=== PATIENT | female | born 1985 | race Caucasian/White ===

== ENCOUNTER 2019-12-15 16:06 | Emergency (ER) | payer BC ==
--- OUTSIDE RECORDS SUMMARY | 2019-12-15 16:40 | XMS REPORT | Continuity of Care Document ---
:1985 Author Organization [facility] t Address [address] [place] [address] Care Team Providers Name Role Phone Dinora HELLEN Attending Clinician Problems Condition Condition Condition Status Onset Resolution Last Treating Co mments Source Name Details Category Date Date Treatment Clinician Date Polycystic Polycystic Problem Active [facility] ovarian ovarian [facility] syndrome syndrome [facility] Allergic Allergic Problem [facility]initis [facility] Iron Iron Problem Active [facility] deficiency deficiency Flavia kes - anemia, anemia, Memoria unspecifie unspecifie l d iron d iron Outpati deficiency deficiency en t anemia anemia Clinics type type Controlled Controlled Problem Active [facility] type 2 type 2 [facility] - diabetes diabetes Memori a mellitus mellitus l without without Outpati complicati complicati en t on, on, Clinics without without long-term long-term current current use of use of insulin insulin HTN HTN Problem Active [facility] (hypertens (hypertens Flavia kes - ion), ion), Memoria benign benign l Outpati ent Clinics Microalbum Microalbum Problem Active [facility] inuria inuria [facility] Dysmenorrh Dysmenorrh Problem Active [facility] ea ea [facility] Other Other Problem Active [facility] specified specified Luke s - bacterial bacterial Placido armand agents as agents as l the cause the cause Outp ati of of ent diseases diseases Clinic s classified classified elsewhere elsewhere Pelvic Pelvic Problem Active [facility] pain pain [facility] Acute Acute Problem Active [facility] vaginitis vaginitis Luke [facility] - Memoria l [facility] Venous Venous Problem Active [facility] insufficie insufficie Flavia kes - ncy of ncy of Memoria both lower both lower l extremitie extremitie Ou tpati s s ent Clinics Dry eyes, Dry eyes, Problem Active [facility] bilateral bilateral [facility] s - Memoria l [facility] Subclinica Subclinica Problem Active [facility] l l [facility] - hypothyroi hypothyroi Me moria dism dism l [facility]ics Mixed Mixed Problem Active [facility] hyperlipid hyperlipid Flavia kes - emia emia Memoria l [facility] Depression Depression Problem Active [facility] with with [facility] - anxiety anxiety Memoria l [facility] Daytime Daytime Problem Active [facility] somnolence somnolence Flavia kes - Memoria l [facility] Leukocytos Leukocytos Diagnosis Active [facility] is, is, [facility] - unspecifie unspecifie Me moria d type d type l [facility] ent Clinics Obstructiv Obstructiv Problem Active [facility] e sleep e sleep [facility] - apnea apnea Memoria (adult) (adult) l (pediatric (pediatric Ou tpati ) ) ent Clinics Well adult Well adult Diagnosis Active [facility] on routine on routine [facility] check check l [facility] Morbid Morbid Diagnosis Active [facility] (severe) (severe) [facility] - obesity obesity Memoria due to due to l excess excess [facility] calories calories ent Clinics Body mass Body mass Diagnosis Active [facility] index index [facility] - (BMI) (BMI) Memoria 40.0-44.9, 40.0-44.9, l adult adult [facility] Dependence Dependence Diagnosis Active [facility] on other on other [facility] - enabling enabling Memori a machines machines l and and [facility] devices devices ent Clinics CRP CRP Diagnosis Active [facility] elevated elevated [facility] ent Clinics Fatigue, Fatigue, Diagnosis Active [facility] unspecifie unspecifie Flavia kes - d type d type Memoria l [facility] ent Clinics Multiple Multiple Diagnosis Active [facility] joint pain joint pain Flavia kes - Memoria l [facility] ent Clinics Allergies, Adverse Reactions, Alerts Allergy Allergy Status Severity Reaction(s) Onset Inactive Treating Comm ents Source Name Type Date Date Clinician Keflex Adverse Active Info Not [facility] Reaction [facility] Azithrom Adverse Active Info Not [facility] ycin Reaction Available [facility] Amoxicil Adverse Active Info Not [facility] jamison Reaction Available [facility] Bactrim Adverse Active Info Not [facility] Reaction Available [facility] Medications Ordered Filled Start Stop Current Ordering Indication Dosage Frequency Signature Comments Components Source Medication Medication Date Date Medication? Clinician (SIG) Name Name Losartan Losartan Yes Michael [address] Potassium Potassium [place] [facility] - Memoria l [facility] ent Clinics Hydrochloro Hydrochloro Yes Michael [address] [facility] thiazide thiazide [place] in the Luke s - morning [facility] ent Clinics Losartan Losartan Yes Michael TAKE ONE [facility] Potassium-H Potassium-H [place] TABLET BY [facility]ukes - CTZ CTZ MOUTH Memoria DAILY l [facility] ent Clinics Seasonique Seasonique Yes Michael not [facility] [place] defined [facility] - [facility] l [facility] ent Clinics Singulair Singulair Yes Michael [address] [facility] [place] [facility] - [facility] l [facility] ent Clinics Restasis Restasis Yes Michael [address] [facility] [place] into [facility]ukes - affected Memoria eye l [facility] ent Clinics Azelastine Azelastine Yes Michael 1-[address] HCl HCl [place] in each [facility]ukes - nostril Memoria l [facility] ent [facility] Zoloft Zoloft Yes Michael TAKE ONE [facility] [place] TABLET BY [facility]ukes - MOUTH Memoria DAILY l [facility] ent Clinics Zoloft Zoloft Yes Michael 1 tablet [facility] [place] [facility] l [facility] ent Clinics Janumejunume Yes Michael [address] [facility] [place] with meals [facility] - Mem[facility] l [facility] ent Clinics Apri Apri Yes Michael [address] [facility] [place] [facility] ent Clinics Xyzal Xyzal Yes Michael [address] [facility] [place] in the Lukes - evening Memoria l [facility] ent Clinics Procedures This patient has no known procedures. Encounters Start End Encounter Admission Attending Care Care Encounter Source Date/Time Date/Time Type Type Clinicians Facility Department ID 2019-10-24 2019-10-24 [facility] [id number] [facility] 09:30:00 09:30:00 t [place] [employer] s - Drive [facility] Medicine Medicine Outpati ent Clinics 2019-10-14 2019-10-14 [facility] [id number] [facility] 08:00:00 08:00:00 t [place] [employer] - Firm58 [facility] Medicine Outpati ent Clinics 2019-08-03 2019-08-04 [facility] [id number] 19:40:04 21:50:00 [facility] [id number] Surgical [id number] Specialti [id number] es [address] [place] 2019-07-21 2019-07-21 [facility] [id number] [facility] 08:21:00 08:21:00 t [employer] - Firm58 [facility] Medicine Outpati ent Clinics 2019-07-18 2019-07-18 [facility] [id number] [address] 15:29:00 15:29:00 t [place] [employer] [facility] Medicine Outpati ent Clinics 2019-07-18 2019-07-18 [facility] [id number] [address] 10:15:00 10:15:00 t [place] [employer] - Firm58 [facility] l Medicine Outpati ent Clinics 2019-07-14 2019-07-14 [facility] [id number] [address] 08:43:00 08:43:00 t [place] [employer] - Firm58 [facility] Medicine Medicine Outpati ent Clinics 2019-06-13 2019-06-13 [facility] [id number] [address] 11:05:00 11:05:00 t [place] [employer] - Firm58 [facility] Medicine Outpati ent Clinics 2019-06-10 2019-06-10 [facility] [id number] 14:15:00 14:15:00 t [place] [employer] s - Drive [facility] l Medicine Outpati ent Clinics 2019-05-29 2019-05-29 [facility] [id number] 15:08:00 15:08:[address] Luke s - Drive [facility] Medicine Medicine Outpati ent Clinics 2019-05-16 2019-05-16 [facility] [id number] 09:45:00 09:45:[address] Luke s - Drive [facility] l Medicine Outpati ent Clinics 2019-04-25 2019-04-25 [facility] [id number] [facility] 11:51:00 11:51:[address] Luke s - Drive [facility] Medicine Medicine Outpati ent Clinics 2019-04-18 2019-04-18 [facility] [id number] 09:15:00 09:15:[address] Luke s - Drive [facility] Medicine Outpati ent Clinics 2019-01-29 2019-01-29 [facility] [id number] 12:53:00 12:53:00 t [employer] Luke s - Drive [facility] Medicine Outpati ent Clinics 2019-01-13 2019-01-13 [facility] [id number] 10[facility]33:00 10:33:00 t [employer]58 Luke s - Drive [facility] Medicine Outpati ent Clinics 2019-01-10 2019-01-10 [facility] [id number] 08[facility]45:00 08:45:00 t [employer] Luke s - Drive [facility] Medicine Outpati ent Clinics 2018-10-21 2018-10-21 [facility] [id number] 15:00:00 15:00:[address] Luke s - Drive [facility] Medicine Outpati ent Clinics 2018-10-10 2018-10-10 [facility] [id number] 16:34:00 16:34:[address] Luke s - Drive [facility] l Medicine Outpati ent Clinics 2018-10-02 2018-10-02 [facility] [id number] 14:15:00 14:15:[address] Luke s - Drive [facility] Medicine Outpati ent Clinics 2018-08-30 2018-08-30 [facility] [id number] 09:45:00 09:45:00 t [facility] l Outpati ent Clinics 2018-07-05 2018-07-05 [facility] [id number] [address] 11:00:00 11:00:00 t [place] Lincoln [employer] s - Drive [facility] Medicine l Medicine Outpati ent Clinics 2018-04-11 2018-04-11 [facility] [id number] 11:18:00 11:18:00 t [place] [employer] s - Drive [facility] Medicine l Medicine Outpati ent Clinics 2018-04-05 2018-04-05 [facility] [id number] 08:00:00 08:00:00 t [place] [employer] s - Drive [facility] l Medicine Outpati ent Clinics 2018-04-03 2018-04-03 [facility] [id number] 10:40:00 10:40:00 t [place] [employer] s - Drive [facility] Medicine Outpati ent Clinics 2018-03-08 2018-03-08 [facility] [id number] 10:00:00 10:00:00 t [place] [employer] s - Drive [facility] Medicine Outpati ent Clinics 2018-02-07 2018-02-07 [facility] [id number] 13:59:00 13:59:00 t [facility] l Outpati ent Clinics 2018-01-25 2018-01-25 [facility] [id number] [address] 11:00:00 11:00:00 t [place] [employer] s - Drive [facility] l Medicine Outpati ent Clinics 2018-01-14 2018-01-14 [facility] [id number] 15:55:00 15:55:00 t [place] [employer] s - Drive [facility] l Medicine Outpati ent Clinics 2018-01-11 2018-01-11 [facility] [id number] 11:00:00 11:00:00 t [facility] [place] [facility] l Outpati ent Clinics 2018-01-07 2018-01-07 [facility] [id number] 15:33:00 15:33:00 [facility] 2018-01-04 2018-01-04 [facility] [id number] 16:08:00 16:08:[address] Luke s - Drive [facility] Medicine Outpati ent Clinics 2018-01-03 2018-01-03 [facility] [id number] 08:15:00 08:15:[address] Luke s - Drive [facility] Medicine Outpati ent Clinics 2017-09-19 2017-09-19 [facility] [id number] 08:30:00 08:30:00 t [place] [employer] s - Drive [facility] Medicine Outpati ent Clinics 2017-09-14 2017-09-14 [facility] [id number] 11:44:00 11:44:00 t [place] [employer] Luke s - Drive [facility] Medicine Outpati ent Clinics 2017-09-11 2017-09-11 [facility] [id number] 14:15:00 14:15:00 t [place] [employer] s - Drive [facility] Medicine Outpati ent Clinics Results This patient has no known results.
--- OUTSIDE RECORDS SUMMARY | 2019-12-15 16:40 | XMS REPORT ---
:1985 Author Organization [employer] Care Team Providers Name Role Phone Michael Huston Provider Role Unavailable Allergies No Known Allergies Problems Problem Type Condition Code Onset Dates Condition Statu s Problem Acute vaginitis N76.0 Active Problem Dysmenorrhea N94.6 Active Problem Other specified bacterial agents as B96.89 Active the cause of diseases classified elsewhere Problem Leukocytosis, unspecified type D72.829 Active Problem Depression with anxiety F41.8 Acti ve Problem Daytime somnolence R40.0 Active Problem Dry eyes, bilateral H04.123 Active Problem Venous insufficiency of both lower I87.2 Active extremities Problem Mixed hyperlipidemia E78.2 Active Problem Subclinical hypothyroidism E03.9 A ctive Problem HTN (hypertension), benign I10 A ctive Problem Polycystic ovarian syndrome E28.2 Active Problem Allergic rhinitis J30.9 Active Problem Controlled type 2 diabetes mellitus E11.9 Active without complication, without long-term current use of insulin Problem Microalbuminuria R80.9 Active Problem Iron deficiency anemia, unspecified D50.9 Active iron deficiency anemia type Problem Pelvic pain R10.2 Active Medications No Known Medications Results No Known Results Summary Purpose [employer] Submission
--- OUTSIDE RECORDS SUMMARY | 2019-12-15 16:41 | XMS REPORT ---
:1985 Author Organization [employer] Care Team Providers Name Role Phone Ethan Hustonh Provider Role Unavailable Allergies, Adverse Reactions, Alerts Substance Reaction Event Type Keflex Info Not Available Drug Allergy Bactrim Info Not Available Drug Allergy Azithromycin Info Not Available Drug Allergy Amoxicillin Info Not Available Drug Allergy Problems Problem Type Condition Code Onset Dates Condition Statu s Assessment Allergic rhinitis J30.9 Active Assessment Dry eyes, bilateral H04.123 Active Assessment Microalbuminuria R80.9 Active Assessment Iron deficiency anemia, unspecified D50.9 Active iron deficiency anemia type Assessment Obstructive sleep apnea (adult) G47.33 Active (pediatric) Assessment Mixed hyperlipidemia E78.2 Active Assessment Subclinical hypothyroidism E03.9 A ctive Assessment Controlled type 2 diabetes mellitus E11.9 Active without complication, without long-term current use of insulin Assessment HTN (hypertension), benign I10 A ctive Problem Venous insufficiency of both lower I87.2 Active extremities Assessment Depression with anxiety F41.8 Acti ve Problem Dry eyes, bilateral H04.123 Active Assessment Well adult on routine health check Z00.00 Active Problem Subclinical hypothyroidism E03.9 A ctive Problem Depression with anxiety F41.8 Acti ve Problem Mixed hyperlipidemia E78.2 Active Problem Morbid (severe) obesity due to E66.01 Active excess calories Problem Body mass index (BMI) 40.0-44.9, Z68.41 Active adult Problem HTN (hypertension), benign I10 A ctive Problem Controlled type 2 diabetes mellitus E11.9 Active without complication, without long-term current use of insulin Assessment Body mass index (BMI) 40.0-44.9, Z68.41 Active adult Problem Obstructive sleep apnea (adult) G47.33 Active (pediatric) Problem Leukocytosis, unspecified type D72.829 Active Problem Daytime somnolence R40.0 Active Problem Dependence on other enabling Z99.89 Active machines and devices Problem CRP elevated R79.82 Active Assessment Fatigue, unspecified type R53.83 Ac tive Problem Allergic rhinitis J30.9 Active Assessment Leukocytosis, unspecified type D72.829 Active Problem Microalbuminuria R80.9 Active Assessment CRP elevated R79.82 Active Problem Iron deficiency anemia, unspecified D50.9 Active iron deficiency anemia type Assessment Dependence on other enabling Z99.89 Active machines and devices Problem Polycystic ovarian syndrome E28.2 Active Assessment Morbid (severe) obesity due to E66.01 Active excess calories Problem Pelvic pain R10.2 Active Assessment Multiple joint pain M25.50 Active Problem Other specified bacterial agents as B96.89 Active the cause of diseases classified elsewhere Problem Dysmenorrhea N94.6 Active Problem Acute vaginitis N76.0 Active Medications Medication Code Code Instructions Start End Status Dosage System Date Date Losartan Potassium [facility] 92667721429 50 MG Orally Acti ve 1 tablet Once a day Hydrochlorothiazide [facility] 22527043889 12.5 MG Orally A ctive 1 tablet Once a day in the morning Losartan [facility] 04272119987 50-12.5 MG Active TAKE ONE Potassium-HCTZ TABLET BY MOUTH DAILY Seasonique [facility] [address]-70 Active not defined Singulair [facility] 29559343262 10 MG Orally Active 1 tab let once a day Restasis [facility] 43002270366 0.05 % Active 1 drop Ophthalmic into Twice a day affected eye Azelastine HCl [facility] 67081282789 137 MCG/SPRAY Active 1-2 puff Nasally Twice in each a day nostril Zoloft [facility] 71832076224 100 MG Active TAKE ONE TABLET BY MOUTH DAILY Zoloft [facility] 41767526452 50 MG Orally Active 1 table t Once a day Janumet [facility] 32693997610 50-500 MG Active TAKE ONE TABLET BY MOUTH TWICE A DAY WITH MEALS Janumet [facility] 37762406305 50-500 MG Active 1 tablet Orally Twice a with day meals Apri [facility] 46792312445 0.15-30 MG-MCG Active 1 tab let Orally Once a day Xyzal [facility] 72043738663 5 MG Orally Active 1 tablet Once a day in the evening Results No Known Results Summary Purpose [employer]Works Submission
[2019-12-15 18:20] LABS: Absolute Lymphocytes (CBC) 2.4 K/uL (0.7-4.9); Basophils % 0.3 % (0-1.3); Lymphocytes % 13.8 % (15.3-44.8); MPV 7.7 fL (7.6-11.3); RBC Red Blood Cell Count 5.02 M/uL (3.86-4.86)
[2019-12-15] MEDS ORDERED: NA CHLORIDE 0.9% 1,000 ML ONE (18:41)
[2019-12-15 18:44] LABS: Urine Bacteria 20-50 /HPF (<20); Urine Culture Reflex Order REFLEXED; Urine Mucus 1+ /HPF (NONE SEEN)
[2019-12-15 18:45] LABS: Urine Blood TRACE (NEG); Urine Glucose 2+ (NEG); Urine Protein TRACE (NEG); Urine Specific Gravity >1.030 (1.005-1.030); Urine pH 6.5 (5.0-7.0)
[2019-12-15 18:52] LABS: Barbiturates NEGATIVE (NEGATIVE); Benzodiazepines NEGATIVE (NEGATIVE); Cocaine NEGATIVE (NEGATIVE); METHAMPHETAM NEGATIVE (NEGATIVE); Methadone NEGATIVE (NEGATIVE); Opiates NEGATIVE (NEGATIVE); Phencyclidine NEGATIVE (NEGATIVE); THC Cannibis NEGATIVE (NEGATIVE)
--- NOTE | 2019-12-15 18:57 | RAD REPORT ---
EXAM DESCRIPTION: RAD - Chest Pa And Lat (2 Views) - 12/15/2019 6:52 pm CLINICAL HISTORY: night sweats Chest pain. COMPARISON: CHEST PA AND LAT 2 VIEW dated 11/08/2010 FINDINGS: The lungs are clear. The heart is normal in size. No displaced fractures. IMPRESSION: No acute or concerning finding suspected.
[2019-12-15] MEDS ORDERED: NITROFURAN MACRO 100 MG CAP PO ONE (19:05)
[2019-12-15 19:43] LABS: ALT/SGPT 30 U/L (12-78); AST/SGOT 15 U/L (15-37); Albumin 3.7 g/dL (3.4-5.0); Alkaline Phosphatase 79 U/L (45-117); BUN Blood Urea Nitrogen 13 mg/dL (7-18); Bicarbonate 27 mmol/L (21-32); Bilirubin Direct < 0.1 mg/dL (0-0.2); Bilirubin Total 0.4 mg/dL (0.2-1.0); Glucose Level 124 mg/dL (74-106); Potassium 4.1 mmol/L (3.5-5.1); Protein, Total 7.6 g/dL (6.4-8.2); Sodium Level 137 mmol/L (136-145)
--- NOTE | 2019-12-15 21:44 | ER ---
Nurse's Notes [facility] Name: Nguyen Heath Age: 34 yrs Sex: Female : 1985 Arrival Date: 12/15/2019 Time: 16:07 Bed 18 Private MD: Michael Huston Diagnosis: Urinary tract infection, site not specified;Emotional lability;Depression;Leukocytosis Presentation: 12/14 16:37 Chief complaint: Patient states: "I was having suicidal thoughts since 1529 today.. I ca1 just thought I would just drive my car off the bridge". Denies previous attempts of suicide. "I have thoughts of suicide when I was younger but they put me on meds, right now am still on meds. The thoughts just scared me that I called my friend who is nurse". Coronavirus screen: Proceed with normal triage. Patient denies a cough. Patient denies shortness of breath or difficulty breathing. Patient denies measured and/or subjective temperature greater than 100.4F prior to today's visit. Patient denies travel on a cruise ship or to a country the [facility] currently lists as an affected area. Patient denies contact with known and/or suspected case of COVID-19. Ebola Screen: Patient negative for fever greater than or equal to 101.5 degrees Fahrenheit, and additional compatible Ebola Virus Disease symptoms Patient denies exposure to infectious person. Patient denies travel to an Ebola-affected area in the 21 days before illness onset. No symptoms or risks identified at this time. Initial Sepsis Screen: Does the patient meet any 2 criteria? No. Patient's initial sepsis screen is negative. Does the patient have a suspected source of infection? No. Patient's initial sepsis screen is negative. Risk Assessment: Do you want to hurt yourself or someone else? Patient reports desire/thoughts of hurting themselves or someone else. Provider notified. Onset of symptoms was December 15, 2019 at 15:30. 16:37 Method Of Arrival: Ambulatory ca1 16:37 Acuity: TITO 2 ca1 SOLE LAYER HAND: 16:45 LMP N/A - control method ca1 Historical: - Allergies: 16:45 Bactrim; ca1 16:45 Azithromycin; ca1 16:45 Keflex; ca1 16:45 Amoxicillin; ca1 - Home Meds: 16:45 sertraline 100 mg oral tab 1 tab once daily [Active]; primidone Oral [Active]; ca1 losartan-hydrochlorothiazide 50-12.5 mg oral tab [Active]; Janumet 50-500 mg oral tab [Active]; montelukast oral oral [Active]; - PMHx: 16:45 Anxiety; Depression; Hypertension; ca1 - PSHx: 16:45 None; ca1 - Immunization history:: Adult Immunizations up to date. - Social history:: Smoking status: Patient denies any tobacco usage or history of. Screenin:21 Nutritional screening: No deficits noted. Tuberculosis screening: No symptoms or risk ea factors identified. Fall Risk None identified. 19:30 Abuse screen: Denies threats or abuse. ea Assessment: 19:22 General: Appears in no apparent distress. Behavior is appropriate for age. Pain: Denies ea pain. Neuro: Level of Consciousness is awake, alert, obeys commands, Oriented to person, place, time, situation. Respiratory: Airway is patent Respiratory effort is even, unlabored, Respiratory pattern is regular, symmetrical. Derm: Skin is pink, warm \\T\\ dry. 20:30 Reassessment: Patient and/or family updated on plan of care and expected duration. Pain ea level reassessed. Patient is alert, oriented x 3, equal unlabored respirations, skin warm/dry/pink. 22:09 Reassessment: Patient and/or family updated on plan of care and expected duration. Pain ea level reassessed. Patient is alert, oriented x 3, equal unlabored respirations, skin warm/dry/pink. Discharge instruction given to patient, verbalized the understanding of instruction. Pt left ED ambulatory accompanied by family. Psych: 19:00 Subjective: Patient's mood is sad. Objective: Patient is cooperative, Speech is normal. ea Interventions: Removed personal items and placed in bag. Patient placed in hospital gown. Searched person for dangerous items. Suicide Risk Assessment: Sad Person Scale: Sex of patient: Female: Score 0 points. Age of patient: Score 1 point if patient 15-34. Depression: Score 1 point if signs of depression are present. Rational Thinking: Score 0 point if patient has rational thinking. Social Support: Score 0 if social support is present/available. Safety Checks: Personal items have been removed. Door is open. Visitors are present. Vital Signs: 16:37 BP 138 / 90; Pulse 93; Resp 15 S; Temp 97.6(TE); Pulse Ox 99% on R/A; Weight 106.14 kg ca1 (R); Height 5 ft. 2 in. (157.48 cm) (R); 21:55 BP 128 / 82; Pulse 88; Resp 16; Temp 97.8; Pulse Ox 99% ; ea 16:37 Body Mass Index 42.80 (106.14 kg, 157.48 cm) ca1 ED Course: 16:07 Patient arrived in ED. ag5 16:08 Michael Huston DO is Private Physician. ag5 16:41 Triage completed. ca1 16:45 Sang[facility] Montanez [facility]-C [facility]. snw 16:45 Pat Martin MD is Attending Physician. snw 16:45 Arm band placed on right wrist. ca1 16:53 Martínez Kelsey RN is Primary Nurse. jl7 18:52 Chest Pa And Lat (2 Views) XRAY In Process Unspecified. EDMS 19:21 Patient has correct armband on for positive identification. Placed in gown. Bed in low ea position. Call light in reach. Adult w/ patient. 19:47 called [facility] spoke with Kylie to have a screener evaluate patient. mw2 21:42 Michael Huston DO is Referral Physician. snw 21:49 No provider procedures requiring assistance completed. ea 22:00 IV discontinued, intact, bleeding controlled, No redness/swelling at site. Pressure ea dressing applied. Administered Medications: 18:30 Drug: NS 0.9% 1000 ml Route: IV; Rate: 1 bolus; Site: right antecubital; jl7 20:00 Follow up: Response: No adverse reaction; IV Status: Completed infusion; IV Intake: ea 1000ml 18:59 Drug: Macrobid 100 mg Route: PO; jl7 19:30 Follow up: Response: No adverse reaction ea Intake: 20:00 IV: 1000ml; Total: 1000ml. ea Outcome: 21:43 Discharge ordered by . snw 22:10 Discharged to home ambulatory, with family. ea 22:10 Condition: stable 22:10 Discharge instructions given to patient, Instructed on discharge instructions, follow up and referral plans. medication usage, Demonstrated understanding of instructions, follow-up care, medications, Prescriptions given X 1. 22:10 Patient left the ED. ea Signatures: Dispatcher [employer] EDMS Sangita Montanez, LOCK MAINTENANCE SUPERVISOR-C LOCK MAINTENANCE SUPERVISOR-Csnw Martínez Kelsey RN RN jl7 Kierra England RN RN Ania Blandon mw2 Jessie Granado RN RN ca1 Jada, Geoff ag5
--- NOTE | 2019-12-15 21:44 | EDPHYS ---
Physician Documentation [facility] Name: Nguyen Heath Age: 34 yrs Sex: Female : 1985 Arrival Date: 12/15/2019 Time: 16:07 Bed 18 Private MD: Robel [facility] ED Physician Pat Martin HPI: 12/14 18:50 This 34 yrs old Female presents to ER via Ambulatory with complaints of snw Suicidal Ideation. 18:50 The patient presents to the emergency department with suicide ideation, and the patient snw has a plan, to crash a car. Onset: The symptoms/episode began/occurred suddenly, at 15:30, and became persistent. Past psychiatric history: Prior diagnosis: depression, Psychiatric medications include: Zoloft, Primary psychiatric physician: Dr. Huston is PCP and prescribing MD, no psychiatrist, the patient has not had a prior suicide gesture, the patient does not have a previous inpatient psychiatric history. Associated signs and symptoms: Pertinent positives; depression, suicide ideation. Severity of symptoms: At their worst the symptoms were moderate today. The patient has not experienced similar symptoms in the past. The patient has been recently seen by a physician: the patient's primary care provider, Dr. Mendosa. [facility] DIRECTOR: 16:45 LMP N/A - control method ca1 Historical: - Allergies: 16:45 Bactrim; ca1 16:45 Azithromycin; ca1 16:45 Keflex; ca1 16:45 Amoxicillin; ca1 - Home Meds: 16:45 sertraline 100 mg oral tab 1 tab once daily [Active]; primidone Oral [Active]; ca1 losartan-hydrochlorothiazide 50-12.5 mg oral tab [Active]; Janumet 50-500 mg oral tab [Active]; montelukast oral oral [Active]; - PMHx: 16:45 Anxiety; Depression; Hypertension; ca1 - PSHx: 16:45 None; ca1 - Immunization history:: Adult Immunizations up to date. - Social history:: Smoking status: Patient denies any tobacco usage or history of. ROS: 18:59 Constitutional: Negative for fever, chills, and weight loss, Eyes: Negative for injury, snw pain, redness, and discharge, ENT: Negative for injury, pain, and discharge, Neck: Negative for injury, pain, and swelling, Cardiovascular: Negative for chest pain, palpitations, and edema, Respiratory: Negative for shortness of breath, cough, wheezing, and pleuritic chest pain, Abdomen/GI: Negative for abdominal pain, nausea, vomiting, diarrhea, and constipation, Back: Negative for injury and pain, : Negative for injury, bleeding, discharge, and swelling, MS/Extremity: Negative for injury and deformity, Skin: Negative for injury, rash, and discoloration, Neuro: Negative for headache, weakness, numbness, tingling, and seizure. 18:59 Psych: Positive for depression, suicidal ideation. Exam: 18:29 Constitutional: This is a well developed, well nourished patient who is awake, alert, snw and in no acute distress. Head/Face: Normocephalic, atraumatic. Eyes: Pupils equal round and reactive to light, extra-ocular motions intact. Lids and lashes normal. Conjunctiva and sclera are non-icteric and not injected. Cornea within normal limits. Periorbital areas with no swelling, redness, or edema. ENT: Nares patent. No nasal discharge, no septal abnormalities noted. Tympanic membranes are normal and external auditory canals are clear. Oropharynx with no redness, swelling, or masses, exudates, or evidence of obstruction, uvula midline. Mucous membranes moist. Neck: Trachea midline, no thyromegaly or masses palpated, and no cervical lymphadenopathy. Supple, full range of motion without nuchal rigidity, or vertebral point tenderness. No Meningismus. Chest/axilla: Normal chest wall appearance and motion. Nontender with no deformity. No lesions are appreciated. Cardiovascular: Regular rate and rhythm with a normal S1 and S2. No gallops, murmurs, or rubs. Normal PMI, no JVD. No pulse deficits. Respiratory: Lungs have equal breath sounds bilaterally, clear to auscultation and percussion. No rales, rhonchi or wheezes noted. No increased work of breathing, no retractions or nasal flaring. Abdomen/GI: Soft, non-tender, with normal bowel sounds. No distension or tympany. No guarding or rebound. No evidence of tenderness throughout. Back: No spinal tenderness. No costovertebral tenderness. Full range of motion. Skin: Warm, dry with normal turgor. Normal color with no rashes, no lesions, and no evidence of cellulitis. MS/ Extremity: Pulses equal, no cyanosis. Neurovascular intact. Full, normal range of motion. Neuro: Awake and alert, GCS 15, oriented to person, place, time, and situation. Cranial nerves II-XII grossly intact. Motor strength 5/5 in all extremities. Sensory grossly intact. Cerebellar exam normal. Normal gait. 18:29 Psych: Behavior/mood is pleasant, cooperative, Patient having thoughts of suicide. Plan for suicide is not currently but pt states she has not had SI and it scared her and she phoned a friend and was encouraged to come in for help Judgement / Insight is normal. Vital Signs: 16:37 BP 138 / 90; Pulse 93; Resp 15 S; Temp 97.6(TE); Pulse Ox 99% on R/A; Weight 106.14 kg ca1 (R); Height 5 ft. 2 in. (157.48 cm) (R); 21:55 BP 128 / 82; Pulse 88; Resp 16; Temp 97.8; Pulse Ox 99% ; ea 16:37 Body Mass Index 42.80 (106.14 kg, 157.48 cm) ca1 MDM: 16:54 Patient medically screened. snw 21:46 Data reviewed: vital signs, nurses notes. Data interpreted: Pulse oximetry: on room air snw is 99 %. Interpretation: normal. Counseling: I had a detailed discussion with the patient and/or guardian regarding: the historical points, exam findings, and any diagnostic results supporting the discharge/admit diagnosis, the presence of at least one elevated blood pressure reading (>120/80) during this emergency department visit, lab results, radiology results, the need for outpatient follow up, to return to the emergency department if symptoms worsen or persist or if there are any questions or concerns that arise at home. Response to treatment: the patient's symptoms have markedly improved after treatment, the patient's condition has returned to base line. Other consultation: fitness worker was called and will evaluate the patient's circumstances, [facility] personnel to get appt for pt, recommends outpatient therapy. Pt has strong family support system.. Special discussion: I have referred the patient to see his PCP for further evaluation of high blood pressure. Based on the history and exam findings, there is no indication for further emergent testing or inpatient evaluation. I discussed with the patient/guardian the need to see the program control analyst/oncologist for further evaluation of the symptoms. I discussed with the patient/guardian the need to see the primary care provider for further evaluation of the symptoms. I discussed with the patient/guardian the need to see the psychiatrist for further evaluation of the symptoms. 12/14 17:17 Order name: Acetaminophen; Complete Time: 20:25 [facility] 12/14 17:17 Order name: Basic Metabolic Panel; Complete Time: 20:25 [facility] 12/14 17:17 Order name: CBC with Diff; Complete Time: 18:25 [facility] 12/14 17:17 Order name: ETOH Level; Complete Time: 19:00 [facility] 12/14 17:17 Order name: Hepatic Function; Complete Time: 20:25 [facility] 12/14 17:17 Order name: PT-INR; Complete Time: 18:43 [facility] 12/14 17:17 Order name: Ptt, Activated; Complete Time: 18:43 [facility] 12/14 17:17 Order name: Salicylate; Complete Time: 19:00 [facility] 12/14 17:17 Order name: Urine Drug Screen; Complete Time: 19:00 [facility] 12/14 18:13 Order name: Urine Dipstick--Ancillary (enter results); Complete Time: 18:49 [facility] 12/14 18:13 Order name: Urine --Ancillary (enter results); Complete Time: 18:49 [facility] 12/14 18:26 Order name: Add On-Lab [facility] 12/14 18:28 Order name: Urine Microscopic Only; Complete Time: 18:49 [facility] 12/14 18:34 Order name: Thyroid Stimulating Hormone; Complete Time: 20:25 EDMS 12/14 17:17 Order name: EKG; Complete Time: 17:19 [facility] 12/14 17:17 Order name: EKG - Nurse/Tech; Complete Time: 17:57 [facility] 12/14 17:17 Order name: IV Saline Lock; Complete Time: 17:57 [facility] 12/14 17:17 Order name: Labs collected and sent; Complete Time: 17:57 [facility] 12/14 17:17 Order name: Urine Dipstick-Ancillary (obtain specimen); Complete Time: 17:57 [facility] 12/14 18:28 Order name: Chest Pa And Lat (2 Views) XRAY; Complete Time: 19:03 snw 12/14 18:46 Order name: Urine Culture EDMS Administered Medications: 18:30 Drug: NS 0.9% 1000 ml Route: IV; Rate: 1 bolus; Site: right antecubital; jl7 20:00 Follow up: Response: No adverse reaction; IV Status: Completed infusion; IV Intake: ea 1000ml 18:59 Drug: Macrobid 100 mg Route: PO; jl7 19:30 Follow up: Response: No adverse reaction ea Disposition: 12/15/19 21:43 Discharged to Home. Impression: Urinary tract infection, site not specified, Emotional lability, Depression, Leukocytosis. - Condition is Stable. - Discharge Instructions: Urinary Tract Infection, Adult, Suicidal Feelings: How to Help Yourself, Leukocytosis, Rehydration, Adult, Major Depressive Disorder. - Prescriptions for Macrobid 100 mg Oral Capsule - take 1 capsule by ORAL route every 12 hours for 10 days; 20 capsule. - Medication Reconciliation Form, Thank You Letter, Antibiotic Education, Prescription Opioid Use, Work release form form. - Follow up: Michael Huston DO; When: 1 - 2 days; Reason: Recheck today's complaints, Continuance of care, Re-evaluation by your physician. Follow up: Emergency Department; When: As needed; Reason: Worsening of condition. - Notes: Please see Dr. Huston and [facility] as directed. Please return to ER immediately for worsening symptoms. Addendum: 12/21/2019 02:26 Co-signature as Attending Physician, Pat Martin MD. m a2 Signatures: Dispatcher [employer] EDMI Sangita Montanez, INTEGRATED CIRCUITS INSPECTOR-C INTEGRATED CIRCUITS INSPECTOR-Csnw Martínez Kelsey RN RN jl7 Kierra England RN RN ea Alzahri, Mohammad, MD MD ma2 Jessie Granado RN RN ca1 Corrections: (The following items were deleted from the chart) 12/14 21:44 21:43 12/15/2019 21:43 Discharged to Home. Impression: Urinary tract infection, site snw not specified; Emotional lability; Depression. Condition is Stable. Forms are Medication Reconciliation Form, Thank You Letter, Antibiotic Education, Prescription Opioid Use. Follow up: Michael Huston; When: 1 - 2 days; Reason: Recheck today's complaints, Continuance of care, Re-evaluation by your physician. Follow up: Emergency Department; When: As needed; Reason: Worsening of condition. francine 22:10 21:44 12/15/2019 21:43 Discharged to Home. Impression: Urinary tract infection, site ea not specified; Emotional lability; Depression; Leukocytosis. Condition is Stable. Forms are Medication Reconciliation Form, Thank You Letter, Antibiotic Education, Prescription Opioid Use. Follow up: [facility]; When: 1 - 2 days; Reason: Recheck today's complaints, Continuance of care, Re-evaluation by your physician. Follow up: Emergency Department; When: As needed; Reason: Worsening of condition. w
[2019-12-15 22:30] VITALS: O2SAT 99
[2019-12-15 22:35] VITALS: BP 128/82; TEMP 97.8
--- NOTE | 2019-12-16 10:00 | EKG ---
Test Date: 2019-12-15 Test Time: 17:20:11 Floor [place]: [place] MEASUREMENT RESULTS: Intervals: Rate: 87 CO: 154 QRSD: 86 QT: 360 QTc: 433 [place]: P: 45 CO: 154 QRS: 67 T: 12 INTERPRETIVE STATEMENTS: Normal sinus rhythm Normal ECG No previous ECG available for comparison Electronically Signed On 12-16-19 09:59:02 CDT by Luis Ceballos
== END 2019-12-15 22:10 | disposition home or self-care (01) ==
LOC: ER 16:06
DX: F32.9 Major depressive disorder, single episode, unspecified (principal); R45.86 Emotional lability; I10 Essential (primary) hypertension; Z88.1 Allergy status to other antibiotic agents
CPT/HCPCS: 93005; 87088; 85025; 87086; 80048; 36415; 80320; 80329 ×2; 81025; 85610; 80076; 80307 ×8; 85730; 84443; 71046; 96360; 99284; J7030; 81003; 81015

== ENCOUNTER 2020-07-21 17:20 | Inpatient (IN) | payer BC ==
--- OUTSIDE RECORDS SUMMARY | 2020-07-21 17:22 | XMS REPORT | Continuity of Care Document ---
:1985 Author Organization [facility] t Address [address] [place] [address] Care Team Providers Name Role Phone Lab, Fam Pob I Attending Clinician Unavailable Nurse, Urgent Attending Clinician Unavailable Anastacia BURNS, L Attending Clinician Problems This patient has no known problems. Allergies, Adverse Reactions, Alerts Allergy Allergy Status Severity Reaction(s) Onset Inactive Treating Comm ents Source Name Type Date Date Clinician Keflex Adverse Active Info Not [facility] Reaction Available [facility] Azithrom Adverse Active Info [facility] Reaction Available [facility] Amoxicil Adverse Active Info [facility] Reaction Available [facility] Bactrim Adverse Active Info Not [facility] Reaction Available [facility] Medications Ordered Filled Start Stop Current Ordering Indication Dosage Frequency Signature Comments Components Source Medication Medication Date Date Medication? Clinician (SIG) Name Name Pen Selmer Pen Selmer 2020-0 Yes Michael [address] [facility] 8-07 [place] per Flavi[place] - 00:00: injection Memoria 00 [facility] ent Clinics Procedures This patient has no known procedures. Encounters Start End Encounter Admission Attending Care Care Encounter Source Date/Time Date/Time Type Type Clinicians Facility Department ID 2020-07-20 2020-07-20 Outpatient [facility] [id number] [facility] 2020-07-19 2020-07-19 Laboratory Lab, Deepali [facility] [id number] 10:04:52 10:24:52 Only Fam [facility] [id number] [place] [id number] Professio [id number] nal [address] One 2020-07-19 2020-07-19 Outpatient [facility] [id number] [facility] 2020-07-15 2020-07-15 Outpatient [facility] [id number] [facility] 2020-07-15 2020-07-15 Out[facility] [id number] [facility] 2020-07-10 2020-07-10 Laboratory Nurse, Indu Donnelly [id number] 14:15:51 14:30:44 Only Urgent Pediatric [id number] s and [id number] Adult [id number] Primary [facility] 2020-07-02 2020-07-02 [facility] [id number] 10:06:21 10:21:21 Visit [facility] [id number] Surgical [id number] Specialti [id number] 198 [place] 2020-06-14 2020-06-14 Outpatient [facility] [id number] [facility] 2020-06-03 2020-06-03 Outpatient [facility] [id number] [facility] 2020-05-12 2020-05-12 Outpatient [facility] [id number] [facility] 2020-05-12 2020-05-12 [facility] [id number] [facility] 2020-05-05 2020-05-05 [facility] [id number] [facility] 2020-04-30 2020-04-30 [facility] [id number] [facility] 2020-01-30 2020-01-30 [facility] [id number] [facility] 13[facility]04:00 13:04:00 t [facility] Medicine Outpat[facility] ent Clinics 2020-01-30 2020-01-30 [facility] [id number] 08:30:00 08:30:00 [employer] [facility] Medicine Outpati ent Clinics 2020-01-02 2020-01-02 [facility] [id number] [facility] 08:00:00 08:00:00 t [employer] [facility] Clinics 2019-12-30 2019-12-30 [facility] [id number] [facility] 17:15:00 17:15:00 t [employer] [facility] Medicine l Medicine Outpati ent Clinics 2019-12-15 2019-12-15 [facility] [id number] [facility] 15:44:00 15:44:00 t [facility] l Medicine Outpati ent Clinics 2019-10-24 2019-10-24 [facility] [id number] [facility] 09:30:00 09:30:00 t [employer] [facility] Out[facility] Clinics 2019-10-14 2019-10-14 [facility] [id number] [facility] 08[facility]00:00 08:00:00 t [employer] [facility] Medicine Out[facility] Clinics 2019-07-21 2019-07-21 [facility] [id number] [facility] 08:21:00 08:21:[address] [facility] - [facility] l Medicine Outpati ent Clinics 2019-07-18 2019-07-18 [facility] [id number] 15:29:00 15:29:[address] [facility] - Drive [facility] Medicine l Medicine Outpati ent Clinics 2019-07-18 2019-07-18 [facility] [id number] [facility] 10:15:00 10:15:00 [place] [employer] [facility] - Drive [facility] l Medicine Outpati ent Clinics 2019-07-14 2019-07-14 [facility] [id number] 08:43:00 08:43:00 [place] [employer] - Drive [facility] Medicine l Medicine Outpati ent Clinics 2019-06-13 2019-06-13 [facility] [id number] 11:05:00 11:05:00 [place] [employer] - Drive [facility] Medicine l Medicine Outpati ent Clinics 2019-06-10 2019-06-10 [facility] [id number] 14:15:00 14:15:00 [place] [employer] - Drive [facility] Medicine l Medicine Outpati ent Clinics 2019-05-29 2019-05-29 [facility] [id number] [facility] 15:08:00 15:08:00 [place] [employer] [place] - Drive [facility] Medicine l Medicine Outpati ent Clinics 2019-05-16 2019-05-16 [facility] [id number] 09:45:00 09:45:00 [place] [employer] [facility] - Drive [facility] Medicine l Medicine Outpati ent Clinics 2019-04-25 2019-04-25 [facility] [id number] [facility] 11:51:00 11:51:00 [place] [employer] - Drive [facility] Medicine l Medicine Outpati ent Clinics 2019-04-18 2019-04-18 [facility] [id number] 09:15:00 09:15:00 [place] [employer] [place] - Drive [facility] Medicine l Medicine Outpati ent Clinics 2019-01-29 2019-01-29 [facility] [id number] 12:53:00 12:53:[address] [place] [facility] - Drive [facility] Medicine l Medicine Outpati ent Clinics 2019-01-13 2019-01-13 [facility] [id number] 10:33:00 10:33:[address] [place] - Drive [facility] Medicine Outpat[facility] ent Clinics 2019-01-10 2019-01-10 [facility] [id number] 08:45:00 08:45:00 [place] [employer] [facility] - Drive [facility] Medicine l Medicine Outpati ent Clinics 2018-10-21 2018-10-21 [facility] [id number] [facility] 15:00:00 15:00:00 [place] [employer] - Drive [facility] Medicine Outpati ent Clinics 2018-10-10 2018-10-10 [facility] [id number] 16:34:00 16:34:00 [place] [employer] [facility] - Drive [facility] Medicine l Medicine Outpati ent Clinics 2018-10-02 2018-10-02 [facility] [id number] 14:15:00 14:15:00 [place] [employer] - [place] [facility] Medicine Outpati ent Clinics 2018-08-30 2018-08-30 [facility] [id number] [facility] 09:45:00 09:45:00 [facility]omens [facility] l Outpati ent Clinics 2018-07-05 2018-07-05 [facility] [id number] [facility] 11:00:00 11:00:00 [place] [employer] [facility] - Drive [facility] Medicine Medicine Outpati ent Clinics 2018-04-11 2018-04-11 [facility] [id number] [facility] 11:18:00 11:18:00 [place] [employer] - Drive [facility] Medicine Outpat[facility] ent Clinics 2018-04-05 2018-04-05 [facility] [id number] [facility] 08:00:00 08:00:[address] [place] - Drive [facility] Medicine Medicine Outpati ent Clinics 2018-04-03 2018-04-03 [facility] [id number] 10:40:00 10:40:00 [place] [employer] [facility] - Drive [facility] Medicine Outpati ent Clinics 2018-03-08 2018-03-08 [facility] [id number] 10:00:00 10:00:00 [place] [employer] [facility] - Drive [facility] Medicine Outpati ent Clinics 2018-02-07 2018-02-07 [facility] [id number] [facility] 13:59:00 13:59:00 t [facility] 2018-01-25 2018-01-25 [facility] [id number] [facility] 11:00:00 11:00:00 [place] [employer] [facility] - Drive [facility] Medicine Outpati ent Clinics 2018-01-14 2018-01-14 [facility] [id number] [facility] 15:55:00 15:55:00 [place] [employer] [facility] - Drive [facility] Medicine Outpati ent Clinics 2018-01-11 2018-01-11 [facility] [id number] [facility] 11:00:00 11:00:00 [facility] 2018-01-07 2018-01-07 [facility] [id number] 15:33:00 15:33:00 [facility] 2018-01-04 2018-01-04 [facility] [id number] 16:08:00 16:08:[address] [facility] - [facility] Medicine Outpati ent Clinics 2018-01-03 2018-01-03 [facility] [id number] 08:15:00 08:15:00 [place] [employer] [facility] - Drive [facility] Medicine Outpati ent Clinics 2017-09-19 2017-09-19 [facility] [id number] 08:30:00 08:30:00 [employer] [facility] 2017-09-14 2017-09-14 Outpatient Rudy Grantt [id number] [facility] 11:44:00 11:44:00 [employer] [facility] 2017-09-11 2017-09-11 Outpatient Rudy Monroy [id number] 14:15:00 14:15:00 [employer] [facility] Results This patient has no known results.
--- OUTSIDE RECORDS SUMMARY | 2020-07-21 17:24 | XMS REPORT ---
:1985 Author Organization [facility] Address [address] [place], [place] [place] [address] Care Team Providers Name Role Phone Robel Unavailable [phone] PROBLEMS Type Condition ICD9-CM [id number] Onset Condition SNOMED Code Notes Code Code Dates Status Problem Dysmenorrhea N94.6 Active 608385990 Problem Microalbuminuria R80.9 Active 743157668 Problem Pelvic pain R10.2 Active 09160128 Problem Acute vaginitis N76.0 Active 408168867 Problem Venous I87.2 Active 296471181 insufficiency of both lower extremities Problem Other specified B96.89 Active 80025510 bacterial agents as the cause of diseases classified elsewhere Problem Subclinical E03.9 Active 08835589 hypothyroidism Problem HTN I10 Active 90201829 (hypertension), benign Problem Dry eyes, H04.123 Active 272745554 bilateral Problem Controlled type 2 E11.9 Active 016138882 diabetes mellitus without complication, without long-term current use of insulin Problem Leukocytosis, D72.829 Active 679173072 unspecified type Problem Daytime somnolence R40.0 Active 167305385105 Problem Dependence on Z99.89 Active 429342634 other enabling machines and devices Problem Bilateral carpal G56.03 Active 81683350 tunnel syndrome Problem Depression with F41.8 Active 984311661 anxiety Problem Polycystic ovarian E28.2 Active 22811664 syndrome Problem Non-seasonal J30.89 Active 28186115 allergic rhinitis, unspecified trigger Problem Mixed E78.2 Active 245230735 hyperlipidemia Problem Iron deficiency D50.9 Active 20733284 anemia, unspecified iron deficiency anemia type Problem Allergic rhinitis J30.9 Active 00600986 Problem Body mass index Z68.41 Active 209346888 (BMI) 40.0-44.9, adult Problem Morbid (severe) E66.01 Active 846467463 obesity due to excess calories Problem Obstructive sleep G47.33 Active 09994385 apnea (adult) (pediatric) Problem CRP elevated R79.82 Active 561981909456702 ALLERGIES Allergen (clinical drug Drug/Non Drug Reaction Allergy Type Onset D ate Status ingredient) Allergy documented on EMR cephalexin Keflex([facility] Unknown Drug Allergy Active Code:[address]-43) azithromycin Azithromycin([facility] Unknown Drug Allergy Acti ve Code:[address]-93) amoxicillin Amoxicillin([facility] Unknown Drug Allergy Active Code:[address]-42) sulfamethoxazole / Bactrim([facility] Unknown Drug Allergy Act ember trimethoprim Code:[address]-12) ENCOUNTERS from 1985 to 2020-07-20 Encounter Location Date Provider Diagnosis [facility] [address] [facility] [address] [place], [facility] [place] [address] J01.00 ; Upper respiratory tra ct infection, unspecified typ e J06.9 ; Non-sea earl allergic rhinit is, unspecified tri gger J30.89 ; COVID- 19 U07.1 and Cough R05 IMMUNIZATIONS Vaccine Route Administration Date Status Kenalog (Triamcinolone) IM Intramuscular Jun 10, 2019 Adminis tered Kenalog (Triamcinolone) IM Intramuscular Mar 08, 2018 Adminis tered Kenalog (Triamcinolone) IM Intramuscular September 11, 2017 Adminis tered SOCIAL HISTORY Tobacco Use: Social History Observation Description Date Details (start date - stop date) Never Smoker Sex Assigned At : Social History Observation Description Sex Assigned At Unknown PHQ9 Question Answer Notes Little interest or pleasure in doing things Several days Feeling down, depressed, or hopeless Several days Trouble falling or staying asleep or sleeping too much Sever al days Feeling tired or having little energy Several days Poor appetite or overeating Several days Feeling bad about yourself, or that you are a failure, or lopez ve Several days let yourself or your family down Trouble concentrating on things, such as reading the newspap er Several days or watching television Moving or speaking so slowly that other people could have No t at all noticed; or the opposite, being so fidgety or restless that you have been moving around a lot more than usual Total Score 7 Interpretation Mild Depression Thoughts that you would be better off or of hurting Not at all yourself in some way Depression Screening Question Answer Notes Over the past two weeks, has the PT felt down, depressed, or hopeless? No Over the past two weeks, has the PT felt little interest or pleasure in No doing things? Alcohol Screen Question Answer Notes Did you have a drink containing alcohol in the past year? No Points 0 Interpretation Negative Tobacco Use/Smoking Question Answer Notes Are you a never smoker Sexual History Question Answer Notes Had sex in the past 12 months (vaginal, oral, or anal)? No Have you ever had a Sexually transmitted disease? No REASON FOR REFERRAL No Information VITAL SIGNS Height 62 in Jun, Weight 235 lbs Jun, Temperature 98.7 degrees Fahrenheit Jun, BMI 42.98 kg/m2 Jun, Blood pressure systolic 132 mm Hg Jun, Blood pressure diastolic 70 mm Hg Jun, MEDICATIONS Medication SIG (Take, Route, Notes Start Date End Date Status Frequency, Duration) Seasonique Active Zoloft 100 MG 1.5 tablet Orally Acti ve Once a day for 30 day(s) Restasis 0.05 % 1 drop into affected Active eye Ophthalmic Twice a day for 30 Trazodone HCl 50 MG 1/2 tablet at A ctive bedtime as needed Orally Once a day Doxycycline Hyclate 1 capsule Orally Jun, 5 Jul, 2 Active 100 MG Twice a day for 7 days Abilify 2 MG 1 tablet Orally Once Ac tive a day Primidone 50 MG 1/2 tablet Orally A ctive Twice daiily Xyzal 5 MG 1 tablet in the Active evening Orally Once a day for 30 HydrOXYzine HCl 25 MG 1/2 tablet as needed Active Orally every 8 hrs Janumet 50-500 MG 1 tablet with meals Active Orally Twice a day for 30 Azelastine HCl 137 1-2 puff in each Active MCG/SPRAY nostril Nasally Twice a day for 30 day(s) Singulair 10 MG TAKE ONE TABLET BY A ctive MOUTH DAILY Alpha Lipoic Active Acid-Biotin Losartan 1 tablet Orally Once Acti ve Potassium-HCTZ a day for 30 50-12.5 MG Pen [place] 31G X 6 1 needle per Act ember MM injection subcutaneous once a day for 34 Integra Active Victoza 18 MG/3ML Inject 0.6 mg/day x 1 Active week then 1.2 mg/day. Max 1.8 mg/day Subcutaneous Once a day for 30 Xdiznbnn-Rlyovvrfs-JY 4 drops into affected Dec, Not-Taking 3.5-11015-4 ear Otic Three times a day for 7 days Medrol 4 MG as directed Orally Jun, Jun, A ctive use as directed for 6 days Restasis 0.05 % 1 drop into affected Active eye Ophthalmic Twice a day for 30 days Liletta (52 MG) Active Cinnamon Active Apri 0.15-30 MG-MCG 1 tablet Orally Once Active a day PROCEDURES No Information RESULTS No Results REASON FOR VISIT f/u +Covid, sx MEDICAL (GENERAL) HISTORY Type Description Date Medical History Diabetes Medical History Hypertension Medical History Anemia Medical History Iron deficiency anemia, unspecified iron deficiency anemia type Medical History Controlled type 2 diabetes mellitus with out complication, without long-term current use of insulin Medical History HTN (hypertension), benign Surgical History No Surgical history information Goals Section No Information Health Concerns No Information MEDICAL EQUIPMENT No Information MENTAL STATUS No Information FUNCTIONAL STATUS No Information ASSESSMENTS Encounter Date Diagnosis Assessment Notes Treatment Notes Treatm ent Clinical Notes Jun, Acute With the duration and non-recurrent severity of maxillary symptoms/PE, will sinusitis (ICD-10 treat with - J01.00) doxycycline for 7 days. Side effect discussed with patient. In addition, discussed supportive measures and home remedies for symptomatic relief. Increase hydration. Advised on signs/symptoms to monitor. If able to take, OK to use OTC Tylenol and/or NSAIDs for pain and fever, temporarily. It is important to rest and take your medication as recommended by the doctor. You should clean your hands frequently. You should remain indoors and cover your mouth when coughing. If necessary you may have to wear a mask to keep from infecting others. You should also change your toothbrush within 24-48 hours of starting any antibiotics. Salt water gargles three times a day is recommended for pharyngeal irritation and congestion. Nasal saline sprays three times a day to the nostrils may help with the nasal congestion. You may also take Mucinex OTC for chest congestion. If the symptoms persists or worsen after 24-48 hours especially if taking medication, then you are to call back for reevaluation or go to the ER. Jun, Upper respiratory tract infection, unspecified type (ICD-10 - J06.9) Jun, Non-seasonal allergic rhinitis, unspecified trigger (ICD-10 - J30.89) Jun, COVID-19 (ICD-10 - Instructed patient on U07.1) vitamin supplementation including but not limited to vitamin B, vitamin C, vitamin D along with zinc, Pepcid and Zyrtec. Okay to use otjy-qmv-iunsayz analgesic as needed and use as directed. Encourage to monitor pulse and oxygen, obtained from store. Monitor vitals closely. Advised on signs and symptoms to monitor when to contact clinic and/or visit the nearest ED. Patient vocalized understanding. Jun, Cough (ICD-10 - R05) Jun, Other -- Medication reviewed and updated. -- Dietary and Lifestyle modifications addressed regarding diet, exercise and weight managemen t. -- Treatment options, risks and benefits, side effects reviewed in detail. -- Advised on signs/symptoms to monitor and when to call clinic and/or visit the nearest ER. Patient verbalized understanding and agreeable with plan. PLAN OF TREATMENT Medication Medication Name Sig Start Date Stop Date Doxycycline Hyclate 100 MG 1 capsule Orally Twice a day for 2020 5 Jul, 2020 7 days Treatment Notes Assessment Notes Clinical Notes Acute non-recurrent maxillary With the duration and severity of sinusitis symptoms/PE, will treat with doxycycline for 7 days. Side effect discussed with patient. In addition, discussed supportive measures and home remedies for symptomatic relief. Increase hydration. Advised on signs/symptoms to monitor. If able to take, OK to use OTC Tylenol and/or NSAIDs for pain and fever, temporarily. It is important to rest and take your medication as recommended by the doctor. You should clean your hands frequently. You should remain indoors and cover your mouth when coughing. If necessary you may have to wear a mask to keep from infecting others. You should also change your toothbrush within 24-48 hours of starting any antibiotics. Salt water gargles three times a day is recommended for pharyngeal irritation and congestion. Nasal saline sprays three times a day to the nostrils may help with the nasal congestion. You may also take Mucinex OTC for chest congestion. If the symptoms persists or worsen after 24-48 hours especially if taking medication, then you are to call back for reevaluation or go to the ER. COVID-19 Instructed patient on vitamin supplementation including but not limited to vitamin B, vitamin C, vitamin D along with zinc, Pepcid and Zyrtec. Okay to use yxtk-bvp-seeenpf analgesic as needed and use as directed. Encourage to monitor pulse and oxygen, obtained from store. Monitor vitals closely. Advised on signs and symptoms to monitor when to contact clinic and/or visit the nearest ED. Patient vocalized understanding. Treatment Notes Test Name Order Date Chest Pa And Lat (2 Views) 2020-07-20 Next Appt Details prn Reason: Provider Name:Michael Huston, 2020-07-30 08:00:00 AM, [address], [address], [place], [address], Provider Name:Michael Huston, 2020-08-06 08:00:00 AM, [address], [place], [address], Insurance Providers Payer Name Payer Address Payer Insured Patient Coverage Cover age End Phone Name Relationship to Start Date Mason e Insured Daniel Maloney [address] [phone] Issac Heath [facility] [address] [id number]
--- OUTSIDE RECORDS SUMMARY | 2020-07-21 17:24 | XMS REPORT ---
:1985 Author Organization [facility] Address [address] Rao, [address] [place] [address] Care Team Providers Name Role Phone Robel Unavailable [phone] PROBLEMS Type Condition ICD9-CM HJW04-SI Onset Condition SNOMED Code Notes Code Code Dates Status Problem Dysmenorrhea N94.6 Active 639919809 Problem Microalbuminuria R80.9 Active 823528034 Problem Pelvic pain R10.2 Active 95370380 Problem Acute vaginitis N76.0 Active 249585683 Problem Venous I87.2 Active 519577712 insufficiency of both lower extremities Problem Other specified B96.89 Active 98510283 bacterial agents as the cause of diseases classified elsewhere Problem Subclinical E03.9 Active 66443955 hypothyroidism Problem HTN I10 Active 01912839 (hypertension), benign Problem Dry eyes, H04.123 Active 155234001 bilateral Problem Controlled type 2 E11.9 Active 047127710 diabetes mellitus without complication, without long-term current use of insulin Problem Leukocytosis, D72.829 Active 106284277 unspecified type Problem Daytime somnolence R40.0 Active 226270182198 Problem Dependence on Z99.89 Active 202708354 other enabling machines and devices Problem Bilateral carpal G56.03 Active 80959413 tunnel syndrome Problem Depression with F41.8 Active 107065786 anxiety Problem Polycystic ovarian E28.2 Active 47765460 syndrome Problem Non-seasonal J30.89 Active 31865280 allergic rhinitis, unspecified trigger Problem Mixed E78.2 Active 815662189 hyperlipidemia Problem Iron deficiency D50.9 Active 55553861 anemia, unspecified iron deficiency anemia type Problem Allergic rhinitis J30.9 Active 71977648 Problem Body mass index Z68.41 Active 713170886 (BMI) 40.0-44.9, adult Problem Morbid (severe) E66.01 Active 412981792 obesity due to excess calories Problem Obstructive sleep G47.33 Active 07528099 apnea (adult) (pediatric) Problem CRP elevated R79.82 Active 486875802619625 ALLERGIES Allergen (clinical drug Drug/Non Drug Reaction Allergy Type Onset D ate Status ingredient) Allergy documented on EMR cephalexin Keflex([facility] Unknown Drug Allergy Active Code:[address]-26) azithromycin Azithromycin([facility] Unknown Drug Allergy Acti ve Code:[address]-07) amoxicillin Amoxicillin([facility] Unknown Drug Allergy Active Code:[address]-60) sulfamethoxazole / Bactrim([facility] Unknown Drug Allergy Act ember trimethoprim Code:[address]-95) ENCOUNTERS from 1985 to 2020-07-20 Encounter Location Date Provider Diagnosis [address], [place] [address] IMMUNIZATIONS Vaccine Route Administration Date Status Kenalog [...] REASON FOR REFERRAL No Information VITAL SIGNS No information MEDICATIONS Medication SIG (Take, Route, Notes Start [...] Hyclate 1 capsule Orally Jun, 5 Jul, Active 100 MG Twice a day for 7 days Abilify 2 MG 1 tablet Orally Once Ac tive a day Primidone 50 MG 1/2 tablet Orally A ctive Twice daiily Xyzal 5 MG 1 tablet in the Active evening Orally Once a day for 30 HydrOXYzine HCl 25 MG 1/2 tablet as needed Active Orally every 8 hrs Junumet 50-500 MG 1 tablet with meals Active Orally Twice a day for 30 Azelastine HCl 137 1-2 puff in each Active MCG/SPRAY nostril Nasally Twice a day for 30 day(s) Singulair 10 MG TAKE ONE TABLET BY A ctive MOUTH DAILY Alpha Lipoic Active Acid-Biotin Losartan 1 tablet Orally Once Acti ve Potassium-HCTZ a day for 30 50-12.5 MG Pen [place] 31G X 6 1 needle per Act ember MM injection subcutaneous once a day for 34 Integra Active Victoza 18 MG/3ML Inject 0.6 mg/day x 1 Active week then 1.2 mg/day. Max 1.8 mg/day Subcutaneous Once a day for 30 Mnfhudgv-Lqqyyoikz-QS 4 drops into affected Dec, Not-Taking 3.5-02548-4 ear Otic Three times a day for [...] Information RESULTS No Results REASON FOR VISIT SIck MEDICAL (GENERAL) HISTORY Type Description Date Medical [...] No Information FUNCTIONAL STATUS No Information ASSESSMENTS No Information PLAN OF TREATMENT Medication Medication Name Sig Start Date Stop Date Doxycycline Hyclate 100 MG 1 capsule Orally Twice a day for 2020Jul, 7 days Next Appt Details Provider Name:Michael Huston, 2020-07-30 08:00:00 AM, [address], [place], [address], Provider Name:Michael Huston, 2020-08-06 08:00:00 AM, [address], [place], [address], Insurance Providers Payer Name Payer Address Payer Insured Patient Coverage Cover age End Phone Name Relationship to Start Date Mason e Insured Daniel Maloney [address] [phone] Issac Heath [facility] [address] P [id number]
[2020-07-21] MEDS ORDERED: ACETAMINOPHEN 500 MG TAB ONE (18:02)
[2020-07-21] MEDS ORDERED: METHYLPREDNISOLONE 40 MG INJ ONE (20:00)
[2020-07-21 20:17] LABS: Absolute Lymphocytes (CBC) 1.3 K/uL (0.7-4.9); Basophils % 0.4 % (0-1.3); Hematocrit 47.4 % (36.0-45.0); Lymphocytes % 12.5 % (15.3-44.8); RBC Red Blood Cell Count 5.99 M/uL (3.86-4.86)
[2020-07-21 20:41] LABS: ALT/SGPT 43 U/L (12-78); AST/SGOT 29 U/L (15-37); Albumin 3.2 g/dL (3.4-5.0); Alkaline Phosphatase 93 U/L (45-117); BUN Blood Urea Nitrogen 18 mg/dL (7-18); Bicarbonate 31 mmol/L (21-32); Bilirubin Direct 0.1 mg/dL (0-0.2); Bilirubin Total 0.5 mg/dL (0.2-1.0); Ferritin 254.3 ng/mL (8-388); Glucose Level 149 mg/dL (74-106); Magnesium 2.2 mg/dL (1.8-2.4); NT PRO-BNP 19 pg/mL (<125); Potassium 3.7 mmol/L (3.5-5.1); Protein, Total 7.8 g/dL (6.4-8.2); Sodium Level 137 mmol/L (136-145); Troponin (Emerg Dept Use Only) < 0.02 ng/mL (0.0-0.045)
[2020-07-21 20:43] LABS: Protime INR 1.1
--- NOTE | 2020-07-21 21:03 | RAD REPORT ---
EXAM DESCRIPTION: [facility] Single View07/21/2020 7:35 pm CLINICAL HISTORY: Cough COMPARISON: July 20 FINDINGS: No change in the bilateral pulmonary opacities The heart is normal size IMPRESSION: No change in the bilateral pulmonary opacities probably pneumonia
[2020-07-21 21:04] LABS: Urine Blood 3+ (NEG); Urine Glucose NEGATIVE (NEG); Urine Protein 3+ (NEG); Urine Specific Gravity 1.025 (1.005-1.030)
--- NOTE | 2020-07-21 21:14 | ER ---
Nurse's Notes [facility] Name: Nguyen Heath Age: 35 yrs Sex: Female : 1985 Arrival Date: 07/21/2020 Time: 17:22 Bed 30 Private MD: Michael Huston Diagnosis: Coronavirus infection, unspecified;Pneumonia due to other specified infectious organisms;Hypoxemia Presentation: 07/21 17:42 Chief complaint: Patient states: SOB, cough, fatigue, COVID-19 positive. Coronavirus aa5 screen: Client reports previous positive COVID test result. Ebola Screen: Patient negative for fever greater than or equal to 101.5 degrees Fahrenheit, and additional compatible Ebola Virus Disease symptoms. Initial Sepsis Screen: Does the patient meet any 2 criteria? Temp <36.0*C (96.8*F)) or > 38.3*C (100.9*F). HR > 90 bpm. Yes Does the patient have a suspected source of infection? Yes:. Risk Assessment: Do you want to hurt yourself or someone else? Patient reports no desire to harm self or others. Onset of symptoms was June 2020. 17:42 Acuity: TITO 2 aa5 17:42 Method Of Arrival: Ambulatory aa5 20:19 Coronavirus screen: Client denies travel out of the [place] in the last 14 days. Client sg presents with at least one sign or symptom that may indicate coronavirus-19. Standard/surgical mask placed on the client. Provider contacted for isolation considerations. Client reports previous positive COVID test result. Date of collection: July 19, 2020. 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 - Social history:: Smoking status: Patient denies any tobacco usage or history of. Assessment: 19:20 General: Appears in no apparent distress. well groomed, well developed, well nourished, sg Behavior is calm, cooperative, appropriate for age. Pain: Complains of pain in body aches Quality of pain is described as aching. Neuro: Level of Consciousness is awake, alert, obeys commands, Oriented to person, place, time, situation, Moves all extremities. Facial symmetry appears normal. Cardiovascular: Capillary refill is brisk in bilateral fingers Patient's skin is warm and dry. Rhythm is sinus tachycardia Chest pain is denied. Respiratory: Reports shortness of breath on exertion Airway is patent Respiratory effort is even, unlabored, Respiratory pattern is regular, symmetrical, Breath sounds are clear. GI: Abdomen is round non-distended, Reports normal bowel habits, tolerance of fluids, tolerance of food. : No signs and/or symptoms were reported regarding the genitourinary system. EENT: No signs and/or symptoms were reported regarding the EENT system. Derm: Skin is pink, warm \T\ dry. Musculoskeletal: Circulation, motion, and sensation intact. Range of motion: intact in all extremities. 22:00 Reassessment: Patient appears in no apparent distress at this time. Patient and/or sg family updated on plan of care and expected duration. Pain level reassessed. Patient is alert, oriented x 3, equal unlabored respirations, skin warm/dry/pink. Patient denies pain at this time. Patient states feeling better. Vital Signs: 17:42 BP 126 / 86; Pulse 122; Resp 20 S; Temp 101.0(O); Pulse Ox 90% on R/A; Weight 107.05 kg aa5 (R); Height 5 ft. 2 in. (157.48 cm) (R); 20:18 BP 122 / 80; Pulse 98; Resp 20; Temp 99.9; Pulse Ox 98% on 3 lpm NC; sg 20:40 Pulse 104; Resp 22; Pulse Ox 86% on R/A; sg 17:42 Body Mass Index 43.16 (107.05 kg, 157.48 cm) aa5 20:40 pt ambulatory to ER restroom, reports SOB, o2 saturation 82% room AIR sg ED Course: 17:22 Patient arrived in ED. ag5 17:22 Michael Huston DO is Private Physician. ag5 17:40 Arm band placed on. aa5 17:43 Triage completed. aa5 19:00 Ike Albarado PA is PHCP. cp 19:00 Pat Martin MD is Attending Physician. cp 19:07 Attending Physician role handed off by Pat Martin MD cp 19:07 Shaq Sauceda MD is Attending Physician. cp 19:15 Michael Patel, RN is Primary Nurse. sg 19:20 Patient has correct armband on for positive identification. Bed in low position. Call sg light in reach. Side rails up X2. environmental monitoring specialist on. Pulse ox on. NIBP on. Verbal reassurance given. Head of bed elevated. 20:00 Initial lab(s) drawn, by me, sent to lab. Inserted saline lock: 20 gauge in right sg antecubital area, using aseptic technique. Blood collected. 20:10 XRAY Chest (1 view) In Process Unspecified. EDMS 21:13 Lenin Wilkerson is Hospitalizing Provider. cp 23:26 No provider procedures requiring assistance completed. Patient admitted, IV remains in sg place. intact, No redness/swelling at site. Administered Medications: 17:45 Drug: Tylenol 1000 mg Route: PO; aa5 20:20 Follow up: Response: No adverse reaction; Temperature is decreased sg 20:00 Drug: SOLU-Medrol 80 mg Route: IVP; Site: right antecubital; sg 21:00 Follow up: Response: No adverse reaction sg Outcome: 21:14 Decision to Hospitalize by Provider. cp 23:26 Admitted to Med/surg accompanied by tech, via wheelchair, room 412, with oxygen, with sg chart, Report called to DEE Tierney 23:26 Condition: stable 23:26 Instructed on the need for admit, safety practices, Demonstrated understanding of instructions, follow-up care. 23:28 Patient left the ED. sg Signatures: Dispatcher [employer] EDMS Michael Patel RN RN sg Chelle Santo RN RN aa5 Ike Albarado PA PA cp Gaskin, Ajare ag5
--- NOTE | 2020-07-21 21:14 | EDPHYS ---
Physician Documentation [facility] Name: Nguyen Heath Age: 35 yrs Sex: Female : 1985 Arrival Date: 07/21/2020 Time: 17:22 Bed 30 Private MD: Michael Huston ED Physician Shaq Sauceda HPI: 07/21 19:25 This 35 yrs old Female presents to ER via Ambulatory with complaints of cp Shortness Of Breath, COVID+. 19:25 The patient has shortness of breath with light activity. cp 19:25 Onset: The symptoms/episode began/occurred gradually, and became worse today. Duration: cp The symptoms are continuous, and are steadily getting worse. 19:25 The patient's shortness of breath is aggravated by light activity. Associated signs and cp symptoms: Pertinent positives: fever, Pertinent negatives: chest pain, productive cough. 19:25 Patient reports testing positive for COVID-19 2 days ago with symptoms starting last cp week. 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 - Social history:: Smoking status: Patient denies any tobacco usage or history of. ROS: 19:30 Constitutional: Positive for fever, Negative for poor PO intake. cp 19:30 Eyes: Negative for injury, pain, redness, and discharge. cp 19:30 ENT: Positive for ear pain, Negative for sore throat, difficulty swallowing, difficulty cp handling secretions. 19:30 Cardiovascular: Negative for chest pain, edema, palpitations. 19:30 Respiratory: Positive for cough, "sounds productive", shortness of breath, at rest. 19:30 Abdomen/GI: Negative for abdominal pain, nausea, vomiting, and diarrhea. 19:30 Back: Negative for radiated pain. cp 19:30 Neuro: Negative for altered mental status, dizziness, headache, weakness. cp 19:30 All other systems are negative. Exam: 19:35 Constitutional: The patient appears in no acute distress, alert, awake, cp non-diaphoretic, non-toxic, well developed, well nourished, obese. 19:35 Head/Face: Normocephalic, atraumatic. cp 19:35 Eyes: Periorbital structures: appear normal, Conjunctiva: normal, no exudate, no injection, Sclera: no appreciated abnormality, Lids and lashes: appear normal, bilaterally. 19:35 ENT: External ear(s): are unremarkable, Nose: is normal, Posterior pharynx: Airway: no evidence of obstruction, patent. 19:35 Neck: ROM/movement: is normal, is supple, without pain, no range of motions limitations, no meningismus. 19:35 Chest/axilla: Inspection: normal, Palpation: is normal, no crepitus, no tenderness. 19:35 Cardiovascular: Rate: tachycardic, Rhythm: regular, Edema: is not appreciated. 19:35 Respiratory: the patient does not display signs of respiratory distress, Respirations: normal, no use of accessory muscles, no retractions, labored breathing, is not present, Breath sounds: bronchial sounds, that are mild, are heard diffusely, stridor, is not appreciated, wheezing: is not appreciated. 19:35 Abdomen/GI: Inspection: abdomen appears normal, Palpation: abdomen is soft and non-tender, in all quadrants. 19:35 Back: pain, is absent, ROM is normal. 19:35 Skin: no rash present. 19:35 Neuro: Orientation: to person, place \\T\\ time. Mentation: is normal, Motor: moves all fours, strength is normal. 20:00 ECG was reviewed by the Attending Physician. cp Vital Signs: 17:42 BP 126 / 86; Pulse 122; Resp 20 S; Temp 101.0(O); Pulse Ox 90% on R/A; Weight 107.05 kg aa5 (R); Height 5 ft. 2 in. (157.48 cm) (R); 20:18 BP 122 / 80; Pulse 98; Resp 20; Temp 99.9; Pulse Ox 98% on 3 lpm NC; sg 20:40 Pulse 104; Resp 22; Pulse Ox 86% on R/A; sg 17:42 Body Mass Index 43.16 (107.05 kg, 157.48 cm) aa5 20:40 pt ambulatory to ER restroom, reports SOB, o2 saturation 82% room AIR sg MDM: 19:18 Patient medically screened. cp 21:00 Data reviewed: vital signs, nurses notes, lab test result(s), EKG, radiologic studies, cp plain films, and as a result, I will admit patient. 21:00 Test interpretation: by ED physician or midlevel provider: ECG, plain radiologic cp studies. Physician consultation: David ALEMAN was contacted at 21:00, regarding admission, to the medical/surgical unit. patient's condition, and will see patient in ED, shortly. ED course: VS noted. Patient continues to have SOB with exertion with observed oxygen sats at 86% on RA after ambulating in ED. 07/21 19:22 Order name: Basic Metabolic Panel; Complete Time: 20:43 cp 07/21 19:22 Order name: CBC with Diff; Complete Time: 20:43 cp 07/21 20:44 Interpretation: Normal except: RBC 5.99; HGB 15.7; HCT 47.4; MCV 79.3; MCH 26.2; RDW cp 16.6; MAE% 81.4; LYM% 12.5; NEUT A 8.5. 07/21 19:22 Order name: LFT's; Complete Time: 20:43 cp 07/21 19:22 Order name: Magnesium; Complete Time: 20:43 cp 07/21 19:22 Order name: NT PRO-BNP; Complete Time: 20:43 cp 07/21 19:22 Order name: PT-INR; Complete Time: 20:50 cp 07/21 19:22 Order name: Troponin (emerg Dept Use Only); Complete Time: 20:43 cp 07/21 19:22 Order name: Influenza Screen (a \\T\\ B) cp 07/21 19:22 Order name: CRP cp 07/21 19:22 Order name: Ferritin; Complete Time: 20:43 cp 07/21 19:22 Order name: D-Dimer; Complete Time: 20:50 cp 07/21 20:10 Order name: C-Reactive Protein; Complete Time: 20:43 EDMS 07/21 20:47 Order name: Urine --Ancillary (enter results) tt3 07/21 19:22 Order name: XRAY Chest (1 view); Complete Time: 21:18 cp 07/21 19:22 Order name: EKG; Complete Time: 19:24 cp 07/21 19:22 Order name: Cardiac monitoring; Complete Time: 19:24 cp 07/21 19:22 Order name: EKG - Nurse/Tech; Complete Time: 20:18 cp 07/21 19:22 Order name: IV Saline Lock; Complete Time: 19:24 cp 07/21 19:22 Order name: Labs collected and sent; Complete Time: 19:24 cp 07/21 19:22 Order name: O2 Per Protocol; Complete Time: 19:24 cp 07/21 19:22 Order name: O2 Sat Monitoring; Complete Time: 19:24 cp 07/21 20:47 Order name: Urine Dipstick--Ancillary (enter results) tt3 07/21 20:50 Order name: CT Chest For PE Angio cp 07/21 21:04 Order name: Urine --Ancillary; Complete Time: 21:18 EDMS 07/21 21:04 Order name: Urine Dipstick-Ancillary; Complete Time: 21:18 EDMS 07/21 21:24 Order name: CT EDMS 07/21 19:22 Order name: Urine Dipstick-Ancillary (obtain specimen); Complete Time: 21:46 cp 07/21 19:22 Order name: Urine Test (obtain specimen); Complete Time: 21:46 cp EC:00 Rate is 100 beats/min. Rhythm is regular. [place] interval is normal. QRS interval is cp normal. QT interval is normal. T waves are Inverted in leads III, aVR. Interpreted by me. Reviewed by me. Administered Medications: 17:45 Drug: Tylenol 1000 mg Route: PO; aa5 20:20 Follow up: Response: No adverse reaction; Temperature is decreased sg 20:00 Drug: SOLU-Medrol 80 mg Route: IVP; Site: right antecubital; sg 21:00 Follow up: Response: No adverse reaction sg Disposition: 07/22 01:44 Co-signature as Attending Physician, Shaq Sauceda MD. rn Disposition: 07/21/20 21:14 Hospitalization ordered by Lenin Wilkerson for Inpatient Admission. Preliminary diagnosis are Coronavirus infection, unspecified, Pneumonia due to other specified infectious organisms, Hypoxemia. - Bed requested for Telemetry/MedSurg (Inpatient). - Status is Inpatient Admission. sg - Condition is Fair. - Problem is new. - Symptoms have improved. Signatures: Dispatcher [employer] EDNH Michael Patel RN RN sg Shaq Sauceda MD MD rn Calderon, Audri, RN RN aa5 David Caal PA PA jr8 Raquel Valencia RN RN tl1 Ike Albardao PA PA cp Corrections: (The following items were deleted from the chart) 07/21 17:53 17:41 Chest Single View+RAD.RAD.BRZ ordered. [facility] 20:26 20:25 ECG was reviewed by the Attending Physician. [facility] 20:26 20:25 Rate is 99 beats/min. Rhythm is regular. QRS interval is normal. QT interval is cp normal. Interpreted by me. Reviewed by me. 22:12 21:14 Hospitalization Ordered by Lenin Wilkerson for Inpatient Admission. Preliminary sg diagnosis is Coronavirus infection, unspecified; Pneumonia due to other specified infectious organisms; Hypoxemia. Bed requested for Telemetry/MedSurg (Inpatient). Status is Inpatient Admission. Condition is Fair. Problem is new. Symptoms have improved. 22:25 22:12 07/21/2020 21:14 Hospitalization Ordered by Lenin Wilkerson for Inpatient sg Admission. Preliminary diagnosis is Coronavirus infection, unspecified; Pneumonia due to other specified infectious organisms; Hypoxemia. Bed requested for [facility] ER HOLD. Status is Inpatient Admission. Condition is Fair. Problem is new. Symptoms have improved. 22:59 22:25 07/21/2020 21:14 Hospitalization Ordered by Lenin Wilkerson for Inpatient tl1 Admission. Preliminary diagnosis is Coronavirus infection, unspecified; Pneumonia due to other specified infectious organisms; Hypoxemia. Bed requested for [facility] ER HOLD. Status is Inpatient Admission. Condition is Fair. Problem is new. Symptoms have improved. 23:28 22:59 07/21/2020 21:14 Hospitalization Ordered by Lenin Wilkerson for Inpatient sg Admission. Preliminary diagnosis is Coronavirus infection, unspecified; Pneumonia due to other specified infectious organisms; Hypoxemia. Bed requested for Telemetry/MedSurg (Inpatient). Status is Inpatient Admission. Condition is Fair. Problem is new. Symptoms have improved. tl1
--- NOTE | 2020-07-21 21:23 | RAD REPORT ---
EXAM DESCRIPTION: CT - Chest For Pe Angio - 07/21/2020 9:05 pm CLINICAL HISTORY: sob COMPARISON: None. TECHNIQUE: Dynamically enhanced axial 3 mm thick images of the chest were obtained during administra tion of <100> mL Isovue 370 IV contrast. Coronal and oblique reconstruction images were generated and reviewed. Exam utilizes a protocol for optimal evaluation of pulmonary arterial tree. Maximum intensity projections 3D imaging was utilized All CT scans are performed using dose optimization technique as appropriate and may include automated exposure control or mA/KV adjustment according to patient size. FINDINGS: A pulmonary embolus is not seen. A thoracic aortic aneurysm is not noted. A pleural effusion is not seen. Small pericardial effusion Moderate bilateral ground-glass opacities within the lungs Fatty liver IMPRESSION: Negative for a pulmonary embolism. Moderate bilateral ground-glass opacities within the lungs likely Covid pneumonia
[2020-07-21] MEDS ORDERED: IVERMECTIN 3 MG TABLET PO ONE (22:34)
[2020-07-21] MEDS ORDERED: ACETAMINOPHEN 325 MG TABLET PO PRN (22:34)
[2020-07-21] MEDS ORDERED: GLUCAGON 1 MG/VIAL IM PRN (22:34)
[2020-07-21] MEDS ORDERED: D50W 25 GM/50 ML SYRINGE IV PRN (22:34)
[2020-07-21 22:40] VITALS: BMI 43.1
--- NOTE | 2020-07-22 01:23 | P.HP ---
Certification for Inpatient Patient admitted to: Inpatient With expected LOS: >2 Midnights Patient will require the following post-hospital care: None Practitioner: I am a practitioner with admitting privileges, knowledge of patient current condition, hospital course, and medical plan of care. Services: Services provided to patient in accordance with Admission requirements found in Title 42 Section 412.3 of the Code of Federal Regulations <Jostin Caal - Last Filed: 07/22/20 01:14> Patient History Date of Service: 07/22/20 Primary Care Provider: Dr. Huston Reason for admission: COVID pneumonia History of Present Illness: Ms. Heath is a 35 yo female with a history of HTN, T2DM, depression and an xiety, and essential tremor here today for +COVID test and increasing SOB. She initially tested negative for COVID, and completed a Medrol Dosepack for suspected sinus infection. She then tested positive for COVID on 07/19/20 and was started on doxycycline on 07/20/20 by an outside provider. She reports worsening dyspnea with exertion and pleuritic pain over her lower lung muñiz. She endorses fatigue, subjective fevers, night sweats, chills, decreased appetite, nausea, and diarrhea. In ED, she was saturating 86% on room air, now saturating 100% on 3L of O2. CXR showed COVID pneumonia. Na 137, K 3.7, Cl 101, HCO3 31, BUN 18, Cr 0.75, Glu 149. WBC 10.5, Plt 201, Hgb/Hct 15.7/47.4. CRP 75, DD 792. Home medications list reviewed: Yes - Past Medical/Surgical History Has patient received pneumonia vaccine in the past: No Diabetic: Yes -: hypertension -: type 2 diabetes mellitus -: depression -: anxiety -: essential tremors Past Surgical History: Reviewed- Non-Contributory - Family History father -: Lung disease (lung cancer and cystic fibrosis) Mother -: GI disease (IBS), Diabetes Sister -: Cancer ("cancer in the lymph nodes") - Social History Smoking Status: Never smoker Counseled patient to stop smoking for: less than 10 minutes Smoking therapy provided: No Alcohol use: No CD- Drugs: No Caffeine use: No Place of Residence: Home <Jostin Caal - Last Filed: 07/22/20 01:14> Date of Service: 07/23/20 <adina chacko - Last Filed: 07/23/20 19:03> Allergies amoxicillin Allergy (Verified 07/21/20 22:34) Itching/Hives/Rash azithromycin Allergy (Verified 07/21/20 22:34) Itching/Hives/Rash cephalexin [From Keflex] Allergy (Verified 07/21/20 22:34) Itching/Hives/Rash ciprofloxacin [From Cipro] Allergy (Verified 07/21/20 22:34) Itching/Hives/Rash sulfamethoxazole [From Bactrim] Allergy (Verified 07/21/20 22:34) Itching/Hives/Rash trimethoprim [From Bactrim] Allergy (Verified 07/21/20 22:34) Itching/Hives/Rash Review of Systems General: Fever, Chills, Sweats, As per HPI Eyes: Unremarkable ENT: Unremarkable Respiratory: Cough, Shortness of Breath, SOB with Excertion, As per HPI Cardiovascular: Unremarkable Gastrointestinal: Nausea, Diarrhea, As per HPI Genitourinary: Unremarkable Musculoskeletal: Unremarkable Integumentary: Unremarkable Neurological: Unremarkable Lymphatics: Unremarkable <Sada Caalshua - Last Filed: 07/22/20 01:14> Physical Examination - Vital Signs Temperature: 97.7 F Blood Pressure: 126/74 Pulse: 101 Respirations: 18 Pulse Ox (%): 97 (100% on 3L O2) - Physical Exam General: Alert, Oriented x3, Mild distress HEENT: Atraumatic, Normocephalic, PERRLA, EOMI Neck: Supple, JVD not distended, No Thyromegaly Respiratory: Normal air movement Cardiovascular: No edema, Normal pulses, Regular rate/rhythm, Normal S1 S2, No gallops, No rubs, No murmurs Capillary refill: <2 Seconds Gastrointestinal: Normal bowel sounds, Soft and benign, Non-distended, No ascit es, No tenderness, No masses, No rebound, No guarding Musculoskeletal: No clubbing, No swelling, No erythema, No tenderness, No warmth Integumentary: No rashes, No breakdown, No significant lesion Neurological: Normal speech, Normal strength at 5/5 x4 extr, Normal tone, Sensation intact, Cranial nerves 3-12 intact, Normal affect Lymphatics: No axilla or inguinal lymphadenopathy - Studies Laboratory Data (last 24 hrs) 07/21/20 20:00: PT 13.0 H, INR 1.10 07/21/20 20:00: WBC 10.50, Hgb 15.7 H, Hct 47.4 H, Plt Count 201 07/21/20 20:00: Sodium 137, Potassium 3.7, BUN 18, Creatinine 0.75, Glucose 149 H, Magnesium 2.2, Total Bilirubin 0.5, AST 29, ALT 43, Alkaline Phosphatase 93 <Jostin Caal - Last Filed: 07/22/20 01:14> Assessment and Plan - Problems (Diagnosis) (1) Pneumonia due to COVID-19 virus Onset Date: ~07/22/20 Current Visit: Yes Status: Acute Plan: -Vitamin D, thiamine, zinc, vitamin C - Solu-Medrol - DVT prophylaxis - Ivermectin 18 mg - pepcid - melatonin - pulmonology and respiratory therapy consulted for daily saturations, saturations for home O2, and O2 titration as needed (2) COVID-19 Onset Date: ~07/19/20 Current Visit: Yes Status: Acute Plan: see above covid pneumonia (3) Hypertension Current Visit: Yes Status: Chronic Plan: well controlled at 126/86 at presentation. will continue to monitor. Qualifiers: Hypertension type: essential hypertension Qualified Code(s): I10 - Essential (primary) hypertension (4) Type 2 diabetes mellitus Current Visit: Yes Status: Chronic Plan: - glucose of 149 on presentation. will start SSI due to SoluMedrol use for covid pneumonia. 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 insulin use: without halfway use Diabetes mellitus complication status: without complication Qualified Code(s): E11.9 - Type 2 diabetes mellitus without complications (5) Depression Current Visit: Yes Status: Chronic Plan: will continue home doses of sertraline 150 mg PO and aripripazole 2 mg PO Qualifiers: Depression Type: major depressive disorder Major depression recurrence: unspecified whether recurrent Active/Remission status: currently active Major depression episode severity: unspecified Qualified Code(s): F32.9 - Major depressive disorder, single episode, unspecified (6) Anxiety Current Visit: Yes Status: Chronic Plan: see above for plan to continue home medications Discharge Plan: Home Plan to discharge in: Greater than 2 days - Advance Directives Does patient have a Living Will: No Does patient have a Durable POA for Healthcare: No - Code Status/Comfort Care Code Status Assessed: Yes Code Status: Full Code Critical Care: No Time Spent Managing Pts Care (In Minutes): 70 <Jostin Caal - Last Filed: 07/22/20 01:14> - Problems (Diagnosis) (1) Acute respiratory failure with hypoxia Current Visit: Yes Status: Acute (2) COVID-19 Onset Date: ~07/19/20 Current Visit: Yes Status: Acute (3) Pneumonia due to COVID-19 virus Onset Date: ~07/22/20 Current Visit: Yes Status: Acute (4) Type 2 diabetes mellitus Current Visit: Yes Status: Chronic 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 insulin use: without marine oil terminal superintendent use Diabetes mellitus complication status: without complication Qualified Code(s): E11.9 - Type 2 diabetes mellitus without complications Physician Review: Patient Assessed, Agree with Above Assessment and Plan Physician Review Additional Text: COVID pneumonia. Acute respiratory failure with hypoxia. DM type 2 Plan IV steroid Titrate oxygen. Vitamin-D, vitamin-C and zinc supplementation. Patient given a dose of Ivermectin. <adina chacko - Last Filed: 07/23/20 19:03>
[2020-07-22] MEDS ORDERED: ARIPiprazole 5 MG TAB PO ONE (02:00)
[2020-07-22 04:07] LABS: Basophils % 0.2 % (0-1.3); Hematocrit 44.9 % (36.0-45.0); Lymphocytes % 17.5 % (15.3-44.8); MPV 8.5 fL (7.6-11.3); RBC Red Blood Cell Count 5.66 M/uL (3.86-4.86)
[2020-07-22 04:32] LABS: BUN Blood Urea Nitrogen 18 mg/dL (7-18); Bicarbonate 26 mmol/L (21-32); Glucose Level 332 mg/dL (74-106); HDL Cholesterol 45 mg/dL (40-60); LDL Cholesterol, Calculated 86 (<130); Sodium Level 137 mmol/L (136-145)
[2020-07-22 04:34] LABS: Potassium 3.7 mmol/L (3.5-5.1)
[2020-07-22] MEDS: BENZONATATE 100 MG CAP PO PRN ×2 (08:12→16:41)
[2020-07-22] MEDS: INSULIN -REGULAR HUMAN 50 UNIT/0.5 ML ML SQ SCH ×4 (08:12→21:07)
[2020-07-22] MEDS: METHYLPREDNISOLONE 40 MG INJ IV SCH ×2 (08:13→21:06)
[2020-07-22] MEDS: ASCORBIC ACID 500 MG TABLET PO SCH ×4 (08:14→21:07)
[2020-07-22] MEDS: FAMOTIDINE 20 MG/2 ML VIAL IV SCH ×2 (08:14→21:08)
[2020-07-22] MEDS: VITAMIN D 5,000 UNIT CAP PO SCH (08:14)
[2020-07-22] MEDS: ZINC SULFATE 220 MG CAP PO SCH (08:14)
[2020-07-22] MEDS ORDERED: ENOXAPARIN 100 MG/ML SYR SQ SCH (09:00)
--- NOTE | 2020-07-22 12:56 | P.CNS ---
Date of Consult: 07/22/20 Primary Care Provider: Dr. Huston Chief Complaint: COVID pneumonia History of Present Illness: Patient is 35 years of age has been sick for about a week history of diabetes hypertension multiple other medical problems she tested positive to chavez virus admitted with worsening dyspnea and cough is currently doing better so oxygen saturation is satisfactory Allergies amoxicillin Allergy (Verified 07/21/20 22:34) Itching/Hives/Rash azithromycin Allergy (Verified 07/21/20 22:34) Itching/Hives/Rash cephalexin [From Keflex] Allergy (Verified 07/21/20 22:34) Itching/Hives/Rash ciprofloxacin [From Cipro] Allergy (Verified 07/21/20 22:34) Itching/Hives/Rash sulfamethoxazole [From Bactrim] Allergy (Verified 07/21/20 22:34) Itching/Hives/Rash trimethoprim [From Bactrim] Allergy (Verified 07/21/20 22:34) Itching/Hives/Rash Home Medications: ARIPiprazole [Abilify] 2 mg PO BEDTIME 07/22/20 Doxycycline Hyclate [Vibramycin] 100 mg PO BID 07/22/20 Levocetirizine Dihydrochloride [Xyzal] 5 mg PO BEDTIME 07/22/20 Liraglutide [Victoza 2-Manuel] 1.8 mg SQ BEDTIME 07/22/20 Losartan/Hydrochlorothiazide [Losartan-Hctz 50-12.5 mg Tab] 1 tab PO DAILY 07/22/20 Montelukast [Singulair] 10 mg PO BEDTIME 07/22/20 Primidone [Mysoline] 250 mg PO BEDTIME 07/22/20 Sertraline [Zoloft] 150 mg PO BEDTIME 07/22/20 Sitagliptin Phos/Metformin HCl [Janumet 50-500 mg Tablet] 1 tab PO BID 07/22/20 - Past Medical/Surgical History Diabetic: Yes -: hypertension -: type 2 diabetes mellitus -: depression -: anxiety -: essential tremors - Family History Mother History Unknown: Yes Medical History: GI disease (IBS), Diabetes Sister History Unknown: Yes Medical History: Cancer ("cancer in the lymph nodes") Notes: Pt. has a self monitoring divice to her upper right arm for suger lervels check ([employer]?). father Medical History: Lung disease (lung cancer and cystic fibrosis) - Social History Alcohol use: No CD- Drugs: No Caffeine use: No Place of Residence: Home Review of Systems General: Weakness Respiratory: Cough, Shortness of Breath Physical Examination Temp Pulse Resp BP Pulse Ox 96.9 F 83 24 H 123/81 97 07/22/20 12:00 07/22/20 12:00 07/22/20 12:00 07/22/20 12:00 07/22/20 12:00 Laboratory Data (last 24 hrs) 07/21/20 20:00: PT 13.0 H, INR 1.10 07/21/20 20:00: WBC 10.50, Hgb 15.7 H, Hct 47.4 H, Plt Count 201 07/21/20 20:00: Sodium 137, Potassium 3.7, BUN 18, Creatinine 0.75, Glucose 149 H, Magnesium 2.2, Total Bilirubin 0.5, AST 29, ALT 43, Alkaline Phosphatase 93 - Problems (1) Pneumonia due to COVID-19 virus Onset Date: ~07/22/20 Current Visit: Yes Status: Acute Plan: Patient is 35 years of age admitted with pneumonia due to chavez virus oxygenation is satisfactory chest CT scan consistent with chavez virus pneumonia there is no evidence of pulmonary embolism plan to discharge home on low-dose steroids anticoagulation ivermectin follow-up with me in 1 week
--- NOTE | 2020-07-22 17:59 | P.PN ---
Subjective Date of Service: 07/22/20 Primary Care Provider: Dr. Huston Chief Complaint: COVID pneumonia Patient stable on 3 L of oxygen by nasal cannula. She is complaining of shortness of breath and coughing. Physical Examination - Vital Signs Temperature: 97.5 F Blood Pressure: 108/55 Pulse: 84 Respirations: 24 Pulse Ox (%): 93 - Physical Exam General: Alert, In no apparent distress, Obese HEENT: Mucous membr. moist/pink Neck: JVD not distended Respiratory: Diminished Cardiovascular: No edema, Regular rate/rhythm Gastrointestinal: Soft and benign, Non-distended Musculoskeletal: No swelling Integumentary: No rashes Neurological: Other (No focal motor deficit) - Studies Laboratory Data (last 24 hrs) 07/21/20 20:00: PT 13.0 H, INR 1.10 07/21/20 20:00: WBC 10.50, Hgb 15.7 H, Hct 47.4 H, Plt Count 201 07/21/20 20:00: Sodium 137, Potassium 3.7, BUN 18, Creatinine 0.75, Glucose 149 H, Magnesium 2.2, Total Bilirubin 0.5, AST 29, ALT 43, Alkaline Phosphatase 93 Assessment And Plan - Current Problems (Diagnosis) (1) Acute respiratory failure with hypoxia Current Visit: Yes Status: Acute (2) COVID-19 Onset Date: ~07/19/20 Current Visit: Yes Status: Acute (3) Pneumonia due to COVID-19 virus Onset Date: ~07/22/20 Current Visit: Yes Status: Acute (4) Type 2 diabetes mellitus Current Visit: Yes Status: Chronic Qualifiers: Diabetes mellitus 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 Wean oxygen as tolerated. Vitamin-C, D and zinc supplementation. Supportive measures. Arranged for home oxygen. Possible discharge in a.m..
[2020-07-22] MEDS ORDERED: ARIPiprazole 5 MG TAB PO SCH (21:00)
[2020-07-22] MEDS ORDERED: SERTRALINE HCL 100 MG TAB PO SCH (21:00)
[2020-07-22] MEDS ORDERED: APIXABAN 5 MG TABLET PO SCH (21:00)
[2020-07-22] MEDS: ARIPIPRAZOLE 2 MG PO SCH (21:00)
[2020-07-22] MEDS: HOME MED 1 EA UNK (Levocetirizine Dihydrochloride [Xyzal] 5 MG Tablet) PO SCH (21:00)
[2020-07-22] MEDS: ARIPiprazole 5 MG TAB PO SCH ×2 (21:00→21:05)
[2020-07-22] MEDS: MELATONIN 5 MG TABLET PO SCH (21:05)
[2020-07-22] MEDS: PRIMIDONE 250 MG TAB PO SCH (21:07)
[2020-07-22] MEDS: MONTELUKAST 10 MG TAB PO SCH (21:07)
[2020-07-22] MEDS: SERTRALINE HCL 100 MG TAB PO SCH (21:08)
[2020-07-23 06:59] LABS: BUN Blood Urea Nitrogen 18 mg/dL (7-18); Bicarbonate 28 mmol/L (21-32); Glucose Level 278 mg/dL (74-106); Sodium Level 138 mmol/L (136-145)
--- NOTE | 2020-07-23 07:51 | EKG ---
Test Date: 2020-07-21 Test Time: 19:54:24 Electronic Health Records Specialist: SWG MEASUREMENT RESULTS: Intervals: Rate: 100 UT: 144 QRSD: 80 QT: 356 QTc: 459 Evans: P: 24 UT: 144 QRS: 122 T: 6 INTERPRETIVE STATEMENTS: Normal sinus rhythm Possible Left atrial enlargement Left posterior fascicular block Abnormal ECG Compared to ECG 12/15/2019 17:20:11 Left posterior fascicular block now present Electronically Signed On 07-23-20 07:49:26 DOCUMENTATION SPECIALIST by Luis Ceballos
[2020-07-23] MEDS: VITAMIN D 5,000 UNIT CAP PO SCH (08:18)
[2020-07-23] MEDS: INSULIN -REGULAR HUMAN 50 UNIT/0.5 ML ML SQ SCH ×4 (08:18→22:28)
[2020-07-23] MEDS: ASCORBIC ACID 500 MG TABLET PO SCH ×4 (08:19→20:58)
[2020-07-23] MEDS: FAMOTIDINE 20 MG/2 ML VIAL IV SCH (08:19)
[2020-07-23] MEDS: LOSARTAN/HCTZ 50-12.5 PO SCH (08:19)
[2020-07-23] MEDS: ZINC SULFATE 220 MG CAP PO SCH (08:19)
[2020-07-23] MEDS: METHYLPREDNISOLONE 40 MG INJ IV SCH ×2 (08:19→20:58)
[2020-07-23] MEDS: BENZONATATE 100 MG CAP PO PRN (08:26)
[2020-07-23] MEDS ORDERED: IVERMECTIN 3 MG TABLET PO ONE (11:00)
--- NOTE | 2020-07-23 16:14 | P.DS ---
Admission Date: 07/21/20 Discharge Date: 07/24/20 Primary Care Provider: Dr. Huston Disposition: ROUTINE DISCHARGE Discharge Condition: FAIR Reason for Admission: COVID pneumonia - Problems (1) Acute respiratory failure with hypoxia Current Visit: Yes Status: Acute (2) COVID-19 Onset Date: ~07/19/20 Current Visit: Yes Status: Acute (3) Pneumonia due to COVID-19 virus Onset Date: ~07/22/20 Current Visit: Yes Status: Acute (4) Type 2 diabetes mellitus Current Visit: Yes Status: Chronic Qualifiers: Diabetes mellitus jail insulin use: without superintendent marine oil terminal use Diabetes mellitus complication status: without complication Qualified Code(s): E11.9 - Type 2 diabetes mellitus without complications Brief History of Present Illness: 35-year-old lady with a history of diabetes mellitus, hypertension presents to the emergency department with a complaint of progressive shortness of breath, cough and pleurisy. She tested positive for COVID 19 on July 19, 2020 and was prescribed oral doxycycline. Patient was hypoxic in the ED and required oxygen to maintain saturation above 90%. Chest x-ray demonstrated bilateral infiltrates consistent with COVID pneumonia. Patient was hospitalized for further management. Hospital Course: Patient admitted to the medical floor and started on IV Solu-Medrol, vitamin-C, vitamin-D and zinc supplementation. Patient has been stable on 2-3 L of oxygen to maintain saturation above 90%. Her respiratory condition was stable during this hospital stay. She was seen and evaluated by pulmonary-Dr. Beckwith. She is deemed clinically stable for discharge. Patient discharged with oral prednisone. Home oxygen has also been arranged for her. Vital Signs/Physical Exam: Temp Pulse Resp BP Pulse Ox 97 F 75 18 135/68 94 07/23/20 12:00 07/23/20 12:00 07/23/20 12:00 07/23/20 12:00 07/23/20 12:00 General: Alert, In no apparent distress, Obese HEENT: Mucous membr. moist/pink Neck: JVD not distended Cardiovascular: No edema, Regular rate/rhythm, Normal S1 S2 Gastrointestinal: Soft and benign, Non-distended Musculoskeletal: No swelling Integumentary: No rashes Neurological: Normal strength at 5/5 x4 extr Laboratory Data at Discharge: WBC 5.70 K/uL (4.3-10.9) D 07/22/20 03:18 Hgb 14.6 g/dL (12.0-15.0) 07/22/20 03:18 Hct 44.9 % (36.0-45.0) 07/22/20 03:18 Plt Count 185 K/uL (152-406) 07/22/20 03:18 PT 13.0 SECONDS (9.5-12.5) H 07/21/20 20:00 INR 1.10 07/21/20 20:00 Sodium 138 mmol/L (136-145) 07/23/20 05:55 Potassium 4.0 mmol/L (3.5-5.1) 07/23/20 05:55 BUN 18 mg/dL (7-18) 07/23/20 05:55 Creatinine 0.60 mg/dL (0.55-1.3) 07/23/20 05:55 Glucose 278 mg/dL (74-106) H 07/23/20 05:55 Magnesium 2.2 mg/dL (1.8-2.4) 07/21/20 20:00 Total Bilirubin 0.5 mg/dL (0.2-1.0) 07/21/20 20:00 AST 29 U/L (15-37) 07/21/20 20:00 ALT 43 U/L (12-78) 07/21/20 20:00 Alkaline Phosphatase 93 U/L (45-117) 07/21/20 20:00 Triglycerides 183 mg/dL (<150) H 07/22/20 03:18 Cholesterol 168 mg/dL (<200) 07/22/20 03:18 HDL Cholesterol 45 mg/dL (40-60) 07/22/20 03:18 Cholesterol/HDL Ratio 3.73 07/22/20 03:18 Home Medications: ARIPiprazole [Abilify*] 2 mg PO BEDTIME 07/22/20 Levocetirizine Dihydrochloride [Xyzal] 5 mg PO BEDTIME 07/22/20 Liraglutide [Victoza 2-Manuel] 1.8 mg SQ BEDTIME 07/22/20 Losartan/Hydrochlorothiazide [Losartan-Hctz 50-12.5 mg Tab] 1 tab PO DAILY 07/22/20 Montelukast [Singulair*] 10 mg PO BEDTIME 07/22/20 Primidone [Mysoline *] 250 mg PO BEDTIME 07/22/20 Sertraline [Zoloft*] 150 mg PO BEDTIME 07/22/20 Sitagliptin Phos/Metformin HCl [Janumet 50-500 mg Tablet] 1 tab PO BID 07/22/20 Ascorbic Acid [Vitamin C*] 2,000 mg PO BID #240 tablet 07/23/20 Benzonatate [Tessalon Perle*] 100 mg PO TID PRN #30 cap 07/23/20 Cholecalciferol (Vitamin D3) [Vitamin D3] 4,000 unit PO DAILY #60 capsule 07/23/20 Famotidine [Pepcid*] 20 mg PO BID #60 tab 07/23/20 Melatonin 10 mg PO BEDTIME #60 tablet 07/23/20 Zinc Sulfate [Zinc Sulfate*] 220 mg PO DAILY #30 cap 07/23/20 predniSONE [Deltasone] 20 mg PO BID #21 tab 07/23/20 New Medications: Melatonin 10 mg PO BEDTIME #60 tablet Famotidine [Pepcid*] 20 mg PO BID #60 tab predniSONE [Deltasone] 20 mg PO BID #21 tab Benzonatate [Tessalon Perle*] 100 mg PO TID PRN #30 cap PRN Reason: Cough Ascorbic Acid [Vitamin C*] 2,000 mg PO BID #240 tablet Cholecalciferol (Vitamin D3) [Vitamin D3] 4,000 unit PO DAILY #60 capsule Zinc Sulfate [Zinc Sulfate*] 220 mg PO DAILY #30 cap Diet: ADA Activity: Ad olivier Followup: Rafael Beckwith MD [ACTIVE - CAN ADMIT] - 1 Week (call for appointment) Michael Huston DO [Primary Care Provider] - 1-2 Weeks ( Call for appointment) Time spent managing pt's care (in minutes): 36
[2020-07-23] MEDS: ARIPiprazole 5 MG TAB PO SCH ×2 (20:56→21:00)
[2020-07-23] MEDS: FAMOTIDINE 20 MG TAB PO SCH (20:56)
[2020-07-23] MEDS: MELATONIN 5 MG TABLET PO SCH (20:56)
[2020-07-23] MEDS: HOME MED 1 EA UNK (Levocetirizine Dihydrochloride [Xyzal] 5 MG Tablet) PO SCH (20:57)
[2020-07-23] MEDS: MONTELUKAST 10 MG TAB PO SCH (20:57)
[2020-07-23] MEDS: SERTRALINE HCL 100 MG TAB PO SCH (20:57)
[2020-07-23] MEDS: PRIMIDONE 250 MG TAB PO SCH (20:57)
[2020-07-23] MEDS: ARIPIPRAZOLE 2 MG PO SCH (21:00)
[2020-07-24] MEDS: BENZONATATE 100 MG CAP PO PRN ×2 (02:13→15:17)
[2020-07-24 04:21] LABS: BUN Blood Urea Nitrogen 16 mg/dL (7-18); Bicarbonate 29 mmol/L (21-32); Glucose Level 286 mg/dL (74-106); Potassium 3.9 mmol/L (3.5-5.1); Sodium Level 137 mmol/L (136-145)
[2020-07-24] MEDS: INSULIN -REGULAR HUMAN 50 UNIT/0.5 ML ML SQ SCH ×3 (08:22→17:00)
[2020-07-24] MEDS: ZINC SULFATE 220 MG CAP PO SCH (08:22)
[2020-07-24] MEDS: LOSARTAN/HCTZ 50-12.5 PO SCH (08:23)
[2020-07-24] MEDS: METHYLPREDNISOLONE 40 MG INJ IV SCH (08:23)
[2020-07-24] MEDS: VITAMIN D 5,000 UNIT CAP PO SCH (08:23)
[2020-07-24] MEDS: ASCORBIC ACID 500 MG TABLET PO SCH ×3 (08:23→17:00)
[2020-07-24] MEDS ORDERED: IBUPROFEN 400 MG TAB PO PRN (09:27)
[2020-07-24] MEDS: FAMOTIDINE 20 MG TAB PO SCH (09:39)
--- NOTE | 2020-07-24 12:54 | P.PN ---
Subjective Date of Service: 07/23/20 Primary Care Provider: Dr. Huston Chief Complaint: COVID pneumonia Patient stable on 3 L of oxygen by nasal cannula. She is complaining of pain in both ears. Physical Examination - Vital Signs Temperature: 96.9 F Blood Pressure: 116/68 Pulse: 65 Respirations: 20 Pulse Ox (%): 94 - Physical Exam General: Alert, In no apparent distress, Obese HEENT: Other (Ear examination: Normal tympanic membrane.) Respiratory: Crackles/rales (Mild bibasilar crackles) Cardiovascular: Regular rate/rhythm, Normal S1 S2 Gastrointestinal: Soft and benign, Non-distended Musculoskeletal: No swelling Integumentary: No rashes Neurological: Other (Nonfocal.) Assessment And Plan - Current Problems (Diagnosis) (1) Acute respiratory failure with hypoxia Current Visit: Yes Status: Acute (2) COVID-19 Onset Date: ~07/19/20 Current Visit: Yes Status: Acute (3) Pneumonia due to COVID-19 virus Onset Date: ~07/22/20 Current Visit: Yes Status: Acute (4) Type 2 diabetes mellitus Current Visit: Yes Status: Chronic Qualifiers: Diabetes mellitus lead accountant insulin use: without nursing home use Diabetes mellitus complication status: without complication Qualified Code(s): E11.9 - Type 2 diabetes mellitus without complications (5) Carpal tunnel syndrome Current Visit: Yes Status: Acute - Plan Continue IV steroid Titrate oxygen. Vitamin-D, vitamin-C and zinc supplementation. Status post Ivermectin. Supportive measures. Pain management as needed. Physician Review: Patient Assessed, Agree with Above Assessment and Plan
--- NOTE | 2020-07-24 13:03 | P.PN ---
Subjective Date of Service: 07/24/20 Primary Care Provider: Dr. Huston Chief Complaint: COVID pneumonia No changes from yesterday. Awaiting home oxygen to be available for discharge. Patient stable on 3 L of oxygen by nasal cannula. She is complaining of pain in both hands from carpal tunnel syndrome. Physical Examination - Vital Signs Temperature: 96.9 F Blood Pressure: 116/68 Pulse: 65 Respirations: 20 Pulse Ox (%): 94 - Physical Exam General: Alert, In no apparent distress, Oriented x3 Respiratory: Diminished Cardiovascular: Regular rate/rhythm, Normal S1 S2 Gastrointestinal: Soft and benign, Non-distended Musculoskeletal: No swelling Neurological: Normal strength at 5/5 x4 extr Assessment And Plan - Current Problems (Diagnosis) (1) Acute respiratory failure with hypoxia Current Visit: Yes Status: Acute (2) COVID-19 Onset Date: ~07/19/20 Current Visit: Yes Status: Acute (3) Pneumonia due to COVID-19 virus Onset Date: ~07/22/20 Current Visit: Yes Status: Acute (4) Type 2 diabetes mellitus Current Visit: Yes Status: Chronic Qualifiers: Diabetes mellitus chcf insulin use: without remote computer terminal operator use Diabetes mellitus complication status: without complication Qualified Code(s): E11.9 - Type 2 diabetes mellitus without complications (5) Carpal tunnel syndrome Current Visit: Yes Status: Acute - Plan Continue IV steroid Titrate oxygen. Vitamin-D, vitamin-C and zinc supplementation. Status post Ivermectin. Supportive measures. Pain management as needed. Patient reports pain from her carpal tunnel syndrome. She stated she usually takes ibuprofen. Ibuprofen ordered for pain control. Awaiting home oxygen to be available for discharge. Physician Review: Patient Assessed, Agree with Above Assessment and Plan Physician Review Additional Text: COVID pneumonia. Acute respiratory failure with hypoxia. DM type 2 Plan IV steroid Titrate oxygen. Vitamin-D, vitamin-C and zinc supplementation. Patient given a dose of Ivermectin.
[2020-07-24 13:17] VITALS: O2SAT 94
[2020-07-24 18:50] VITALS: BP 123/75; TEMP 97.3
== END 2020-07-24 19:20 | disposition home or self-care (01) | DRG 177 ==
LOC: ER 17:20 → ERHOLD 21:54 → 4TH 23:26
PROVIDERS: ADMIT Internal Medicine; ATTEND Internal Medicine
DX: U07.1 COVID-19 (principal); J12.82 Pneumonia due to coronavirus disease 2019; J96.01 Acute respiratory failure with hypoxia; Z68.41 Body mass index [BMI] 40.0-44.9, adult; E66.9 Obesity, unspecified; I10 Essential (primary) hypertension; E11.9 Type 2 diabetes mellitus without complications; G56.00 Carpal tunnel syndrome, unspecified upper limb; F32.9 Major depressive disorder, single episode, unspecified; F41.9 Anxiety disorder, unspecified; Z88.1 Allergy status to other antibiotic agents; Z79.899 Other long term (current) drug therapy
CPT/HCPCS: 36415; 71045; 71275; 80048; 80061; 80076; 81003; 81025; 82728; 82947; 83036; 83735; 83880; 84484; 85025; 85379; 85610; 86140; 93005; 94760; 96374; 99285; J1650; J2920; Q9967

== ENCOUNTER 2021-01-20 14:54 | Emergency (ER) | payer BC ==
--- OUTSIDE RECORDS SUMMARY | 2021-01-20 14:57 | XMS REPORT | Continuity of Care Document ---
:1985 Author Organization [facility] t Address [address] [place] [address] Care Team Providers Name Role Phone Shaheen Jerome DO Attending Clinician Lab, Fam Pob I Attending Clinician Unavailable Nurse, Urgent Attending Clinician Unavailable Anastacia BURNS, L Attending Clinician Kevyn Baez Attending Clinician Problems Condition Condition Condition Status Onset Resolution Last Treating Co mments Source Name Details Category Date Date Treatment Clinician Date Carpal Problem Active 2020-06-14 [facility] tunnel 01:15:47 l syndrome Carpal Nick n (disorder) tunnel syndrome (disorder) Active Problem 06/14/2020 [facility] Meralgia Problem Active 2020-06-14 Mem oria parestheti 01:15:47 l ca Meralgia Nick n (disorder) parestheti ca (disorder) Active Problem 06/14/2020 [facility] Allergies, Adverse Reactions, Alerts Allergy Allergy Status Severity Reaction(s) Onset Inactive Treating Comm ents Source Name Type Date Date Clinician Keflex Adverse Active Info Not [facility] Azithrom Adverse Active [facility] Amoxicil Adverse [facility] Bactrim Adverse Active Info Not [facility] Reaction Available [facility] Social History Social Habit Start Date Stop Date Quantity Comments Source Social History 2020-06-12 2020-06-12 Soraida ayala 05:59:59 05:59:59 Medications Ordered Filled Start Stop Current Ordering Indication Dosage Frequency Signature Comments Components Source Medication Medication Date Date Medication? Clinician (SIG) Name Name Pen [place] Pen [place] Yes Michael [address] [facility] [place] [facility] Procedures This patient has no known procedures. Encounters Start End Encounter Admission Attending Care Care Encounter Source Date/Time Date/Time Type Type Clinicians Facility Department ID 2021-01-14 2021-01-14 Outpatient [facility] [id number] 2021-01-13 2021-01-13 Out[facility] [id number] [facility] 2021-01-13 2021-01-13 Out[facility] [id number] [facility] 2020-12-30 2020-12-30 Out[facility] [id number] [facility] 2020-12-23 2020-12-23 Out[facility] [id number] [facility] 2020-12-16 2020-12-16 [facility] [id number] [facility] 2020-12-13 2020-12-13 Out[facility] [id number] [facility] 2020-12-09 2020-12-09 Out[facility] [id number] [facility] 2020-12-02 2020-12-02 Out[facility] [id number] [facility] 2020-11-26 2020-11-26 Out[facility] [id number] [facility] 2020-11-26 2020-11-26 Out[facility] [id number] [facility] 2020-11-18 2020-11-18 Outpatient [facility] [id number] [facility] 2020-11-02 2020-11-02 Outpatient [facility] [id number] [facility] 2020-10-27 2020-10-27 Out[facility] [id number] [facility] 2020-10-18 2020-10-18 Out[facility] [id number] [facility] 2020-10-07 2020-10-07 Out[facility] [id number] [facility] 2020-09-14 2020-09-[address] [facility] [id number] 00:00:00 00:00:00 Outreach [facility] [id number] [facility] [id number] RADHA [id number] 2020-09-09 2020-09-09 Outpatient [facility] [id number] [facility] 2020-08-24 2020-08-24 Outpatient [facility] [id number] [facility] 2020-08-24 2020-08-24 Outpatient [facility] [id number] [facility] 2020-08-24 2020-08-24 [facility] [id number] [facility] 2020-08-17 2020-08-17 [facility] [id number] [facility] 2020-08-06 2020-08-06 [facility] [id number] [facility] 2020-08-03 2020-08-03 [facility] [id number] [facility] 2020-08-02 2020[facility]08-02 [facility] [id number] [facility] 2020-07-21 2020-07-21 Out[facility] [id number] [facility] 2020-07-20 2020-07-20 Out[facility] [id number] [facility] 2020-07-20 2020-07-20 Out[facility] [id number] [facility] 2020-07-19 2020-07-19 Laboratory Lab, Adc [facility] [id number] 10:04:52 10:24:52 Only Fam [facility] [id number] [place] [id number] Professio [id number] nal 044 Office [address] One 2020-07-19 2020-07-19 Outpatient [facility] [id number] [facility] 2020-07-15 2020-07-15 Out[facility] [id number] [facility] 2020-07-15 2020-07-15 [facility] [id number] [facility] 2020-07-10 2020-07-10 Laboratory Nurse, Indu Donnelly [id number] 14:15:51 14:30:44 Only Urgent Pediatric [id number] s and [id number] Adult [id number] Primary [facility] 2020-07-02 2020-07-02 Office DODIE Galaviz [id number] 10:06:21 10:21:21 Visit [facility] [id number] Surgical [id number] Specialti [id number] es [address] [place] 2020-06-29 2020-06-29 Outpatient [facility] [id number] [facility] 2020-06-17 2020-06-17 Out[facility] [id number] [facility] 2020-06-14 2020-06-14 Out[facility] [id number] [facility] 2020-06-11 2020-06-11 [id number] 08:15:00 23:59:59 Austin Bagley 2020-06-03 2020-06-03 Outpatient [facility] [id number] [facility] 2020-05-12 2020-05-12 Outpatient [facility] [id number] [facility] 2020-05-12 2020-05-12 Out[facility] [id number] [facility] 2020-05-05 2020-05-05 Out[facility] [id number] [facility] 2020-04-30 2020-04-30 Out[facility] [id number] [facility] 2020-01-30 2020-01-30 [facility] [id number] [facility] 13:04:00 13:04:00 t [facility] [employer] [facility] Medicine l Medicine Outpati ent Clinics 2020-01-30 2020-01-30 [facility] [id number] [facility] 08:30:00 08:30:00 t [employer] Richard Pauer - [employer] [facility] Medicine l Medicine Outpati ent Clinics 2020-01-02 2020-01-02 [facility] [id number] 08[facility]00:00 08:00:00 [employer] [facility] Medicine l Medicine Outpati ent Clinics 2019-12-30 2019-12-30 [facility] [id number] [facility] 17:15:00 17:15:00 [employer] [facility] Medicine l Medicine Outpati ent Clinics 2019-12-15 2019-12-15 [facility] [id number] [facility] 15:44:00 15:44:00 t [facility] [employer] [facility] l Medicine Outpati ent Clinics 2019-10-24 2019-10-24 [facility] [id number] [facility] 09:30:00 09:30:00 [employer] [facility] Medicine l Medicine Outpati ent Clinics 2019-10-14 2019-10-14 [facility] [id number] [facility] 08:00:00 08:00:00 t [place] [employer] [facility] Medicine l Medicine Outpati ent Clinics 2019-07-21 2019-07-21 [facility] [id number] [facility] 08:21:00 08:21:[address] [place] s - Drive [facility] Medicine l Medicine Outpati ent Clinics 2019-07-18 2019-07-18 [facility] [id number] [facility] 15:29:00 15:29:[address] [facility] s - Drive [facility] Medicine l Medicine Outpati ent Clinics 2019-07-18 2019-07-18 [facility] [id number] [facility] 10:15:00 10:15:00 t Mclain Mclain [employer] Luke s - Drive [facility] Medicine l Medicine Outpati ent Clinics 2019-07-14 2019-07-14 [facility] [id number] [facility] 08:43:00 08:43:00 t Mclain Mclain [employer] s - Drive [facility] Medicine l Medicine Outpati ent Clinics 2019-06-13 2019-06-13 [facility] [id number] [facility] 11:05:00 11:05:00 t Mclain Mclain [employer] [place] s - Drive [facility] Medicine l Medicine Outpati ent Clinics 2019-06-10 2019-06-10 [facility] [id number] [facility] 14:15:00 14:15:00 t Mclain Mclain [employer] s - Drive [facility] Medicine l Medicine Outpati ent Clinics 2019-05-29 2019-05-29 [facility] [id number] [facility] 15:08:00 15:08:00 t Mclain Mclain [employer] [place] s - Drive [facility] Medicine l Medicine Outpati ent Clinics 2019-05-16 2019-05-16 [facility] [id number] 09:45:00 09:45:00 t Mclain Mclain [employer] [place] s - Drive [facility] Medicine l Medicine Outpati ent Clinics 2019-04-25 2019-04-25 [facility] [id number] [facility] 11:51:00 11:51:00 t Mclain Mclain [employer] [place] s - Drive [facility] Medicine l Medicine Outpati ent Clinics 2019-04-18 2019-04-18 [facility] [id number] 09:15:00 09:15:00 t Mclain Mclain [employer] [place] s - Drive [facility] Medicine Outpati ent Clinics 2019-01-29 2019-01-29 [facility] [id number] [facility] 12:53:00 12:53:00 t Mclain Mclain [employer] s - Drive [facility] Medicine Outpati ent Clinics 2019-01-13 2019-01-13 [facility] [id number] [facility] 10:33:00 10:33:00 t Mclain Mclain [employer] s - Drive [facility] Medicine Outpati ent Clinics 2019-01-10 2019-01-10 [facility] [id number] [facility] 08:45:00 08:45:00 t Mclain Mclain [employer] s - Drive [facility] Medicine Outpati ent Clinics 2018-10-21 2018-10-21 [facility] [id number] [facility] 15:00:00 15:00:00 t Mclain Mclain [employer] s - Drive [facility] Medicine Outpati ent Clinics 2018-10-10 2018-10-10 [facility] [id number] [facility] 16:34:00 16:34:00 t Mclain [employer] s - Drive [facility] Medicine Outpati ent Clinics 2018-10-02 2018-10-02 [facility] [id number] [facility] 14:15:00 14:15:00 t M[employer] s - Drive [facility] Medicine Outpati ent Clinics 2018-08-30 2018-08-30 [facility] [id number] [facility] 09:45:00 09:45:00 [facility] Clinic l Outpati ent Clinics 2018-07-05 2018-07-05 [facility] [id number] [facility] 11:00:00 11:00:00 t Mclain Mclain [employer] s - Drive [facility] Medicine Outpati ent Clinics 2018-04-11 2018-04-11 [facility] [id number] [facility] 11:18:00 11:18:00 t Mclain Mclain [employer] s - Drive [facility] Medicine Outpati ent Clinics 2018-04-05 2018-04-05 [facility] [id number] [facility] 08:00:00 08:00:[address] [facility] s - Drive [facility] Medicine Medicine Outpati ent Clinics 2018-04-03 2018-04-03 [facility] [id number] [address] 10:40:00 10:40:[address] [place] s - Drive [facility] Medicine Outpati ent Clinics 2018-03-08 2018-03-08 [facility] [id number] [facility] 10:00:00 10:00:[address] [facility] - Drive [facility] Medicine Medicine Outpati ent Clinics 2018-02-07 2018-02-07 [facility] [id number] [facility] 13:59:00 13:59:00 t [facility] 2018-01-25 2018-01-25 [facility] [id number] [facility] 11:00:00 11:00:[address] [facility] s - Drive [facility] Medicine Outpati ent Clinics 2018-01-14 2018-01-14 [facility] [id number] [facility] 15:55:00 15:55:[address] [place] s - Drive [facility] Medicine Outpati ent Clinics 2018-01-11 2018-01-11 [facility] [id number] [facility] 11:00:00 11:00:00 [facility] 2018-01-07 2018-01-07 [facility] [id number] [facility] 15:33:00 15:33:00 [facility] Clin[facility] 2018-01-04 2018-01-04 [facility] [id number] 16:08:00 16:08:[address] [facility] s - Drive [facility] Medicine Outpati ent Clinics 2018-01-03 2018-01-03 [facility] [id number] [facility] 08:15:00 08:15:[address] [facility] s - Drive [facility] Medicine Outpati ent Clinics 2017-09-19 2017-09-19 [facility] [id number] 08:30:00 08:30:00 [employer] [facility] Outpati ent Clinics 2017-09-14 2017-09-14 [facility] [id number] 11:44:00 11:44:00 [employer] [facility] 2017-09-11 2017-09-11 [facility] [id number] [facility] 14:15:00 14:15:00 [employer] [facility] Results This patient has no known results.
--- NOTE | 2021-01-20 20:10 | RAD REPORT ---
EXAM DESCRIPTION: RAD - Chest Single View - 01/20/2021 7:53 pm CLINICAL HISTORY: CHEST PAIN COMPARISON: Chest Pa And Lat (2 Views) dated 09/10/2020; Chest Single View dated 07/21/2020; Chest Pa And Lat (2 Views) dated 07/20/2020; Chest Pa And Lat (2 Views) dated 12/15/2019 FINDINGS: No evidence of edema or pneumonia. Cardiomegaly.No acute osseous abnormality. No significa nt pleural effusions or pneumothorax. IMPRESSION: No acute cardiopulmonary disease.
[2021-01-20 20:20] LABS: Absolute Lymphocytes (CBC) 1.9 K/uL (0.7-4.9); Basophils % 0.7 % (0-1.3); Hematocrit 41.5 % (36.0-45.0); Lymphocytes % 17.8 % (15.3-44.8); MPV 6.6 fL (7.6-11.3); RBC Red Blood Cell Count 5.16 M/uL (3.86-4.86)
[2021-01-20 20:42] LABS: BUN Blood Urea Nitrogen 11 mg/dL (7-18); Bicarbonate 29 mmol/L (21-32); Glucose Level 128 mg/dL (74-106); Potassium 3.3 mmol/L (3.5-5.1); Sodium Level 139 mmol/L (136-145); Troponin (Emerg Dept Use Only) < 0.02 ng/mL (0.0-0.045)
--- NOTE | 2021-01-20 20:47 | ER ---
Nurse's Notes [facility] Name: Nguyen Heath Age: 35 yrs Sex: Female : 1985 Arrival Date: 01/20/2021 Time: 14:55 Bed 12 Private MD: Diagnosis: Hypokalemia;Chest pain, unspecified Presentation: 01/20 15:14 Chief complaint: Patient states: "I got an allergy shot at Dr. Huston's office around aa5 11am and around 2pm I started with chest pain". Pt denies any other symptoms. Coronavirus screen: At this time, the client does not indicate any symptoms associated with coronavirus-19. Ebola Screen: Patient negative for fever greater than or equal to 101.5 degrees Fahrenheit, and additional compatible Ebola Virus Disease symptoms. Initial Sepsis Screen: Does the patient meet any 2 criteria? No. Patient's initial sepsis screen is negative. Does the patient have a suspected source of infection? No. Patient's initial sepsis screen is negative. Risk Assessment: Do you want to hurt yourself or someone else? Patient reports no desire to harm self or others. Onset of symptoms was December 2020. 15:14 Method Of Arrival: Ambulatory aa5 15:14 Acuity: TITO 3 aa5 DRY TALC RACKER: 21:24 LMP N/A - bb Historical: - Allergies: 15:15 Amoxicillin; aa5 15:15 Azithromycin; aa5 15:15 Bactrim; aa5 15:15 Keflex; aa5 - PMHx: 15:15 Anxiety; Depression; Hypertension; aa5 - Immunization history:: Adult Immunizations unknown. - Social history:: Smoking status: Patient denies any tobacco usage or history of. Screenin:40 Abuse screen: Denies threats or abuse. Nutritional screening: No deficits noted. bb Tuberculosis screening: No symptoms or risk factors identified. Fall Risk None identified. Assessment: 19:40 General: Appears in no apparent distress. Behavior is calm, cooperative. Pain: bb Complains of pain in chest Pain does not radiate. Pain began suddenly. Neuro: Level of Consciousness is awake, alert, obeys commands, Oriented to person, place, time, situation. Cardiovascular: Capillary refill < 3 seconds Patient's skin is warm and dry. Rhythm is sinus rhythm. Respiratory: Respiratory effort is even, unlabored, Respiratory pattern is regular. GI: No signs and/or symptoms were reported involving the gastrointestinal system. Derm: Skin is pink, warm \\T\\ dry. 21:22 Reassessment: Patient is alert, oriented x 3, equal unlabored respirations, skin bb warm/dry/pink. pt verbalized understanding of and agrees to plan of care discharge instructions given pt ambulated with steady gait to exit. Vital Signs: 15:14 BP 101 / 43; Pulse 92; Resp 18 S; Temp 97.0(TE); Pulse Ox 100% on R/A; Weight 104.33 kg aa5 (R); Height 5 ft. 2 in. (157.48 cm) (R); 21:13 BP 127 / 76; Pulse 96; Resp 18; Temp 97.6(TE); Pulse Ox 100% on R/A; mh5 15:14 Body Mass Index 42.07 (104.33 kg, 157.48 cm) aa5 ED Course: 14:55 Patient arrived in ED. as 15:14 Arm band placed on. aa5 15:15 Triage completed. aa5 15:21 EKG completed in triage. Results shown to MD. aa5 15:21 Patient placed in waiting room, Patient notified of wait time. aa5 19:37 Antionette Ferreira FNP-C is PHCP. kb 19:37 Pat Martin MD is Attending Physician. kb 19:40 Patient has correct armband on for positive identification. Pulse ox on. NIBP on. bb 19:40 Patient maintains SpO2 saturation greater than 95% on room air. bb 19:51 Lety Andrade, RN is Primary Nurse. bb 19:51 Lety Andrade, RN is Primary Nurse. bb 19:53 Chest Single View XRAY In Process Unspecified. EDMS 20:10 Initial lab(s) drawn, by me, sent to lab. Inserted saline lock: 20 gauge in right bb antecubital area, using aseptic technique. Blood collected. 21:20 IV discontinued, Pressure dressing applied. 5 21:23 No provider procedures requiring assistance completed. bb 21:24 IV discontinued, see above. bb Administered Medications: 21:02 Drug: Potassium Chloride 20 mEq Route: PO; bb 21:22 Follow up: Response: No adverse reaction bb Outcome: 20:46 Discharge ordered by . kb 21:23 Discharged to home ambulatory. bb 21:23 Condition: stable 21:23 Discharge instructions given to patient, Instructed on discharge instructions, follow up and referral plans. Demonstrated understanding of instructions, follow-up care. 21:24 Patient left the ED. bb Signatures: Dispatcher [employer] EDMS Antionette Ferreira, Ev Alegre Brenda RN RN Chelle Serrano RN RN aa5 Qi Ham [facility] Corrections: (The following items were deleted from the chart) 15:16 15:15 Allergies: Ciprofloxacin; aa5 aa5
--- NOTE | 2021-01-20 20:47 | EDPHYS ---
Physician Documentation [facility] Name: Nguyen Heath Age: 35 yrs Sex: Female : 1985 Arrival Date: 01/20/2021 Time: 14:55 Bed 12 Private MD: ED Physician Pat Martin HPI: 01/20 22:14 This 35 yrs old Female presents to ER via Ambulatory with complaints of Chest kb Pain. 22:14 The patient or guardian reports chest pain that is located primarily in the chest kb diffusely. The pain does not radiate. Associated signs and symptoms: The patient has no apparent associated signs or symptoms. The chest pain is described as tightness. Duration: The patient or guardian reports a single episode, that is now resolved. Modifying factors: The symptoms are alleviated by nothing. the symptoms are aggravated by nothing. Severity of pain: At its worst the pain was mild in the emergency department the pain has resolved. The patient has not experienced similar symptoms in the past. The patient has been recently seen by a physician:. Patient reports she had an allergy shot around 11:00 this morning. Started having chest tightness at 1400 today. Called physician back and was told to come to the ER for evaluation. Reports symptoms have resolved. [employer]: 21:24 LMP N/A - bb Historical: - Allergies: 15:15 Amoxicillin; aa5 15:15 Azithromycin; aa5 15:15 Bactrim; aa5 15:15 Keflex; aa5 - PMHx: 15:15 Anxiety; Depression; Hypertension; aa5 - Immunization history:: Adult Immunizations unknown. - Social history:: Smoking status: Patient denies any tobacco usage or history of. ROS: 22:14 Constitutional: Negative for fever, chills, and weight loss. kb 22:14 Cardiovascular: Positive for chest pain, Negative for edema, orthopnea, palpitations, paroxysmal nocturnal dyspnea. 22:14 All other systems are negative. Exam: 22:14 Constitutional: This is a well developed, well nourished patient who is awake, alert, kb and in no acute distress. Head/Face: Normocephalic, atraumatic. ENT: Moist Mucous membranes Cardiovascular: Regular rate and rhythm with a normal S1 and S2. No gallops, murmurs, or rubs. No pulse deficits. Respiratory: Respirations even and unlabored. No increased work of breathing, no retractions or nasal flaring. Abdomen/GI: Soft, non-tender. No distention Skin: Warm, dry with normal turgor. Normal color. MS/ Extremity: Pulses equal, no cyanosis. Neurovascular intact. Full, normal range of motion. Neuro: Awake and alert, GCS 15, oriented to person, place, time, and situation. Moves all extremities. Normal gait. Psych: Awake, alert, with orientation to person, place and time. Behavior, mood, and affect are within normal limits. Vital Signs: 15:14 BP 101 / 43; Pulse 92; Resp 18 S; Temp 97.0(TE); Pulse Ox 100% on R/A; Weight 104.33 kg aa5 (R); Height 5 ft. 2 in. (157.48 cm) (R); 21:13 BP 127 / 76; Pulse 96; Resp 18; Temp 97.6(TE); Pulse Ox 100% on R/A; mh5 15:14 Body Mass Index 42.07 (104.33 kg, 157.48 cm) aa5 MDM: 19:38 Patient medically screened. kb 22:14 Data reviewed: vital signs, nurses notes. Data interpreted: Pulse oximetry: on room air kb is 100 %. Interpretation: normal. Counseling: I had a detailed discussion with the patient and/or guardian regarding: the historical points, exam findings, and any diagnostic results supporting the discharge/admit diagnosis, lab results, radiology results, the need for outpatient follow up, a family practitioner, to return to the emergency department if symptoms worsen or persist or if there are any questions or concerns that arise at home. 01/20 19:41 Order name: CBC with Diff; Complete Time: 20:29 kb 01/20 19:41 Order name: Basic Metabolic Panel; Complete Time: 20:45 kb 01/20 19:41 Order name: Troponin (emerg Dept Use Only); Complete Time: 20:45 kb 01/20 19:41 Order name: EKG; Complete Time: 19:42 kb 01/20 19:41 Order name: Chest Single View XRAY; Complete Time: 20:17 kb 01/20 19:41 Order name: EKG - Nurse/Tech; Complete Time: 20:14 kb Administered Medications: 21:02 Drug: Potassium Chloride 20 mEq Route: PO; bb 21:22 Follow up: Response: No adverse reaction bb Disposition Summary: 01/20/21 20:46 Discharge Ordered Location: Home kb Condition: Stable kb Diagnosis - Hypokalemia kb - Chest pain, unspecified kb Followup: kb - With: Emergency Department - When: As needed - Reason: Worsening of condition Followup: kb - With: Private Physician - When: 2 - 3 days - Reason: Recheck today's complaints, Continuance of care, Re-evaluation by your physician Discharge Instructions: - Discharge Summary Sheet kb - Nonspecific Chest Pain, Adult, [id number] kb - Hypokalemia kb Forms: - Medication Reconciliation Form kb - Thank You Letter kb - Antibiotic Education kb - Prescription Opioid Use kb Signatures: Dispatcher [employer] EDMS Antionette Ferreira FNP-C FNP-Lety Westbrook, RN RN bb Chelle Santo, RN RN aa5 Corrections: (The following items were deleted from the chart) 15:16 15:15 Allergies: Ciprofloxacin; aa5 aa5
[2021-01-20] MEDS ORDERED: POTASSIUM CL SA 10 MEQ TAB PO ONE (21:23)
[2021-01-21 02:10] VITALS: BP 127/76; TEMP 97.6; O2SAT 100
== END 2021-01-20 21:24 | disposition home or self-care (01) ==
LOC: ER 14:54
DX: E87.6 Hypokalemia (principal); I10 Essential (primary) hypertension; Z88.1 Allergy status to other antibiotic agents
CPT/HCPCS: 36415; 71045; 80048; 84484; 85025; 93005; 99285

== ENCOUNTER 2022-05-01 14:10 | Emergency (ER) | payer BC ==
--- OUTSIDE RECORDS SUMMARY | 2022-05-01 14:26 | XMS REPORT | Continuity of Care Document ---
:1985 Author Organization [facility] t Address [address] [place] [address] Care Team Providers Name Role Phone Michael Huston DO Primary Care Physician [phone] Michael Huston Attending Clinician Unavailable Don Borjas MD Attending Clinician Shiva Jerome DO Attending Clinician Lab, [facility] Pob I Attending Clinician Unavailable Tania Bourne Attending Clinician TANIA ROSADO Attending Clinician Unavailable Nurse, Indu Urgent Attending Clinician Unavailable Unknown, Attending Attending Clinician Unavailable Qi Davila Attending Clinician UNKNOWN, ATTENDING Attending Clinician Unavailable Dana Kumar MD Attending Clinician DANA KUMAR Attending Clinician Unavailable Austin Baez Attending Clinician Doctor Unassigned, [place] Attending Clinician Unavailable Karli Salas Attending Clinician Payers Payer Name Policy Type Policy Number Effective Date Expiration Date S luanne [employer] 6 [id number] Common Spiri t [facility] Problems Condition Condition Condition Status Onset Resolution Last Treating Co mments Source Name Details Category Date Date Treatment Clinician Date Seasonal Other Problem Active Common allergic seasonal Spirit rhinitis allergic - CHI rhinitis [facility] Obesity Other Problem Active Common obesity Spirit - [facility] [id number] Essential Problem Active Com mon tremor Spirit - [facility] [id number] Controlled Problem Active Co mmon type 2 Spirit diabetes - CHI mellitus [facility] complicati Medica l on, Center without long-term current use of insulin [id number] Iron Problem Active Common deficiency Spirit anemia, - CHI unspecifie [facility] iron [facility] deficiency Medica l anemia Center type [id number] HTN Problem Active Common (hypertens Spirit ion), - [facility] benign [facility] [id number] Leukocytos Problem Active Co mmon is, Spirit unspecifie - CHI d type [facility] [id number] Depression Problem Active Co mmon with Spirit anxiety - [facility] [id number] Acute Problem Active Common vaginitis [facility] [id number] Dysmenorrh Problem Active Co mmon ea Spirit - CHI [facility] [id number] Other Problem Active Common specified Spirit bacterial - CHI agents as [facility] Medical diseases Center classified elsewhere [id number] Pelvic Problem Active Common pain [facility] - [facility] [id number] Dry eyes, Problem Active Com mon bilateral Spirit - CHI [facility] [id number] Venous Problem Active Common insufficie Spirit ncy of - [facility] both lower [facility] [id number] Mixed Problem Active Common hyperlipid Spirit emia - CHI [facility] [id number] Subclinica Problem Active Com mon l Spirit hypothyroi - CHI dism [facility] [id number] Daytime Problem Active Comm on 00 somnolence [facility] - [facility] [id number] Dependence 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 [id number] Requires Problem Active Com mon 07 supplement Spirit al oxygen - CHI [facility] [id number] Polycystic Problem Active Com mon ovarian Spirit syndrome - CHI [facility] [id number] Microalbum Problem Active Co mmon inuria Spirit - CHI [facility] [id number] Morbid Problem Active Common (severe) Spirit obesity - CHI due to [facility] [id number] Obstructiv Problem Active Com mon e sleep Spirit apnea - CHI (adult) ([facility] [id number] CRP Problem [place] [id number] elevated Spirit - CHI [facility] [id number] Bilateral Problem Active Comm on carpal Spirit tunnel - CHI syndrome [facility] Allergic Allergic Problem Active Commo n rhinitis rhinitis Spirit due to due to - CHI pollen pollen [facility] No known No known Disease Unive rs active active ity of problems problems [facility] Meralgia Meralgia Problem Active 2020-06-14 Memoria parestheti parestheti 01:15:47 l ca ca Casey (disorder) (disorder) Active Problem 06/14/2020 [facility] Allergies, Adverse Reactions, Alerts Allergy Allergy Status Severity Reaction(s) Onset Inactive Treating Comm ents Source Name Type Date Date Clinician Amoxicil Propensi Active Nausea Univer s jamison-Pot ty to and/or 17 ity of Clavulan adverse Vomiting 00:00: [place] ate reaction 00 Medical Branch AMOXICIL DRUG Active N/V Univers JAMISNO-POT 4-17 ity of CLAVULAN 00:00: [place] ATE 00 Medical Branch CEPHALEX DRUG Active Rash Univers IN INGREDI 4-17 ity of 00:00: [place] 00 Medical Branch SULFAMET DRUG Active Hives Univers HOXAZOLE INGREDI 417 ity of 00:00: [place] 00 Medical Branch AZITHROM DRUG Active Other-Cmnt Univ ers YCIN INGREDI 4-17 ity of 00:00: [place] 00 Medical Branch Cephalex Propensi Active Rash Univer s in ty to 4-17 ity of adverse 00:00: [place] reaction 00 Medical s Branch Sulfamet Propensi Active Rash Univer s hoxazole ty to 4-17 ity of adverse 00:00: [place] reaction 00 Medical s Branch Azithrom Propensi Active Other - See Leg U nivers ycin ty to comments 4-17 Numbness ity of adverse 00:00: [place] reaction [address] [place] [address] Branch 8091 Drug Active Unknown Common allergy [facility] azithrom azithrom Active Unknown Commo n ycin ycin [facility] amoxicil amoxicil Active Unknown Commo n jamison jamison [facility] sulfamet sulfamet Active Unknown Commo n hoxazole hoxazole Spirit / / - CHI trimetho trimetho [facility] Social History Social Habit Start Date Stop Date Quantity Comments Source Exposure to Not sure [facility] SARS-CoV-2 (event) History of Common Spirit - Tobacco Use [facility] Tobacco use and 2020-07-02 2020-07-02 Never used Universit y of exposure 00:00:00 00:00:00 [facility] Alcohol intake 2020-07-02 2020-07-02 Current University of 00:00:00 00:00:00 non-drinker of [facility] alcohol [place] (finding) Sex Assigned At [birth year] [place] [facility] 00:00:00 00:00:00 Smoking Status Start Date Stop Date Source Tobacco smoking consumption [facility] unknown Never Smoker Common [facility] Medications Ordered Filled Start Stop Current Ordering Indication Dosage Frequency Signature Comments Components Source Medication Medication Date Date Medication? Clinician (SIG) Name Name Losartan Losartan No 1{table QD Losartan Potassium Potassium 8-19 t} Potassium 25 MG 25 MG 00:00: 25 MG Kenalog Kenalog No 40mg Common (Triamcinol (Triamcinol 4-29 S pirit one) one) 00:00: - CHI [facility] Kenalog Kenalog No 40mg Common (Triamcinol (Triamcinol 4-29 S pirit one) one) 00:00: - CHI [facility] Kenalog Kenalog No 40mg Common (Triamcinol (Triamcinol 4-29 S pirit one) one) 00:00: - CHI [facility] Kenalog Kenalog No 40mg Common (Triamcinol (Triamcinol 4-29 S pirit one) one) 00:00: - CHI 00 [facility] Kenalog Kenalog 2021-0 No 40mg Common (Triamcinol (Triamcinol 4-29 S pirit one) one) 00:00: - CHI 00 [facility] Kenalog Kenalog 2021-0 No 40mg Common (Triamcinol (Triamcinol 4-29 S pirit one) one) 00:00: - CHI 00 [facility] Kenalog Kenalog 2021-0 No 40mg Common (Triamcinol (Triamcinol 4-29 S pirit one) one) 00:00: - CHI 00 [facility] methylPREDN methylPREDN 2021-2021- No QD methylPRED ISolone 4 ISolone 4 10-07 NISolone 4 MG MG 00:00: 00:00 MG 00 :00 methylPREDN methylPREDN 2021-0 2021- No QD methylPRED ISolone 4 ISolone 4 10-07 NISolone 4 MG MG 00:00: 00:00 MG 00 :00 methylPREDN methylPREDN 2021-0 2021- No QD methylPRED ISolone 4 ISolone 4 10-07 NISolone 4 MG MG 00:00: 00:00 MG 00 :00 Benzonatate Benzonatate 2021-0 2021- No Benzonatat 100 MG 100 MG 07-27 e 100 MG 00:00: 00:00 00 :00 Benzonatate Benzonatate 2021-0 2021- No Benzonatat 100 MG 100 MG 07-27 e 100 MG 00:00: 00:00 00 :00 Benzonatate Benzonatate 2021-0 2021- No Benzonatat 100 MG 100 MG 07-27 e 100 MG 00:00: 00:00 00 :00 predniSONE predniSONE 2021-2021- No QD predniSONE 20 MG 20 MG 07-27 20 MG 00:00: 00:00 00 :00 predniSONE predniSONE 2021-0 2021- No QD predniSONE 20 MG 20 MG 07-27 20 MG 00:00: 00:00 00 :00 Ozempic (1 Ozempic (2020-06- No Ozempic (1 MG/DOSE) 2 MG/DOSE) 2 07-05-11 MG/DOSE) 2 MG/1.5ML MG/1.5ML 00:00: 00:00 MG/1.5ML 00 :00 Ozempic (1 Ozempic (2020-2021- No Ozempic (1 MG/DOSE) 2 MG/DOSE) 2 07-05-11 MG/DOSE) 2 MG/1.5ML MG/1.5ML 00:00: 00:00 MG/1.5ML 00 :00 Ozempic (1 Ozempic (2020-2021- No Ozempic (1 MG/DOSE) 2 MG/DOSE) 2 07-05-11 MG/DOSE) 2 MG/1.5ML MG/1.5ML 00:00: 00:00 MG/1.5ML 00 :00 Ozempic (1 Ozempic (2020-2021- No Ozempic (1 MG/DOSE) 2 MG/DOSE) 2 07-05-11 MG/DOSE) 2 MG/1.5ML MG/1.5ML 00:00: 00:00 MG/1.5ML 00 :00 Ozempic (1 Ozempic (2020-2021- No Ozempic (1 MG/DOSE) 2 MG/DOSE) 2 07-05-11 MG/DOSE) 2 MG/1.5ML MG/1.5ML 00:00: 00:00 MG/1.5ML 00 :00 Ozempic (1 Ozempic (2020-2021- No Ozempic (1 MG/DOSE) 2 MG/DOSE) 2 07-05-11 MG/DOSE) 2 MG/1.5ML MG/1.5ML 00:00: 00:00 MG/1.5ML 00 :00 Pen Francitas Pen Francitas 2020-0 Yes Michael 1 needle Common 8-07 [place] per Spirit 00:00: injection - CHI 00 [facility] Neomycin-Po Neomycin-Po 2020-0 No 4{drops TID Neomycin-P lymyxin-HC lymyxin-HC 7-10 _into_a olymyxin-H 3.5-22651-8 3.5-72568-0 00:00: ffected C 00 _ear} 3.5-51909- 1 Neomycin-Po Neomycin-Po 2020-0 No 4{drops TID Neomycin-P lymyxin-HC lymyxin-HC 7-10 _into_a olymyxin-H 3.5-17295-8 3.5-75750-6 00:00: ffected C 00 _ear} 3.5-96022- 1 Neomycin-Po Neomycin-Po 2020-0 No 4{drops TID Neomycin-P lymyxin-HC lymyxin-HC 7-10 _into_a olymyxin-H 3.5-18732-4 3.5-06294-2 00:00: ffected C 00 _ear} 3.5-39576- 1 Neomycin-Po Neomycin-Po 2020-0 No 4{drops TID Neomycin-P lymyxin-HC lymyxin-HC 7-10 _into_a olymyxin-H 3.5-38518-0 3.5-82715-7 00:00: ffected C 00 _ear} 3.5-09784- 1 Neomycin-Po Neomycin-Po 2020-0 No 4{drops TID Neomycin-P lymyxin-HC lymyxin-HC 7-10 _into_a olymyxin-H 3.5-39788-0 3.5-44610-1 00:00: ffected C 00 _ear} 3.5-66857- 1 Neomycin-Po Neomycin-Po 2020-0 No 4{drops TID Neomycin-P lymyxin-HC lymyxin-HC 7-10 _into_a olymyxin-H 3.5-26876-7 3.5-85234-6 00:00: ffected C 00 _ear} 3.5-24985- 1 Neomycin-Po Neomycin-Po 2020-0 No 4{drops TID Neomycin-P lymyxin-HC lymyxin-HC 7-10 _into_a olymyxin-H 3.5-33492-9 3.5-67892-1 00:00: ffected C 00 _ear} 3.5-24736- 1 Neomycin-Po Neomycin-Po 2020-0 No 4{drops TID Neomycin-P lymyxin-HC lymyxin-HC 7-10 _into_a olymyxin-H 3.5-73628-9 3.5-54359-5 00:00: ffected C 00 _ear} 3.5-25411- 1 Neomycin-Po Neomycin-Po 2020-0 No 4{drops TID Neomycin-P lymyxin-HC lymyxin-HC 7-10 _into_a olymyxin-H 3.5-81847-7 3.5-92341-8 00:00: ffected C 00 _ear} 3.5-09513- 1 Neomycin-Po Neomycin-Po 2020-0 No 4{drops TID Neomycin-P lymyxin-HC lymyxin-HC 7-10 _into_a olymyxin-H 3.5-12337-6 3.5-68890-9 00:00: ffected C 00 _ear} 3.5-36994- 1 Neomycin-Po Neomycin-Po 2020-0 No 4{drops TID Neomycin-P lymyxin-HC lymyxin-HC 7-10 _into_a olymyxin-H 3.5-94540-1 3.5-83818-5 00:00: ffected C 00 _ear} 3.5-44006- 1 Neomycin-Po Neomycin-Po 2020-0 No 4{drops TID Neomycin-P lymyxin-HC lymyxin-HC 7-10 _into_a olymyxin-H 3.5-84614-9 3.5-68991-0 00:00: ffected C 00 _ear} 3.5-38646- 1 Neomycin-Po Neomycin-Po 2020-0 No 4{drops TID Neomycin-P lymyxin-HC lymyxin-HC 7-10 _into_a olymyxin-H 3.5-04253-9 3.5-61119-2 00:00: ffected C 00 _ear} 3.5-88139- 1 Neomycin-Po Neomycin-Po 2020-0 No 4{drops TID Neomycin-P lymyxin-HC lymyxin-HC 7-10 _into_a olymyxin-H 3.5-80402-3 3.5-80143-5 00:00: ffected C 00 _ear} 3.5-16466- 1 Neomycin-Po Neomycin-Po 2020-0 No 4{drops TID Neomycin-P lymyxin-HC lymyxin-HC 7-10 _into_a olymyxin-H 3.5-01445-4 3.5-20215-8 00:00: ffected C 00 _ear} 3.5-09851- 1 Neomycin-Po Neomycin-Po 2020-0 No 4{drops TID Neomycin-P lymyxin-HC lymyxin-HC 7-10 _into_a olymyxin-H 3.5-05811-4 3.5-34063-9 00:00: ffected C 00 _ear} 3.5-21504- 1 Neomycin-Po Neomycin-Po 2020-0 No 4{drops TID Neomycin-P lymyxin-HC lymyxin-HC 7-10 _into_a olymyxin-H 3.5-37964-0 3.5-53750-9 00:00: ffected C 00 _ear} 3.5-66243- 1 Neomycin-Po Neomycin-Po 2020-0 No 4{drops TID Neomycin-P lymyxin-HC lymyxin-HC 7-10 _into_a olymyxin-H 3.5-40844-7 3.5-36098-6 00:00: ffected C 00 _ear} 3.5-09224- 1 Neomycin-Po Neomycin-Po 2020-0 No 4{drops TID Neomycin-P lymyxin-HC lymyxin-HC 7-10 _into_a olymyxin-H 3.5-54549-6 3.5-85756-3 00:00: ffected C 00 _ear} 3.5-01147- 1 Neomycin-Po Neomycin-Po 2020-0 No 4{drops TID Neomycin-P lymyxin-HC lymyxin-HC 7-10 _into_a olymyxin-H 3.5-06919-7 3.5-44180-4 00:00: ffected C 00 _ear} 3.5-45000- 1 Neomycin-Po Neomycin-Po 2020-0 No 4{drops TID Neomycin-P lymyxin-HC lymyxin-HC 7-10 _into_a olymyxin-H 3.5-25205-8 3.5-78321-1 00:00: ffected C 00 _ear} 3.5-56409- 1 Neomycin-Po Neomycin-Po 2020-0 No 4{drops TID Neomycin-P lymyxin-HC lymyxin-HC 7-10 _into_a olymyxin-H 3.5-18152-3 3.5-24153-6 00:00: ffected C 00 _ear} 3.5-15126- 1 Neomycin-Po Neomycin-Po 2020-0 No 4{drops TID Neomycin-P lymyxin-HC lymyxin-HC 7-10 _into_a olymyxin-H 3.5-17551-2 3.5-70702-7 00:00: ffected C 00 _ear} 3.5-76809- 1 Taurine 2020-0 Yes 2{each} Take 2 Unive rs 1,000 mg 2-10 Each by ity of Cap 01:54: mouth 2 (two) Medical times Branch daily. vitamin 2020-0 Yes 1000ug Take 1,000 Un kellen B-12 2-10 mcg by ity of (VITAMIN 01:54: mouth [place] B-12) 1,000 06 daily. Medica l mcg tablet Branch turmeric 2020-0 Yes Take by Univer s root 2-10 mouth ity of extract 500 01:54: [place]. [place] mg Cap 06 [place] [facility] vitamin C 2020-0 Yes 1000mg Take 1,000 Univers with alexis 2-10 mg by ity of hips 01:54: mouth [place] (VITAMIN C) 06 daily. Medica l 1,000 mg Branch tablet VITAMIN B 2020-0 Yes Take by Unive rs COMPLEX 2-10 mouth 2 ity of ORAL 01:54: (two) [place] 06 times Medical daily. Branch magnesium 2020-0 Yes Take by Unive rs oxide 400 2-10 mouth ity of mg capsule 01:54: daily. [place] [address] Medical Branch TRIAMCINOLO 2020-0 Yes Use in Univ ers NE 2-10 each ity of ACETONIDE 01:54: nostril 2 Kamari as (NASACORT 06 (two) Medical NASAL) times Branch daily. metFORMIN 2020-0 Yes 500mg Take 500 Uni vers 500 mg 2-10 mg by ity of tablet 01:54: mouth 2 (two) Medical times Branch daily with meals. montelukast 2020-0 Yes 10mg Take 10 mg Univers 10 mg 2-10 by mouth ity of tablet 01:54: daily. [place] [address] Medical Branch naproxen 2020-0 Yes 220mg Take 220 Univ ers sodium 2-10 mg by ity of (ALEVE) 220 01:54: mouth [place] mg tablet 06 daily. Medical Branch Taurine 2020-0 Yes 2{each} Take 2 Unive rs 1,000 mg 2-10 Each by ity of Cap 01:54: mouth 2 (two) Medical times Branch daily. vitamin 2020-0 Yes 1000ug Take 1,000 Un kellen B-12 2-10 mcg by ity of (VITAMIN 01:54: mouth [place] B-12) 1,000 06 daily. Medica l mcg tablet Branch turmeric 2020-0 Yes Take by Univer s root 2-10 mouth ity of extract 500 01:54: daily. [place] mg Cap 06 [facility] Branch vitamin C 2020-0 Yes 1000mg Take 1,000 Univers with alexis 2-10 mg by ity of hips 01:54: mouth [place] (VITAMIN C) 06 daily. Medica l 1,000 mg Branch tablet VITAMIN B 2020-0 Yes Take by Unive rs COMPLEX 2-10 mouth 2 ity of ORAL 01:54: (two) [place] 06 times Medical daily. Branch magnesium 2020-0 Yes Take by Unive rs oxide 400 2-10 mouth ity of mg capsule 01:54: daily. [place] Medical Branch TRIAMCINOLO 2020-0 Yes Use in Univ ers NE 2-10 each ity of ACETONIDE 01:54: nostril 2 Kamari as (NASACORT 06 (two) Medical NASAL) times Branch daily. metFORMIN 2020-0 Yes 500mg Take 500 Uni vers 500 mg 2-10 mg by ity of tablet 01:54: mouth 2 [place] 06 (two) Medical times Branch daily with meals. montelukast 2020-0 Yes 10mg Take 10 mg Univers 10 mg 2-10 by mouth ity of tablet 01:54: daily. [place] Medical [facility] naproxen 2020-0 Yes 220mg Take 220 Univ ers sodium 2-10 mg by ity of (ALEVE) 220 01:54: mouth [place] mg tablet 06 daily. Medical Branch Taurine 2020-0 Yes 2{each} Take 2 Unive rs 1,000 mg 2-10 Each by ity of Cap 01:54: mouth 2 [place] 06 (two) Medical times Branch daily. vitamin 2020-0 Yes 1000ug Take 1,000 Un kellen B-12 2-10 mcg by ity of (VITAMIN 01:54: mouth [place] B-12) 1,000 06 daily. Medica l mcg tablet Branch turmeric 2020-0 Yes Take by Univer s root 2-10 mouth ity of extract 500 01:54: daily. [place] mg Cap 06 [facility] Branch vitamin C 2020-0 Yes 1000mg Take 1,000 Univers with alexis 2-10 mg by ity of hips 01:54: mouth [place] (VITAMIN C) 06 daily. Medica l 1,000 mg Branch tablet VITAMIN B 2020-0 Yes Take by Unive rs COMPLEX 2-10 mouth 2 ity of ORAL 01:54: (two) [place] 06 times Medical daily. Branch magnesium 2020-0 Yes Take by Unive rs oxide 400 2-10 mouth ity of mg capsule 01:54: daily. Medical Branch TRIAMCINOLO 2020-0 Yes Use in Univ ers NE 2-10 each ity of ACETONIDE 01:54: nostril 2 Kamari as (NASACORT 06 (two) Medical NASAL) times Branch daily. metFORMIN 2020-0 Yes 500mg Take 500 Uni vers 500 mg 2-10 mg by ity of tablet 01:54: mouth 2 [place] 06 (two) Medical times Branch daily with meals. montelukast 2020-0 Yes 10mg Take 10 mg Univers 10 mg 2-10 by mouth ity of tablet 01:54: daily. Medical Branch naproxen 2020-0 Yes 220mg Take 220 Univ ers sodium 2-10 mg by ity of (ALEVE) 220 01:54: mouth [place] mg tablet 06 daily. Medical Branch Taurine 2020-0 Yes 2{each} Take 2 Unive rs 1,000 mg 2-10 Each by ity of Cap 01:54: mouth 2 [place] 06 (two) Medical times Branch daily. vitamin 2020-0 Yes 1000ug Take 1,000 Un kellen B-12 2-10 mcg by ity of (VITAMIN 01:54: mouth [place] B-12) 1,000 06 daily. Medica l mcg tablet Branch turmeric 2020-0 Yes Take by Univer s root 2-10 mouth ity of extract 500 01:54: daily. [place] mg Cap 06 [facility] Branch vitamin C 2020-0 Yes 1000mg Take 1,000 Univers with alexis 2-10 mg by ity of hips 01:54: mouth [place] (VITAMIN C) 06 daily. Medica l 1,000 mg Branch tablet VITAMIN B 2020-0 Yes Take by Unive rs COMPLEX 2-10 mouth 2 ity of ORAL 01:54: (two) [place] 06 times Medical daily. Branch magnesium 2020-0 Yes Take by Unive rs oxide 400 2-10 mouth ity of mg capsule 01:54: daily. Medical Branch TRIAMCINOLO 2020-0 Yes Use in Univ ers NE 2-10 each ity of ACETONIDE 01:54: nostril 2 Kamari as (NASACORT 06 (two) Medical NASAL) times Branch daily. metFORMIN 2020-0 Yes 500mg Take 500 Uni vers 500 mg 2-10 mg by ity of tablet 01:54: mouth 2 [place] 06 (two) Medical times Branch daily with meals. montelukast 2020-0 Yes 10mg Take 10 mg Univers 10 mg 2-10 by mouth ity of tablet 01:54: daily. [address] Branch naproxen 2020-0 Yes 220mg Take 220 Univ ers sodium 2-10 mg by ity of (ALEVE) 220 01:54: mouth [place] mg tablet 06 daily. Medical Branch Taurine 2020-0 Yes 2{each} Take 2 Unive rs 1,000 mg 2-10 Each by ity of Cap 01:54: mouth 2 [place] 06 (two) Medical times Branch daily. vitamin 2020-0 Yes 1000ug Take 1,000 Un kellen B-12 2-10 mcg by ity of (VITAMIN 01:54: mouth [place] B-12) 1,000 06 daily. Medica l mcg tablet Branch turmeric 2020-0 Yes Take by Univer s root 2-10 mouth ity of extract 500 01:54: daily. [place] mg [facility] 06 Medical Branch vitamin C 2020-0 Yes 1000mg Take 1,000 Univers with alexis 2-10 mg by ity of hips 01:54: mouth [place] (VITAMIN C) 06 daily. Medica l 1,000 mg Branch tablet VITAMIN B 2020-0 Yes Take by Unive rs COMPLEX 2-10 mouth 2 ity of ORAL 01:54: (two) [place] 06 times Medical daily. Branch magnesium 2020-0 Yes Take by Unive rs oxide 400 2-10 mouth ity of mg capsule 01:54: daily. [place] [address] Medical Branch TRIAMCINOLO 2020-0 Yes Use in [facility] ers NE 2-10 each ity of ACETONIDE 01:54: nostril 2 Kam[place] as (NASACORT 06 (two) Medical NASAL) times Branch daily. metFORMIN 2020-0 Yes 500mg Take 500 Uni vers 500 mg 2-10 mg by ity of tablet 01:54: mouth 2 [place] 06 (two) Medical times Branch daily with meals. montelukast 2020-0 Yes 10mg Take 10 mg Univers 10 mg 2-10 by mouth ity of tablet 01:54: daily. Medical Branch naproxen 2020-0 Yes 220mg Take 220 Univ ers sodium 2-10 mg by ity of (ALEVE) 220 01:54: mouth [place] mg tablet 06 daily. Medical Branch Taurine 2020-0 Yes 2{each} Take 2 Unive rs 1,000 mg 2-10 Each by ity of Cap 01:54: mouth 2 [place] 06 (two) Medical times Branch daily. vitamin 2020-0 Yes 1000ug Take 1,000 Un kellen B-12 2-10 mcg by ity of (VITAMIN 01:54: mouth [place] B-12) 1,000 06 daily. Medica l mcg tablet Branch turmeric 2020-0 Yes Take by Univer s root 2-10 mouth ity of extract 500 01:54: daily. [place] mg Cap [place] Branch vitamin C 2020-0 Yes 1000mg Take 1,000 Univers with alexis 2-10 mg by ity of hips 01:54: mouth [place] (VITAMIN C) 06 daily. Medica l 1,000 mg Branch tablet VITAMIN B 2020-0 Yes Take by Unive rs COMPLEX 2-10 mouth 2 ity of ORAL 01:54: (two) [place] 06 times Medical daily. Branch magnesium 2020-0 Yes Take by Unive rs oxide 400 2-10 mouth ity of mg capsule 01:54: daily. Medical Branch TRIAMCINOLO 2020-0 Yes Use in Univ ers NE 2-10 each ity of ACETONIDE 01:54: nostril 2 [place] as (NASACORT 06 (two) Medical NASAL) times Branch daily. metFORMIN 2020-0 Yes 500mg Take 500 Uni vers 500 mg 2-10 mg by ity of tablet 01:54: mouth 2 [place] 06 (two) Medical times Branch daily with meals. montelukast 2020-0 Yes 10mg Take 10 mg Univers 10 mg 2-10 by mouth ity of tablet 01:54: daily. Medical Branch naproxen 2020-0 Yes 220mg Take 220 Univ ers sodium 2-10 mg by ity of (ALEVE) 220 01:54: mouth [place] mg tablet 06 daily. Medical Branch Taurine 2020-0 Yes 2{each} Take 2 Unive rs 1,000 mg 2-10 Each by ity of Cap 01:54: mouth 2 [place] 06 (two) Medical times Branch daily. vitamin 2020-0 Yes 1000ug Take 1,000 Un kellen B-12 2-10 mcg by ity of (VITAMIN 01:54: mouth [place] B-12) 1,000 06 daily. Medica l mcg tablet Branch turmeric 2020-0 Yes Take by Univer s root 2-10 mouth ity of extract 500 01:54: daily. [place] mg Cap 06 Medical Branch vitamin C 2020-0 Yes 1000mg Take 1,000 Univers with alexis 2-10 mg by ity of hips 01:54: mouth [place] (VITAMIN C) 06 daily. Medica l 1,000 mg Branch tablet VITAMIN B 2020-0 Yes Take by Unive rs COMPLEX 2-10 mouth 2 ity of ORAL 01:54: (two) [place] 06 times Medical daily. Branch magnesium 2020-0 Yes Take by Unive rs oxide 400 2-10 mouth ity of mg capsule 01:54: daily. Medical Branch TRIAMCINOLO 2020-0 Yes Use in Univ ers NE 2-10 each ity of ACETONIDE 01:54: nostril 2 [place] as (NASACORT 06 (two) Medical NASAL) times Branch daily. metFORMIN 2020-0 Yes 500mg Take 500 Uni vers 500 mg 2-10 mg by ity of tablet 01:54: mouth 2 [place] 06 (two) Medical times Branch daily with meals. montelukast 2020-0 Yes 10mg Take 10 mg Univers 10 mg 2-10 by mouth ity of tablet 01:54: daily. [place] Medical Branch naproxen 2020-0 Yes 220mg Take 220 Univ ers sodium 2-10 mg by ity of (ALEVE) 220 01:54: mouth [place] mg tablet 06 daily. Medical Branch Taurine 2020-0 Yes 2{each} Take 2 Unive rs 1,000 mg 2-10 Each by ity of Cap 01:54: mouth 2 [place] 06 (two) Medical times Branch daily. vitamin 2020-0 Yes 1000ug Take 1,000 Un kellen B-12 2-10 mcg by ity of (VITAMIN 01:54: mouth [place] B-12) 1,000 06 daily. Medica l mcg tablet Branch turmeric 2020-0 Yes Take by Univer s root 2-10 mouth ity of extract 500 01:54: daily. [place] mg Cap 06 Medical Branch vitamin C 2020-0 Yes 1000mg Take 1,000 Univers with alexis 2-10 mg by ity of hips 01:54: mouth [place] (VITAMIN C) 06 daily. Medica l 1,000 mg Branch tablet VITAMIN B 2020-0 Yes Take by Unive rs COMPLEX 2-10 mouth 2 ity of ORAL 01:54: (two) [place] 06 times Medical daily. Branch magnesium 2020-0 Yes Take by Unive rs oxide 400 2-10 mouth ity of mg capsule 01:54: daily. 06 Medical Branch TRIAMCINOLO 2020-0 Yes Use in Univ ers NE 2-10 each ity of ACETONIDE 01:54: nostril 2 [place] as (NASACORT 06 (two) Medical NASAL) times Branch daily. metFORMIN 2020-0 Yes 500mg Take 500 Uni vers 500 mg 2-10 mg by ity of tablet 01:54: mouth 2 [place] 06 (two) Medical times Branch daily with meals. montelukast 2020-0 Yes 10mg Take 10 mg [facility] 10 mg 2-10 by mouth ity of tablet 01:54: daily. [place] [facility] naproxen 2020-0 Yes 220mg Take 220 Univ ers sodium 2-10 mg by ity of (ALEVE) 220 01:54: mouth [place] mg tablet 06 daily. Medical Branch Taurine 2020-0 Yes 2{each} Take 2 Unive rs 1,000 mg 2-10 Each by ity of Cap 01:54: mouth 2 [place] 06 (two) Medical times Branch daily. vitamin 2020-0 Yes 1000ug Take 1,000 Un kellen B-12 2-10 mcg by ity of (VITAMIN 01:54: mouth [place] B-12) 1,000 06 daily. Medica l mcg tablet Branch turmeric 2020-0 Yes Take by Univer s root 2-10 mouth ity of extract 500 01:54: [place]. [place] mg [place] 06 [facility] vitamin C 2020-0 Yes 1000mg Take 1,000 Univers with alexis 2-10 mg by ity of hips 01:54: mouth [place] (VITAMIN C) 06 daily. Medica l 1,000 mg Branch tablet VITAMIN B 2020-0 Yes Take by Unive rs COMPLEX 2-10 mouth 2 ity of ORAL 01:54: (two) [place] 06 times Medical daily. Branch magnesium 2020-0 Yes Take by Unive rs oxide 400 2-10 mouth ity of mg capsule 01:54: daily. [place] [facility] TRIAMCINOLO 2020-0 Yes Use in Univ ers NE 2-10 each ity of ACETONIDE 01:54: nostril 2 [place] as (NASACORT 06 (two) Medical NASAL) times Branch daily. metFORMIN 2020-0 Yes 500mg Take 500 Uni vers 500 mg 2-10 mg by ity of tablet 01:54: mouth 2 [place] 06 (two) Medical times Branch daily with meals. montelukast 2020-0 Yes 10mg Take 10 mg [facility] 10 mg 2-10 by mouth ity of tablet 01:54: daily. [place] [facility] naproxen 2020-0 Yes 220mg Take 220 Univ ers sodium 2-10 mg by ity of (ALEVE) 220 01:54: mouth [place] mg tablet 06 daily. Medical Branch Taurine 2020-0 Yes 2{each} Take 2 Unive rs 1,000 mg 2-10 Each by ity of Cap 01:54: mouth 2 [place] 06 (two) Medical times Branch daily. vitamin 2020-0 Yes 1000ug Take 1,000 Un kellen B-12 2-10 mcg by ity of (VITAMIN 01:54: mouth [place] B-12) 1,000 06 daily. Medica l mcg tablet Branch turmeric 2020-0 Yes Take by Univer s root 2-10 mouth ity of extract 500 01:54: [place]. [place] mg [place] 06 [facility] vitamin C 2020-0 Yes 1000mg Take 1,000 [facility] with alexis 2-10 mg by ity of hips 01:54: mouth [place] (VITAMIN C) 06 daily. Medica l 1,000 mg Branch tablet VITAMIN B 2020-0 Yes Take by Unive rs COMPLEX 2-10 mouth 2 ity of ORAL 01:54: (two) [place] 06 times Medical daily. Branch magnesium 2020-0 Yes Take by Unive rs oxide 400 2-10 mouth ity of mg capsule 01:54: daily. Medical Branch TRIAMCINOLO 2020-0 Yes Use in Univ ers NE 2-10 each ity of ACETONIDE 01:54: nostril 2 [place] as (NASACORT 06 (two) Medical NASAL) times Branch daily. metFORMIN 2020-0 Yes 500mg Take 500 Uni vers 500 mg 2-10 mg by ity of tablet 01:54: mouth 2 [place] 06 (two) Medical times Branch daily with meals. montelukast 2020-0 Yes 10mg Take 10 mg [facility] 10 mg 2-10 by mouth ity of tablet 01:54: daily. [place] 06 Medical Branch naproxen 2020-0 Yes 220mg Take 220 Univ ers sodium 2-10 mg by ity of (ALEVE) 220 01:54: mouth [place] mg tablet 06 daily. Medical Branch cetirizine 2019-0 2020- No 10mg Take 10 mg [facility] 10 mg 2-03 26- by mouth ity of tablet 01:52: 00:00 daily. [place] 58 :00 Medical Branch losartan 25 2020-0 2020- No 25mg Take 25 mg [facility] mg tablet 08-04- by mouth ity o f 01:52: 00:00 daily. [place] 58 :00 Medical Branch cetirizine 2020-0 2020- No 10mg Take 10 mg [facility] 10 mg 08-04- by mouth ity of tablet 01:52: 00:00 daily. [place] 58 :00 Medical Branch losartan 25 2020-0 2020- No 25mg Take 25 mg Univers mg tablet 08-04 by mouth ity o f 01:52: 00:00 daily. [place] 58 :00 Medical Branch cetirizine 2019-0 2020- No 10mg Take 10 mg [facility] 10 mg 08-04- by mouth ity of tablet 01:52: 00:00 daily. [place] 58 :00 Medical Branch losartan 25 2020-0 2020- No 25mg Take 25 mg Univers mg tablet 08-04 by mouth ity o f 01:52: 00:00 daily. [place] 58 :00 Medical Branch ferrous 2020-0 Yes 325mg Take 325 Unive rs sulfate 325 2-10 mg by ity of mg (65 mg 01:49: mouth 2 [place] iron) EC 38 (two) Medical tablet times Branch daily. cyclobenzap 2020-0 Yes 5mg Take 5 mg U nivers rine 5 mg 2-10 by mouth ity of tablet 01:49: daily. [place] [address] Medical Branch Activated 2020-0 Yes Take by Unive rs Charcoal 2-10 mouth 2 ity of 200 mg Cap 01:49: (two) [place] 38 times Medical daily. Branch DESOGESTREL 2019-0 Yes Take by Uni vers -ETHINYL 2-10 mouth ity of ESTRADIOL 01:49: daily. [place] (APRI ORAL) Medical Branch ferrous 2020-0 Yes 325mg Take 325 Unive rs sulfate 325 2-10 mg by ity of mg (65 mg 01:49: mouth 2 [place] iron) EC 38 (two) Medical tablet times Branch daily. cyclobenzap 2020-0 Yes 5mg Take 5 mg U nivers rine 5 mg 2-10 by mouth ity of tablet 01:49: daily. [address] Branch Activated 2020-0 Yes Take by Unive rs Charcoal 2-10 mouth 2 ity of 200 mg Cap 01:49: (two) [place] [address] times Medical daily. Branch DESOGESTREL 2020-0 Yes Take by Uni vers -ETHINYL 2-10 mouth ity of ESTRADIOL 01:49: daily. [place] (APRI ORAL) [address] [place] [address] Branch ferrous 2020-0 Yes 325mg Take 325 Unive rs sulfate 325 2-10 mg by ity of mg (65 mg 01:49: mouth 2 [place] iron) 38 (two) Medical tablet times Branch daily. cyclobenzap 2020-0 Yes 5mg Take 5 mg U nivers rine 5 mg 2-10 by mouth ity of tablet 01:49: daily. [address] Branch Activated 2020-0 Yes Take by Unive rs Charcoal 2-10 mouth 2 ity of 200 mg Cap 01:49: (two) [place] [address] times Medical daily. Branch DESOGESTREL 2020-0 Yes Take by Uni vers -ETHINYL 2-10 mouth ity of ESTRADIOL 01:49: daily. [place] (APRI ORAL) Medical Branch ferrous 2020-0 Yes 325mg Take 325 Unive rs sulfate 325 2-10 mg by ity of mg (65 mg 01:49: mouth 2 [place] iron) 38 (two) Medical tablet times Branch daily. cyclobenzap 2020-0 Yes 5mg Take 5 mg U nivers rine 5 mg 2-10 by mouth ity of tablet 01:49: daily. [address] Branch Activated 2020-0 Yes Take by Unive rs Charcoal 2-10 mouth 2 ity of 200 mg Cap 01:49: (two) [place] [address] times Medical daily. Branch DESOGESTREL 2020-0 Yes Take by Uni vers -ETHINYL 2-10 mouth ity of ESTRADIOL 01:49: daily. [place] (APRI ORAL) Medical Branch ferrous 2020-0 Yes 325mg Take 325 Unive rs sulfate 325 2-10 mg by ity of mg (65 mg 01:49: mouth 2 [place] iron) EC 38 (two) Medical tablet times Branch daily. cyclobenzap 2020-0 Yes 5mg Take 5 mg U nivers rine 5 mg 2-10 by mouth ity of tablet 01:49: daily. [place] [address] Medical Branch Activated 2020-0 Yes Take by Unive rs Charcoal 2-10 mouth 2 ity of 200 mg Cap 01:49: (two) [place] [address] times Medical daily. Branch DESOGESTREL 2020-0 Yes Take by Uni vers -ETHINYL 2-10 mouth ity of ESTRADIOL 01:49: daily. [place] (APRI ORAL) Medical Branch ferrous 2020-0 Yes 325mg Take 325 Unive rs sulfate 325 2-10 mg by ity of mg (65 mg 01:49: mouth 2 [place] iron) EC 38 (two) Medical tablet times Branch daily. cyclobenzap 2020-0 Yes 5mg Take 5 mg U nivers rine 5 mg 2-10 by mouth ity of tablet 01:49: daily. [address] Branch Activated 2020-0 Yes Take by Unive rs Charcoal 2-10 mouth 2 ity of 200 mg Cap 01:49: (two) [place] [address] times Medical daily. Branch DESOGESTREL 2020-0 Yes Take by Uni vers -ETHINYL 2-10 mouth ity of ESTRADIOL 01:49: daily. [place] (APRI ORAL) Medical Branch ferrous 2020-0 Yes 325mg Take 325 Unive rs sulfate 325 2-10 mg by ity of mg (65 mg 01:49: mouth 2 [place] iron) EC 38 (two) Medical tablet times Branch daily. cyclobenzap 2020-0 Yes 5mg Take 5 mg U nivers rine 5 mg 2-10 by mouth ity of tablet 01:49: daily. [place] [address] Medical Branch Activated 2020-0 Yes Take by Unive rs Charcoal 2-10 mouth 2 ity of 200 mg Cap 01:49: (two) [place] [address] times Medical daily. Branch DESOGESTREL 2020-0 Yes Take by Uni vers -ETHINYL 2-10 mouth ity of ESTRADIOL 01:49: daily. [place] (APRI ORAL) Medical Branch ferrous 2020-0 Yes 325mg Take 325 Unive rs sulfate 325 2-10 mg by ity of mg (65 mg 01:49: mouth 2 [place] iron) EC 38 (two) Medical tablet times Branch daily. cyclobenzap 2020-0 Yes 5mg Take 5 mg U nivers rine 5 mg 2-10 by mouth ity of tablet 01:49: daily. [address] Branch Activated 2020-0 Yes Take by Unive rs Charcoal 2-10 mouth 2 ity of 200 mg Cap 01:49: (two) [place] [address] times Medical daily. Branch DESOGESTREL 2020-0 Yes Take by Uni vers -ETHINYL 2-10 mouth ity of ESTRADIOL 01:49: daily. [place] (APRI ORAL) Medical Branch ferrous 2020-0 Yes 325mg Take 325 Unive rs sulfate 325 2-10 mg by ity of mg (65 mg 01:49: mouth 2 [place] iron) EC 38 (two) Medical tablet times Branch daily. cyclobenzap 2020-0 Yes 5mg Take 5 mg U nivers rine 5 mg 2-10 by mouth ity of tablet 01:49: daily. [address] Branch Activated 2020-0 Yes Take by Unive rs Charcoal 2-10 mouth 2 ity of 200 mg Cap 01:49: (two) [place] [address] times Medical daily. Branch DESOGESTREL 2020-0 Yes Take by Uni vers -ETHINYL 2-10 mouth ity of ESTRADIOL 01:49: daily. [place] (APRI ORAL) Medical Branch ferrous 2020-0 Yes 325mg Take 325 Unive rs sulfate 325 2-10 mg by ity of mg (65 mg 01:49: mouth 2 [place] iron) 38 (two) Medical tablet times Branch daily. cyclobenzap 2020-0 Yes 5mg Take 5 mg U nivers rine 5 mg 2-10 by mouth ity of tablet 01:49: daily. [address] Branch Activated 2020-0 Yes Take by Unive rs Charcoal 2-10 mouth 2 ity of 200 mg Cap 01:49: (two) [place] [address] times Medical daily. Branch DESOGESTREL 2020-0 Yes Take by Uni vers -ETHINYL 2-10 mouth ity of ESTRADIOL 01:49: daily. [place] (APRI ORAL) Medical Branch neomycin-po 2020-0 2020- No [id number] 3[drp] Place 3 Univers lymyxin-hyd 2-10 02-18 Drops in ity of rocortisone 00:00: 05:59 right ear [place] 3.5-10,000- 00 :00 4 (four) Medi fabian 1 times Branch mg/mL-unit/ daily for mL-% otic 7 days. susp ciprofloxac 2019-0 2020- No [id number] 3[drp] Place 3 Univers in-hydrocor 08-03 [id number] Drops in it y of tisone otic 00:00: 05:59 right ear [place] suspension 00 :00 2 (two) Medica l times Branch daily for 7 days. ciprofloxac 2019-0 2020- No [id number] 3[drp] Place 3 Univers in-hydrocor 08-03 [id number] Drops in it y of tisone otic 00:00: 05:59 right ear [place] suspension 00 :00 2 (two) Medica l times Branch daily for 7 days. ciprofloxac 2019-0 2020- No [id number] 3[drp] Place 3 Univers in-hydrocor 08-03 [id number] Drops in it y of tisone otic 00:00: 05:59 right ear [place] suspension 00 :00 2 (two) Medica l times Branch daily for 7 days. ciprofloxac 2019-0 2020- No [id number] 3[drp] Place 3 Univers in-hydrocor 08-03 [id number] Drops in it y of tisone otic 00:00: 05:59 right ear [place] suspension 00 :00 2 (two) Medica l times Branch daily for 7 days. RESTASIS 2020-0 Yes Univers MULTIDOSE 2-04 ity of 0.05 % Drop 00:00: 00 Medical Branch RESTASIS 2020-0 Yes Univers MULTIDOSE 2-04 ity of 0.05 % Drop 00:00: 00 Medical Branch RESTASIS 2020-0 Yes Univers MULTIDOSE 2-04 ity of 0.05 % Drop 00:00: [place] 00 Medical Branch RESTASIS 2020-0 Yes Univers MULTIDOSE 2-04 ity of 0.05 % Drop 00:00: 00 Medical Branch RESTASIS 2020-0 Yes Univers MULTIDOSE 2-04 ity of 0.05 % Drop 00:00: 00 Medical Branch RESTASIS 2020-0 Yes Univers MULTIDOSE 2-04 ity of 0.05 % Drop 00:00: 00 Medical Branch RESTASIS 2020-0 Yes Univers MULTIDOSE 2-04 ity of 0.05 % Drop 00:00: [place] 00 Medical Branch RESTASIS 2020-0 Yes Univers MULTIDOSE 2-04 ity of 0.05 % Drop 00:00: [place] 00 Medical Branch RESTASIS 2020-0 Yes Univers MULTIDOSE 2-04 ity of 0.05 % Drop 00:00: [place] 00 Medical Branch RESTASIS 2020-0 Yes Univers MULTIDOSE 2-04 ity of 0.05 % Drop 00:00: [place] 00 Medical Branch losartan-hy 2020-0 Yes Univer s drochloroth 1-29 ity of iazide 00:00: [place] 50-12.5 mg 00 Medical per tablet Branch levocetiriz 2020-0 Yes Univer s ine 5 mg 1-29 ity of tablet 00:00: [place] 00 Medical Branch losartan-hy 2020-0 Yes Univer s drochloroth 1-29 ity of iazide 00:00: [place] 50-12.5 mg 00 Medical per tablet Branch levocetiriz 2020-0 Yes Univer s ine 5 mg 1-29 ity of tablet 00:00: [place] 00 Medical Branch losartan-hy 2020-0 Yes Univer s drochloroth 1-29 ity of iazide 00:00: [place] 50-12.5 mg 00 Medical per tablet Branch levocetiriz 2020-0 Yes Univer s ine 5 mg 1-29 ity of tablet 00:00: [place] 00 Medical Branch losartan-hy 2020-0 Yes Univer s drochloroth 1-29 ity of iazide 00:00: [place] 50-12.5 mg 00 Medical per tablet Branch levocetiriz 2020-0 Yes Univer s ine 5 mg 1-29 ity of tablet 00:00: [place] 00 Medical Branch losartan-hy 2020-0 Yes Univer s drochloroth 1-29 ity of iazide 00:00: [place] 50-12.5 mg 00 Medical per tablet Branch levocetiriz 2020-0 Yes Univer s ine 5 mg 1-29 ity of tablet 00:00: [place] 00 Medical Branch losartan-hy 2020-0 Yes Univer s drochloroth 1-29 ity of iazide 00:00: [place] 50-12.5 mg 00 Medical per tablet Branch levocetiriz 2020-0 Yes Univer s ine 5 mg 1-29 ity of tablet 00:00: [place] 00 Medical Branch losartan-hy 2020-0 Yes Univer s drochloroth 1-29 ity of iazide 00:00: [place] 50-12.5 mg 00 Medical per tablet Branch levocetiriz 2020-0 Yes Univer s ine 5 mg 1-29 ity of tablet 00:00: [place] 00 Medical Branch losartan-hy 2020-0 Yes Univer s drochloroth 1-29 ity of iazide 00:00: [place] 50-12.5 mg 00 Medical per tablet Branch levocetiriz 2020-0 Yes Univer s ine 5 mg 1-29 ity of tablet 00:00: [place] [address] Medical Branch losartan-hy 2020-0 Yes Univer s drochloroth 1-29 ity of iazide 00:00: [place] 50-12.5 mg 00 Medical per tablet Branch levocetiriz 2020-0 Yes Univer s ine 5 mg 1-29 ity of tablet 00:00: [place] [address] Medical Branch losartan-hy 2020-0 Yes Univer s drochloroth 1-29 ity of iazide 00:00: [place] 50-12.5 mg 00 Medical per tablet Branch levocetiriz 2020-0 Yes Univer s ine 5 mg 1-29 ity of tablet 00:00: [address] Branch SERTraline 2020-0 Yes Univers 100 mg 1-27 ity of tablet 00:00: [address] Branch SERTraline 2020-0 Yes Univers 100 mg 1-27 ity of tablet 00:00: [place] [address] Medical Branch SERTraline 2020-0 Yes Univers 100 mg 1-27 ity of tablet 00:00: [address] Branch SERTraline 2020-0 Yes Univers 100 mg 1-27 ity of tablet 00:00: [address] Branch SERTraline 2020-0 Yes Univers 100 mg 1-27 ity of tablet 00:00: [address] Branch SERTraline 2020-0 Yes Univers 100 mg 1-27 ity of tablet 00:00: [address] Branch SERTraline 2020-0 Yes Univers 100 mg 1-27 ity of tablet 00:00: [address] Branch SERTraline 2020-0 Yes Univers 100 mg 1-27 ity of tablet 00:00: [address] Branch SERTraline 2020-0 Yes Univers 100 mg 1-27 ity of tablet 00:00: [address] Branch SERTraline 2020-0 Yes Univers 100 mg 1-27 ity of tablet 00:00: [address] Ken[place] Kenalog 2019- No 40mg Common (Triamcinol (Triamcinol 2-17 S pirit one) one) 00:00: - [facility] 00 [facility] [place] Kenalog 2019- No 40mg Common (Triamcinol (Triamcinol 2-17 S pirit one) one) 00:00: - [facility] 00 [facility] [place] Kenalog 2019- No 40mg Common (Triamcinol (Triamcinol 2-17 S pirit one) one) 00:00: - [facility] 00 [facility] [place] Kenalog 2019- No 40mg Common (Triamcinol (Triamcinol 2-17 S pirit one) one) 00:00: - [facility] 00 [facility] [place]ell 2019- No 40mg Common (Triamcinol (Triamcinol 2-17 S pirit one) one) 00:00: - [facility] 00 [facility] [place] 2019- No 40mg Common (Triamcinol (Triamcinol 2-17 S pirit one) one) 00:00: - [facility] 00 [facility] [place] Kenalog 2019- No 40mg Common (Triamcinol (Triamcinol 2-17 S pirit one) one) 00:00: - [facility] 00 [facility] [place] Kenalog 2019- No 40mg Common (Triamcinol (Triamcinol 2-17 S pirit one) one) 00:00: - [facility] 00 [facility] [place] Kenalog 2019- No 40mg Common (Triamcinol (Triamcinol 2-17 S pirit one) one) 00:00: - [facility] 00 [facility] [place] Kenalog 2019- No 40mg Common (Triamcinol (Triamcinol 2-17 S pirit one) one) 00:00: - [facility] 00 [facility] [place] Kenalog 2019- No 40mg Common (Triamcinol (Triamcinol 2-17 S pirit one) one) 00:00: - [facility] 00 [facility] [place] Kenalog 2019- No 40mg Common (Triamcinol (Triamcinol 2-17 S pirit one) one) 00:00: - [facility] 00 [facility] [place] Kenalog 2019-1 No 40mg Common (Triamcinol (Triamcinol 2-17 S pirit one) one) 00:00: - [facility] 00 [facility] [place] Kenalog 2019-1 No 40mg Common (Triamcinol (Triamcinol 2-17 S pirit one) one) 00:00: - [facility] 00 [facility] [place] Kenalog 2019-1 No 40mg Common (Triamcinol (Triamcinol 2-17 S pirit one) one) 00:00: - [facility] 00 [facility] [place] 2019-1 No 40mg Common (Triamcinol (Triamcinol 2-17 S pirit one) one) 00:00: - [facility] 00 [facility] [place] 2019-1 No 40mg Common (Triamcinol (Triamcinol 2-17 S pirit one) one) 00:00: - [facility] 00 [facility] [place] Kenalog 2019-1 No 40mg Common (Triamcinol (Triamcinol 2-17 S pirit one) one) 00:00: - [facility] 00 [facility] [place] 2019-1 No 40mg Common (Triamcinol (Triamcinol 2-17 S pirit one) one) 00:00: - [facility] 00 [facility] [place] 2019-1 No 40mg Common (Triamcinol (Triamcinol 2-17 S pirit one) one) 00:00: - [facility] 00 [facility] [place] Kenalog 2018-0 No 40mg Common (Triamcinol (Triamcinol 9-14 S pirit one) one) 00:00: - [facility] 00 [facility] [place] 2018-0 No 40mg Common (Triamcinol (Triamcinol 9-14 S pirit one) one) 00:00: - [facility] 00 [facility] Kenalog 2018-0 No 40mg Common (Triamcinol (Triamcinol 9-14 S pirit one) one) 00:00: - [facility] 00 [facility] [place] Kenalog 2018-0 No 40mg Common (Triamcinol (Triamcinol 9-14 S pirit one) one) 00:00: - [facility] 00 [facility] [place] Kenalog 2018-0 No 40mg Common (Triamcinol (Triamcinol 9-14 S pirit one) one) 00:00: - [facility] 00 [facility] [place] Kenalog 2018-0 No 40mg Common (Triamcinol (Triamcinol 9-14 S pirit one) one) 00:00: - [facility] 00 [facility] [place] Kenalog 2018-0 No 40mg Common (Triamcinol (Triamcinol 9-14 S pirit one) one) 00:00: - [facility] 00 [facility] [place] Kenalog 2018-0 No 40mg Common (Triamcinol (Triamcinol 9-14 S pirit one) one) 00:00: - [facility] 00 [facility] [place] Kenalog 2018-0 No 40mg Common (Triamcinol (Triamcinol 9-14 S pirit one) one) 00:00: - [facility] 00 [facility] [place] Kenalog 2018-0 No 40mg Common (Triamcinol (Triamcinol 9-14 S pirit one) one) 00:00: - [facility] 00 [facility] [place] Kenalog 2018-0 No 40mg Common (Triamcinol (Triamcinol 9-14 S pirit one) one) 00:00: - [facility] 00 [facility] [place] Kenalog 2018-0 No 40mg Common (Triamcinol (Triamcinol 9-14 S pirit one) one) 00:00: - [facility] 00 [facility] [place] Kenalog 2018-0 No 40mg Common (Triamcinol (Triamcinol 9-14 S pirit one) one) 00:00: - [facility] 00 [facility] [place] Kenalog 2018-0 No 40mg Common (Triamcinol (Triamcinol 9-14 S pirit one) one) 00:00: - [facility] 00 [facility] [place] Kenalog 2018-0 No 40mg Common (Triamcinol (Triamcinol 9-14 S pirit one) one) 00:00: - [facility] 00 [facility] [place] Kenalog 2017-0 No 40mg Common (Triamcinol (Triamcinol 9-14 S pirit one) one) 00:00: - [facility] 00 [facility] [place] Balderramaalog 2017-0 No 40mg Common (Triamcinol (Triamcinol 9-14 S pirit one) one) 00:00: - [facility] 00 [facility] [place] Andres 0 No 40mg Common (Triamcinol (Triamcinol 9-14 S pirit one) one) 00:00: - [facility] 00 [facility] [place] Kenalog 0 No 40mg Common (Triamcinol (Triamcinol 9-14 S pirit one) one) 00:00: - [facility] 00 [facility] [place] Andres No 40mg Common (Triamcinol (Triamcinol 9-14 S pirit one) one) 00:00: - [facility] 00 [facility] vitamin Yes 1000ug Take 1,000 Un kellen B-12 4-17 mcg by ity of (VITAMIN 19:21: mouth [place] B-12) 1,000 18 daily. Medica l mcg tablet Branch turmeric Yes Take by [facility] s root 4-17 mouth ity of extract 500 19:21: [place]. [place] mg [place] 18 [facility] Branch vitamin C Yes 1000mg Take 1,000 Univers with alexis 4-17 mg by ity of hips 19:21: mouth [place] (VITAMIN C) 18 daily. Medica l 1,000 mg Branch tablet VITAMIN B Yes Take by [facility] rs COMPLEX 4-17 mouth 2 ity of ORAL 19:21: (two) [place] 18 times Medical daily. Branch magnesium Yes Take by [facility] rs oxide 400 -17 mouth ity of mg capsule 19:21: daily. [address] cetirizine Yes 10mg Take 10 mg U nivers 10 mg 4-17 by mouth ity of tablet 19:21: daily. [address] Branch TRIAMCINOLO Yes Use in Univ ers NE 4-17 each ity of ACETONIDE 19:21: nostril 2 [place] as (NASACORT 18 (two) Medical NASAL) times Branch daily. losartan 25 2017- Yes 25mg Take 25 mg Univers mg tablet 4-17 by mouth ity of 19:21: daily. [address] Branch metFORMIN 0 Yes 500mg Take 500 Uni vers 500 mg 4-17 mg by ity of tablet 19:21: mouth 2 [place] 18 (two) Medical times Branch daily with meals. DESOGESTREL Yes Take by Uni vers -ETHINYL 4-17 mouth ity of ESTRADIOL 19:21: daily. [place] (APRI ORAL) Medical Branch ferrous 2017-0 Yes 325mg Take 325 Unive rs sulfate 325 4-17 mg by ity of mg (65 mg 19:21: mouth 2 [place] iron) EC 18 (two) Medical tablet times Branch daily. montelukast Yes 10mg Take 10 mg Univers 10 mg 4-17 by mouth ity of tablet 19:21: daily. [address] Branch cyclobenzap Yes 5mg Take 5 mg U nivers rine 5 mg 4-17 by mouth ity of tablet 19:21: daily. [address] Branch naproxen Yes 220mg Take 220 Univ ers sodium 4-17 mg by ity of (ALEVE) 220 19:21: mouth [place] mg tablet 18 daily. Medical Branch Activated 0 Yes Take by Unive rs Charcoal 4-17 mouth 2 ity of 200 mg Cap 19:21: (two) [place] 17 times Medical daily. Branch Taurine Yes 2{each} Take 2 Unive rs 1,000 mg 4-17 Each by ity of Cap 19:21: mouth 2 [place] 17 (two) Medical times Branch daily. Kenalog Kenalog No 40mg Common (Triamcinol (Triamcinol 3-20 S pirit one) one) 00:00: - [facility] 00 [facility] Ken[place] Kenalog No 40mg Common (Triamcinol (Triamcinol 3-20 S pirit one) one) 00:00: - [facility] 00 [facility] Ken[place] Kenalog No 40mg Common (Triamcinol (Triamcinol 3-20 S pirit one) one) 00:00: - [facility] 00 [facility] [place] Kenalog No 40mg Common (Triamcinol (Triamcinol 3-20 S pirit one) one) 00:00: - [facility] 00 [facility] [place] Kenalog 2018-0 No 40mg Common (Triamcinol (Triamcinol 3-20 S pirit one) one) 00:00: - [facility] 00 [facility] [place] Kenalog 2018-0 No 40mg Common (Triamcinol (Triamcinol 3-20 S pirit one) one) 00:00: - [facility] 00 [facility] [place] Kenalog 2018-0 No 40mg Common (Triamcinol (Triamcinol 3-20 S pirit one) one) 00:00: - [facility] 00 [facility] [place] Kenalog 2018-0 No 40mg Common (Triamcinol (Triamcinol 3-20 S pirit one) one) 00:00: - [facility] 00 [facility] [place] Kenalog 2018-0 No 40mg Common (Triamcinol (Triamcinol 3-20 S pirit one) one) 00:00: - [facility] 00 [facility] [place] Kenalog 2018-0 No 40mg Common (Triamcinol (Triamcinol 3-20 S pirit one) one) 00:00: - [facility] 00 [facility] Ken[place] Kenalog 2018-0 No 40mg Common (Triamcinol (Triamcinol 3-20 S pirit one) one) 00:00: - [facility] 00 [facility] [place] Kenalog 2018-0 No 40mg Common (Triamcinol (Triamcinol 3-20 S pirit one) one) 00:00: - [facility] 00 [facility] Ken[place] Kenalog 2018-0 No 40mg Common (Triamcinol (Triamcinol 3-20 S pirit one) one) 00:00: - [facility] 00 [facility] Ken[place] Kenalog 2018-0 No 40mg Common (Triamcinol (Triamcinol 3-20 S pirit one) one) 00:00: - [facility] 00 [facility] Ken[place] Kenalog 2018-0 No 40mg Common (Triamcinol (Triamcinol 3-20 S pirit one) one) 00:00: - [facility] 00 [facility] [place] Balderramaalog 2018-0 No 40mg Common (Triamcinol (Triamcinol 3-20 S pirit one) one) 00:00: - [facility] 00 [facility] [place] Kenalog 2018-0 No 40mg Common (Triamcinol (Triamcinol 3-20 S pirit one) one) 00:00: - [facility] 00 [facility] [place] Kenalog 2018-0 No 40mg Common (Triamcinol (Triamcinol 3-20 S pirit one) one) 00:00: - [facility] 00 [facility] [place] Kenalog 2018-0 No 40mg Common (Triamcinol (Triamcinol 3-20 S pirit one) one) 00:00: - [facility] 00 [facility] [place] Andres 2018-0 No 40mg Common (Triamcinol (Triamcinol 3-20 S pirit one) one) 00:00: - [facility] 00 [facility] Singulair Singulair No Singulair 10 MG 10 MG 10 MG Losartan Losartan No 1{table QD Losartan Potassium-H Potassium-H t} Potassium- [facility] 50-12.5 [facility] 50-12.5 HCTZ MG MG 50-12.5 MG Pen Francitas Pen Francitas No QD Pen 31G X 6 MM 31G X 6 MM Francitas 31G X 6 MM Losartan Losartan No 1{table QD Losartan Potassium-H Potassium-H t} Potassium- CTZ 50-12.5 CTZ 50-12.5 HCTZ MG MG 50-12.5 MG Losartan Losartan No 1{table QD Losartan Potassium-H Potassium-H t} Potassium- CTZ 50-12.5 CTZ 50-12.5 HCTZ MG MG 50-12.5 MG Potassimin Potassimin No Potassimin FreeStyle FreeStyle No FreeStyle Amaya 2 Amaya 2 Amaya 2 Sensor - Sensor - Sensor - hydrOXYzine hydrOXYzine No TID hydrOXYzin HCl 25 MG HCl 25 MG e HCl 25 MG Azelastine Azelastine No BID Azelastine HCl 137 HCl 137 HCl 137 MCG/SPRAY MCG/SPRAY MCG/SPRAY traZODone traZODone No QD traZODone HCl 50 MG HCl 50 MG HCl 50 MG Xyzal 5 MG Xyzal 5 MG No 1{table QD Xyzal 5 MG t_in_th e_eveni ng} Alpha Alpha No Alpha Lipoic Lipoic Lipoic Acid-Biotin Acid-Biotin Acid-Bioti n Integra Integra No Integra glipiZIDE glipiZIDE No 1{table QD glipiZIDE ER 2.5 MG ER 2.5 MG t_with_ ER 2.5 MG food} Ozempic (1 Ozempic (1 No Ozempic (1 MG/DOSE) 2 MG/DOSE) 2 MG/DOSE) 2 MG/1.5ML MG/1.5ML MG/1.5ML Cinnamon Cinnamon No Cinnamon Zoloft 100 Zoloft 100 No 1.5{tab QD Zoloft 100 MG MG let} MG Seasonique Seasonique No Seasonique Primidone Primidone No BID Primidone 250 MG 250 MG 250 MG Xyzal Xyzal No Xyzal Allergy Allergy Allergy 24HR 5 MG 24HR 5 MG 24HR 5 MG Wellbutrin Wellbutrin No 1{table QD Wellbutrin XL 300 MG XL 300 MG t_in_th XL 300 MG e_morni ng} Singulair Singulair No Singulair 10 MG 10 MG 10 MG Restasis Restasis No 1{drop_ BID Restasis 0.05 % 0.05 % into_af 0.05 % fected_ eye} Singulair Singulair No 1{table QD Singulair 10 MG 10 MG t} 10 MG Azelastine Azelastine No BID Azelastine HCl 137 HCl 137 HCl 137 MCG/SPRAY MCG/SPRAY MCG/SPRAY FreeStyle FreeStyle No FreeStyle Amaya 2 Amaya 2 Amaya 2 Sensor - Sensor - Sensor - Azelastine Azelastine No BID Azelastine HCl 137 HCl 137 HCl 137 MCG/SPRAY MCG/SPRAY MCG/SPRAY Alpha Alpha No Alpha Lipoic Lipoic Lipoic Acid-Biotin Acid-Biotin Acid-Bioti n Primidone Primidone No BID Primidone 250 MG 250 MG 250 MG Singulair Singulair No Singulair 10 MG 10 MG 10 MG Singulair Singulair No 1{table QD Singulair 10 MG 10 MG t} 10 MG Seasonique Seasonique No Seasonique hydrOXYzine hydrOXYzine No TID hydrOXYzin HCl 25 MG HCl 25 MG e HCl 25 MG Restasis Restasis No 1{drop_ BID Restasis 0.05 % 0.05 % into_af 0.05 % fected_ eye} traZODone traZODone No QD traZODone HCl 50 MG HCl 50 MG HCl 50 MG Losartan Losartan No 1{table QD Losartan Potassium-H Potassium-H t} Potassium- CTZ 50-12.5 CTZ 50-12.5 HCTZ MG MG 50-12.5 MG Xyzal Xyzal No Xyzal Allergy Allergy Allergy 24HR 5 MG 24HR 5 MG 24HR 5 MG Losartan Losartan No 1{table QD Losartan Potassium-H Potassium-H t} Potassium- CTZ 50-12.5 CTZ 50-12.5 HCTZ MG MG 50-12.5 MG Ozempic (1 Ozempic (1 No Ozempic (1 MG/DOSE) 2 MG/DOSE) 2 MG/DOSE) 2 MG/1.5ML MG/1.5ML MG/1.5ML Xyzal 5 MG Xyzal 5 MG No 1{table QD Xyzal 5 MG t_in_th e_eveni ng} Pen Francitas Pen Francitas No QD Pen 31G X 6 MM 31G X 6 MM Francitas 31G X 6 MM Wellbutrin Wellbutrin No 1{table QD Wellbutrin XL 300 MG XL 300 MG t_in_th XL 300 MG e_morni ng} Potassimin Potassimin No Potassimin Azelastine Azelastine No BID Azelastine HCl 137 HCl 137 HCl 137 MCG/SPRAY MCG/SPRAY MCG/SPRAY Integra Integra No Integra Zoloft 100 Zoloft 100 No 1.5{tab QD Zoloft 100 MG MG let} MG glipiZIDE glipiZIDE No 1{table QD glipiZIDE ER 2.5 MG ER 2.5 MG t_with_ ER 2.5 MG food} Cinnamon Cinnamon No Cinnamon Potassimin Potassimin No Potassimin Losartan Losartan No 1{table QD Losartan Potassium-H Potassium-H t} Potassium- CTZ 50-12.5 CTZ 50-12.5 HCTZ MG MG 50-12.5 MG Singulair Singulair No Singulair 10 MG 10 MG 10 MG Wellbutrin Wellbutrin No 1{table QD Wellbutrin XL 300 MG XL 300 MG t_in_th XL 300 MG e_morni ng} Xyzal Xyzal No Xyzal Allergy Allergy Allergy 24HR 5 MG 24HR 5 MG 24HR 5 MG Zoloft 100 Zoloft 100 No 1.5{tab QD Zoloft 100 MG MG let} MG glipiZIDE glipiZIDE No 1{table QD glipiZIDE ER 2.5 MG ER 2.5 MG t_with_ ER 2.5 MG food} Ozempic (1 Ozempic (1 No Ozempic (1 MG/DOSE) 2 MG/DOSE) 2 MG/DOSE) 2 MG/1.5ML MG/1.5ML MG/1.5ML Pen Francitas Pen Francitas No QD Pen 31G X 6 MM 31G X 6 MM Francitas 31G X 6 MM Singulair Singulair No 1{table QD Singulair 10 MG 10 MG t} 10 MG Restasis Restasis No 1{drop_ BID Restasis 0.05 % 0.05 % into_af 0.05 % fected_ eye} Alpha Alpha No Alpha Lipoic Lipoic Lipoic Acid-Biotin Acid-Biotin Acid-Bioti n Azelastine Azelastine No BID Azelastine HCl 137 HCl 137 HCl 137 MCG/SPRAY MCG/SPRAY MCG/SPRAY Losartan Losartan No 1{table QD Losartan Potassium-H Potassium-H t} Potassium- CTZ 50-12.5 CTZ 50-12.5 HCTZ MG MG 50-12.5 MG Xyzal 5 MG Xyzal 5 MG No 1{table QD Xyzal 5 MG t_in_th e_eveni ng} Integra Integra No Integra FreeStyle FreeStyle No FreeStyle Amaya 2 Amaya 2 Amaya 2 Sensor - Sensor - Sensor - Seasonique Seasonique No Seasonique Azelastine Azelastine No BID Azelastine HCl 137 HCl 137 HCl 137 MCG/SPRAY MCG/SPRAY MCG/SPRAY hydrOXYzine hydrOXYzine No TID hydrOXYzin HCl 25 MG HCl 25 MG e HCl 25 MG traZODone traZODone No QD traZODone HCl 50 MG HCl 50 MG HCl 50 MG Primidone Primidone No BID Primidone 250 MG 250 MG 250 MG Cinnamon Cinnamon No Cinnamon Potassimin Potassimin No Potassimin Losartan Losartan No 1{table QD Losartan Potassium-H Potassium-H t} Potassium- CTZ 50-12.5 CTZ 50-12.5 HCTZ MG MG 50-12.5 MG Singulair Singulair No Singulair 10 MG 10 MG 10 MG Wellbutrin Wellbutrin No 1{table QD Wellbutrin XL 300 MG XL 300 MG t_in_th XL 300 MG e_morni ng} Xyzal Xyzal No Xyzal Allergy Allergy Allergy 24HR 5 MG 24HR 5 MG 24HR 5 MG Zoloft 100 Zoloft 100 No 1.5{tab QD Zoloft 100 MG MG let} MG glipiZIDE glipiZIDE No 1{table QD glipiZIDE ER 2.5 MG ER 2.5 MG t_with_ ER 2.5 MG food} Ozempic (1 Ozempic (1 No Ozempic (1 MG/DOSE) 2 MG/DOSE) 2 MG/DOSE) 2 MG/1.5ML MG/1.5ML MG/1.5ML Pen Francitas Pen Francitas No QD Pen 31G X 6 MM 31G X 6 MM Francitas 31G X 6 MM Singulair Singulair No 1{table QD Singulair 10 MG 10 MG t} 10 MG Restasis Restasis No 1{drop_ BID Restasis 0.05 % 0.05 % into_af 0.05 % fected_ eye} Alpha Alpha No Alpha Lipoic Lipoic Lipoic Acid-Biotin Acid-Biotin Acid-Bioti n Azelastine Azelastine No BID Azelastine HCl 137 HCl 137 HCl 137 MCG/SPRAY MCG/SPRAY MCG/SPRAY Losartan Losartan No 1{table QD Losartan Potassium-H Potassium-H t} Potassium- CTZ 50-12.5 CTZ 50-12.5 HCTZ MG MG 50-12.5 MG Xyzal 5 MG Xyzal 5 MG No 1{table QD Xyzal 5 MG t_in_th e_eveni ng} Integra Integra No Integra FreeStyle FreeStyle No FreeStyle Amaya 2 Amaya 2 Amaya 2 Sensor - Sensor - Sensor - Seasonique Seasonique No Seasonique Azelastine Azelastine No BID Azelastine HCl 137 HCl 137 HCl 137 MCG/SPRAY MCG/SPRAY MCG/SPRAY hydrOXYzine hydrOXYzine No TID hydrOXYzin HCl 25 MG HCl 25 MG e HCl 25 MG traZODone traZODone No QD traZODone HCl 50 MG HCl 50 MG HCl 50 MG Primidone Primidone No BID Primidone 250 MG 250 MG 250 MG Cinnamon Cinnamon No Cinnamon Wellbutrin Wellbutrin No 1{table QD Wellbutrin XL 300 MG XL 300 MG t_in_th XL 300 MG e_morni ng} Seasonique Seasonique No Seasonique Cinnamon Cinnamon No Cinnamon Potassimin Potassimin No Potassimin Azelastine Azelastine No BID Azelastine HCl 137 HCl 137 HCl 137 MCG/SPRAY MCG/SPRAY MCG/SPRAY traZODone traZODone No QD traZODone HCl 50 MG HCl 50 MG HCl 50 MG Losartan Losartan No 1{table QD Losartan Potassium-H Potassium-H t} Potassium- CTZ 50-12.5 CTZ 50-12.5 HCTZ MG MG 50-12.5 MG Zoloft 100 Zoloft 100 No 1.5{tab QD Zoloft 100 MG MG let} MG Ozempic (1 Ozempic (1 No Ozempic (1 MG/DOSE) 2 MG/DOSE) 2 MG/DOSE) 2 MG/1.5ML MG/1.5ML MG/1.5ML Losartan Losartan No 1{table QD Losartan Potassium-H Potassium-H t} Potassium- CTZ 50-12.5 CTZ 50-12.5 HCTZ MG MG 50-12.5 MG Azelastine Azelastine No BID Azelastine HCl 137 HCl 137 HCl 137 MCG/SPRAY MCG/SPRAY MCG/SPRAY Xyzal 5 MG Xyzal 5 MG No 1{table QD Xyzal 5 MG t_in_th e_eveni ng} Singulair Singulair No 1{table QD Singulair 10 MG 10 MG t} 10 MG Integra Integra No Integra hydrOXYzine hydrOXYzine No TID hydrOXYzin HCl 25 MG HCl 25 MG e HCl 25 MG Primidone Primidone No BID Primidone 250 MG 250 MG 250 MG Xyzal Xyzal No Xyzal Allergy Allergy Allergy 24HR 5 MG 24HR 5 MG 24HR 5 MG Singulair Singulair No Singulair 10 MG 10 MG 10 MG FreeStyle FreeStyle No FreeStyle Amaya 2 Amaya 2 Amaya 2 Sensor - Sensor - Sensor - Restasis Restasis No 1{drop_ BID Restasis 0.05 % 0.05 % into_af 0.05 % fected_ eye} Alpha Alpha No Alpha Lipoic Lipoic Lipoic Acid-Biotin Acid-Biotin Acid-Bioti n Pen Francitas Pen Francitas No QD Pen 31G X 6 MM 31G X 6 MM Francitas 31G X 6 MM Wellbutrin Wellbutrin No 1{table QD Wellbutrin XL 300 MG XL 300 MG t_in_ XL 300 MG e_morni ng} Seasonique Seasonique No Seasonique Singulair Singulair No Singulair 10 MG 10 MG 10 MG Restasis Restasis No 1{drop_ BID Restasis 0.05 % 0.05 % into_af 0.05 % fected_ eye} Ozempic (1 Ozempic (1 No Ozempic (1 MG/DOSE) 2 MG/DOSE) 2 MG/DOSE) 2 MG/1.5ML MG/1.5ML MG/1.5ML hydrOXYzine hydrOXYzine No TID hydrOXYzin HCl 25 MG HCl 25 MG e HCl 25 MG Zoloft 100 Zoloft 100 No 1.5{tab QD Zoloft 100 MG MG let} MG Cinnamon Cinnamon No Cinnamon Primidone Primidone No BID Primidone 250 MG 250 MG 250 MG Alpha Alpha No Alpha Lipoic Lipoic Lipoic Acid-Biotin Acid-Biotin Acid-Bioti n Pen Francitas Pen Francitas No QD Pen 31G X 6 MM 31G X 6 MM Francitas 31G X 6 MM Xyzal 5 MG Xyzal 5 MG No 1{table QD Xyzal 5 MG t_in e_eveni ng} FreeStyle FreeStyle No FreeStyle Amaya 2 Amaya 2 Amaya 2 Sensor - Sensor - Sensor - Integra Integra No Integra Losartan Losartan No 1{table QD Losartan Potassium-H Potassium-H t} Potassium- CTZ 50-12.5 CTZ 50-12.5 HCTZ MG MG 50-12.5 MG Potassimin Potassimin No Potassimin Azelastine Azelastine No BID Azelastine HCl 137 HCl 137 HCl 137 MCG/SPRAY MCG/SPRAY MCG/SPRAY Losartan Losartan No 1{table QD Losartan Potassium-H Potassium-H t} Potassium- CTZ 50-12.5 CTZ 50-12.5 HCTZ MG MG 50-12.5 MG Xyzal Xyzal No Xyzal Allergy Allergy Allergy 24HR 5 MG 24HR 5 MG 24HR 5 MG Singulair Singulair No 1{table QD Singulair 10 MG 10 MG t} 10 MG traZODone traZODone No QD traZODone HCl 50 MG HCl 50 MG HCl 50 MG Azelastine Azelastine No BID Azelastine HCl 137 HCl 137 HCl 137 MCG/SPRAY MCG/SPRAY MCG/SPRAY Seasonique Seasonique No Seasonique Integra Integra No Integra Singulair Singulair No Singulair 10 MG 10 MG 10 MG Alpha Alpha No Alpha Lipoic Lipoic Lipoic Acid-Biotin Acid-Biotin Acid-Bioti n Wellbutrin Wellbutrin No 1{table QD Wellbutrin XL 300 MG XL 300 MG t_in_ XL 300 MG e_morni ng} Ozempic (1 Ozempic (1 No Ozempic (1 MG/DOSE) 2 MG/DOSE) 2 MG/DOSE) 2 MG/1.5ML MG/1.5ML MG/1.5ML hydrOXYzine hydrOXYzine No TID hydrOXYzin HCl 25 MG HCl 25 MG e HCl 25 MG Restasis Restasis No 1{drop_ BID Restasis 0.05 % 0.05 % into_af 0.05 % fected_ eye} Azelastine Azelastine No BID Azelastine HCl 137 HCl 137 HCl 137 MCG/SPRAY MCG/SPRAY MCG/SPRAY Xyzal Xyzal No Xyzal Allergy Allergy Allergy 24HR 5 MG 24HR 5 MG 24HR 5 MG Primidone Primidone No BID Primidone 250 MG 250 MG 250 MG Cinnamon Cinnamon No Cinnamon Zoloft 100 Zoloft 100 No 1.5{tab QD Zoloft 100 MG MG let} MG Pen Francitas Pen Francitas No QD Pen 31G X 6 MM 31G X 6 MM Francitas 31G X 6 MM traZODone traZODone No QD traZODone HCl 50 MG HCl 50 MG HCl 50 MG Singulair Singulair No 1{table QD Singulair 10 MG 10 MG t} 10 MG Xyzal 5 MG Xyzal 5 MG No 1{table QD Xyzal 5 MG t_in_th e_eveni ng} FreeStyle FreeStyle No FreeStyle Amaya 2 Amaya 2 Amaya 2 Sensor - Sensor - Sensor - Potassimin Potassimin No Potassimin Losartan Losartan No 1{table QD Losartan Potassium-H Potassium-H t} Potassium- CTZ 50-12.5 CTZ 50-12.5 HCTZ MG MG 50-12.5 MG Losartan Losartan No 1{table QD Losartan Potassium-H Potassium-H t} Potassium- CTZ 50-12.5 CTZ 50-12.5 HCTZ MG MG 50-12.5 MG Azelastine Azelastine No BID Azelastine HCl 137 HCl 137 HCl 137 MCG/SPRAY MCG/SPRAY MCG/SPRAY Zoloft 100 Zoloft 100 No 1.5{tab QD Zoloft 100 MG MG let} MG Singulair Singulair No Singulair 10 MG 10 MG 10 MG traZODone traZODone No QD traZODone HCl 50 MG HCl 50 MG HCl 50 MG FreeStyle FreeStyle No FreeStyle Amaya 2 Amaya 2 Amaya 2 Sensor - Sensor - Sensor - Losartan Losartan No 1{table QD Losartan Potassium-H Potassium-H t} Potassium- CTZ 50-12.5 CTZ 50-12.5 HCTZ MG MG 50-12.5 MG Azelastine Azelastine No BID Azelastine HCl 137 HCl 137 HCl 137 MCG/SPRAY MCG/SPRAY MCG/SPRAY Potassimin Potassimin No Potassimin Xyzal Xyzal No Xyzal Allergy Allergy Allergy 24HR 5 MG 24HR 5 MG 24HR 5 MG Restasis Restasis No 1{drop_ BID Restasis 0.05 % 0.05 % into_af 0.05 % fected_ eye} Losartan Losartan No 1{table QD Losartan Potassium-H Potassium-H t} Potassium- CTZ 50-12.5 CTZ 50-12.5 HCTZ MG MG 50-12.5 MG Integra Integra No Integra Azelastine Azelastine No BID Azelastine HCl 137 HCl 137 HCl 137 MCG/SPRAY MCG/SPRAY MCG/SPRAY Cinnamon Cinnamon No Cinnamon Alpha Alpha No Alpha Lipoic Lipoic Lipoic Acid-Biotin Acid-Biotin Acid-Bioti n Wellbutrin Wellbutrin No 1{table QD Wellbutrin XL 300 MG XL 300 MG t_in_th XL 300 MG e_morni ng} hydrOXYzine hydrOXYzine No TID hydrOXYzin HCl 25 MG HCl 25 MG e HCl 25 MG Singulair Singulair No 1{table QD Singulair 10 MG 10 MG t} 10 MG Seasonique Seasonique No Seasonique Xyzal 5 MG Xyzal 5 MG No 1{table QD Xyzal 5 MG t_in_th e_eveni ng} Pen Francitas Pen Francitas No QD Pen 31G X 6 MM 31G X 6 MM Francitas 31G X 6 MM Primidone Primidone No BID Primidone 250 MG 250 MG 250 MG Ozempic (1 Ozempic (1 No Ozempic (1 MG/DOSE) 2 MG/DOSE) 2 MG/DOSE) 2 MG/1.5ML MG/1.5ML MG/1.5ML Zoloft 100 Zoloft 100 No 1.5{tab QD Zoloft 100 MG MG let} MG Singulair Singulair No Singulair 10 MG 10 MG 10 MG traZODone traZODone No QD traZODone HCl 50 MG HCl 50 MG HCl 50 MG FreeStyle FreeStyle No FreeStyle Amaya 2 Amaya 2 Amaya 2 Sensor - Sensor - Sensor - Losartan Losartan No 1{table QD Losartan Potassium-H Potassium-H t} Potassium- CTZ 50-12.5 CTZ 50-12.5 HCTZ MG MG 50-12.5 MG Azelastine Azelastine No BID Azelastine HCl 137 HCl 137 HCl 137 MCG/SPRAY MCG/SPRAY MCG/SPRAY Potassimin Potassimin No Potassimin Xyzal Xyzal No Xyzal Allergy Allergy Allergy 24HR 5 MG 24HR 5 MG 24HR 5 MG Restasis Restasis No 1{drop_ BID Restasis 0.05 % 0.05 % into_af 0.05 % fected_ eye} Losartan Losartan No 1{table QD Losartan Potassium-H Potassium-H t} Potassium- CTZ 50-12.5 CTZ 50-12.5 HCTZ MG MG 50-12.5 MG Integra Integra No Integra Azelastine Azelastine No BID Azelastine HCl 137 HCl 137 HCl 137 MCG/SPRAY MCG/SPRAY MCG/SPRAY Cinnamon Cinnamon No Cinnamon Alpha Alpha No Alpha Lipoic Lipoic Lipoic Acid-Biotin Acid-Biotin Acid-Bioti n Wellbutrin Wellbutrin No 1{table QD Wellbutrin XL 300 MG XL 300 MG t_in_th XL 300 MG e_morni ng} hydrOXYzine hydrOXYzine No TID hydrOXYzin HCl 25 MG HCl 25 MG e HCl 25 MG Singulair Singulair No 1{table QD Singulair 10 MG 10 MG t} 10 MG Seasonique Seasonique No Seasonique Xyzal 5 MG Xyzal 5 MG No 1{table QD Xyzal 5 MG t_in_th e_eveni ng} Pen Francitas Pen Francitas No QD Pen 31G X 6 MM 31G X 6 MM Francitas 31G X 6 MM Primidone Primidone No BID Primidone 250 MG 250 MG 250 MG Ozempic (1 Ozempic (1 No Ozempic (1 MG/DOSE) 2 MG/DOSE) 2 MG/DOSE) 2 MG/1.5ML MG/1.5ML MG/1.5ML Zoloft 100 Zoloft 100 No 1.5{tab QD Zoloft 100 MG MG let} MG Potassimin Potassimin No Potassimin Restasis Restasis No 1{drop_ BID Restasis 0.05 % 0.05 % into_af 0.05 % fected_ eye} Integra Integra No Integra Wellbutrin Wellbutrin No 1{table QD Wellbutrin XL 300 MG XL 300 MG t_in_th XL 300 MG e_morni ng} hydrOXYzine hydrOXYzine No TID hydrOXYzin HCl 25 MG HCl 25 MG e HCl 25 MG Singulair Singulair No Singulair 10 MG 10 MG 10 MG Cinnamon Cinnamon No Cinnamon Losartan Losartan No Losartan Potassium-H Potassium-H Potassium- CTZ 50-12.5 CTZ 50-12.5 HCTZ MG MG 50-12.5 MG Ozempic (1 Ozempic (1 No Ozempic (1 MG/DOSE) 4 MG/DOSE) 4 MG/DOSE) 4 MG/3ML MG/3ML MG/3ML Azelastine Azelastine No BID Azelastine HCl 137 HCl 137 HCl 137 MCG/SPRAY MCG/SPRAY MCG/SPRAY Azelastine Azelastine No BID Azelastine HCl 137 HCl 137 HCl 137 MCG/SPRAY MCG/SPRAY MCG/SPRAY Primidone Primidone No BID Primidone 250 MG 250 MG 250 MG Pen Francitas Pen Francitas No QD Pen 31G X 6 MM 31G X 6 MM Francitas 31G X 6 MM Xyzal Xyzal No Xyzal Allergy Allergy Allergy 24HR 5 MG 24HR 5 MG 24HR 5 MG FreeStyle FreeStyle No FreeStyle Amaya 2 Amaya 2 Amaya 2 Sensor - Sensor - Sensor - Singulair Singulair No 1{table QD Singulair 10 MG 10 MG t} 10 MG Xyzal 5 MG Xyzal 5 MG No 1{table QD Xyzal 5 MG t_in_th e_eveni ng} Alpha Alpha No Alpha Lipoic Lipoic Lipoic Acid-Biotin Acid-Biotin Acid-Bioti n traZODone traZODone No QD traZODone HCl 50 MG HCl 50 MG HCl 50 MG Seasonique Seasonique No Seasonique Zoloft 100 Zoloft 100 No 1.5{tab QD Zoloft 100 MG MG let} MG Potassimin Potassimin No Potassimin Restasis Restasis No 1{drop_ BID Restasis 0.05 % 0.05 % into_af 0.05 % fected_ eye} Integra Integra No Integra Wellbutrin Wellbutrin No 1{table QD Wellbutrin XL 300 MG XL 300 MG t_in_ XL 300 MG e_morni ng} hydrOXYzine hydrOXYzine No TID hydrOXYzin HCl 25 MG HCl 25 MG e HCl 25 MG Singulair Singulair No Singulair 10 MG 10 MG 10 MG Cinnamon Cinnamon No Cinnamon Losartan Losartan No Losartan Potassium-H Potassium-H Potassium- CTZ 50-12.5 CTZ 50-12.5 HCTZ MG MG 50-12.5 MG Ozempic (1 Ozempic (1 No Ozempic (1 MG/DOSE) 4 MG/DOSE) 4 MG/DOSE) 4 MG/3ML MG/3ML MG/3ML Azelastine Azelastine No BID Azelastine HCl 137 HCl 137 HCl 137 MCG/SPRAY MCG/SPRAY MCG/SPRAY Azelastine Azelastine No BID Azelastine HCl 137 HCl 137 HCl 137 MCG/SPRAY MCG/SPRAY MCG/SPRAY Primidone Primidone No BID Primidone 250 MG 250 MG 250 MG Pen Francitas Pen Francitas No QD Pen 31G X 6 MM 31G X 6 MM Francitas 31G X 6 MM Xyzal Xyzal No Xyzal Allergy Allergy Allergy 24HR 5 MG 24HR 5 MG 24HR 5 MG FreeStyle FreeStyle No FreeStyle Amaya 2 Amaya 2 Amaya 2 Sensor - Sensor - Sensor - Singulair Singulair No 1{table QD Singulair 10 MG 10 MG t} 10 MG Xyzal 5 MG Xyzal 5 MG No 1{table QD Xyzal 5 MG t_in_th e_eveni ng} Alpha Alpha No Alpha Lipoic Lipoic Lipoic Acid-Biotin Acid-Biotin Acid-Bioti n traZODone traZODone No QD traZODone HCl 50 MG HCl 50 MG HCl 50 MG Seasonique Seasonique No Seasonique traZODone traZODone No 1{table QD traZODone HCl 100 MG HCl 100 MG t_at_be HCl 100 MG dtime} Cinnamon Cinnamon No Cinnamon Integra Integra No Integra Pen Francitas Pen Francitas No QD Pen 31G X 6 MM 31G X 6 MM Francitas 31G X 6 MM Xyzal 5 MG Xyzal 5 MG No 1{table QD Xyzal 5 MG t_in_th e_eveni ng} Singulair Singulair No 1{table QD Singulair 10 MG 10 MG t} 10 MG Zoloft 100 Zoloft 100 No 1.5{tab QD Zoloft 100 MG MG let} MG Azelastine Azelastine No BID Azelastine HCl 137 HCl 137 HCl 137 MCG/SPRAY MCG/SPRAY MCG/SPRAY Primidone Primidone No BID Primidone 250 MG 250 MG 250 MG Losartan Losartan No Losartan Potassium-H Potassium-H Potassium- CTZ 50-12.5 CTZ 50-12.5 HCTZ MG MG 50-12.5 MG Ozempic (1 Ozempic (1 No Ozempic (1 MG/DOSE) 4 MG/DOSE) 4 MG/DOSE) 4 MG/3ML MG/3ML MG/3ML Restasis Restasis No 1{drop_ BID Restasis 0.05 % 0.05 % into_af 0.05 % fected_ eye} Xyzal Xyzal No Xyzal Allergy Allergy Allergy 24HR 5 MG 24HR 5 MG 24HR 5 MG Wellbutrin Wellbutrin No 1{table QD Wellbutrin XL 300 MG XL 300 MG t_in_th XL 300 MG e_morni ng} FreeStyle FreeStyle No FreeStyle Amaya 2 Amaya 2 Amaya 2 Sensor - Sensor - Sensor - Alpha Alpha No Alpha Lipoic Lipoic Lipoic Acid-Biotin Acid-Biotin Acid-Bioti n Potassimin Potassimin No Potassimin Singulair Singulair No Singulair 10 MG 10 MG 10 MG Azelastine Azelastine No BID Azelastine HCl 137 HCl 137 HCl 137 MCG/SPRAY MCG/SPRAY MCG/SPRAY Propranolol Propranolol No 1{table QD Propranolo HCl 10 MG HCl 10 MG t} l HCl 10 MG Ciprofloxac Ciprofloxac No 4{drops BID Ciprofloxa in-Dexameth in-Dexameth _into_a marvin-Dexame asone asone ffected thasone 0.3-0.1 % 0.3-0.1 % _ear} 0.3-0.1 % Seasonique Seasonique No Seasonique hydrOXYzine hydrOXYzine No TID hydrOXYzin HCl 25 MG HCl 25 MG e HCl 25 MG traZODone traZODone No 1{table QD traZODone HCl 100 MG HCl 100 MG t_at_be HCl 100 MG dtime} Cinnamon Cinnamon No Cinnamon Integra Integra No Integra Pen Francitas Pen Francitas No QD Pen 31G X 6 MM 31G X 6 MM Francitas 31G X 6 MM Xyzal 5 MG Xyzal 5 MG No 1{table QD Xyzal 5 MG t_in_th e_eveni ng} Singulair Singulair No 1{table QD Singulair 10 MG 10 MG t} 10 MG Zoloft 100 Zoloft 100 No 1.5{tab QD Zoloft 100 MG MG let} MG Azelastine Azelastine No BID Azelastine HCl 137 HCl 137 HCl 137 MCG/SPRAY MCG/SPRAY MCG/SPRAY Primidone Primidone No BID Primidone 250 MG 250 MG 250 MG Losartan Losartan No Losartan Potassium-H Potassium-H Potassium- CTZ 50-12.5 CTZ 50-12.5 HCTZ MG MG 50-12.5 MG Ozempic (1 Ozempic (1 No Ozempic (1 MG/DOSE) 4 MG/DOSE) 4 MG/DOSE) 4 MG/3ML MG/3ML MG/3ML Restasis Restasis No 1{drop_ BID Restasis 0.05 % 0.05 % into_af 0.05 % fected_ eye} Xyzal Xyzal No Xyzal Allergy Allergy Allergy 24HR 5 MG 24HR 5 MG 24HR 5 MG Wellbutrin Wellbutrin No 1{table QD Wellbutrin XL 300 MG XL 300 MG t_in_ XL 300 MG e_morni ng} FreeStyle FreeStyle No FreeStyle Amaya 2 Amaya 2 Amaya 2 Sensor - Sensor - Sensor - Alpha Alpha No Alpha Lipoic Lipoic Lipoic Acid-Biotin Acid-Biotin Acid-Bioti n Potassimin Potassimin No Potassimin Singulair Singulair No Singulair 10 MG 10 MG 10 MG Azelastine Azelastine No BID Azelastine HCl 137 HCl 137 HCl 137 MCG/SPRAY MCG/SPRAY MCG/SPRAY Propranolol Propranolol No 1{table QD Propranolo HCl 10 MG HCl 10 MG t} l HCl 10 MG Ciprofloxac Ciprofloxac No 4{drops BID Ciprofloxa in-Dexameth in-Dexameth _into_a marvin-Dexame asone asone ffected thasone 0.3-0.1 % 0.3-0.1 % _ear} 0.3-0.1 % Seasonique Seasonique No Seasonique hydrOXYzine hydrOXYzine No TID hydrOXYzin HCl 25 MG HCl 25 MG e HCl 25 MG traZODone traZODone No 1{table QD traZODone HCl 100 MG HCl 100 MG t_at_be HCl 100 MG dtime} Cinnamon Cinnamon No Cinnamon Integra Integra No Integra Pen Francitas Pen Francitas No QD Pen 31G X 6 MM 31G X 6 MM Francitas 31G X 6 MM Xyzal 5 MG Xyzal 5 MG No 1{table QD Xyzal 5 MG t_in_th e_eveni ng} Singulair Singulair No 1{table QD Singulair 10 MG 10 MG t} 10 MG Zoloft 100 Zoloft 100 No 1.5{tab QD Zoloft 100 MG MG let} MG Azelastine Azelastine No BID Azelastine HCl 137 HCl 137 HCl 137 MCG/SPRAY MCG/SPRAY MCG/SPRAY Primidone Primidone No BID Primidone 250 MG 250 MG 250 MG Losartan Losartan No Losartan Potassium-H Potassium-H Potassium- CTZ 50-12.5 CTZ 50-12.5 HCTZ MG MG 50-12.5 MG Ozempic (1 Ozempic (1 No Ozempic (1 MG/DOSE) 4 MG/DOSE) 4 MG/DOSE) 4 MG/3ML MG/3ML MG/3ML Restasis Restasis No 1{drop_ BID Restasis 0.05 % 0.05 % into_af 0.05 % fected_ eye} Xyzal Xyzal No Xyzal Allergy Allergy Allergy 24HR 5 MG 24HR 5 MG 24HR 5 MG Wellbutrin Wellbutrin No 1{table QD Wellbutrin XL 300 MG XL 300 MG t_in_th XL 300 MG e_morni ng} FreeStyle FreeStyle No FreeStyle Amaya 2 Amaya 2 Amaya 2 Sensor - Sensor - Sensor - Alpha Alpha No Alpha Lipoic Lipoic Lipoic Acid-Biotin Acid-Biotin Acid-Bioti n Potassimin Potassimin No Potassimin Singulair Singulair No Singulair 10 MG 10 MG 10 MG Azelastine Azelastine No BID Azelastine HCl 137 HCl 137 HCl 137 MCG/SPRAY MCG/SPRAY MCG/SPRAY Propranolol Propranolol No 1{table QD Propranolo HCl 10 MG HCl 10 MG t} l HCl 10 MG Ciprofloxac Ciprofloxac No 4{drops BID Ciprofloxa in-Dexameth in-Dexameth _into_a marvin-Dexame asone asone ffected thasone 0.3-0.1 % 0.3-0.1 % _ear} 0.3-0.1 % Seasonique Seasonique No Seasonique hydrOXYzine hydrOXYzine No TID hydrOXYzin HCl 25 MG HCl 25 MG e HCl 25 MG traZODone traZODone No 1{table QD traZODone HCl 100 MG HCl 100 MG t_at_be HCl 100 MG dtime} Cinnamon Cinnamon No Cinnamon Integra Integra No Integra Pen Francitas Pen Francitas No QD Pen 31G X 6 MM 31G X 6 MM Francitas 31G X 6 MM Potassimin Potassimin No Potassimin Singulair Singulair No 1{table QD Singulair 10 MG 10 MG t} 10 MG FreeStyle FreeStyle No FreeStyle Amaya 2 Amaya 2 Amaya 2 Sensor - Sensor - Sensor - Azelastine Azelastine No BID Azelastine HCl 137 HCl 137 HCl 137 MCG/SPRAY MCG/SPRAY MCG/SPRAY Primidone Primidone No BID Primidone 250 MG 250 MG 250 MG Losartan Losartan No Losartan Potassium-H Potassium-H Potassium- CTZ 50-12.5 CTZ 50-12.5 HCTZ MG MG 50-12.5 MG Ozempic (1 Ozempic (1 No Ozempic (1 MG/DOSE) 4 MG/DOSE) 4 MG/DOSE) 4 MG/3ML MG/3ML MG/3ML Xyzal Xyzal No Xyzal Allergy Allergy Allergy 24HR 5 MG 24HR 5 MG 24HR 5 MG Xyzal 5 MG Xyzal 5 MG No 1{table QD Xyzal 5 MG t_in_th e_eveni ng} Zoloft 100 Zoloft 100 No 1.5{tab QD Zoloft 100 MG MG let} MG Singulair Singulair No Singulair 10 MG 10 MG 10 MG Alpha Alpha No Alpha Lipoic Lipoic Lipoic Acid-Biotin Acid-Biotin Acid-Bioti n Seasonique Seasonique No Seasonique Restasis Restasis No 1{drop_ BID Restasis 0.05 % 0.05 % into_af 0.05 % fected_ eye} Azelastine Azelastine No BID Azelastine HCl 137 HCl 137 HCl 137 MCG/SPRAY MCG/SPRAY MCG/SPRAY Propranolol Propranolol No 1{table QD Propranolo HCl 10 MG HCl 10 MG t} l HCl 10 MG Ciprofloxac Ciprofloxac No 4{drops BID Ciprofloxa in-Dexameth in-Dexameth _into_a marvin-Dexame asone asone ffected thasone 0.3-0.1 % 0.3-0.1 % _ear} 0.3-0.1 % Wellbutrin Wellbutrin No 1{table QD Wellbutrin XL 300 MG XL 300 MG t_in_th XL 300 MG e_morni ng} hydrOXYzine hydrOXYzine No TID hydrOXYzin HCl 25 MG HCl 25 MG e HCl 25 MG Primidone Primidone No BID Primidone 250 MG 250 MG 250 MG Wellbutrin Wellbutrin No 1{table QD Wellbutrin XL 300 MG XL 300 MG t_in_th XL 300 MG e_morni ng} Cinnamon Cinnamon No Cinnamon Zoloft 100 Zoloft 100 No 1.5{tab QD Zoloft 100 MG MG let} MG Ozempic (1 Ozempic (1 No Ozempic (1 MG/DOSE) 4 MG/DOSE) 4 MG/DOSE) 4 MG/3ML MG/3ML MG/3ML FreeStyle FreeStyle No FreeStyle Amaya 2 Amaya 2 Amaya 2 Sensor - Sensor - Sensor - hydrOXYzine hydrOXYzine No TID hydrOXYzin HCl 25 MG HCl 25 MG e HCl 25 MG Azelastine Azelastine No BID Azelastine HCl 137 HCl 137 HCl 137 MCG/SPRAY MCG/SPRAY MCG/SPRAY traZODone traZODone No 1{table QD traZODone HCl 100 MG HCl 100 MG t_at_be HCl 100 MG dtime} Xyzal 5 MG Xyzal 5 MG No 1{table QD Xyzal 5 MG t_in_th e_eveni ng} Xyzal Xyzal No Xyzal Allergy Allergy Allergy 24HR 5 MG 24HR 5 MG 24HR 5 MG Singulair Singulair No Singulair 10 MG 10 MG 10 MG Propranolol Propranolol No 1{table QD Propranolo HCl 10 MG HCl 10 MG t} l HCl 10 MG Singulair Singulair No 1{table QD Singulair 10 MG 10 MG t} 10 MG Azelastine Azelastine No BID Azelastine HCl 137 HCl 137 HCl 137 MCG/SPRAY MCG/SPRAY MCG/SPRAY Alpha Alpha No Alpha Lipoic Lipoic Lipoic Acid-Biotin Acid-Biotin Acid-Bioti n Seasonique Seasonique No Seasonique Pen Francitas Pen Francitas No QD Pen 31G X 6 MM 31G X 6 MM Francitas 31G X 6 MM Integra Integra No Integra Losartan Losartan No Losartan Potassium-H Potassium-H Potassium- CTZ 50-12.5 CTZ 50-12.5 HCTZ MG MG 50-12.5 MG Potassimin Potassimin No Potassimin Restasis Restasis No 1{drop_ BID Restasis 0.05 % 0.05 % into_af 0.05 % fected_ eye} Ciprofloxac Ciprofloxac No 4{drops BID Ciprofloxa in-Dexameth in-Dexameth _into_a marvin-Dexame asone asone ffected thasone 0.3-0.1 % 0.3-0.1 % _ear} 0.3-0.1 % Primidone Primidone No BID Primidone 250 MG 250 MG 250 MG Wellbutrin Wellbutrin No 1{table QD Wellbutrin XL 300 MG XL 300 MG t_in_th XL 300 MG e_morni ng} Cinnamon Cinnamon No Cinnamon Zoloft 100 Zoloft 100 No 1.5{tab QD Zoloft 100 MG MG let} MG Ozempic (1 Ozempic (1 No Ozempic (1 MG/DOSE) 4 MG/DOSE) 4 MG/DOSE) 4 MG/3ML MG/3ML MG/3ML FreeStyle FreeStyle No FreeStyle Amaya 2 Amaya 2 Amaya 2 Sensor - Sensor - Sensor - hydrOXYzine hydrOXYzine No TID hydrOXYzin HCl 25 MG HCl 25 MG e HCl 25 MG Azelastine Azelastine No BID Azelastine HCl 137 HCl 137 HCl 137 MCG/SPRAY MCG/SPRAY MCG/SPRAY traZODone traZODone No 1{table QD traZODone HCl 100 MG HCl 100 MG t_at_be HCl 100 MG dtime} Xyzal 5 MG Xyzal 5 MG No 1{table QD Xyzal 5 MG t_in_th e_eveni ng} Xyzal Xyzal No Xyzal Allergy Allergy Allergy 24HR 5 MG 24HR 5 MG 24HR 5 MG Singulair Singulair No Singulair 10 MG 10 MG 10 MG Propranolol Propranolol No 1{table QD Propranolo HCl 10 MG HCl 10 MG t} l HCl 10 MG Singulair Singulair No 1{table QD Singulair 10 MG 10 MG t} 10 MG Azelastine Azelastine No BID Azelastine HCl 137 HCl 137 HCl 137 MCG/SPRAY MCG/SPRAY MCG/SPRAY Alpha Alpha No Alpha Lipoic Lipoic Lipoic Acid-Biotin Acid-Biotin Acid-Bioti n Seasonique Seasonique No Seasonique Pen Francitas Pen Francitas No QD Pen 31G X 6 MM 31G X 6 MM Francitas 31G X 6 MM Integra Integra No Integra Losartan Losartan No Losartan Potassium-H Potassium-H Potassium- CTZ 50-12.5 CTZ 50-12.5 HCTZ MG MG 50-12.5 MG Potassimin Potassimin No Potassimin Restasis Restasis No 1{drop_ BID Restasis 0.05 % 0.05 % into_af 0.05 % fected_ eye} Ciprofloxac Ciprofloxac No 4{drops BID Ciprofloxa in-Dexameth in-Dexameth _into_a marvin-Dexame asone asone ffected thasone 0.3-0.1 % 0.3-0.1 % _ear} 0.3-0.1 % Primidone Primidone No BID Primidone 250 MG 250 MG 250 MG Wellbutrin Wellbutrin No 1{table QD Wellbutrin XL 300 MG XL 300 MG t_in_th XL 300 MG e_morni ng} Cinnamon Cinnamon No Cinnamon Zoloft 100 Zoloft 100 No 1.5{tab QD Zoloft 100 MG MG let} MG Ozempic (1 Ozempic (1 No Ozempic (1 MG/DOSE) 4 MG/DOSE) 4 MG/DOSE) 4 MG/3ML MG/3ML MG/3ML FreeStyle FreeStyle No FreeStyle Amaya 2 Amaya 2 Amaya 2 Sensor - Sensor - Sensor - hydrOXYzine hydrOXYzine No TID hydrOXYzin HCl 25 MG HCl 25 MG e HCl 25 MG Azelastine Azelastine No BID Azelastine HCl 137 HCl 137 HCl 137 MCG/SPRAY MCG/SPRAY MCG/SPRAY traZODone traZODone No 1{table QD traZODone HCl 100 MG HCl 100 MG t_at_be HCl 100 MG dtime} Xyzal 5 MG Xyzal 5 MG No 1{table QD Xyzal 5 MG t_in_th e_eveni ng} Xyzal Xyzal No Xyzal Allergy Allergy Allergy 24HR 5 MG 24HR 5 MG 24HR 5 MG Singulair Singulair No Singulair 10 MG 10 MG 10 MG Propranolol Propranolol No 1{table QD Propranolo HCl 10 MG HCl 10 MG t} l HCl 10 MG Singulair Singulair No 1{table QD Singulair 10 MG 10 MG t} 10 MG Azelastine Azelastine No BID Azelastine HCl 137 HCl 137 HCl 137 MCG/SPRAY MCG/SPRAY MCG/SPRAY Alpha Alpha No Alpha Lipoic Lipoic Lipoic Acid-Biotin Acid-Biotin Acid-Bioti n Seasonique Seasonique No Seasonique Pen Francitas Pen Francitas No QD Pen 31G X 6 MM 31G X 6 MM Francitas 31G X 6 MM Integra Integra No Integra Losartan Losartan No Losartan Potassium-H Potassium-H Potassium- CTZ 50-12.5 CTZ 50-12.5 HCTZ MG MG 50-12.5 MG Potassimin Potassimin No Potassimin Restasis Restasis No 1{drop_ BID Restasis 0.05 % 0.05 % into_af 0.05 % fected_ eye} Ciprofloxac Ciprofloxac No 4{drops BID Ciprofloxa in-Dexameth in-Dexameth _into_a marvin-Dexame asone asone ffected thasone 0.3-0.1 % 0.3-0.1 % _ear} 0.3-0.1 % hydrOXYzine hydrOXYzine No TID hydrOXYzin HCl 25 MG HCl 25 MG e HCl 25 MG Primidone Primidone No BID Primidone 250 MG 250 MG 250 MG Wellbutrin Wellbutrin No 1{table QD Wellbutrin XL 300 MG XL 300 MG t_in_th XL 300 MG e_morni ng} traZODone traZODone No 1{table QD traZODone HCl 100 MG HCl 100 MG t_at_be HCl 100 MG dtime} Singulair Singulair No 1{table QD Singulair 10 MG 10 MG t} 10 MG Ozempic (1 Ozempic (1 No Ozempic (1 MG/DOSE) 4 MG/DOSE) 4 MG/DOSE) 4 MG/3ML MG/3ML MG/3ML Azelastine Azelastine No BID Azelastine HCl 137 HCl 137 HCl 137 MCG/SPRAY MCG/SPRAY MCG/SPRAY Losartan Losartan No Losartan Potassium-H Potassium-H Potassium- CTZ 50-12.5 CTZ 50-12.5 HCTZ MG MG 50-12.5 MG Xyzal 5 MG Xyzal 5 MG No 1{table QD Xyzal 5 MG t_in_th e_eveni ng} Xyzal Xyzal No Xyzal Allergy Allergy Allergy 24HR 5 MG 24HR 5 MG 24HR 5 MG Singulair Singulair No Singulair 10 MG 10 MG 10 MG Integra Integra No Integra Propranolol Propranolol No 1{table QD Propranolo HCl 10 MG HCl 10 MG t} l HCl 10 MG Azelastine Azelastine No BID Azelastine HCl 137 HCl 137 HCl 137 MCG/SPRAY MCG/SPRAY MCG/SPRAY Ciprofloxac Ciprofloxac No 4{drops BID Ciprofloxa in-Dexameth in-Dexameth _into_a marvin-Dexame asone asone ffected thasone 0.3-0.1 % 0.3-0.1 % _ear} 0.3-0.1 % Potassimin Potassimin No Potassimin FreeStyle FreeStyle No FreeStyle Amaya 2 Amaya 2 Amaya 2 Sensor - Sensor - Sensor - Alpha Alpha No Alpha Lipoic Lipoic Lipoic Acid-Biotin Acid-Biotin Acid-Bioti n Seasonique Seasonique No Seasonique Zoloft 100 Zoloft 100 No 1.5{tab QD Zoloft 100 MG MG let} MG Restasis Restasis No 1{drop_ BID Restasis 0.05 % 0.05 % into_af 0.05 % fected_ eye} Pen Francitas Pen Francitas No QD Pen 31G X 6 MM 31G X 6 MM Francitas 31G X 6 MM Cinnamon Cinnamon No Cinnamon Propranolol Propranolol No 1{table QD Propranolo HCl 10 MG HCl 10 MG t} l HCl 10 MG Losartan Losartan No Losartan Potassium-H Potassium-H Potassium- CTZ 50-12.5 CTZ 50-12.5 HCTZ MG MG 50-12.5 MG Azelastine Azelastine No BID Azelastine HCl 137 HCl 137 HCl 137 MCG/SPRAY MCG/SPRAY MCG/SPRAY Pen Francitas Pen Francitas No QD Pen 31G X 6 MM 31G X 6 MM Francitas 31G X 6 MM FreeStyle FreeStyle No FreeStyle Amaya 2 Amaya 2 Amaya 2 Sensor - Sensor - Sensor - Wellbutrin Wellbutrin No 1{table QD Wellbutrin XL 300 MG XL 300 MG t_in_th XL 300 MG e_morni ng} Zoloft 100 Zoloft 100 No 1.5{tab QD Zoloft 100 MG MG let} MG Primidone Primidone No BID Primidone 250 MG 250 MG 250 MG traZODone traZODone No 1{table QD traZODone HCl 100 MG HCl 100 MG t_at_be HCl 100 MG dtime} Seasonique Seasonique No Seasonique hydrOXYzine hydrOXYzine No TID hydrOXYzin HCl 25 MG HCl 25 MG e HCl 25 MG Ciprofloxac Ciprofloxac No 4{drops BID Ciprofloxa in-Dexameth in-Dexameth _into_a marvin-Dexame asone asone ffected thasone 0.3-0.1 % 0.3-0.1 % _ear} 0.3-0.1 % Xyzal 5 MG Xyzal 5 MG No 1{table QD Xyzal 5 MG t_in_th e_eveni ng} Restasis Restasis No 1{drop_ BID Restasis 0.05 % 0.05 % into_af 0.05 % fected_ eye} Ozempic (1 Ozempic (1 No Ozempic (1 MG/DOSE) 4 MG/DOSE) 4 MG/DOSE) 4 MG/3ML MG/3ML MG/3ML Singulair Singulair No Singulair 10 MG 10 MG 10 MG Alpha Alpha No Alpha Lipoic Lipoic Lipoic Acid-Biotin Acid-Biotin Acid-Bioti n Azelastine Azelastine No BID Azelastine HCl 137 HCl 137 HCl 137 MCG/SPRAY MCG/SPRAY MCG/SPRAY Potassimin Potassimin No Potassimin Xyzal Xyzal No Xyzal Allergy Allergy Allergy 24HR 5 MG 24HR 5 MG 24HR 5 MG Cinnamon Cinnamon No Cinnamon Integra Integra No Integra Singulair Singulair No 1{table QD Singulair 10 MG 10 MG t} 10 MG Propranolol Propranolol No 1{table QD Propranolo HCl 10 MG HCl 10 MG t} l HCl 10 MG Losartan Losartan No Losartan Potassium-H Potassium-H Potassium- CTZ 50-12.5 CTZ 50-12.5 HCTZ MG MG 50-12.5 MG Azelastine Azelastine No BID Azelastine HCl 137 HCl 137 HCl 137 MCG/SPRAY MCG/SPRAY MCG/SPRAY Pen Francitas Pen Francitas No QD Pen 31G X 6 MM 31G X 6 MM Francitas 31G X 6 MM FreeStyle FreeStyle No FreeStyle Amaya 2 Amaya 2 Amaya 2 Sensor - Sensor - Sensor - Wellbutrin Wellbutrin No 1{table QD Wellbutrin XL 300 MG XL 300 MG t_in_th XL 300 MG e_morni ng} Zoloft 100 Zoloft 100 No 1.5{tab QD Zoloft 100 MG MG let} MG Primidone Primidone No BID Primidone 250 MG 250 MG 250 MG traZODone traZODone No 1{table QD traZODone HCl 100 MG HCl 100 MG t_at_be HCl 100 MG dtime} Seasonique Seasonique No Seasonique hydrOXYzine hydrOXYzine No TID hydrOXYzin HCl 25 MG HCl 25 MG e HCl 25 MG Ciprofloxac Ciprofloxac No 4{drops BID Ciprofloxa in-Dexameth in-Dexameth _into_a marvin-Dexame asone asone ffected thasone 0.3-0.1 % 0.3-0.1 % _ear} 0.3-0.1 % Xyzal 5 MG Xyzal 5 MG No 1{table QD Xyzal 5 MG t_in_th e_eveni ng} Restasis Restasis No 1{drop_ BID Restasis 0.05 % 0.05 % into_af 0.05 % fected_ eye} Ozempic (1 Ozempic (1 No Ozempic (1 MG/DOSE) 4 MG/DOSE) 4 MG/DOSE) 4 MG/3ML MG/3ML MG/3ML Singulair Singulair No Singulair 10 MG 10 MG 10 MG Alpha Alpha No Alpha Lipoic Lipoic Lipoic Acid-Biotin Acid-Biotin Acid-Bioti n Azelastine Azelastine No BID Azelastine HCl 137 HCl 137 HCl 137 MCG/SPRAY MCG/SPRAY MCG/SPRAY Potassimin Potassimin No Potassimin Xyzal Xyzal No Xyzal Allergy Allergy Allergy 24HR 5 MG 24HR 5 MG 24HR 5 MG Cinnamon Cinnamon No Cinnamon Integra Integra No Integra Singulair Singulair No 1{table QD Singulair 10 MG 10 MG t} 10 MG Propranolol Propranolol No 1{table QD Propranolo HCl 10 MG HCl 10 MG t} l HCl 10 MG Losartan Losartan No Losartan Potassium-H Potassium-H Potassium- CTZ 50-12.5 CTZ 50-12.5 HCTZ MG MG 50-12.5 MG Azelastine Azelastine No BID Azelastine HCl 137 HCl 137 HCl 137 MCG/SPRAY MCG/SPRAY MCG/SPRAY Pen Francitas Pen Francitas No QD Pen 31G X 6 MM 31G X 6 MM Francitas 31G X 6 MM FreeStyle FreeStyle No FreeStyle Amaya 2 Amaya 2 Amaya 2 Sensor - Sensor - Sensor - Wellbutrin Wellbutrin No 1{table QD Wellbutrin XL 300 MG XL 300 MG t_in_th XL 300 MG e_morni ng} Zoloft 100 Zoloft 100 No 1.5{tab QD Zoloft 100 MG MG let} MG Primidone Primidone No BID Primidone 250 MG 250 MG 250 MG traZODone traZODone No 1{table QD traZODone HCl 100 MG HCl 100 MG t_at_be HCl 100 MG dtime} Seasonique Seasonique No Seasonique hydrOXYzine hydrOXYzine No TID hydrOXYzin HCl 25 MG HCl 25 MG e HCl 25 MG Ciprofloxac Ciprofloxac No 4{drops BID Ciprofloxa in-Dexameth in-Dexameth _into_a marvin-Dexame asone asone ffected thasone 0.3-0.1 % 0.3-0.1 % _ear} 0.3-0.1 % Xyzal 5 MG Xyzal 5 MG No 1{table QD Xyzal 5 MG t_in_th e_eveni ng} Restasis Restasis No 1{drop_ BID Restasis 0.05 % 0.05 % into_af 0.05 % fected_ eye} Ozempic (1 Ozempic (1 No Ozempic (1 MG/DOSE) 4 MG/DOSE) 4 MG/DOSE) 4 MG/3ML MG/3ML MG/3ML Singulair Singulair No Singulair 10 MG 10 MG 10 MG Alpha Alpha No Alpha Lipoic Lipoic Lipoic Acid-Biotin Acid-Biotin Acid-Bioti n Azelastine Azelastine No BID Azelastine HCl 137 HCl 137 HCl 137 MCG/SPRAY MCG/SPRAY MCG/SPRAY Potassimin Potassimin No Potassimin Xyzal Xyzal No Xyzal Allergy Allergy Allergy 24HR 5 MG 24HR 5 MG 24HR 5 MG Cinnamon Cinnamon No Cinnamon Integra Integra No Integra Singulair Singulair No 1{table QD Singulair 10 MG 10 MG t} 10 MG Primidone Primidone No BID Primidone 250 MG 250 MG 250 MG Cinnamon Cinnamon No Cinnamon Propranolol Propranolol No 1{table QD Propranolo HCl 10 MG HCl 10 MG t} l HCl 10 MG Losartan Losartan No 1{table QD Losartan Potassium-H Potassium-H t} Potassium- CTZ 50-12.5 CTZ 50-12.5 HCTZ MG MG 50-12.5 MG Zoloft 100 Zoloft 100 No 1.5{tab QD Zoloft 100 MG MG let} MG Wellbutrin Wellbutrin No 1{table QD Wellbutrin XL 300 MG XL 300 MG t_in_th XL 300 MG e_morni ng} Singulair Singulair No 1{table QD Singulair 10 MG 10 MG t} 10 MG Pen Francitas Pen Francitas No QD Pen 31G X 6 MM 31G X 6 MM Francitas 31G X 6 MM traZODone traZODone No 1{table QD traZODone HCl 100 MG HCl 100 MG t_at_be HCl 100 MG dtime} Potassimin Potassimin No Potassimin Symbicort Symbicort No Symbicort Azelastine Azelastine No BID Azelastine HCl 137 HCl 137 HCl 137 MCG/SPRAY MCG/SPRAY MCG/SPRAY Azelastine Azelastine No BID Azelastine HCl 137 HCl 137 HCl 137 MCG/SPRAY MCG/SPRAY MCG/SPRAY hydrOXYzine hydrOXYzine No TID hydrOXYzin HCl 25 MG HCl 25 MG e HCl 25 MG Alpha Alpha No Alpha Lipoic Lipoic Lipoic Acid-Biotin Acid-Biotin Acid-Bioti n Xyzal Xyzal No Xyzal Allergy Allergy Allergy 24HR 5 MG 24HR 5 MG 24HR 5 MG Ozempic (1 Ozempic (1 No Ozempic (1 MG/DOSE) 2 MG/DOSE) 2 MG/DOSE) 2 MG/1.5ML MG/1.5ML MG/1.5ML Restasis Restasis No 1{drop_ BID Restasis 0.05 % 0.05 % into_af 0.05 % fected_ eye} Seasonique Seasonique No Seasonique Xyzal 5 MG Xyzal 5 MG No 1{table QD Xyzal 5 MG t_in_th e_eveni ng} Singulair Singulair No Singulair 10 MG 10 MG 10 MG Integra Integra No Integra Losartan Losartan No Losartan Potassium-H Potassium-H Potassium- CTZ 50-12.5 CTZ 50-12.5 HCTZ MG MG 50-12.5 MG Ozempic (1 Ozempic (1 No Ozempic (1 MG/DOSE) 4 MG/DOSE) 4 MG/DOSE) 4 MG/3ML MG/3ML MG/3ML FreeStyle FreeStyle No FreeStyle Amaya 2 Amaya 2 Amaya 2 Sensor - Sensor - Sensor - Ciprofloxac Ciprofloxac No 4{drops BID Ciprofloxa in-Dexameth in-Dexameth _into_a marvin-Dexame asone asone ffected thasone 0.3-0.1 % 0.3-0.1 % _ear} 0.3-0.1 % Propranolol Propranolol No 1{table QD Propranolo HCl 10 MG HCl 10 MG t} l HCl 10 MG Cinnamon Cinnamon No Cinnamon Xyzal 5 MG Xyzal 5 MG No 1{table QD Xyzal 5 MG t_in_th e_eveni ng} Losartan Losartan No 1{table QD Losartan Potassium-H Potassium-H t} Potassium- CTZ 50-12.5 CTZ 50-12.5 HCTZ MG MG 50-12.5 MG Singulair Singulair No 1{table QD Singulair 10 MG 10 MG t} 10 MG Wellbutrin Wellbutrin No 1{table QD Wellbutrin XL 300 MG XL 300 MG t_in_th XL 300 MG e_morni ng} Primidone Primidone No BID Primidone 250 MG 250 MG 250 MG Pen Francitas Pen Francitas No QD Pen 31G X 6 MM 31G X 6 MM Francitas 31G X 6 MM Zoloft 100 Zoloft 100 No 1.5{tab QD Zoloft 100 MG MG let} MG Potassimin Potassimin No Potassimin Symbicort Symbicort No Symbicort Seasonique Seasonique No Seasonique Azelastine Azelastine No BID Azelastine HCl 137 HCl 137 HCl 137 MCG/SPRAY MCG/SPRAY MCG/SPRAY Ozempic (1 Ozempic (1 No Ozempic (1 MG/DOSE) 2 MG/DOSE) 2 MG/DOSE) 2 MG/1.5ML MG/1.5ML MG/1.5ML Restasis Restasis No Restasis 0.05 % 0.05 % 0.05 % Xyzal Xyzal No Xyzal Allergy Allergy Allergy 24HR 5 MG 24HR 5 MG 24HR 5 MG traZODone traZODone No 1{table QD traZODone HCl 100 MG HCl 100 MG t_at_be HCl 100 MG dtime} hydrOXYzine hydrOXYzine No TID hydrOXYzin HCl 25 MG HCl 25 MG e HCl 25 MG Alpha Alpha No Alpha Lipoic Lipoic Lipoic Acid-Biotin Acid-Biotin Acid-Bioti n Ozempic (1 Ozempic (1 No Ozempic (1 MG/DOSE) 4 MG/DOSE) 4 MG/DOSE) 4 MG/3ML MG/3ML MG/3ML Singulair Singulair No Singulair 10 MG 10 MG 10 MG Azelastine Azelastine No BID Azelastine HCl 137 HCl 137 HCl 137 MCG/SPRAY MCG/SPRAY MCG/SPRAY Losartan Losartan No Losartan Potassium-H Potassium-H Potassium- CTZ 50-12.5 CTZ 50-12.5 HCTZ MG MG 50-12.5 MG Integra Integra No Integra FreeStyle FreeStyle No FreeStyle Amaya 2 Amaya 2 Amaya 2 Sensor - Sensor - Sensor - Ciprofloxac Ciprofloxac No 4{drops BID Ciprofloxa in-Dexameth in-Dexameth _into_a marvin-Dexame asone asone ffected thasone 0.3-0.1 % 0.3-0.1 % _ear} 0.3-0.1 % Propranolol Propranolol No 1{table QD Propranolo HCl 10 MG HCl 10 MG t} l HCl 10 MG Cinnamon Cinnamon No Cinnamon Xyzal 5 MG Xyzal 5 MG No 1{table QD Xyzal 5 MG t_in_th e_eveni ng} Losartan Losartan No 1{table QD Losartan Potassium-H Potassium-H t} Potassium- CTZ 50-12.5 CTZ 50-12.5 HCTZ MG MG 50-12.5 MG Singulair Singulair No 1{table QD Singulair 10 MG 10 MG t} 10 MG Wellbutrin Wellbutrin No 1{table QD Wellbutrin XL 300 MG XL 300 MG t_in_th XL 300 MG e_morni ng} Primidone Primidone No BID Primidone 250 MG 250 MG 250 MG Pen Francitas Pen Francitas No QD Pen 31G X 6 MM 31G X 6 MM Francitas 31G X 6 MM Zoloft 100 Zoloft 100 No 1.5{tab QD Zoloft 100 MG MG let} MG Potassimin Potassimin No Potassimin Symbicort Symbicort No Symbicort Seasonique Seasonique No Seasonique Azelastine Azelastine No BID Azelastine HCl 137 HCl 137 HCl 137 MCG/SPRAY MCG/SPRAY MCG/SPRAY Ozempic (1 Ozempic (1 No Ozempic (1 MG/DOSE) 2 MG/DOSE) 2 MG/DOSE) 2 MG/1.5ML MG/1.5ML MG/1.5ML Restasis Restasis No Restasis 0.05 % 0.05 % 0.05 % Xyzal Xyzal No Xyzal Allergy Allergy Allergy 24HR 5 MG 24HR 5 MG 24HR 5 MG traZODone traZODone No 1{table QD traZODone HCl 100 MG HCl 100 MG t_at_be HCl 100 MG dtime} hydrOXYzine hydrOXYzine No TID hydrOXYzin HCl 25 MG HCl 25 MG e HCl 25 MG Alpha Alpha No Alpha Lipoic Lipoic Lipoic Acid-Biotin Acid-Biotin Acid-Bioti n Ozempic (1 Ozempic (1 No Ozempic (1 MG/DOSE) 4 MG/DOSE) 4 MG/DOSE) 4 MG/3ML MG/3ML MG/3ML Singulair Singulair No Singulair 10 MG 10 MG 10 MG Azelastine Azelastine No BID Azelastine HCl 137 HCl 137 HCl 137 MCG/SPRAY MCG/SPRAY MCG/SPRAY Losartan Losartan No Losartan Potassium-H Potassium-H Potassium- CTZ 50-12.5 CTZ 50-12.5 HCTZ MG MG 50-12.5 MG Integra Integra No Integra FreeStyle FreeStyle No FreeStyle Amaya 2 Amaya 2 Amaya 2 Sensor - Sensor - Sensor - Ciprofloxac Ciprofloxac No 4{drops BID Ciprofloxa in-Dexameth in-Dexameth _into_a marvin-Dexame asone asone ffected thasone 0.3-0.1 % 0.3-0.1 % _ear} 0.3-0.1 % Ozempic (1 Ozempic (1 No Ozempic (1 MG/DOSE) 4 MG/DOSE) 4 MG/DOSE) 4 MG/3ML MG/3ML MG/3ML Trelegy Trelegy No 1{puff} QD Trelegy Ellipta Ellipta Ellipta 200-62.5-25 200-62.5-25 200-62.5-2 MCG/INH MCG/INH 5 MCG/INH Albuterol Albuterol No 3{ml_as QID Albuterol Sulfate Sulfate _needed Sulfate (2.5 (2.5 } (2.5 MG/3ML) MG/3ML) MG/3ML) 0.083% 0.083% 0.083% Rexulti 2 Rexulti 2 No 1{table QD Rexulti 2 MG MG t} MG Restasis Restasis No Restasis 0.05 % 0.05 % 0.05 % Azelastine Azelastine No BID Azelastine HCl 137 HCl 137 HCl 137 MCG/SPRAY MCG/SPRAY MCG/SPRAY Tolterodine Tolterodine No 1{capsu QD Tolterodin Tartrate ER Tartrate ER le} e Tartrate 4 MG 4 MG ER 4 MG Cinnamon Cinnamon No Cinnamon Albuterol Albuterol No 1{puff_ 6xD Albuterol Sulfate Sulfate as_need Sulfate (sensor) (sensor) ed} (sensor) 108 (90 108 (90 108 (90 Base) Base) Base) MCG/ACT MCG/ACT MCG/ACT Ozempic (1 Ozempic (1 No Ozempic (1 MG/DOSE) 2 MG/DOSE) 2 MG/DOSE) 2 MG/1.5ML MG/1.5ML MG/1.5ML Wellbutrin Wellbutrin No 1{table QD Wellbutrin XL 300 MG XL 300 MG t_in_th XL 300 MG e_morni ng} Zoloft 100 Zoloft 100 No 1.5{tab QD Zoloft 100 MG MG let} MG Xyzal 5 MG Xyzal 5 MG No 1{table QD Xyzal 5 MG t_in_th e_eveni ng} traZODone traZODone No 1{table QD traZODone HCl 50 MG HCl 50 MG t_at_be HCl 50 MG dtime} FreeStyle FreeStyle No FreeStyle Amaya 2 Amaya 2 Amaya 2 Sensor - Sensor - Sensor - Propranolol Propranolol No 1{table QD Propranolo HCl 10 MG HCl 10 MG t} l HCl 10 MG Desvenlafax Desvenlafax No 1{table QD Desvenlafa ine ine t} xine Succinate Succinate Succinate ER 25 MG ER 25 MG ER 25 MG Singulair Singulair No 1{table QD Singulair 10 MG 10 MG t} 10 MG Potassimin Potassimin No Potassimin EPINEPHrine EPINEPHrine No EPINEPHrin 0.3 0.3 e 0.3 MG/0.3ML MG/0.3ML MG/0.3ML Restasis Restasis No 1{drop_ BID Restasis 0.05 % 0.05 % into_af 0.05 % fected_ eye} hydrOXYzine hydrOXYzine No TID hydrOXYzin HCl 25 MG HCl 25 MG e HCl 25 MG Primidone Primidone No BID Primidone 250 MG 250 MG 250 MG Restasis Restasis No 1{drop_ BID Restasis 0.05 % 0.05 % into_af 0.05 % fected_ eye} traZODone traZODone No QD traZODone HCl 50 MG HCl 50 MG HCl 50 MG Xyzal 5 MG Xyzal 5 MG No 1{table QD Xyzal 5 MG t_in_th e_eveni ng} hydrOXYzine hydrOXYzine No TID hydrOXYzin HCl 25 MG HCl 25 MG e HCl 25 MG glipiZIDE glipiZIDE No 1{table QD glipiZIDE ER 10 MG ER 10 MG t_with_ ER 10 MG food} Primidone Primidone No 1{table QD Primidone 250 MG 250 MG t} 250 MG Losartan Losartan No 1{table QD Losartan Potassium-H Potassium-H t} Potassium- CTZ 50-12.5 CTZ 50-12.5 HCTZ MG MG 50-12.5 MG Cinnamon Cinnamon No Cinnamon Alpha Alpha No Alpha Lipoic Lipoic Lipoic Acid-Biotin Acid-Biotin Acid-Bioti n Integra Integra No Integra Pen Francitas Pen Francitas No QD Pen 31G X 6 MM 31G X 6 MM Francitas 31G X 6 MM Liletta (52 Liletta (52 No Liletta MG) MG) (52 MG) Azelastine Azelastine No BID Azelastine HCl 137 HCl 137 HCl 137 MCG/SPRAY MCG/SPRAY MCG/SPRAY Wellbutrin Wellbutrin No 1{table QD Wellbutrin XL 300 MG XL 300 MG t_in_th XL 300 MG e_morni ng} Apri Apri No 1{table QD Apri 0.15-30 0.15-30 t} 0.15-30 MG-MCG MG-MCG MG-MCG Zoloft 100 Zoloft 100 No 1.5{tab QD Zoloft 100 MG MG let} MG Xyzal 5 MG Xyzal 5 MG No 1{table QD Xyzal 5 MG t_in_th e_eveni ng} Singulair Singulair No 1{table QD Singulair 10 MG 10 MG t} 10 MG Seasonique Seasonique No Seasonique Ozempic Ozempic No Ozempic (0.25 or (0.25 or (0.25 or 0.5 0.5 0.5 MG/DOSE) 2 MG/DOSE) 2 MG/DOSE) 2 MG/1.5ML MG/1.5ML MG/1.5ML Janumet Janumet No 1{table BID Janumet 50-500 MG 50-500 MG t_with_ 50-500 MG meals} Restasis Restasis No 1{drop_ BID Restasis 0.05 % 0.05 % into_af 0.05 % fected_ eye} Janumet Janumet No 1{table BID Janumet 50-500 MG 50-500 MG t_with_ 50-500 MG meals} Potassimin Potassimin No Potassimin Singulair Singulair No Singulair 10 MG 10 MG 10 MG Losartan Losartan No 1{table QD Losartan Potassium-H Potassium-H t} Potassium- CTZ 50-12.5 CTZ 50-12.5 HCTZ MG MG 50-12.5 MG Azelastine Azelastine No BID Azelastine HCl 137 HCl 137 HCl 137 MCG/SPRAY MCG/SPRAY MCG/SPRAY Xyzal Xyzal No Xyzal Allergy Allergy Allergy 24HR 5 MG 24HR 5 MG 24HR 5 MG Cinnamon Cinnamon No Cinnamon Janumet Janumet No 1{table BID Janumet 50-500 MG 50-500 MG t_with_ 50-500 MG meals} Alpha Alpha No Alpha Lipoic Lipoic Lipoic Acid-Biotin Acid-Biotin Acid-Bioti n Singulair Singulair No Singulair 10 MG 10 MG 10 MG Azelastine Azelastine No BID Azelastine HCl 137 HCl 137 HCl 137 MCG/SPRAY MCG/SPRAY MCG/SPRAY Singulair Singulair No 1{table QD Singulair 10 MG 10 MG t} 10 MG Integra Integra No Integra Potassimin Potassimin No Potassimin Xyzal 5 MG Xyzal 5 MG No 1{table QD Xyzal 5 MG t_in_th e_eveni ng} Pen Francitas Pen Francitas No QD Pen 31G X 6 MM 31G X 6 MM Francitas 31G X 6 MM Janumet Janumet No 1{table BID Janumet 50-500 MG 50-500 MG t_with_ 50-500 MG meals} Azelastine Azelastine No BID Azelastine HCl 137 HCl 137 HCl 137 MCG/SPRAY MCG/SPRAY MCG/SPRAY traZODone traZODone No QD traZODone HCl 50 MG HCl 50 MG HCl 50 MG glipiZIDE glipiZIDE No 1{table QD glipiZIDE ER 10 MG ER 10 MG t_with_ ER 10 MG food} Restasis Restasis No 1{drop_ BID Restasis 0.05 % 0.05 % into_af 0.05 % fected_ eye} Primidone Primidone No 1{table QD Primidone 250 MG 250 MG t} 250 MG Xyzal Xyzal No Xyzal Allergy Allergy Allergy 24HR 5 MG 24HR 5 MG 24HR 5 MG Ozempic Ozempic No Ozempic (0.25 or (0.25 or (0.25 or 0.5 0.5 0.5 MG/DOSE) 2 MG/DOSE) 2 MG/DOSE) 2 MG/1.5ML MG/1.5ML MG/1.5ML Seasonique Seasonique No Seasonique Losartan Losartan No 1{table QD Losartan Potassium-H Potassium-H t} Potassium- CTZ 50-12.5 CTZ 50-12.5 HCTZ MG MG 50-12.5 MG Wellbutrin Wellbutrin No 1{table QD Wellbutrin XL 300 MG XL 300 MG t_in_th XL 300 MG e_morni ng} Zoloft 100 Zoloft 100 No 1.5{tab QD Zoloft 100 MG MG let} MG hydrOXYzine hydrOXYzine No TID hydrOXYzin HCl 25 MG HCl 25 MG e HCl 25 MG Losartan Losartan No 1{table QD Losartan Potassium-H Potassium-H t} Potassium- CTZ 50-12.5 CTZ 50-12.5 HCTZ MG MG 50-12.5 MG Xyzal 5 MG Xyzal 5 MG No 1{table QD Xyzal 5 MG t_in_ e_eveni ng} Restasis Restasis No 1{drop_ BID Restasis 0.05 % 0.05 % into_af 0.05 % fected_ eye} Apri Apri No 1{table QD Apri 0.15-30 0.15-30 t} 0.15-30 MG-MCG MG-MCG MG-MCG Liletta (52 Liletta (52 No Liletta MG) MG) (52 MG) Cinnamon Cinnamon No Cinnamon Janumet Janumet No 1{table BID Janumet 50-500 MG 50-500 MG t_with_ 50-500 MG meals} Alpha Alpha No Alpha Lipoic Lipoic Lipoic Acid-Biotin Acid-Biotin Acid-Bioti n Singulair Singulair No Singulair 10 MG 10 MG 10 MG Azelastine Azelastine No BID Azelastine HCl 137 HCl 137 HCl 137 MCG/SPRAY MCG/SPRAY MCG/SPRAY Singulair Singulair No 1{table QD Singulair 10 MG 10 MG t} 10 MG Integra Integra No Integra Potassimin Potassimin No Potassimin Xyzal 5 MG Xyzal 5 MG No 1{table QD Xyzal 5 MG t_in_th e_eveni ng} Pen Francitas Pen Francitas No QD Pen 31G X 6 MM 31G X 6 MM Francitas 31G X 6 MM Janumet Janumet No 1{table BID Janumet 50-500 MG 50-500 MG t_with_ 50-500 MG meals} Azelastine Azelastine No BID Azelastine HCl 137 HCl 137 HCl 137 MCG/SPRAY MCG/SPRAY MCG/SPRAY traZODone traZODone No QD traZODone HCl 50 MG HCl 50 MG HCl 50 MG glipiZIDE glipiZIDE No 1{table QD glipiZIDE ER 10 MG ER 10 MG t_with_ ER 10 MG food} Restasis Restasis No 1{drop_ BID Restasis 0.05 % 0.05 % into_af 0.05 % fected_ eye} Primidone Primidone No 1{table QD Primidone 250 MG 250 MG t} 250 MG Xyzal Xyzal No Xyzal Allergy Allergy Allergy 24HR 5 MG 24HR 5 MG 24HR 5 MG Ozempic Ozempic No Ozempic (0.25 or (0.25 or (0.25 or 0.5 0.5 0.5 MG/DOSE) 2 MG/DOSE) 2 MG/DOSE) 2 MG/1.5ML MG/1.5ML MG/1.5ML Seasonique Seasonique No Seasonique Losartan Losartan No 1{table QD Losartan Potassium-H Potassium-H t} Potassium- CTZ 50-12.5 CTZ 50-12.5 HCTZ MG MG 50-12.5 MG Wellbutrin Wellbutrin No 1{table QD Wellbutrin XL 300 MG XL 300 MG t_in_th XL 300 MG e_morni ng} Zoloft 100 Zoloft 100 No 1.5{tab QD Zoloft 100 MG MG let} MG hydrOXYzine hydrOXYzine No TID hydrOXYzin HCl 25 MG HCl 25 MG e HCl 25 MG Losartan Losartan No 1{table QD Losartan Potassium-H Potassium-H t} Potassium- CTZ 50-12.5 CTZ 50-12.5 HCTZ MG MG 50-12.5 MG Xyzal 5 MG Xyzal 5 MG No 1{table QD Xyzal 5 MG t_in_th e_eveni ng} Restasis Restasis No 1{drop_ BID Restasis 0.05 % 0.05 % into_af 0.05 % fected_ eye} Apri Apri No 1{table QD Apri 0.15-30 0.15-30 t} 0.15-30 MG-MCG MG-MCG MG-MCG Liletta (52 Liletta (52 No Liletta MG) MG) (52 MG) Ozempic Ozempic No Ozempic (0.25 or (0.25 or (0.25 or 0.5 0.5 0.5 MG/DOSE) 2 MG/DOSE) 2 MG/DOSE) 2 MG/1.5ML MG/1.5ML MG/1.5ML Xyzal 5 MG Xyzal 5 MG No 1{table QD Xyzal 5 MG t_in_th e_eveni ng} Zoloft 100 Zoloft 100 No 1.5{tab QD Zoloft 100 MG MG let} MG Liletta (52 Liletta (52 No Liletta MG) MG) (52 MG) Restasis Restasis No 1{drop_ BID Restasis 0.05 % 0.05 % into_af 0.05 % fected_ eye} Xyzal 5 MG Xyzal 5 MG No 1{table QD Xyzal 5 MG t_in_th e_eveni ng} Seasonique Seasonique No Seasonique Restasis Restasis No 1{drop_ BID Restasis 0.05 % 0.05 % into_af 0.05 % fected_ eye} Apri Apri No 1{table QD Apri 0.15-30 0.15-30 t} 0.15-30 MG-MCG MG-MCG MG-MCG Singulair Singulair No 1{table QD Singulair 10 MG 10 MG t} 10 MG Janumet Janumet No 1{table BID Janumet 50-500 MG 50-500 MG t_with_ 50-500 MG meals} Alpha Alpha No Alpha Lipoic Lipoic Lipoic Acid-Biotin Acid-Biotin Acid-Bioti n Cinnamon Cinnamon No Cinnamon Azelastine Azelastine No BID Azelastine HCl 137 HCl 137 HCl 137 MCG/SPRAY MCG/SPRAY MCG/SPRAY traZODone traZODone No QD traZODone HCl 50 MG HCl 50 MG HCl 50 MG glipiZIDE glipiZIDE No 1{table QD glipiZIDE ER 10 MG ER 10 MG t_with_ ER 10 MG food} Integra Integra No Integra Primidone Primidone No 1{table QD Primidone 250 MG 250 MG t} 250 MG Losartan Losartan No 1{table QD Losartan Potassium-H Potassium-H t} Potassium- CTZ 50-12.5 CTZ 50-12.5 HCTZ MG MG 50-12.5 MG Azelastine Azelastine No BID Azelastine HCl 137 HCl 137 HCl 137 MCG/SPRAY MCG/SPRAY MCG/SPRAY Xyzal Xyzal No Xyzal Allergy Allergy Allergy 24HR 5 MG 24HR 5 MG 24HR 5 MG hydrOXYzine hydrOXYzine No TID hydrOXYzin HCl 25 MG HCl 25 MG e HCl 25 MG Pen Francitas Pen Francitas No QD Pen 31G X 6 MM 31G X 6 MM Francitas 31G X 6 MM Singulair Singulair No Singulair 10 MG 10 MG 10 MG Potassimin Potassimin No Potassimin Losartan Losartan No 1{table QD Losartan Potassium-H Potassium-H t} Potassium- CTZ 50-12.5 CTZ 50-12.5 HCTZ MG MG 50-12.5 MG Wellbutrin Wellbutrin No 1{table QD Wellbutrin XL 300 MG XL 300 MG t_in_th XL 300 MG e_morni ng} Janumet Janumet No 1{table BID Janumet 50-500 MG 50-500 MG t_with_ 50-500 MG meals} Singulair Singulair No Singulair 10 MG 10 MG 10 MG Losartan Losartan No 1{table QD Losartan Potassium-H Potassium-H t} Potassium- CTZ 50-12.5 CTZ 50-12.5 HCTZ MG MG 50-12.5 MG Cinnamon Cinnamon No Cinnamon Integra Integra No Integra glipiZIDE glipiZIDE No 1{table QD glipiZIDE ER 10 MG ER 10 MG t_with_ ER 10 MG food} Alpha Alpha No Alpha Lipoic Lipoic Lipoic Acid-Biotin Acid-Biotin Acid-Bioti n Losartan Losartan No 1{table QD Losartan Potassium-H Potassium-H t} Potassium- CTZ 50-12.5 CTZ 50-12.5 HCTZ MG MG 50-12.5 MG Ozempic Ozempic No Ozempic (0.25 or (0.25 or (0.25 or 0.5 0.5 0.5 MG/DOSE) 2 MG/DOSE) 2 MG/DOSE) 2 MG/1.5ML MG/1.5ML MG/1.5ML Pen Francitas Pen Francitas No QD Pen 31G X 6 MM 31G X 6 MM Francitas 31G X 6 MM Zoloft 100 Zoloft 100 No 1.5{tab QD Zoloft 100 MG MG let} MG Seasonique Seasonique No Seasonique Janumet Janumet No 1{table BID Janumet 50-500 MG 50-500 MG t_with_ 50-500 MG meals} Janumet Janumet No 1{table BID Janumet 50-500 MG 50-500 MG t_with_ 50-500 MG meals} Xyzal 5 MG Xyzal 5 MG No 1{table QD Xyzal 5 MG t_in_th e_eveni ng} Azelastine Azelastine No BID Azelastine HCl 137 HCl 137 HCl 137 MCG/SPRAY MCG/SPRAY MCG/SPRAY hydrOXYzine hydrOXYzine No TID hydrOXYzin HCl 25 MG HCl 25 MG e HCl 25 MG Wellbutrin Wellbutrin No 1{table QD Wellbutrin XL 300 MG XL 300 MG t_in_th XL 300 MG e_morni ng} Xyzal 5 MG Xyzal 5 MG No 1{table QD Xyzal 5 MG t_in_th e_eveni ng} traZODone traZODone No QD traZODone HCl 50 MG HCl 50 MG HCl 50 MG Primidone Primidone No 1{table QD Primidone 250 MG 250 MG t} 250 MG Restasis Restasis No 1{drop_ BID Restasis 0.05 % 0.05 % into_af 0.05 % fected_ eye} Xyzal Xyzal No Xyzal Allergy Allergy Allergy 24HR 5 MG 24HR 5 MG 24HR 5 MG Potassimin Potassimin No Potassimin Liletta (52 Liletta (52 No Liletta MG) MG) (52 MG) Apri Apri No 1{table QD Apri 0.15-30 0.15-30 t} 0.15-30 MG-MCG MG-MCG MG-MCG Azelastine Azelastine No BID Azelastine HCl 137 HCl 137 HCl 137 MCG/SPRAY MCG/SPRAY MCG/SPRAY Singulair Singulair No 1{table QD Singulair 10 MG 10 MG t} 10 MG Restasis Restasis No 1{drop_ BID Restasis 0.05 % 0.05 % into_af 0.05 % fected_ eye} Losartan Losartan No 1{table QD Losartan Potassium-H Potassium-H t} Potassium- CTZ 50-12.5 CTZ 50-12.5 HCTZ MG MG 50-12.5 MG Xyzal 5 MG Xyzal 5 MG No 1{table QD Xyzal 5 MG t_in_th e_eveni ng} Liletta (52 Liletta (52 No Liletta MG) MG) (52 MG) Potassimin Potassimin No Potassimin Janumet Janumet No 1{table BID Janumet 50-500 MG 50-500 MG t_with_ 50-500 MG meals} glipiZIDE glipiZIDE No 1{table QD glipiZIDE ER 10 MG ER 10 MG t_with_ ER 10 MG food} Restasis Restasis No 1{drop_ BID Restasis 0.05 % 0.05 % into_af 0.05 % fected_ eye} Singulair Singulair No 1{table QD Singulair 10 MG 10 MG t} 10 MG Janumet Janumet No 1{table BID Janumet 50-500 MG 50-500 MG t_with_ 50-500 MG meals} Xyzal 5 MG Xyzal 5 MG No 1{table QD Xyzal 5 MG t_in_th e_eveni ng} Apri Apri No 1{table QD Apri 0.15-30 0.15-30 t} 0.15-30 MG-MCG MG-MCG MG-MCG Ozempic Ozempic No Ozempic (0.25 or (0.25 or (0.25 or 0.5 0.5 0.5 MG/DOSE) 2 MG/DOSE) 2 MG/DOSE) 2 MG/1.5ML MG/1.5ML MG/1.5ML Alpha Alpha No Alpha Lipoic Lipoic Lipoic Acid-Biotin Acid-Biotin Acid-Bioti n traZODone traZODone No QD traZODone HCl 50 MG HCl 50 MG HCl 50 MG Seasonique Seasonique No Seasonique Wellbutrin Wellbutrin No 1{table QD Wellbutrin XL 300 MG XL 300 MG t_in_th XL 300 MG e_morni ng} Pen Francitas Pen Francitas No QD Pen 31G X 6 MM 31G X 6 MM Francitas 31G X 6 MM Zoloft 100 Zoloft 100 No 1.5{tab QD Zoloft 100 MG MG let} MG Singulair Singulair No Singulair 10 MG 10 MG 10 MG Azelastine Azelastine No BID Azelastine HCl 137 HCl 137 HCl 137 MCG/SPRAY MCG/SPRAY MCG/SPRAY Integra Integra No Integra Restasis Restasis No 1{drop_ BID Restasis 0.05 % 0.05 % into_af 0.05 % fected_ eye} Cinnamon Cinnamon No Cinnamon Primidone Primidone No 1{table QD Primidone 250 MG 250 MG t} 250 MG Xyzal Xyzal No Xyzal Allergy Allergy Allergy 24HR 5 MG 24HR 5 MG 24HR 5 MG hydrOXYzine hydrOXYzine No TID hydrOXYzin HCl 25 MG HCl 25 MG e HCl 25 MG Azelastine Azelastine No BID Azelastine HCl 137 HCl 137 HCl 137 MCG/SPRAY MCG/SPRAY MCG/SPRAY Losartan Losartan No 1{table QD Losartan Potassium-H Potassium-H t} Potassium- CTZ 50-12.5 CTZ 50-12.5 HCTZ MG MG 50-12.5 MG Losartan Losartan No 1{table QD Losartan Potassium-H Potassium-H t} Potassium- CTZ 50-12.5 CTZ 50-12.5 HCTZ MG MG 50-12.5 MG Xyzal 5 MG Xyzal 5 MG No 1{table QD Xyzal 5 MG t_in_th e_eveni ng} Liletta (52 Liletta (52 No Liletta MG) MG) (52 MG) Potassimin Potassimin No Potassimin Janumet Janumet No 1{table BID Janumet 50-500 MG 50-500 MG t_with_ 50-500 MG meals} glipiZIDE glipiZIDE No 1{table QD glipiZIDE ER 10 MG ER 10 MG t_with_ ER 10 MG food} Restasis Restasis No 1{drop_ BID Restasis 0.05 % 0.05 % into_af 0.05 % fected_ eye} Singulair Singulair No 1{table QD Singulair 10 MG 10 MG t} 10 MG Janumet Janumet No 1{table BID Janumet 50-500 MG 50-500 MG t_with_ 50-500 MG meals} Xyzal 5 MG Xyzal 5 MG No 1{table QD Xyzal 5 MG t_in_th e_eveni ng} Apri Apri No 1{table QD Apri 0.15-30 0.15-30 t} 0.15-30 MG-MCG MG-MCG MG-MCG Ozempic Ozempic No Ozempic (0.25 or (0.25 or (0.25 or 0.5 0.5 0.5 MG/DOSE) 2 MG/DOSE) 2 MG/DOSE) 2 MG/1.5ML MG/1.5ML MG/1.5ML Alpha Alpha No Alpha Lipoic Lipoic Lipoic Acid-Biotin Acid-Biotin Acid-Bioti n traZODone traZODone No QD traZODone HCl 50 MG HCl 50 MG HCl 50 MG Seasonique Seasonique No Seasonique Wellbutrin Wellbutrin No 1{table QD Wellbutrin XL 300 MG XL 300 MG t_in_th XL 300 MG e_morni ng} Pen Francitas Pen Francitas No QD Pen 31G X 6 MM 31G X 6 MM Francitas 31G X 6 MM Zoloft 100 Zoloft 100 No 1.5{tab QD Zoloft 100 MG MG let} MG Singulair Singulair No Singulair 10 MG 10 MG 10 MG Azelastine Azelastine No BID Azelastine HCl 137 HCl 137 HCl 137 MCG/SPRAY MCG/SPRAY MCG/SPRAY Integra Integra No Integra Restasis Restasis No 1{drop_ BID Restasis 0.05 % 0.05 % into_af 0.05 % fected_ eye} Cinnamon Cinnamon No Cinnamon Primidone Primidone No 1{table QD Primidone 250 MG 250 MG t} 250 MG Xyzal Xyzal No Xyzal Allergy Allergy Allergy 24HR 5 MG 24HR 5 MG 24HR 5 MG hydrOXYzine hydrOXYzine No TID hydrOXYzin HCl 25 MG HCl 25 MG e HCl 25 MG Azelastine Azelastine No BID Azelastine HCl 137 HCl 137 HCl 137 MCG/SPRAY MCG/SPRAY MCG/SPRAY Losartan Losartan No 1{table QD Losartan Potassium-H Potassium-H t} Potassium- CTZ 50-12.5 CTZ 50-12.5 HCTZ MG MG 50-12.5 MG Ozempic Ozempic No Ozempic (0.25 or (0.25 or (0.25 or 0.5 0.5 0.5 MG/DOSE) 2 MG/DOSE) 2 MG/DOSE) 2 MG/1.5ML MG/1.5ML MG/1.5ML traZODone traZODone No QD traZODone HCl 50 MG HCl 50 MG HCl 50 MG Zoloft 100 Zoloft 100 No 1.5{tab QD Zoloft 100 MG MG let} MG Cinnamon Cinnamon No Cinnamon Restasis Restasis No 1{drop_ BID Restasis 0.05 % 0.05 % into_af 0.05 % fected_ eye} Liletta (52 Liletta (52 No Liletta MG) MG) (52 MG) Seasonique Seasonique No Seasonique hydrOXYzine hydrOXYzine No TID hydrOXYzin HCl 25 MG HCl 25 MG e HCl 25 MG Restasis Restasis No 1{drop_ BID Restasis 0.05 % 0.05 % into_af 0.05 % fected_ eye} Xyzal 5 MG Xyzal 5 MG No 1{table QD Xyzal 5 MG t_in_th e_eveni ng} Apri Apri No 1{table QD Apri 0.15-30 0.15-30 t} 0.15-30 MG-MCG MG-MCG MG-MCG Potassimin Potassimin No Potassimin Wellbutrin Wellbutrin No 1{table QD Wellbutrin XL 300 MG XL 300 MG t_in_th XL 300 MG e_morni ng} Xyzal Xyzal No Xyzal Allergy Allergy Allergy 24HR 5 MG 24HR 5 MG 24HR 5 MG Pen Francitas Pen Francitas No QD Pen 31G X 6 MM 31G X 6 MM Francitas 31G X 6 MM glipiZIDE glipiZIDE No 1{table QD glipiZIDE ER 10 MG ER 10 MG t_with_ ER 10 MG food} Janumet Janumet No 1{table BID Janumet 50-500 MG 50-500 MG t_with_ 50-500 MG meals} Integra Integra No Integra Losartan Losartan No 1{table QD Losartan Potassium-H Potassium-H t} Potassium- CTZ 50-12.5 CTZ 50-12.5 HCTZ MG MG 50-12.5 MG Primidone Primidone No 1{table QD Primidone 250 MG 250 MG t} 250 MG Janumet Janumet No 1{table BID Janumet 50-500 MG 50-500 MG t_with_ 50-500 MG meals} Alpha Alpha No Alpha Lipoic Lipoic Lipoic Acid-Biotin Acid-Biotin Acid-Bioti n Xyzal 5 MG Xyzal 5 MG No 1{table QD Xyzal 5 MG t_in_th e_eveni ng} Azelastine Azelastine No BID Azelastine HCl 137 HCl 137 HCl 137 MCG/SPRAY MCG/SPRAY MCG/SPRAY Losartan Losartan No 1{table QD Losartan Potassium-H Potassium-H t} Potassium- CTZ 50-12.5 CTZ 50-12.5 HCTZ MG MG 50-12.5 MG Singulair Singulair No Singulair 10 MG 10 MG 10 MG Azelastine Azelastine No BID Azelastine HCl 137 HCl 137 HCl 137 MCG/SPRAY MCG/SPRAY MCG/SPRAY Singulair Singulair No 1{table QD Singulair 10 MG 10 MG t} 10 MG Ozempic Ozempic No Ozempic (0.25 or (0.25 or (0.25 or 0.5 0.5 0.5 MG/DOSE) 2 MG/DOSE) 2 MG/DOSE) 2 MG/1.5ML MG/1.5ML MG/1.5ML traZODone traZODone No QD traZODone HCl 50 MG HCl 50 MG HCl 50 MG Zoloft 100 Zoloft 100 No 1.5{tab QD Zoloft 100 MG MG let} MG Cinnamon Cinnamon No Cinnamon Restasis Restasis No 1{drop_ BID Restasis 0.05 % 0.05 % into_af 0.05 % fected_ eye} Liletta (52 Liletta (52 No Liletta MG) MG) (52 MG) Seasonique Seasonique No Seasonique hydrOXYzine hydrOXYzine No TID hydrOXYzin HCl 25 MG HCl 25 MG e HCl 25 MG Restasis Restasis No 1{drop_ BID Restasis 0.05 % 0.05 % into_af 0.05 % fected_ eye} Xyzal 5 MG Xyzal 5 MG No 1{table QD Xyzal 5 MG t_in_th e_eveni ng} Apri Apri No 1{table QD Apri 0.15-30 0.15-30 t} 0.15-30 MG-MCG MG-MCG MG-MCG Potassimin Potassimin No Potassimin Wellbutrin Wellbutrin No 1{table QD Wellbutrin XL 300 MG XL 300 MG t_in_th XL 300 MG e_morni ng} Xyzal Xyzal No Xyzal Allergy Allergy Allergy 24HR 5 MG 24HR 5 MG 24HR 5 MG Pen Francitas Pen Francitas No QD Pen 31G X 6 MM 31G X 6 MM Francitas 31G X 6 MM glipiZIDE glipiZIDE No 1{table QD glipiZIDE ER 10 MG ER 10 MG t_with_ ER 10 MG food} Janumet Janumet No 1{table BID Janumet 50-500 MG 50-500 MG t_with_ 50-500 MG meals} Integra Integra No Integra Losartan Losartan No 1{table QD Losartan Potassium-H Potassium-H t} Potassium- CTZ 50-12.5 CTZ 50-12.5 HCTZ MG MG 50-12.5 MG Primidone Primidone No 1{table QD Primidone 250 MG 250 MG t} 250 MG Janumet Janumet No 1{table BID Janumet 50-500 MG 50-500 MG t_with_ 50-500 MG meals} Alpha Alpha No Alpha Lipoic Lipoic Lipoic Acid-Biotin Acid-Biotin Acid-Bioti n Xyzal 5 MG Xyzal 5 MG No 1{table QD Xyzal 5 MG t_in_th e_eveni ng} Azelastine Azelastine No BID Azelastine HCl 137 HCl 137 HCl 137 MCG/SPRAY MCG/SPRAY MCG/SPRAY Losartan Losartan No 1{table QD Losartan Potassium-H Potassium-H t} Potassium- CTZ 50-12.5 CTZ 50-12.5 HCTZ MG MG 50-12.5 MG Singulair Singulair No Singulair 10 MG 10 MG 10 MG Azelastine Azelastine No BID Azelastine HCl 137 HCl 137 HCl 137 MCG/SPRAY MCG/SPRAY MCG/SPRAY Singulair Singulair No 1{table QD Singulair 10 MG 10 MG t} 10 MG Ozempic Ozempic No Ozempic (0.25 or (0.25 or (0.25 or 0.5 0.5 0.5 MG/DOSE) 2 MG/DOSE) 2 MG/DOSE) 2 MG/1.5ML MG/1.5ML MG/1.5ML traZODone traZODone No QD traZODone HCl 50 MG HCl 50 MG HCl 50 MG Zoloft 100 Zoloft 100 No 1.5{tab QD Zoloft 100 MG MG let} MG Cinnamon Cinnamon No Cinnamon Restasis Restasis No 1{drop_ BID Restasis 0.05 % 0.05 % into_af 0.05 % fected_ eye} Liletta (52 Liletta (52 No Liletta MG) MG) (52 MG) Seasonique Seasonique No Seasonique hydrOXYzine hydrOXYzine No TID hydrOXYzin HCl 25 MG HCl 25 MG e HCl 25 MG Restasis Restasis No 1{drop_ BID Restasis 0.05 % 0.05 % into_af 0.05 % fected_ eye} Xyzal 5 MG Xyzal 5 MG No 1{table QD Xyzal 5 MG t_in_th e_eveni ng} Apri Apri No 1{table QD Apri 0.15-30 0.15-30 t} 0.15-30 MG-MCG MG-MCG MG-MCG Potassimin Potassimin No Potassimin Wellbutrin Wellbutrin No 1{table QD Wellbutrin XL 300 MG XL 300 MG t_in_th XL 300 MG e_morni ng} Xyzal Xyzal No Xyzal Allergy Allergy Allergy 24HR 5 MG 24HR 5 MG 24HR 5 MG Pen Francitas Pen Francitas No QD Pen 31G X 6 MM 31G X 6 MM Francitas 31G X 6 MM glipiZIDE glipiZIDE No 1{table QD glipiZIDE ER 10 MG ER 10 MG t_with_ ER 10 MG food} Janumet Janumet No 1{table BID Janumet 50-500 MG 50-500 MG t_with_ 50-500 MG meals} Integra Integra No Integra Losartan Losartan No 1{table QD Losartan Potassium-H Potassium-H t} Potassium- CTZ 50-12.5 CTZ 50-12.5 HCTZ MG MG 50-12.5 MG Primidone Primidone No 1{table QD Primidone 250 MG 250 MG t} 250 MG Janumet Janumet No 1{table BID Janumet 50-500 MG 50-500 MG t_with_ 50-500 MG meals} Alpha Alpha No Alpha Lipoic Lipoic Lipoic Acid-Biotin Acid-Biotin Acid-Bioti n Xyzal 5 MG Xyzal 5 MG No 1{table QD Xyzal 5 MG t_in_th e_eveni ng} Azelastine Azelastine No BID Azelastine HCl 137 HCl 137 HCl 137 MCG/SPRAY MCG/SPRAY MCG/SPRAY Losartan Losartan No 1{table QD Losartan Potassium-H Potassium-H t} Potassium- CTZ 50-12.5 CTZ 50-12.5 HCTZ MG MG 50-12.5 MG Singulair Singulair No Singulair 10 MG 10 MG 10 MG Azelastine Azelastine No BID Azelastine HCl 137 HCl 137 HCl 137 MCG/SPRAY MCG/SPRAY MCG/SPRAY Singulair Singulair No 1{table QD Singulair 10 MG 10 MG t} 10 MG Azelastine Azelastine No BID Azelastine HCl 137 HCl 137 HCl 137 MCG/SPRAY MCG/SPRAY MCG/SPRAY Restasis Restasis No 1{drop_ BID Restasis 0.05 % 0.05 % into_af 0.05 % fected_ eye} Pen Francitas Pen Francitas No QD Pen 31G X 6 MM 31G X 6 MM Francitas 31G X 6 MM hydrOXYzine hydrOXYzine No TID hydrOXYzin HCl 25 MG HCl 25 MG e HCl 25 MG Zoloft 100 Zoloft 100 No 1.5{tab QD Zoloft 100 MG MG let} MG Xyzal 5 MG Xyzal 5 MG No 1{table QD Xyzal 5 MG t_in_th e_eveni ng} glipiZIDE glipiZIDE No 1{table QD glipiZIDE ER 10 MG ER 10 MG t_with_ ER 10 MG food} Primidone Primidone No 1{table QD Primidone 250 MG 250 MG t} 250 MG Azelastine Azelastine No BID Azelastine HCl 137 HCl 137 HCl 137 MCG/SPRAY MCG/SPRAY MCG/SPRAY Ozempic Ozempic No Ozempic (0.25 or (0.25 or (0.25 or 0.5 0.5 0.5 MG/DOSE) 2 MG/DOSE) 2 MG/DOSE) 2 MG/1.5ML MG/1.5ML MG/1.5ML Cinnamon Cinnamon No Cinnamon Alpha Alpha No Alpha Lipoic Lipoic Lipoic Acid-Biotin Acid-Biotin Acid-Bioti n Apri Apri No 1{table QD Apri 0.15-30 0.15-30 t} 0.15-30 MG-MCG MG-MCG MG-MCG Xyzal 5 MG Xyzal 5 MG No 1{table QD Xyzal 5 MG t_in_th e_eveni ng} Singulair Singulair No Singulair 10 MG 10 MG 10 MG Integra Integra No Integra traZODone traZODone No QD traZODone HCl 50 MG HCl 50 MG HCl 50 MG Potassimin Potassimin No Potassimin Singulair Singulair No 1{table QD Singulair 10 MG 10 MG t} 10 MG Seasonique Seasonique No Seasonique Losartan Losartan No 1{table QD Losartan Potassium-H Potassium-H t} Potassium- CTZ 50-12.5 CTZ 50-12.5 HCTZ MG MG 50-12.5 MG Wellbutrin Wellbutrin No 1{table QD Wellbutrin XL 300 MG XL 300 MG t_in_th XL 300 MG e_morni ng} Janumet Janumet No 1{table BID Janumet 50-500 MG 50-500 MG t_with_ 50-500 MG meals} Janumet Janumet No 1{table BID Janumet 50-500 MG 50-500 MG t_with_ 50-500 MG meals} Losartan Losartan No 1{table QD Losartan Potassium-H Potassium-H t} Potassium- CTZ 50-12.5 CTZ 50-12.5 HCTZ MG MG 50-12.5 MG Restasis Restasis No 1{drop_ BID Restasis 0.05 % 0.05 % into_af 0.05 % fected_ eye} Xyzal Xyzal No Xyzal Allergy Allergy Allergy 24HR 5 MG 24HR 5 MG 24HR 5 MG Liletta (52 Liletta (52 No Liletta MG) MG) (52 MG) Azelastine Azelastine No BID Azelastine HCl 137 HCl 137 HCl 137 MCG/SPRAY MCG/SPRAY MCG/SPRAY Alpha Alpha No Alpha Lipoic Lipoic Lipoic Acid-Biotin Acid-Biotin Acid-Bioti n Potassimin Potassimin No Potassimin Singulair Singulair No 1{table QD Singulair 10 MG 10 MG t} 10 MG Losartan Losartan No 1{table QD Losartan Potassium-H Potassium-H t} Potassium- CTZ 50-12.5 CTZ 50-12.5 HCTZ MG MG 50-12.5 MG traZODone traZODone No QD traZODone HCl 50 MG HCl 50 MG HCl 50 MG Pen Francitas Pen Francitas No QD Pen 31G X 6 MM 31G X 6 MM Francitas 31G X 6 MM Cinnamon Cinnamon No Cinnamon Primidone Primidone No 1{table QD Primidone 250 MG 250 MG t} 250 MG Xyzal Xyzal No Xyzal Allergy Allergy Allergy 24HR 5 MG 24HR 5 MG 24HR 5 MG Seasonique Seasonique No Seasonique hydrOXYzine hydrOXYzine No TID hydrOXYzin HCl 25 MG HCl 25 MG e HCl 25 MG Xyzal 5 MG Xyzal 5 MG No 1{table QD Xyzal 5 MG t_in_th e_eveni ng} Apri Apri No 1{table QD Apri 0.15-30 0.15-30 t} 0.15-30 MG-MCG MG-MCG MG-MCG Ozempic Ozempic No Ozempic (0.25 or (0.25 or (0.25 or 0.5 0.5 0.5 MG/DOSE) 2 MG/DOSE) 2 MG/DOSE) 2 MG/1.5ML MG/1.5ML MG/1.5ML Singulair Singulair No Singulair 10 MG 10 MG 10 MG Azelastine Azelastine No BID Azelastine HCl 137 HCl 137 HCl 137 MCG/SPRAY MCG/SPRAY MCG/SPRAY glipiZIDE glipiZIDE No 1{table QD glipiZIDE ER 10 MG ER 10 MG t_with_ ER 10 MG food} Wellbutrin Wellbutrin No 1{table QD Wellbutrin XL 300 MG XL 300 MG t_in_th XL 300 MG e_morni ng} Janumet Janumet No 1{table BID Janumet 50-500 MG 50-500 MG t_with_ 50-500 MG meals} Integra Integra No Integra Losartan Losartan No 1{table QD Losartan Potassium-H Potassium-H t} Potassium- CTZ 50-12.5 CTZ 50-12.5 HCTZ MG MG 50-12.5 MG Janumet Janumet No 1{table BID Janumet 50-500 MG 50-500 MG t_with_ 50-500 MG meals} Liletta (52 Liletta (52 No Liletta MG) MG) (52 MG) Zoloft 100 Zoloft 100 No 1.5{tab QD Zoloft 100 MG MG let} MG Xyzal 5 MG Xyzal 5 MG No 1{table QD Xyzal 5 MG t_in_th e_eveni ng} Restasis Restasis No 1{drop_ BID Restasis 0.05 % 0.05 % into_af 0.05 % fected_ eye} Restasis Restasis No 1{drop_ BID Restasis 0.05 % 0.05 % into_af 0.05 % fected_ eye} Azelastine Azelastine No BID Azelastine HCl 137 HCl 137 HCl 137 MCG/SPRAY MCG/SPRAY MCG/SPRAY Alpha Alpha No Alpha Lipoic Lipoic Lipoic Acid-Biotin Acid-Biotin Acid-Bioti n Potassimin Potassimin No Potassimin Singulair Singulair No 1{table QD Singulair 10 MG 10 MG t} 10 MG Losartan Losartan No 1{table QD Losartan Potassium-H Potassium-H t} Potassium- CTZ 50-12.5 CTZ 50-12.5 HCTZ MG MG 50-12.5 MG traZODone traZODone No QD traZODone HCl 50 MG HCl 50 MG HCl 50 MG Pen Francitas Pen Francitas No QD Pen 31G X 6 MM 31G X 6 MM Francitas 31G X 6 MM Cinnamon Cinnamon No Cinnamon Primidone Primidone No 1{table QD Primidone 250 MG 250 MG t} 250 MG Xyzal Xyzal No Xyzal Allergy Allergy Allergy 24HR 5 MG 24HR 5 MG 24HR 5 MG Seasonique Seasonique No Seasonique hydrOXYzine hydrOXYzine No TID hydrOXYzin HCl 25 MG HCl 25 MG e HCl 25 MG Xyzal 5 MG Xyzal 5 MG No 1{table QD Xyzal 5 MG t_in_th e_eveni ng} Apri Apri No 1{table QD Apri 0.15-30 0.15-30 t} 0.15-30 MG-MCG MG-MCG MG-MCG Ozempic Ozempic No Ozempic (0.25 or (0.25 or (0.25 or 0.5 0.5 0.5 MG/DOSE) 2 MG/DOSE) 2 MG/DOSE) 2 MG/1.5ML MG/1.5ML MG/1.5ML Singulair Singulair No Singulair 10 MG 10 MG 10 MG Azelastine Azelastine No BID Azelastine HCl 137 HCl 137 HCl 137 MCG/SPRAY MCG/SPRAY MCG/SPRAY glipiZIDE glipiZIDE No 1{table QD glipiZIDE ER 10 MG ER 10 MG t_with_ ER 10 MG food} Wellbutrin Wellbutrin No 1{table QD Wellbutrin XL 300 MG XL 300 MG t_in_th XL 300 MG e_morni ng} Janumet Janumet No 1{table BID Janumet 50-500 MG 50-500 MG t_with_ 50-500 MG meals} Integra Integra No Integra Losartan Losartan No 1{table QD Losartan Potassium-H Potassium-H t} Potassium- CTZ 50-12.5 CTZ 50-12.5 HCTZ MG MG 50-12.5 MG Janumet Janumet No 1{table BID Janumet 50-500 MG 50-500 MG t_with_ 50-500 MG meals} Liletta (52 Liletta (52 No Liletta MG) MG) (52 MG) Zoloft 100 Zoloft 100 No 1.5{tab QD Zoloft 100 MG MG let} MG Xyzal 5 MG Xyzal 5 MG No 1{table QD Xyzal 5 MG t_in_ e_eveni ng} Restasis Restasis No 1{drop_ BID Restasis 0.05 % 0.05 % into_af 0.05 % fected_ eye} Restasis Restasis No 1{drop_ BID Restasis 0.05 % 0.05 % into_af 0.05 % fected_ eye} Restasis Restasis No 1{drop_ BID Restasis 0.05 % 0.05 % into_af 0.05 % fected_ eye} Ozempic Ozempic No Ozempic (0.25 or (0.25 or (0.25 or 0.5 0.5 0.5 MG/DOSE) 2 MG/DOSE) 2 MG/DOSE) 2 MG/1.5ML MG/1.5ML MG/1.5ML Restasis Restasis No 1{drop_ BID Restasis 0.05 % 0.05 % into_af 0.05 % fected_ eye} Zoloft 100 Zoloft 100 No 1.5{tab QD Zoloft 100 MG MG let} MG hydrOXYzine hydrOXYzine No TID hydrOXYzin HCl 25 MG HCl 25 MG e HCl 25 MG traZODone traZODone No QD traZODone HCl 50 MG HCl 50 MG HCl 50 MG Losartan Losartan No 1{table QD Losartan Potassium-H Potassium-H t} Potassium- CTZ 50-12.5 CTZ 50-12.5 HCTZ MG MG 50-12.5 MG Seasonique Seasonique No Seasonique Pen Francitas Pen Francitas No QD Pen 31G X 6 MM 31G X 6 MM Francitas 31G X 6 MM Primidone Primidone No 1{table QD Primidone 250 MG 250 MG t} 250 MG Integra Integra No Integra Azelastine Azelastine No BID Azelastine HCl 137 HCl 137 HCl 137 MCG/SPRAY MCG/SPRAY MCG/SPRAY Wellbutrin Wellbutrin No 1{table QD Wellbutrin XL 300 MG XL 300 MG t_in_th XL 300 MG e_morni ng} Singulair Singulair No Singulair 10 MG 10 MG 10 MG Singulair Singulair No 1{table QD Singulair 10 MG 10 MG t} 10 MG Liletta (52 Liletta (52 No Liletta MG) MG) (52 MG) Alpha Alpha No Alpha Lipoic Lipoic Lipoic Acid-Biotin Acid-Biotin Acid-Bioti n Xyzal Xyzal No Xyzal Allergy Allergy Allergy 24HR 5 MG 24HR 5 MG 24HR 5 MG Azelastine Azelastine No BID Azelastine HCl 137 HCl 137 HCl 137 MCG/SPRAY MCG/SPRAY MCG/SPRAY Cinnamon Cinnamon No Cinnamon glipiZIDE glipiZIDE No 1{table QD glipiZIDE ER 10 MG ER 10 MG t_with_ ER 10 MG food} Apri Apri No 1{table QD Apri 0.15-30 0.15-30 t} 0.15-30 MG-MCG MG-MCG MG-MCG Xyzal 5 MG Xyzal 5 MG No 1{table QD Xyzal 5 MG t_in_th e_eveni ng} Losartan Losartan No 1{table QD Losartan Potassium-H Potassium-H t} Potassium- CTZ 50-12.5 CTZ 50-12.5 HCTZ MG MG 50-12.5 MG Xyzal 5 MG Xyzal 5 MG No 1{table QD Xyzal 5 MG t_in_th e_eveni ng} Janumet Janumet No 1{table BID Janumet 50-500 MG 50-500 MG t_with_ 50-500 MG meals} Janumet Janumet No 1{table BID Janumet 50-500 MG 50-500 MG t_with_ 50-500 MG meals} Potassimin Potassimin No Potassimin Liletta (52 Liletta (52 No Liletta MG) MG) (52 MG) glipiZIDE glipiZIDE No 1{table QD glipiZIDE ER 10 MG ER 10 MG t_with_ ER 10 MG food} Apri Apri No 1{table QD Apri 0.15-30 0.15-30 t} 0.15-30 MG-MCG MG-MCG MG-MCG Wellbutrin Wellbutrin No 1{table QD Wellbutrin XL 300 MG XL 300 MG t_in_th XL 300 MG e_morni ng} Primidone Primidone No 1{table QD Primidone 250 MG 250 MG t} 250 MG Singulair Singulair No Singulair 10 MG 10 MG 10 MG Ozempic Ozempic No Ozempic (0.25 or (0.25 or (0.25 or 0.5 0.5 0.5 MG/DOSE) 2 MG/DOSE) 2 MG/DOSE) 2 MG/1.5ML MG/1.5ML MG/1.5ML Alpha Alpha No Alpha Lipoic Lipoic Lipoic Acid-Biotin Acid-Biotin Acid-Bioti n Potassimin Potassimin No Potassimin Cinnamon Cinnamon No Cinnamon Integra Integra No Integra Janumet Janumet No 1{table BID Janumet 50-500 MG 50-500 MG t_with_ 50-500 MG meals} Losartan Losartan No 1{table QD Losartan Potassium-H Potassium-H t} Potassium- CTZ 50-12.5 CTZ 50-12.5 HCTZ MG MG 50-12.5 MG Xyzal 5 MG Xyzal 5 MG No 1{table QD Xyzal 5 MG t_in_th e_eveni ng} Azelastine Azelastine No BID Azelastine HCl 137 HCl 137 HCl 137 MCG/SPRAY MCG/SPRAY MCG/SPRAY Pen Francitas Pen Francitas No QD Pen 31G X 6 MM 31G X 6 MM Francitas 31G X 6 MM Azelastine Azelastine No BID Azelastine HCl 137 HCl 137 HCl 137 MCG/SPRAY MCG/SPRAY MCG/SPRAY Singulair Singulair No 1{table QD Singulair 10 MG 10 MG t} 10 MG Janumet Janumet No 1{table BID Janumet 50-500 MG 50-500 MG t_with_ 50-500 MG meals} Restasis Restasis No 1{drop_ BID Restasis 0.05 % 0.05 % into_af 0.05 % fected_ eye} glipiZIDE glipiZIDE No glipiZIDE ER 5 MG ER 5 MG ER 5 MG Restasis Restasis No 1{drop_ BID Restasis 0.05 % 0.05 % into_af 0.05 % fected_ eye} Xyzal 5 MG Xyzal 5 MG No 1{table QD Xyzal 5 MG t_in_th e_eveni ng} Xyzal Xyzal No Xyzal Allergy Allergy Allergy 24HR 5 MG 24HR 5 MG 24HR 5 MG Losartan Losartan No 1{table QD Losartan Potassium-H Potassium-H t} Potassium- CTZ 50-12.5 CTZ 50-12.5 HCTZ MG MG 50-12.5 MG traZODone traZODone No QD traZODone HCl 50 MG HCl 50 MG HCl 50 MG hydrOXYzine hydrOXYzine No TID hydrOXYzin HCl 25 MG HCl 25 MG e HCl 25 MG Seasonique Seasonique No Seasonique Zoloft 100 Zoloft 100 No 1.5{tab QD Zoloft 100 MG MG let} MG Xyzal 5 MG Xyzal 5 MG No 1{table QD Xyzal 5 MG t_in_th e_eveni ng} Seasonique Seasonique No Seasonique Restasis Restasis No 1{drop_ BID Restasis 0.05 % 0.05 % into_af 0.05 % fected_ eye} Wellbutrin Wellbutrin No 1{table QD Wellbutrin XL 300 MG XL 300 MG t_in_th XL 300 MG e_morni ng} Losartan Losartan No 1{table QD Losartan Potassium-H Potassium-H t} Potassium- CTZ 50-12.5 CTZ 50-12.5 HCTZ MG MG 50-12.5 MG Potassimin Potassimin No Potassimin Zoloft 100 Zoloft 100 No 1.5{tab QD Zoloft 100 MG MG let} MG Janumet Janumet No 1{table BID Janumet 50-500 MG 50-500 MG t_with_ 50-500 MG meals} Xyzal 5 MG Xyzal 5 MG No 1{table QD Xyzal 5 MG t_in_th e_eveni ng} glipiZIDE glipiZIDE No 1{table QD glipiZIDE ER 10 MG ER 10 MG t_with_ ER 10 MG food} Apri Apri No 1{table QD Apri 0.15-30 0.15-30 t} 0.15-30 MG-MCG MG-MCG MG-MCG Restasis Restasis No 1{drop_ BID Restasis 0.05 % 0.05 % into_af 0.05 % fected_ eye} Integra Integra No Integra Pen Francitas Pen Francitas No QD Pen 31G X 6 MM 31G X 6 MM Francitas 31G X 6 MM Primidone Primidone No 1{table QD Primidone 250 MG 250 MG t} 250 MG Azelastine Azelastine No BID Azelastine HCl 137 HCl 137 HCl 137 MCG/SPRAY MCG/SPRAY MCG/SPRAY Ozempic Ozempic No Ozempic (0.25 or (0.25 or (0.25 or 0.5 0.5 0.5 MG/DOSE) 2 MG/DOSE) 2 MG/DOSE) 2 MG/1.5ML MG/1.5ML MG/1.5ML Alpha Alpha No Alpha Lipoic Lipoic Lipoic Acid-Biotin Acid-Biotin Acid-Bioti n Janumet Janumet No 1{table BID Janumet 50-500 MG 50-500 MG t_with_ 50-500 MG meals} traZODone traZODone No QD traZODone HCl 50 MG HCl 50 MG HCl 50 MG Liletta (52 Liletta (52 No Liletta MG) MG) (52 MG) hydrOXYzine hydrOXYzine No TID hydrOXYzin HCl 25 MG HCl 25 MG e HCl 25 MG Singulair Singulair No 1{table QD Singulair 10 MG 10 MG t} 10 MG Cinnamon Cinnamon No Cinnamon glipiZIDE glipiZIDE No glipiZIDE ER 5 MG ER 5 MG ER 5 MG Singulair Singulair No Singulair 10 MG 10 MG 10 MG Losartan Losartan No 1{table QD Losartan Potassium-H Potassium-H t} Potassium- CTZ 50-12.5 CTZ 50-12.5 HCTZ MG MG 50-12.5 MG Azelastine Azelastine No BID Azelastine HCl 137 HCl 137 HCl 137 MCG/SPRAY MCG/SPRAY MCG/SPRAY Xyzal Xyzal No Xyzal Allergy Allergy Allergy 24HR 5 MG 24HR 5 MG 24HR 5 MG Janumet Janumet No 1{table BID Janumet 50-500 MG 50-500 MG t_with_ 50-500 MG meals} Wellbutrin Wellbutrin No 1{table QD Wellbutrin XL 300 MG XL 300 MG t_in_th XL 300 MG e_morni ng} Apri Apri No 1{table QD Apri 0.15-30 0.15-30 t} 0.15-30 MG-MCG MG-MCG MG-MCG Xyzal Xyzal No Xyzal Allergy Allergy Allergy 24HR 5 MG 24HR 5 MG 24HR 5 MG Xyzal 5 MG Xyzal 5 MG No 1{table QD Xyzal 5 MG t_in_th e_eveni ng} Primidone Primidone No 1{table QD Primidone 250 MG 250 MG t} 250 MG Xyzal 5 MG Xyzal 5 MG No 1{table QD Xyzal 5 MG t_in_th e_eveni ng} Singulair Singulair No Singulair 10 MG 10 MG 10 MG Alpha Alpha No Alpha Lipoic Lipoic Lipoic Acid-Biotin Acid-Biotin Acid-Bioti n Azelastine Azelastine No BID Azelastine HCl 137 HCl 137 HCl 137 MCG/SPRAY MCG/SPRAY MCG/SPRAY hydrOXYzine hydrOXYzine No TID hydrOXYzin HCl 25 MG HCl 25 MG e HCl 25 MG Cinnamon Cinnamon No Cinnamon glipiZIDE glipiZIDE No glipiZIDE ER 5 MG ER 5 MG ER 5 MG Seasonique Seasonique No Seasonique Ozempic Ozempic No Ozempic (0.25 or (0.25 or (0.25 or 0.5 0.5 0.5 MG/DOSE) 2 MG/DOSE) 2 MG/DOSE) 2 MG/1.5ML MG/1.5ML MG/1.5ML Potassimin Potassimin No Potassimin Pen Francitas Pen Francitas No QD Pen 31G X 6 MM 31G X 6 MM Francitas 31G X 6 MM glipiZIDE glipiZIDE No 1{table QD glipiZIDE ER 10 MG ER 10 MG t_with_ ER 10 MG food} Janumet Janumet No 1{table BID Janumet 50-500 MG 50-500 MG t_with_ 50-500 MG meals} Azelastine Azelastine No BID Azelastine HCl 137 HCl 137 HCl 137 MCG/SPRAY MCG/SPRAY MCG/SPRAY Losartan Losartan No 1{table QD Losartan Potassium-H Potassium-H t} Potassium- CTZ 50-12.5 CTZ 50-12.5 HCTZ MG MG 50-12.5 MG Integra Integra No Integra Losartan Losartan No 1{table QD Losartan Potassium-H Potassium-H t} Potassium- CTZ 50-12.5 CTZ 50-12.5 HCTZ MG MG 50-12.5 MG Singulair Singulair No 1{table QD Singulair 10 MG 10 MG t} 10 MG traZODone traZODone No QD traZODone HCl 50 MG HCl 50 MG HCl 50 MG Zoloft 100 Zoloft 100 No 1.5{tab QD Zoloft 100 MG MG let} MG Restasis Restasis No 1{drop_ BID Restasis 0.05 % 0.05 % into_af 0.05 % fected_ eye} Restasis Restasis No 1{drop_ BID Restasis 0.05 % 0.05 % into_af 0.05 % fected_ eye} Liletta (52 Liletta (52 No Liletta MG) MG) (52 MG) Janumet Janumet No 1{table BID Janumet 50-500 MG 50-500 MG t_with_ 50-500 MG meals} Restasis Restasis No 1{drop_ BID Restasis 0.05 % 0.05 % into_af 0.05 % fected_ eye} Xyzal 5 MG Xyzal 5 MG No 1{table QD Xyzal 5 MG t_in_th e_eveni ng} glipiZIDE glipiZIDE No glipiZIDE ER 5 MG ER 5 MG ER 5 MG Liletta (52 Liletta (52 No Liletta MG) MG) (52 MG) Seasonique Seasonique No Seasonique Xyzal 5 MG Xyzal 5 MG No 1{table QD Xyzal 5 MG t_in_th e_eveni ng} Apri Apri No 1{table QD Apri 0.15-30 0.15-30 t} 0.15-30 MG-MCG MG-MCG MG-MCG Ozempic Ozempic No Ozempic (0.25 or (0.25 or (0.25 or 0.5 0.5 0.5 MG/DOSE) 2 MG/DOSE) 2 MG/DOSE) 2 MG/1.5ML MG/1.5ML MG/1.5ML Azelastine Azelastine No BID Azelastine HCl 137 HCl 137 HCl 137 MCG/SPRAY MCG/SPRAY MCG/SPRAY Losartan Losartan No 1{table QD Losartan Potassium-H Potassium-H t} Potassium- CTZ 50-12.5 CTZ 50-12.5 HCTZ MG MG 50-12.5 MG Primidone Primidone No 1{table QD Primidone 250 MG 250 MG t} 250 MG Cinnamon Cinnamon No Cinnamon Potassimin Potassimin No Potassimin Alpha Alpha No Alpha Lipoic Lipoic Lipoic Acid-Biotin Acid-Biotin Acid-Bioti n traZODone traZODone No QD traZODone HCl 50 MG HCl 50 MG HCl 50 MG Zoloft 100 Zoloft 100 No 1.5{tab QD Zoloft 100 MG MG let} MG Integra Integra No Integra hydrOXYzine hydrOXYzine No TID hydrOXYzin HCl 25 MG HCl 25 MG e HCl 25 MG Singulair Singulair No 1{table QD Singulair 10 MG 10 MG t} 10 MG Restasis Restasis No 1{drop_ BID Restasis 0.05 % 0.05 % into_af 0.05 % fected_ eye} Wellbutrin Wellbutrin No 1{table QD Wellbutrin XL 300 MG XL 300 MG t_in_th XL 300 MG e_morni ng} Pen Francitas Pen Francitas No QD Pen 31G X 6 MM 31G X 6 MM Francitas 31G X 6 MM glipiZIDE glipiZIDE No 1{table QD glipiZIDE ER 10 MG ER 10 MG t_with_ ER 10 MG food} Singulair Singulair No Singulair 10 MG 10 MG 10 MG Losartan Losartan No 1{table QD Losartan Potassium-H Potassium-H t} Potassium- CTZ 50-12.5 CTZ 50-12.5 HCTZ MG MG 50-12.5 MG Azelastine Azelastine No BID Azelastine HCl 137 HCl 137 HCl 137 MCG/SPRAY MCG/SPRAY MCG/SPRAY Xyzal Xyzal No Xyzal Allergy Allergy Allergy 24HR 5 MG 24HR 5 MG 24HR 5 MG hydrOXYzine hydrOXYzine No TID hydrOXYzin HCl 25 MG HCl 25 MG e HCl 25 MG Primidone Primidone No 1{table QD Primidone 250 MG 250 MG t} 250 MG Restasis Restasis No 1{drop_ BID Restasis 0.05 % 0.05 % into_af 0.05 % fected_ eye} Cinnamon Cinnamon No Cinnamon Xyzal Xyzal No Xyzal Allergy Allergy Allergy 24HR 5 MG 24HR 5 MG 24HR 5 MG traZODone traZODone No QD traZODone HCl 50 MG HCl 50 MG HCl 50 MG Losartan Losartan No 1{table QD Losartan Potassium-H Potassium-H t} Potassium- CTZ 50-12.5 CTZ 50-12.5 HCTZ MG MG 50-12.5 MG Pen Francitas Pen Francitas No QD Pen 31G X 6 MM 31G X 6 MM Francitas 31G X 6 MM Seasonique Seasonique No Seasonique Azelastine Azelastine No BID Azelastine HCl 137 HCl 137 HCl 137 MCG/SPRAY MCG/SPRAY MCG/SPRAY Wellbutrin Wellbutrin No 1{table QD Wellbutrin XL 300 MG XL 300 MG t_in_th XL 300 MG e_morni ng} Ozempic Ozempic No Ozempic (0.25 or (0.25 or (0.25 or 0.5 0.5 0.5 MG/DOSE) 2 MG/DOSE) 2 MG/DOSE) 2 MG/1.5ML MG/1.5ML MG/1.5ML Zoloft 100 Zoloft 100 No 1.5{tab QD Zoloft 100 MG MG let} MG Xyzal 5 MG Xyzal 5 MG No 1{table QD Xyzal 5 MG t_in_th e_eveni ng} Integra Integra No Integra glipiZIDE glipiZIDE No 1{table QD glipiZIDE ER 10 MG ER 10 MG t_with_ ER 10 MG food} Losartan Losartan No 1{table QD Losartan Potassium-H Potassium-H t} Potassium- CTZ 50-12.5 CTZ 50-12.5 HCTZ MG MG 50-12.5 MG Potassimin Potassimin No Potassimin Alpha Alpha No Alpha Lipoic Lipoic Lipoic Acid-Biotin Acid-Biotin Acid-Bioti n Singulair Singulair No Singulair 10 MG 10 MG 10 MG Janumet Janumet No 1{table BID Janumet 50-500 MG 50-500 MG t_with_ 50-500 MG meals} Restasis Restasis No 1{drop_ BID Restasis 0.05 % 0.05 % into_af 0.05 % fected_ eye} glipiZIDE glipiZIDE No glipiZIDE ER 5 MG ER 5 MG ER 5 MG Singulair Singulair No 1{table QD Singulair 10 MG 10 MG t} 10 MG Azelastine Azelastine No BID Azelastine HCl 137 HCl 137 HCl 137 MCG/SPRAY MCG/SPRAY MCG/SPRAY Apri Apri No 1{table QD Apri 0.15-30 0.15-30 t} 0.15-30 MG-MCG MG-MCG MG-MCG Liletta (52 Liletta (52 No Liletta MG) MG) (52 MG) Xyzal 5 MG Xyzal 5 MG No 1{table QD Xyzal 5 MG t_in_th e_eveni ng} Losartan Losartan No 1{table QD Losartan Potassium-H Potassium-H t} Potassium- CTZ 50-12.5 CTZ 50-12.5 HCTZ MG MG 50-12.5 MG hydrOXYzine hydrOXYzine No TID hydrOXYzin HCl 25 MG HCl 25 MG e HCl 25 MG Xyzal Xyzal No Xyzal Allergy Allergy Allergy 24HR 5 MG 24HR 5 MG 24HR 5 MG traZODone traZODone No QD traZODone HCl 50 MG HCl 50 MG HCl 50 MG Azelastine Azelastine No BID Azelastine HCl 137 HCl 137 HCl 137 MCG/SPRAY MCG/SPRAY MCG/SPRAY Pen Francitas Pen Francitas No QD Pen 31G X 6 MM 31G X 6 MM Francitas 31G X 6 MM glipiZIDE glipiZIDE No glipiZIDE ER 5 MG ER 5 MG ER 5 MG Zoloft 100 Zoloft 100 No 1.5{tab QD Zoloft 100 MG MG let} MG Alpha Alpha No Alpha Lipoic Lipoic Lipoic Acid-Biotin Acid-Biotin Acid-Bioti n Seasonique Seasonique No Seasonique Ozempic Ozempic No Ozempic (0.25 or (0.25 or (0.25 or 0.5 0.5 0.5 MG/DOSE) 2 MG/DOSE) 2 MG/DOSE) 2 MG/1.5ML MG/1.5ML MG/1.5ML Xyzal 5 MG Xyzal 5 MG No 1{table QD Xyzal 5 MG t_in_th e_eveni ng} Singulair Singulair No 1{table QD Singulair 10 MG 10 MG t} 10 MG Apri Apri No 1{table QD Apri 0.15-30 0.15-30 t} 0.15-30 MG-MCG MG-MCG MG-MCG Potassimin Potassimin No Potassimin Primidone Primidone No 1{table QD Primidone 250 MG 250 MG t} 250 MG Liletta (52 Liletta (52 No Liletta MG) MG) (52 MG) Wellbutrin Wellbutrin No 1{table QD Wellbutrin XL 300 MG XL 300 MG t_in_th XL 300 MG e_morni ng} Integra Integra No Integra Cinnamon Cinnamon No Cinnamon glipiZIDE glipiZIDE No 1{table QD glipiZIDE ER 10 MG ER 10 MG t_with_ ER 10 MG food} Xyzal 5 MG Xyzal 5 MG No 1{table QD Xyzal 5 MG t_in_th e_eveni ng} Singulair Singulair No Singulair 10 MG 10 MG 10 MG Janumet Janumet No 1{table BID Janumet 50-500 MG 50-500 MG t_with_ 50-500 MG meals} Azelastine Azelastine No BID Azelastine HCl 137 HCl 137 HCl 137 MCG/SPRAY MCG/SPRAY MCG/SPRAY Losartan Losartan No 1{table QD Losartan Potassium-H Potassium-H t} Potassium- CTZ 50-12.5 CTZ 50-12.5 HCTZ MG MG 50-12.5 MG Restasis Restasis No 1{drop_ BID Restasis 0.05 % 0.05 % into_af 0.05 % fected_ eye} Restasis Restasis No 1{drop_ BID Restasis 0.05 % 0.05 % into_af 0.05 % fected_ eye} Alpha Alpha No Alpha Lipoic Lipoic Lipoic Acid-Biotin Acid-Biotin Acid-Bioti n Singulair Singulair No Singulair 10 MG 10 MG 10 MG Cinnamon Cinnamon No Cinnamon Losartan Losartan No 1{table QD Losartan Potassium-H Potassium-H t} Potassium- CTZ 50-12.5 CTZ 50-12.5 HCTZ MG MG 50-12.5 MG Azelastine Azelastine No BID Azelastine HCl 137 HCl 137 HCl 137 MCG/SPRAY MCG/SPRAY MCG/SPRAY Xyzal 5 MG Xyzal 5 MG No 1{table QD Xyzal 5 MG t_in_th e_eveni ng} Primidone Primidone No 1{table QD Primidone 250 MG 250 MG t} 250 MG Singulair Singulair No 1{table QD Singulair 10 MG 10 MG t} 10 MG Apri Apri No 1{table QD Apri 0.15-30 0.15-30 t} 0.15-30 MG-MCG MG-MCG MG-MCG Xyzal Xyzal No Xyzal Allergy Allergy Allergy 24HR 5 MG 24HR 5 MG 24HR 5 MG Azelastine Azelastine No BID Azelastine HCl 137 HCl 137 HCl 137 MCG/SPRAY MCG/SPRAY MCG/SPRAY Potassimin Potassimin No Potassimin glipiZIDE glipiZIDE No 1{table QD glipiZIDE ER 10 MG ER 10 MG t_with_ ER 10 MG food} hydrOXYzine hydrOXYzine No TID hydrOXYzin HCl 25 MG HCl 25 MG e HCl 25 MG Liletta (52 Liletta (52 No Liletta MG) MG) (52 MG) Pen Francitas Pen Francitas No QD Pen 31G X 6 MM 31G X 6 MM Francitas 31G X 6 MM Restasis Restasis No 1{drop_ BID Restasis 0.05 % 0.05 % into_af 0.05 % fected_ eye} glipiZIDE glipiZIDE No glipiZIDE ER 5 MG ER 5 MG ER 5 MG Integra Integra No Integra Wellbutrin Wellbutrin No 1{table QD Wellbutrin XL 300 MG XL 300 MG t_in_th XL 300 MG e_morni ng} Janumet Janumet No 1{table BID Janumet 50-500 MG 50-500 MG t_with_ 50-500 MG meals} Restasis Restasis No 1{drop_ BID Restasis 0.05 % 0.05 % into_af 0.05 % fected_ eye} Seasonique Seasonique No Seasonique traZODone traZODone No QD traZODone HCl 50 MG HCl 50 MG HCl 50 MG Xyzal 5 MG Xyzal 5 MG No 1{table QD Xyzal 5 MG t_in_th e_eveni ng} Zoloft 100 Zoloft 100 No 1.5{tab QD Zoloft 100 MG MG let} MG Ozempic Ozempic No Ozempic (0.25 or (0.25 or (0.25 or 0.5 0.5 0.5 MG/DOSE) 2 MG/DOSE) 2 MG/DOSE) 2 MG/1.5ML MG/1.5ML MG/1.5ML Losartan Losartan No 1{table QD Losartan Potassium-H Potassium-H t} Potassium- CTZ 50-12.5 CTZ 50-12.5 HCTZ MG MG 50-12.5 MG Liletta (52 Liletta (52 No Liletta MG) MG) (52 MG) Zoloft 100 Zoloft 100 No 1.5{tab QD Zoloft 100 MG MG let} MG Integra Integra No Integra glipiZIDE glipiZIDE No 1{table QD glipiZIDE ER 10 MG ER 10 MG t_with_ ER 10 MG food} Losartan Losartan No 1{table QD Losartan Potassium-H Potassium-H t} Potassium- CTZ 50-12.5 CTZ 50-12.5 HCTZ MG MG 50-12.5 MG Seasonique Seasonique No Seasonique Ozempic Ozempic No Ozempic (0.25 or (0.25 or (0.25 or 0.5 0.5 0.5 MG/DOSE) 2 MG/DOSE) 2 MG/DOSE) 2 MG/1.5ML MG/1.5ML MG/1.5ML traZODone traZODone No QD traZODone HCl 50 MG HCl 50 MG HCl 50 MG glipiZIDE glipiZIDE No glipiZIDE ER 5 MG ER 5 MG ER 5 MG Primidone Primidone No 1{table QD Primidone 250 MG 250 MG t} 250 MG Restasis Restasis No 1{drop_ BID Restasis 0.05 % 0.05 % into_af 0.05 % fected_ eye} Xyzal 5 MG Xyzal 5 MG No 1{table QD Xyzal 5 MG t_in_th e_eveni ng} Wellbutrin Wellbutrin No 1{table QD Wellbutrin XL 300 MG XL 300 MG t_in_th XL 300 MG e_morni ng} Xyzal Xyzal No Xyzal Allergy Allergy Allergy 24HR 5 MG 24HR 5 MG 24HR 5 MG Apri Apri No 1{table QD Apri 0.15-30 0.15-30 t} 0.15-30 MG-MCG MG-MCG MG-MCG Restasis Restasis No 1{drop_ BID Restasis 0.05 % 0.05 % into_af 0.05 % fected_ eye} Alpha Alpha No Alpha Lipoic Lipoic Lipoic Acid-Biotin Acid-Biotin Acid-Bioti n Xyzal 5 MG Xyzal 5 MG No 1{table QD Xyzal 5 MG t_in_th e_eveni ng} Singulair Singulair No Singulair 10 MG 10 MG 10 MG hydrOXYzine hydrOXYzine No TID hydrOXYzin HCl 25 MG HCl 25 MG e HCl 25 MG Cinnamon Cinnamon No Cinnamon Singulair Singulair No 1{table QD Singulair 10 MG 10 MG t} 10 MG Losartan Losartan No 1{table QD Losartan Potassium-H Potassium-H t} Potassium- CTZ 50-12.5 CTZ 50-12.5 HCTZ MG MG 50-12.5 MG Azelastine Azelastine No BID Azelastine HCl 137 HCl 137 HCl 137 MCG/SPRAY MCG/SPRAY MCG/SPRAY Janumet Janumet No 1{table BID Janumet 50-500 MG 50-500 MG t_with_ 50-500 MG meals} Potassimin Potassimin No Potassimin Pen Francitas Pen Francitas No QD Pen 31G X 6 MM 31G X 6 MM Francitas 31G X 6 MM Azelastine Azelastine No BID Azelastine HCl 137 HCl 137 HCl 137 MCG/SPRAY MCG/SPRAY MCG/SPRAY Singulair Singulair No 1{table QD Singulair 10 MG 10 MG t} 10 MG Xyzal Xyzal No Xyzal Allergy Allergy Allergy 24HR 5 MG 24HR 5 MG 24HR 5 MG Apri Apri No 1{table QD Apri 0.15-30 0.15-30 t} 0.15-30 MG-MCG MG-MCG MG-MCG Losartan Losartan No 1{table QD Losartan Potassium-H Potassium-H t} Potassium- CTZ 50-12.5 CTZ 50-12.5 HCTZ MG MG 50-12.5 MG Singulair Singulair No Singulair 10 MG 10 MG 10 MG Janumet Janumet No 1{table BID Janumet 50-500 MG 50-500 MG t_with_ 50-500 MG meals} Pen Francitas Pen Francitas No QD Pen 31G X 6 MM 31G X 6 MM Francitas 31G X 6 MM Xyzal 5 MG Xyzal 5 MG No 1{table QD Xyzal 5 MG t_in_th e_eveni ng} Azelastine Azelastine No BID Azelastine HCl 137 HCl 137 HCl 137 MCG/SPRAY MCG/SPRAY MCG/SPRAY Alpha Alpha No Alpha Lipoic Lipoic Lipoic Acid-Biotin Acid-Biotin Acid-Bioti n traZODone traZODone No QD traZODone HCl 50 MG HCl 50 MG HCl 50 MG Integra Integra No Integra Cinnamon Cinnamon No Cinnamon Restasis Restasis No 1{drop_ BID Restasis 0.05 % 0.05 % into_af 0.05 % fected_ eye} Restasis Restasis No 1{drop_ BID Restasis 0.05 % 0.05 % into_af 0.05 % fected_ eye} Zoloft 100 Zoloft 100 No 1.5{tab QD Zoloft 100 MG MG let} MG Liletta (52 Liletta (52 No Liletta MG) MG) (52 MG) Potassimin Potassimin No Potassimin Losartan Losartan No 1{table QD Losartan Potassium-H Potassium-H t} Potassium- CTZ 50-12.5 CTZ 50-12.5 HCTZ MG MG 50-12.5 MG Xyzal 5 MG Xyzal 5 MG No 1{table QD Xyzal 5 MG t_in_th e_eveni ng} Seasonique Seasonique No Seasonique Wellbutrin Wellbutrin No 1{table QD Wellbutrin XL 300 MG XL 300 MG t_in_th XL 300 MG e_morni ng} Primidone Primidone No 1{table QD Primidone 250 MG 250 MG t} 250 MG Ozempic Ozempic No Ozempic (0.25 or (0.25 or (0.25 or 0.5 0.5 0.5 MG/DOSE) 2 MG/DOSE) 2 MG/DOSE) 2 MG/1.5ML MG/1.5ML MG/1.5ML Azelastine Azelastine No BID Azelastine HCl 137 HCl 137 HCl 137 MCG/SPRAY MCG/SPRAY MCG/SPRAY glipiZIDE glipiZIDE No glipiZIDE ER 5 MG ER 5 MG ER 5 MG glipiZIDE glipiZIDE No 1{table QD glipiZIDE ER 10 MG ER 10 MG t_with_ ER 10 MG food} FreeStyle FreeStyle No FreeStyle Amaya 2 Amaya 2 Amaya 2 Sensor - Sensor - Sensor - hydrOXYzine hydrOXYzine No TID hydrOXYzin HCl 25 MG HCl 25 MG e HCl 25 MG Restasis Restasis No 1{drop_ BID Restasis 0.05 % 0.05 % into_af 0.05 % fected_ eye} FreeStyle FreeStyle No FreeStyle Amaya 2 Amaya 2 Amaya 2 Sensor - Sensor - Sensor - Pen Francitas Pen Francitas No QD Pen 31G X 6 MM 31G X 6 MM Francitas 31G X 6 MM Losartan Losartan No 1{table QD Losartan Potassium-H Potassium-H t} Potassium- CTZ 50-12.5 CTZ 50-12.5 HCTZ MG MG 50-12.5 MG Singulair Singulair No Singulair 10 MG 10 MG 10 MG Cinnamon Cinnamon No Cinnamon Potassimin Potassimin No Potassimin Primidone Primidone No BID Primidone 250 MG 250 MG 250 MG Azelastine Azelastine No BID Azelastine HCl 137 HCl 137 HCl 137 MCG/SPRAY MCG/SPRAY MCG/SPRAY hydrOXYzine hydrOXYzine No TID hydrOXYzin HCl 25 MG HCl 25 MG e HCl 25 MG Xyzal Xyzal No Xyzal Allergy Allergy Allergy 24HR 5 MG 24HR 5 MG 24HR 5 MG Azelastine Azelastine No BID Azelastine HCl 137 HCl 137 HCl 137 MCG/SPRAY MCG/SPRAY MCG/SPRAY Losartan Losartan No 1{table QD Losartan Potassium-H Potassium-H t} Potassium- CTZ 50-12.5 CTZ 50-12.5 HCTZ MG MG 50-12.5 MG traZODone traZODone No QD traZODone HCl 50 MG HCl 50 MG HCl 50 MG Xyzal 5 MG Xyzal 5 MG No 1{table QD Xyzal 5 MG t_in_th e_eveni ng} glipiZIDE glipiZIDE No 1{table QD glipiZIDE ER 2.5 MG ER 2.5 MG t_with_ ER 2.5 MG food} Seasonique Seasonique No Seasonique Integra Integra No Integra Zoloft 100 Zoloft 100 No 1.5{tab QD Zoloft 100 MG MG let} MG Ozempic (1 Ozempic (1 No Ozempic (1 MG/DOSE) 2 MG/DOSE) 2 MG/DOSE) 2 MG/1.5ML MG/1.5ML MG/1.5ML Singulair Singulair No 1{table QD Singulair 10 MG 10 MG t} 10 MG Wellbutrin Wellbutrin No 1{table QD Wellbutrin XL 300 MG XL 300 MG t_in_th XL 300 MG e_morni ng} Alpha Alpha No Alpha Lipoic Lipoic Lipoic Acid-Biotin Acid-Biotin Acid-Bioti n Restasis Restasis No 1{drop_ BID Restasis 0.05 % 0.05 % into_af 0.05 % fected_ eye} Alpha Alpha No Alpha Lipoic Lipoic Lipoic Acid-Biotin Acid-Biotin Acid-Bioti n Xyzal Xyzal No Xyzal Allergy Allergy Allergy 24HR 5 MG 24HR 5 MG 24HR 5 MG Losartan Losartan No 1{table QD Losartan Potassium-H Potassium-H t} Potassium- CTZ 50-12.5 CTZ 50-12.5 HCTZ MG MG 50-12.5 MG Singulair Singulair No 1{table QD Singulair 10 MG 10 MG t} 10 MG Integra Integra No Integra traZODone traZODone No QD traZODone HCl 50 MG HCl 50 MG HCl 50 MG Pen Francitas Pen Francitas No QD Pen 31G X 6 MM 31G X 6 MM Francitas 31G X 6 MM Seasonique Seasonique No Seasonique Singulair Singulair No Singulair 10 MG 10 MG 10 MG Losartan Losartan No 1{table QD Losartan Potassium-H Potassium-H t} Potassium- CTZ 50-12.5 CTZ 50-12.5 HCTZ MG MG 50-12.5 MG FreeStyle FreeStyle No FreeStyle Amaya 2 Amaya 2 Amaya 2 Sensor - Sensor - Sensor - Primidone Primidone No BID Primidone 250 MG 250 MG 250 MG Wellbutrin Wellbutrin No 1{table QD Wellbutrin XL 300 MG XL 300 MG t_in_th XL 300 MG e_morni ng} Cinnamon Cinnamon No Cinnamon Azelastine Azelastine No BID Azelastine HCl 137 HCl 137 HCl 137 MCG/SPRAY MCG/SPRAY MCG/SPRAY Potassimin Potassimin No Potassimin Azelastine Azelastine No BID Azelastine HCl 137 HCl 137 HCl 137 MCG/SPRAY MCG/SPRAY MCG/SPRAY Zoloft 100 Zoloft 100 No 1.5{tab QD Zoloft 100 MG MG let} MG glipiZIDE glipiZIDE No 1{table QD glipiZIDE ER 2.5 MG ER 2.5 MG t_with_ ER 2.5 MG food} Ozempic (1 Ozempic (1 No Ozempic (1 MG/DOSE) 2 MG/DOSE) 2 MG/DOSE) 2 MG/1.5ML MG/1.5ML MG/1.5ML hydrOXYzine hydrOXYzine No TID hydrOXYzin HCl 25 MG HCl 25 MG e HCl 25 MG Xyzal 5 MG Xyzal 5 MG No 1{table QD Xyzal 5 MG t_in_th e_eveni ng} glipiZIDE glipiZIDE No 1{table QD glipiZIDE ER 2.5 MG ER 2.5 MG t_with_ ER 2.5 MG food} Integra Integra No Integra Losartan Losartan No 1{table QD Losartan Potassium-H Potassium-H t} Potassium- CTZ 50-12.5 CTZ 50-12.5 HCTZ MG MG 50-12.5 MG Zoloft 100 Zoloft 100 No 1.5{tab QD Zoloft 100 MG MG let} MG Alpha Alpha No Alpha Lipoic Lipoic Lipoic Acid-Biotin Acid-Biotin Acid-Bioti n Xyzal Xyzal No Xyzal Allergy Allergy Allergy 24HR 5 MG 24HR 5 MG 24HR 5 MG traZODone traZODone No QD traZODone HCl 50 MG HCl 50 MG HCl 50 MG Azelastine Azelastine No BID Azelastine HCl 137 HCl 137 HCl 137 MCG/SPRAY MCG/SPRAY MCG/SPRAY Potassimin Potassimin No Potassimin hydrOXYzine hydrOXYzine No TID hydrOXYzin HCl 25 MG HCl 25 MG e HCl 25 MG FreeStyle FreeStyle No FreeStyle Amaya 2 Amaya 2 Amaya 2 Sensor - Sensor - Sensor - Cinnamon Cinnamon No Cinnamon Azelastine Azelastine No BID Azelastine HCl 137 HCl 137 HCl 137 MCG/SPRAY MCG/SPRAY MCG/SPRAY Wellbutrin Wellbutrin No 1{table QD Wellbutrin XL 300 MG XL 300 MG t_in_th XL 300 MG e_morni ng} Pen Francitas Pen Francitas No QD Pen 31G X 6 MM 31G X 6 MM Francitas 31G X 6 MM Singulair Singulair No Singulair 10 MG 10 MG 10 MG Xyzal 5 MG Xyzal 5 MG No 1{table QD Xyzal 5 MG t_in_th e_eveni ng} Losartan Losartan No 1{table QD Losartan Potassium-H Potassium-H t} Potassium- CTZ 50-12.5 CTZ 50-12.5 HCTZ MG MG 50-12.5 MG Seasonique Seasonique No Seasonique Ozempic (1 Ozempic (1 No Ozempic (1 MG/DOSE) 2 MG/DOSE) 2 MG/DOSE) 2 MG/1.5ML MG/1.5ML MG/1.5ML Primidone Primidone No BID Primidone 250 MG 250 MG 250 MG Singulair Singulair No 1{table QD Singulair 10 MG 10 MG t} 10 MG Restasis Restasis No 1{drop_ BID Restasis 0.05 % 0.05 % into_af 0.05 % fected_ eye} Primidone Primidone No BID Primidone 250 MG 250 MG 250 MG Singulair Singulair No 1{table QD Singulair 10 MG 10 MG t} 10 MG Potassimin Potassimin No Potassimin Azelastine Azelastine No BID Azelastine HCl 137 HCl 137 HCl 137 MCG/SPRAY MCG/SPRAY MCG/SPRAY Losartan Losartan No 1{table QD Losartan Potassium-H Potassium-H t} Potassium- CTZ 50-12.5 CTZ 50-12.5 HCTZ MG MG 50-12.5 MG FreeStyle FreeStyle No FreeStyle Amaya 2 Amaya 2 Amaya 2 Sensor - Sensor - Sensor - Alpha Alpha No Alpha Lipoic Lipoic Lipoic Acid-Biotin Acid-Biotin Acid-Bioti n Cinnamon Cinnamon No Cinnamon Zoloft 100 Zoloft 100 No 1.5{tab QD Zoloft 100 MG MG let} MG Xyzal 5 MG Xyzal 5 MG No 1{table QD Xyzal 5 MG t_in_th e_eveni ng} Pen Francitas Pen Francitas No QD Pen 31G X 6 MM 31G X 6 MM Francitas 31G X 6 MM Singulair Singulair No Singulair 10 MG 10 MG 10 MG Seasonique Seasonique No Seasonique Restasis Restasis No 1{drop_ BID Restasis 0.05 % 0.05 % into_af 0.05 % fected_ eye} glipiZIDE glipiZIDE No 1{table QD glipiZIDE ER 2.5 MG ER 2.5 MG t_with_ ER 2.5 MG food} Wellbutrin Wellbutrin No 1{table QD Wellbutrin XL 300 MG XL 300 MG t_in_th XL 300 MG e_morni ng} Ozempic (1 Ozempic (1 No Ozempic (1 MG/DOSE) 2 MG/DOSE) 2 MG/DOSE) 2 MG/1.5ML MG/1.5ML MG/1.5ML Azelastine Azelastine No BID Azelastine HCl 137 HCl 137 HCl 137 MCG/SPRAY MCG/SPRAY MCG/SPRAY traZODone traZODone No QD traZODone HCl 50 MG HCl 50 MG HCl 50 MG hydrOXYzine hydrOXYzine No TID hydrOXYzin HCl 25 MG HCl 25 MG e HCl 25 MG Losartan Losartan No 1{table QD Losartan Potassium-H Potassium-H t} Potassium- CTZ 50-12.5 CTZ 50-12.5 HCTZ MG MG 50-12.5 MG Integra Integra No Integra Xyzal Xyzal No Xyzal Allergy Allergy Allergy 24HR 5 MG 24HR 5 MG 24HR 5 MG Xyzal 5 MG Xyzal 5 MG No 1{table QD Xyzal 5 MG t_in_th e_eveni ng} Losartan Losartan No 1{table QD Losartan Potassium-H Potassium-H t} Potassium- CTZ 50-12.5 CTZ 50-12.5 HCTZ MG MG 50-12.5 MG Integra Integra No Integra Azelastine Azelastine No BID Azelastine HCl 137 HCl 137 HCl 137 MCG/SPRAY MCG/SPRAY MCG/SPRAY glipiZIDE glipiZIDE No 1{table QD glipiZIDE ER 2.5 MG ER 2.5 MG t_with_ ER 2.5 MG food} Alpha Alpha No Alpha Lipoic Lipoic Lipoic Acid-Biotin Acid-Biotin Acid-Bioti n Primidone Primidone No BID Primidone 250 MG 250 MG 250 MG Cinnamon Cinnamon No Cinnamon Singulair Singulair No Singulair 10 MG 10 MG 10 MG Singulair Singulair No 1{table QD Singulair 10 MG 10 MG t} 10 MG Wellbutrin Wellbutrin No 1{table QD Wellbutrin XL 300 MG XL 300 MG t_in_th XL 300 MG e_morni ng} Zoloft 100 Zoloft 100 No 1.5{tab QD Zoloft 100 MG MG let} MG Xyzal Xyzal No Xyzal Allergy Allergy Allergy 24HR 5 MG 24HR 5 MG 24HR 5 MG FreeStyle FreeStyle No FreeStyle Amaya 2 Amaya 2 Amaya 2 Sensor - Sensor - Sensor - Seasonique Seasonique No Seasonique Pen Francitas Pen Francitas No QD Pen 31G X 6 MM 31G X 6 MM Francitas 31G X 6 MM Potassimin Potassimin No Potassimin Azelastine Azelastine No BID Azelastine HCl 137 HCl 137 HCl 137 MCG/SPRAY MCG/SPRAY MCG/SPRAY Losartan Losartan No 1{table QD Losartan Potassium-H Potassium-H t} Potassium- CTZ 50-12.5 CTZ 50-12.5 HCTZ MG MG 50-12.5 MG Restasis Restasis No 1{drop_ BID Restasis 0.05 % 0.05 % into_af 0.05 % fected_ eye} traZODone traZODone No QD traZODone HCl 50 MG HCl 50 MG HCl 50 MG hydrOXYzine hydrOXYzine No TID hydrOXYzin HCl 25 MG HCl 25 MG e HCl 25 MG Ozempic (1 Ozempic (1 No Ozempic (1 MG/DOSE) 2 MG/DOSE) 2 MG/DOSE) 2 MG/1.5ML MG/1.5ML MG/1.5ML Zoloft 100 Zoloft 100 No 1.5{tab QD Zoloft 100 MG MG let} MG Pen Francitas Pen Francitas No QD Pen 31G X 6 MM 31G X 6 MM Francitas 31G X 6 MM Cinnamon Cinnamon No Cinnamon Xyzal 5 MG Xyzal 5 MG No 1{table QD Xyzal 5 MG t_in_th e_eveni ng} Wellbutrin Wellbutrin No 1{table QD Wellbutrin XL 300 MG XL 300 MG t_in_th XL 300 MG e_morni ng} Azelastine Azelastine No BID Azelastine HCl 137 HCl 137 HCl 137 MCG/SPRAY MCG/SPRAY MCG/SPRAY Primidone Primidone No BID Primidone 250 MG 250 MG 250 MG Alpha Alpha No Alpha Lipoic Lipoic Lipoic Acid-Biotin Acid-Biotin Acid-Bioti n Potassimin Potassimin No Potassimin Singulair Singulair No 1{table QD Singulair 10 MG 10 MG t} 10 MG hydrOXYzine hydrOXYzine No TID hydrOXYzin HCl 25 MG HCl 25 MG e HCl 25 MG Xyzal Xyzal No Xyzal Allergy Allergy Allergy 24HR 5 MG 24HR 5 MG 24HR 5 MG glipiZIDE glipiZIDE No 1{table QD glipiZIDE ER 2.5 MG ER 2.5 MG t_with_ ER 2.5 MG food} Seasonique Seasonique No Seasonique Losartan Losartan No 1{table QD Losartan Potassium-H Potassium-H t} Potassium- CTZ 50-12.5 CTZ 50-12.5 HCTZ MG MG 50-12.5 MG Integra Integra No Integra traZODone traZODone No QD traZODone HCl 50 MG HCl 50 MG HCl 50 MG Ozempic (1 Ozempic (1 No Ozempic (1 MG/DOSE) 2 MG/DOSE) 2 MG/DOSE) 2 MG/1.5ML MG/1.5ML MG/1.5ML Restasis Restasis No 1{drop_ BID Restasis 0.05 % 0.05 % into_af 0.05 % fected_ eye} FreeStyle FreeStyle No FreeStyle Amaya 2 Amaya 2 Amaya 2 Sensor - Sensor - Sensor - Azelastine Azelastine No BID Azelastine HCl 137 HCl 137 HCl 137 MCG/SPRAY MCG/SPRAY MCG/SPRAY Immunizations Ordered Immunization Filled Immunization Date Status Commen ts Source Name Name Mckenna Andres 2019-06-10 [facility] 14[facility] 2019[facility]-10 Com[facility] (Triamcinolone) 14:: [facility] 2019-06-10 Completed [facility] (Triam[facility] (Triamcinolone) 14:: [facility] 2019-06-10 Completed [facility] (Triam[facility] (Triamcinolone) 14:: [facility] 2019[facility]06-10 Completed [facility]Triam[facility] (Triamcinolone) 14:: [facility] 2019[facility]06-10 Completed [facility]Triam[facility] (Triamcinolone) 14::00 [facility] 2019-06-10 Completed [facility] (Triamcinolone) (Triamcinolone) 14::00 [facility] 2019[facility]06-10 Completed [facility]Triam[facility] (Triamcinolone) 14:: [facility] 2019-06-10 Completed [facility] (Triamcinolone[facility] (Triamcinolone) 14:: [facility] 2019-06-10 Completed [facility] (Triamcinolone[facility] (Triamcinolone) 14:21:00 [facility] 2019-06-10 Completed [facility] (Triam[facility]olone) (Triamcinolone) 14:21:00 - I [facility] 2019-06-10 Completed [facility] (Triamcinolone) (Triamcinolone) 14:21:00 - I [facility] 2019-06-10 Completed [facility] (Triamcinolone) (Triamcinolone) 14:21:00 - I [facility] 2019-06-10 Completed [facility] (Triamcinolone) (Triamcinolone) 14:21:00 - I [facility] 2019-06-10 Completed [facility] (Triamcinolone) (Triamcinolone) 14:21:00 - I [facility] 2019-06-10 Completed [facility] (Triamcinolone) (Triamcinolone) 14:21:00 - I [facility] 2018-03-08 Completed [facility] (Triamcinolone[facility] (Triamcinolone) 11:51:00 - I [facility] 2018-03-08 Completed [facility] (Triamcinolone[facility] (Triamcinolone) 11:51:00 - I [facility] 2018-03-08 Completed [facility] (Triamcinolone) (Triamcinolone) 11:51:00 - I [facility] 2018-03-08 Completed [facility] (Triamcinolone) (Triamcinolone) 11:51:00 - I [facility] 2018-03-08 Completed [facility] (Triamcinolone) (Triamcinolone) 11:51:00 - I [facility] 2018-03-08 Completed [facility] (Triamcinolone) (Triamcinolone) 11:51:00 - [facility] 2018-03-08 Completed [facility] (Triamcinolone) (Triamcinolone) 11:51:00 - I [facility] 2018-03-08 Completed [facility] (Triamcinolone) (Triamcinolone) 11:51:00 - I [facility] 2018-03-08 Completed [facility] (Triamcinolone) (Triamcinolone) 11:51:00 - I [facility] 2018-03-08 Completed [facility] (Triamcinolone) (Triamcinolone) 11:51:00 - I [facility] 2018-03-08 Completed [facility] (Triamcinolone) (Triamcinolone) 11:51:00 - I [facility] 2018-03-08 Completed [facility] (Triamcinolone) (Triamcinolone) 11:51:00 - I [facility] 2018-03-08 Completed [facility] (Triamcinolone) (Triamcinolone) 11:51:00 - I [facility] 2018-03-08 Completed [facility] (Triamcinolone) (Triamcinolone) 11:51:00 - I [facility] 2018-03-08 Completed [facility] (Triamcinolone) (Triamcinolone) 11:51:00 - I [facility] 2018-03-08 Completed [facility] (Triamcinolone) (Triamcinolone) 11:51:00 - [facility] 2017-09-11 Completed [facility] (Triamcinolone) (Triamcinolone) 15:39:00 - I [facility] 2017-09-11 Completed [facility] (Triamcinolone) (Triamcinolone) 15:39:00 - I [facility] 2017-09-11 Completed [facility] (Triamcinolone) (Triamcinolone) 15:39:00 - I [facility] 2017-09-11 Completed [facility] (Triamcinolone) (Triamcinolone) 15:39:00 - I [facility] 2017-09-11 Completed [facility] (Triamcinolone) (Triamcinolone) 15:39:00 - I [facility] 2017-09-11 Completed [facility] (Triamcinolone) (Triamcinolone) 15:39:00 - I [facility] 2017-09-11 Completed [facility] (Triamcinolone) (Triamcinolone) 15:39:00 - I [facility] 2017-09-11 Completed [facility] (Triamcinolone) (Triamcinolone) 15:39:00 - I [facility] 2017-09-11 Completed [facility] (Triamcinolone) (Triamcinolone) 15:39:00 - I [facility] 2017-09-11 Completed [facility] (Triamcinolone) (Triamcinolone) 15:39:00 - [facility] 2017-09-11 Completed [facility] (Triamcinolone) (Triamcinolone) 15:39:00 - [facility] 2017-09-11 Completed [facility] (Triamcinolone) (Triamcinolone) 15:39:00 - I [facility] 2017-09-11 Completed [facility] (Triamcinolone) (Triamcinolone) 15:39:00 - I [facility] 2017-09-11 Completed [facility] (Triamcinolone) (Triamcinolone) 15:39:00 - [facility] 2017-09-11 Completed [facility] (Triamcinolone) (Triamcinolone) 15:39:00 - [facility] 2017-09-11 Completed [facility] (Triamcinolone) (Triamcinolone) 15:39:00 - [facility] Vital Signs Vital Name Observation Time Observation Value Comments Source height 2022-02-10 08:10:00 63 [in_i] Common [facility] weight 2022-02-10 08:10:00 236 [lb_av] [facility] temperature 2022-02-10 08:10:00 97.9 [degF] Common [facility] bmi 2022-02-10 08:10:00 41.8 kg/m2 [facility] oximetry 2022-02-10 08:10:00 97 % [facility] respiratory rate 2022-02-10 08:10:00 16 /min Comm on [facility] blood pressure 2022-02-10 08:10:00 122 mm[Hg] [facility] - systolic [facility] blood pressure 2022-02-10 08:10:00 72 mm[Hg] [facility] - diastolic [facility] height 2021-11-10 08:00:00 62 [in_i] [facility] weight 2021-11-10 08:00:00 217.6 [lb_av] [facility] temperature 2021-11-10 08:00:00 97.5 [degF] [facility] bmi 2021-11-10 08:00:00 39.8 kg/m2 [facility] oximetry 2021-11-10 08:00:00 97 % [facility] respiratory rate 2021-11-10 08:00:00 17 /min Comm on [facility] blood pressure 2021-11-10 08:00:00 129 mm[Hg] Common [facility] - systolic [facility] blood pressure 2021-11-10 08:00:00 78 mm[Hg] Common [facility] - diastolic [facility] height 2021-10-21 11:10:00 62 [in_i] [facility] weight 2021-10-21 11:10:00 219.0 [lb_av] [facility] temperature 2021-10-21 11:10:00 98.0 [degF] [facility] bmi 2021-10-21 11:10:00 40.05 kg/m2 [facility] oximetry 2021-10-21 11:10:00 97 % Common [facility] respiratory rate 2021-10-21 11:10:00 17 /min Comm on [facility] blood pressure 2021-10-21 11:10:00 121 mm[Hg] Common [facility] - systolic [facility] blood pressure 2021-10-21 11:10:00 71 mm[Hg] Common [facility] - diastolic [facility] height 2021-09-30 09:20:00 62 [in_i] Common [facility] weight 2021-09-30 09:20:00 219.0 [lb_av] [facility] temperature 2021-09-30 09:20:00 98.2 [degF] Common [facility] bmi 2021-09-30 09:20:00 40.05 kg/m2 [facility] oximetry 2021-09-30 09:20:00 99 % Common [facility] respiratory rate 2021-09-30 09:20:00 17 /min Comm on [facility] blood pressure 2021-09-30 09:20:00 135 mm[Hg] Common [facility] - systolic [facility] blood pressure 2021-09-30 09:20:00 79 mm[Hg] Common [facility] diastolic [facility] height 2021-08-05 08:00:00 62 [in_i] Common [facility] weight 2021-08-05 08:00:00 218.5 [lb_av] [facility] temperature 2021-08-05 08:00:00 97.5 [degF] Common [facility] bmi 2021-08-05 08:00:00 39.96 kg/m2 [facility] oximetry 2021-08-05 08:00:00 97 % [facility] respiratory rate 2021-08-05 08:00:00 17 /min Comm on [facility] blood pressure 2021-08-05 08:00:00 129 mm[Hg] [facility] - systolic [facility] blood pressure 2021-08-05 08:00:00 70 mm[Hg] [facility] - diastolic [facility] height 2021-07-27 15:20:00 62 [in_i] [facility] weight 2021-07-27 15:20:00 227 [lb_av] [facility] bmi 2021-07-27 15:20:00 41.51 kg/m2 [facility] height 2021-06-07 08:10:00 62 [in_i] [facility] weight 2021-06-07 08:10:00 227.6 [lb_av] [facility] temperature 2021-06-07 08:10:00 97.3 [degF] [facility] bmi 2021-06-07 08:10:00 41.62 kg/m2 [facility] oximetry 2021-06-07 08:10:00 98 % [facility] respiratory rate 2021-06-07 08:10:00 18 /min [facility] blood pressure 2021-06-07 08:10:00 125 mm[Hg] Common [facility] - systolic [facility] blood pressure 2021-06-07 08:10:00 64 mm[Hg] [facility] - diastolic [facility] height 2021-05-05 10:50:00 62 [in_i] Common [facility] weight 2021-05-05 10:50:00 211 [lb_av] Common [facility] temperature 2021-05-05 10:50:00 98 [degF] [facility] bmi 2021-05-05 10:50:00 38.59 kg/m2 [facility] blood pressure 2021-05-05 10:50:00 117 mm[Hg] [facility] - systolic [facility] blood pressure 2021-05-05 10:50:00 82 mm[Hg] [facility] - diastolic [facility] Systolic blood 2020-07-02 16:11:00 145 mm[Hg] [facility] Diastolic blood 2020-07-02 16:11:00 90 mm[Hg] [facility] Heart rate 2020-07-02 16:11:00 96 /min [facility] Body height 2020-07-02 16:11:00 157.5 cm [facility] Body weight 2020-07-02 16:11:00 105.688 kg [facility] BMI 2020-07-02 16:11:00 42.62 kg/m2 [facility] Systolic blood 2020-07-02 16:11:00 145 mm[Hg] [facility] Diastolic blood 2020-07-02 16:11:00 90 mm[Hg] [facility] Heart rate 2020-07-02 16:11:00 96 /min [facility] Body height 2020-07-02 16:11:00 157.5 cm [facility] Body weight 2020-07-02 16:11:00 105.688 kg [facility] BMI 2020-07-02 16:11:00 42.62 kg/m2 [facility] Systolic blood 2019-08-04 01:46:00 138 mm[Hg] [facility] Diastolic blood 2019-08-04 01:46:00 77 mm[Hg] Unive [facility]ity of pressure [facility] Heart rate 2019-08-04 01:45:00 93 /min [facility] Body temperature 2019-08-04 01:45:00 36.94 Deisi [facility] Respiratory rate 2019-08-04 01:45:00 18 /min [facility] Body height 2019-08-04 01:45:00 157.5 cm [facility] Body weight 2019-08-04 01:45:00 106.595 kg [facility] BMI 2019-08-04 01:45:00 42.98 kg/m2 [facility] Oxygen saturation in 2019-08-04 01:45:00 97 /min [facility] Arterial blood by [facility] Pulse oximetry Branch Procedures Procedure Date / Time Performed Performing Clinician Carson ARIAS BRAIN SPECT W I 123 2021-07-08 22:33:00 Don Borjas [facility] DATSCAN REFERRAL- 2020-06-11 06:01:00 Doctor Unassigned, No [facility] REQUEST/RESPONSE Name [facility] POCT URINALYSIS 2019-08-04 01:56:00 Karli Farias [facility] POCT TEST 2019-08-04 01:55:00 Karli Farias [facility] ASSIGNMENT OF BENEFITS 2019-08-04 01:39:40 Doctor Unassigned, No [facility] Name [facility] POCT URINALYSIS 2019-08-03 00:00:00 Karli Farias [facility] Plan of Care Planned Activity Planned Date Details Comments Source Future Scheduled 2022-05-01 [facility] Test 14:12:53 screening (procedure) [code = 126689623] Future Scheduled 2022-05-01 Screening for [facility] Test 14:12:53 malignant neoplasm of cervix (procedure) [code = 944504178] Future Scheduled 2022-05-01 HEPATITIS B [facility] Test 14:12:53 VACCINES (3 of 3 - 3-dose series) [code = HEPATITIS B VACCINES (3 of 3 - 3-dose series)] Future Scheduled 2022-05-01 COVID-19 VACCINE (4 [facility] Test 14:12:53 - Booster for Moderna series) [code = COVID-19 VACCINE (4 - Booster for Moderna series)] Future Scheduled 2022-05-01 [facility]ENZA [facility]ACCINE [facility] 14:12:53 [code = INFLUENZA VACCINE] Future Scheduled 2021-07-26 [facility] Test 14:45:15 screening (procedure) [code = 137805097] Future Scheduled 2021-07-26 [facility] for [facility] Test 14:45:15 malignant neoplasm of cervix (procedure) [code = 189143214] Encounters Start End Encounter Admission Attending Care Care Encounter Source Date/Time Date/Time Type Type Clinicians Facility Department ID 2021-11-11 [place] [place], [facility] [id number] Common 15:22:00 Michael [facility] 2021-09-30 Out[facility] [place], [facility] Common 09:45:02 Michael [facility] 2021-07-20 Out[facility] [place], [facility] [id number] Common 13:37:40 Michael [facility] 2021-07-20 Out[place], [facility] [id number] Common 13:08:05 Michael [facility] 2021-07-20 Outpatient [place], [facility] Common 12:52:42 Michael [id number] [facility] 2021-07-20 Outpatient [place], [facility] [id number] Common 12:35:03 Michael [id number] [facility] 2021-07-20 Outpatient [place], [facility] [id number] Common 12:34:29 Michael [id number] [facility] 2021-07-20 Outpatient [place], [facility] [id number] Common 12:22:34 Michael [id number] [facility] 2021-07-20 Outpatient [place], [facility] [id number] Common 12:17:53 Michael [id number] [facility] 2021-07-20 Outpatient [place], [facility] [id number] Common 11:27:48 Michael [id number] [facility] 2021-07-20 Outpatient [place], [facility] [id number] Common 11:19:45 Michael [id number] [facility] 2021-07-20 [facility] [place] [id number] Common 11:03:00 Michael [id number] [facility] 2022-02-10 2022-02-10 OFFICE [facility] [id number] Co m[facility] 00:00:00 00:00:00 VISIT [facility] ESTAB PT - CHI LEVEL 4 [facility] 2022-02-01 2022-02-01 (TEL) STLMLC ST[facility] [id number] Co mmon 00:00:00 00:00:00 [facility] 2022-01-11 2022-01-11 (TEL) STLMLC ST[facility] [id number] Co mmon 00:00:00 00:00:00 [facility] 2021-11-10 2021-11-10 OFFICE [facility] STL[facility] [id number] Co m[facility] 00:00:00 00:00:00 VISIT [facility] PT - CHI LEVEL 4 [facility] 2021-10-25 2021-10-25 (TEL) STLMLC STL[facility] [id number] Co mmon 00:00:00 00:00:00 [facility] 2021-10-21 2021-10-21 (TEL) STLMLC STLMLC [id number] Co m[facility] 00:00:00 00:00:00 [facility] [facility] 2021-10-21 2021-10-21 OFFICE STLMLC STLMLC [id number] Co mmon 00:00:00 00:00:00 VISIT EST Spir it PT LEVEL 3 [facility] 2021-10-13 2021-10-13 (TEL) STLMLC STLMLC [id number] Co mmon 00:00:00 00:00:00 [facility] 2021-10-07 2021-10-07 (TEL) STLMLC STLMLC [id number] Co mmon 00:00:00 00:00:00 [facility] 2021-10-06 2021-10-06 (TEL) STLMLC STLMLC [id number] Co mmon 00:00:00 00:00:00 [facility] 2021-10-04 2021-10-04 (TEL) STLMLC STLMLC [id number] Co mmon 00:00:00 00:00:00 [facility] 2021-09-30 2021-09-30 OFFICE STLMLC STLMLC [id number] Co mmon 00:00:00 00:00:00 VISIT EST Spir it PT LEVEL 3 - [facility] 2021-09-29 2021-09-29 (TEL) STLMLC STLMLC [id number] Co mmon 00:00:00 00:00:00 [facility] 2021-09-28 2021-09-28 (TEL) STLMLC STLMLC [id number] Co mmon 00:00:00 00:00:00 [facility] 2021-09-27 2021-09-27 ([place]) Nurse STLMLC STLMLC [id number] Common 00:00:00 00:00:00 Visit [facility] 2021-09-16 2021-09-16 ([place]) Nurse STLMLC STLMLC [id number] Common 00:00:00 00:00:00 Visit [facility] 2021-09-09 2021-09-09 (INJ) STLMLC STLMLC [id number] Co mmon 00:00:00 00:00:00 Injection Spir it [facility] 2021-09-02 2021-09-02 ([place]) Nurse STLMLC STLMLC [id number] Common 00:00:00 00:00:00 Visit [facility] 2021-08-26 2021-08-26 ([place]) Nurse STLMLC STLMLC [id number] Common 00:00:00 00:00:00 Visit [facility] 2021-08-19 2021-08-19 ([place]) Nurse STLMLC STLMLC [id number] Common 00:00:00 00:00:00 Visit [facility] 2021-08-12 2021-08-12 ([place]) Nurse STLMLC STLMLC [id number] Common 00:00:00 00:00:00 Visit [facility] 2021-08-05 2021-08-05 OFFICE STLMLC STLMLC [id number] Co mmon 00:00:00 00:00:00 VISIT [facility] PT - [facility] LEVEL 4 [facility] 2021-07-27 2021-07-27 OFFICE STLMLC STLC [id number] Co mmon 00:00:00 00:00:00 VISIT EST Spir it PT LEVEL 3 [facility] 2021-07-27 2021-07-27 (TEL) STLMLC STLMLC [id number] Co mmon 00:00:00 00:00:00 [facility] 2021-07-22 2021-07-22 ([place] [facility] [id number] Common 00:00:00 00:00:00 [facility] 2021-07-14 2021-07-14 ([place]) [facility] [id number] Common 00:00:00 00:00:00 Visit [facility] 2021-07-08 2021-07-08 [facility], .2.840.1 [id number] Methodi 14:44:52 23:59:00 Encounter Don Goldberg50.1.[address] 3.430.2.7 Hospit a .3.590073 l .8 2021-07-08 2021-07-08 [facility], 1.2.840.1 [id number] Methodi 14:44:52 23:59:00 Encounter Don Goldberg50.1.[address] 3.430.2.7 Hospit a .3.214974 l .8 2021-07-08 2021-07-08 [facility] 1.2.840.1 [id number] Methodi 09:39:43 14:43:00 Encounter Don Velasco 93640.1.[address] 3.430.2.7 Hospit a .3.335186 l .8 2021-07-08 2021-07-08 [facility] 1.2.840.1 [id number] [id number] Methodi 09:39:43 14:43:00 Encounter Don Velasco 37618.1.[address] 3.430.2.7 Hospit a .3.908372 l .8 2021-07-08 2021-07-08 Travel 1.2.840.1 1.2.270.701 1347 [id number] Methodi 00:00:00 00:00:[address] 3.430.2.7 0.2.7.3.698 Ho spita .3.634719 084.8 l .8 2021-07-08 2021-07-08 Travel 1.2.840.1 1.2.158.722 9577 [id number] Methodi 00:00:00 00:00:[address] 3.430.2.7 0.2.7.3.698 Ho spita .3.789604 084.8 l .8 2021-07-07 2021-07-07 ([place]) [facility] [id number] Common 00:00:00 00:00:00 Visit [facility] 2021-07-01 2021-07-01 ([place]) [facility] [id number] Common 00:00:00 00:00:00 Visit [facility] 2021-06-27 2021-06-27 Travel 1.2.840.1 1.2.490.251 3147 [id number] Methodi 00:00:00 00:00:[address] 3.430.2.7 0.2.7.3.698 Ho spita .3.898764 084.8 l .8 2021-06-27 2021-06-27 Travel 1.2.840.1 1.2.950.554 9238 105581 Methodi 00:00:00 00:00:[address] 3.430.2.7 0.2.7.3.698 Ho spita .3.197092 084.8 l .8 2021-06-23 2021-06-23 Travel 1.2.840.1 1.2.700.926 3546 455417 Methodi 00:00:00 00:00:[address] 3.430.2.7 0.2.7.3.698 Ho spita .3.978072 084.8 l .8 2021-06-23 2021-06-23 ([place]) Nurse STLMLC STLMLC [id number] Common 00:00:00 00:00:00 Visit [facility] 2021-06-23 2021-06-23 Travel 1.2.840.1 1.2.508.852 4129 [id number] Methodi 00:00:00 00:00:[address] 3.430.2.7 0.2.7.3.698 Ho spita .3.350064 084.8 l .8 2021-06-22 2021-06-22 Transcribe [place], 1.2.840.1 [id number] 2 [id number] Methodi 00:00:00 00:00:00 Orders Don Velasco 89182.1.[address] 3.430.2.7 Hospit a .3.420016 l .8 2021-06-22 2021-06-22 Transcribe [place], 1.2.840.1 [id number] 2 [id number] Methodi 00:00:00 00:00:00 Orders Don Nidia. 38848.1.[address] 3.430.2.7 Hospit a .3.102605 l .8 2021-06-16 2021-06-16 (INJ) STLMLC STLMLC [id number] Co mmon 00:00:00 00:00:00 Injection Spir it [facility] 2021-06-10 2021-06-10 (INJ) STLMLC STLMLC [id number] Co mmon 00:00:00 00:00:00 Injection Spir [facility] 2021-06-07 2021-06-07 PREV VISIT STLMLC STLMLC [id number] Common 00:00:00 00:00:00 EST AGE [facility] 18-39 - [facility] 2021-06-03 2021-06-03 ([place]) Nurse STLMLC STLMLC [id number] Common 00:00:00 00:00:00 Visit [facility] 2021-05-27 2021-05-27 ([place]) Nurse STLMLC STLMLC [id number] Common 00:00:00 00:00:00 Visit [facility] 2021-05-18 2021-05-18 ([place]) Nurse STLMLC STLMLC [id number] Common 00:00:00 00:00:00 Visit [facility] 2021-05-13 2021-05-13 ([place]) Nurse STLMLC STLMLC [id number] Common 00:00:00 00:00:00 Visit [facility] 2021-05-06 2021-05-06 (INJ) STLMLC STLMLC [id number] Co mmon 00:00:00 00:00:00 Injection Spir [facility] 2021-05-05 2021-05-05 OFFICE STLMLC STLMLC [id number] Co mmon 00:00:00 00:00:00 VISIT [facility] 4 [facility] 2021-04-29 2021-04-29 ([place]) Nurse STLMLC STLMLC [id number] Common 00:00:00 00:00:00 Visit [facility] 2021-04-22 2021-04-22 ([place]) Nurse STLMLC STLMLC [id number] Common 00:00:00 00:00:00 Visit [facility] 2021-04-15 2021-04-15 ([place]) Nurse STLMLC STLMLC [id number] Common 00:00:00 00:00:00 Visit [facility] 2021-04-08 2021-04-08 ([place]) Nurse STLMLC STLMLC [id number] Common 00:00:00 00:00:00 Visit [facility] 2021-04-01 2021-04-01 (TEL) STLMLC STLMLC [id number] Co mmon 00:00:00 00:00:00 [facility] 2021-04-01 2021-04-01 ([place]) Nurse STLMLC STLMLC [id number] Common 00:00:00 00:00:00 Visit [facility] 2021-03-25 2021-03-25 ([place]) Nurse STLMLC STLMLC [id number] Common 00:00:00 00:00:00 Visit [facility] 2021-03-18 2021-03-18 (INJ) STLMLC STLMLC [id number] Co mmon 00:00:00 00:00:00 Injection Spir [facility] 2021-03-15 2021-03-15 (TEL) STLMLC STLMLC [id number] Co mmon 00:00:00 00:00:00 [facility] 2021-03-11 2021-03-11 (INJ) STLMLC STLMLC [id number] Co mmon 00:00:00 00:00:00 Injection Spir [facility] 2021-03-04 2021-03-04 ([place]) Nurse STLMLC STLMLC [id number] Common 00:00:00 00:00:00 Visit [facility] 2021-02-25 2021-02-25 (TEL) STLMLC STLMLC [id number] Co mmon 00:00:00 00:00:00 [facility] 2021-02-24 2021-02-24 ([place]) Nurse STLMLC STLMLC [id number] Common 00:00:00 00:00:00 Visit [facility] 2021-02-17 2021-02-17 (TEL) STLMLC STLMLC [id number] Co mmon 00:00:00 00:00:00 [facility] 2021-02-17 2021-02-17 ([place]) Nurse STLMLC STLMLC [id number] Common 00:00:00 00:00:00 Visit [facility] 2021-02-10 2021-02-10 ([place]) Nurse STLMLC STLMLC [id number] Common 00:00:00 00:00:00 Visit [facility] 2021-02-07 2021-02-07 Outpatient STLMLC STLMLC [id number] Common 00:00:00 00:00:00 [facility] 2021-02-04 2021-02-04 Outpatient STLMLC STLMLC [id number] Common 00:00:00 00:00:00 [facility] 2021-02-04 2021-02-04 Outpatient STLMLC STLMLC [id number] Common 00:00:00 00:00:00 [facility] 2021-01-27 2021-01-27 Outpatient STLMLC STLMLC [id number] Common 00:00:00 00:00:00 [facility] 2021-01-21 2021-01-21 Outpatient STLMLC STLMLC [id number] Common 00:00:00 00:00:00 [facility] 2021-01-20 2021-01-20 Outpatient STLMLC STLMLC [id number] Common 00:00:00 00:00:00 [facility] 2021-01-20 2021-01-20 Outpatient STLMLC STLMLC [id number] Common 00:00:00 00:00:00 [facility] 2021-01-14 2021-01-14 Outpatient STLMLC STLMLC [id number] Common 00:00:00 00:00:00 [facility] 2021-01-13 2021-01-13 Outpatient STLMLC STLMLC [id number] Common 00:00:00 00:00:00 [facility] 2021-01-13 2021-01-13 Outpatient STLMLC STLMLC [id number] Common 00:00:00 00:00:00 [facility] 2020-12-30 2020-12-30 Outpatient STLMLC STLMLC [id number] Common 00:00:00 00:00:00 [facility] 2020-12-23 2020-12-23 Outpatient STLMLC STLMLC [id number] Common 00:00:00 00:00:00 [facility] 2020-12-16 2020-12-16 Outpatient STLMLC STLMLC [id number] Common 00:00:00 00:00:00 [facility] 2020-12-13 2020-12-13 Outpatient STLMLC STLMLC [id number] Common 00:00:00 00:00:00 [facility] 2020-12-09 2020-12-09 Outpatient STLMLC STLMLC [id number] Common 00:00:00 00:00:00 [facility] 2020-12-02 2020-12-02 Outpatient STLMLC STLMLC [id number] Common 00:00:00 00:00:00 [facility] 2020-11-26 2020-11-26 Outpatient STLMLC STLMLC [id number] Common 00:00:00 00:00:00 [facility] 2020-11-26 2020-11-26 Outpatient STLMLC STLMLC [id number] Common 00:00:00 00:00:00 [facility] 2020-11-18 2020-11-18 Outpatient STLMLC STLMLC [id number] Common 00:00:00 00:00:00 [facility] 2020-11-02 2020-11-02 Outpatient STLMLC STLMLC [id number] Common 00:00:00 00:00:00 [facility] 2020-10-27 2020-10-27 Outpatient STLMLC STLMLC [id number] Common 00:00:00 00:00:00 [facility] 2020-10-18 2020-10-18 Outpatient STLMLC STLMLC [id number] Common 00:00:00 00:00:00 [facility] 2020-10-07 2020-10-07 Outpatient STLMLC STLMLC [id number] Common 00:00:00 00:00:00 [facility] 2020-09-14 2020-09-14 Patient DODIE Jerome 1.2.840.114 [id number] 00:00:00 00:00:00 Outreach [facility] 350.1.13.10 [facility] 4.2.7.2.686 SARCOXIE [id number] 388 2020-09-14 2020-09-14 Patient Justus [facility] 1.2.840.114 [id number] Univers 00:00:00 00:00:00 Outreach [facility] 350.1.13.10 [facility] 4.2.7.2.686 Daniel GARCIA [phone] Me dical [address] 2020-09-09 2020-09-09 Outpatient STLMLC STLMLC [id number] Common 00:00:00 00:00:00 [facility] 2020-08-24 2020-08-24 Outpatient STLMLC STLMLC [id number] Common 00:00:00 00:00:00 [facility] 2020-08-24 2020-08-24 Outpatient STLMLC STLMLC [id number] Common 00:00:00 00:00:00 [facility] 2020-08-24 2020-08-24 Outpatient STLMLC STLMLC [id number] Common 00:00:00 00:00:00 [facility] 2020-08-17 2020-08-17 Outpatient STLMLC STLMLC [id number] Common 00:00:00 00:00:00 [facility] 2020-08-06 2020-08-06 Outpatient STLMLC STLMLC [id number] Common 00:00:00 00:00:00 [facility] 2020-08-03 2020-08-03 Outpatient STLMLC STLMLC [id number] Common 00:00:00 00:00:00 [facility] 2020-08-02 2020-08-02 Outpatient STLMLC STLMLC [id number] Common 00:00:00 00:00:00 [facility] 2020-07-21 2020-07-21 Outpatient STLMLC STLMLC [id number] Common 00:00:00 00:00:00 [facility] 2020-07-20 2020-07-20 Outpatient STLMLC STLMLC [id number] Common 00:00:00 00:00:00 [facility] 2020-07-20 2020-07-20 Outpatient STLMLC STLMLC [id number] Common 00:00:00 00:00:00 [facility] 2020-07-19 2020-07-19 Laboratory Lab, [facility] 1.2.840.114 [id number] 10:04:52 10:24:52 Only Mike [facility] 350.1.13.10 [place] 4.2.7.2.686 Professio [phone] [place] [address] [address] 2020-07-19 2020-07-19 Laboratory Lab, [facility] Fam Pob I [facility] 1.2. 840.114 [id number] [facility] 10:04:52 10:24:52 Only Jami Rosadothia [facility] 350.1.13.10 ity of [place] 4.2.7.2.686 Kamari as Professio [phone] Il dical [address] One 2020-07-19 2020-07-19 Outpatient R FRANCOISE [facility] [id number] Univers 10:00:00 10:00:00 TANIA ity [facility] 2020-07-19 2020-07-19 Outpatient STLMLC STLMLC [id number] Common 00:00:00 00:00:00 [facility] 2020-07-15 2020-07-15 Outpatient STLMLC STLMLC [id number] Common 00:00:00 00:00:00 [facility] 2020-07-15 2020-07-15 Outpatient STLMLC STLMLC [id number] Common 00:00:00 00:00:00 [facility] 2020-07-10 2020-07-10 Laboratory Nurse, Indu Donnelly 1.2.840.114 [id number] 14:15:51 14:30:44 Only Urgent Pediatric 350.1.13.10 s and 4.2.7.2.686 Adult [phone] Primary [facility] 2020-07-10 2020-07-10 Laboratory Nurse, Indu Urgent Andrzej 1.2.8 40.114 [id number] [facility] 14:15:51 14:30:44 Only Unknown, Attending Pediatric 350.1.13. 10 ity of [place] s and 4.2.7.2.686 [place] [phone] [place] [address] [facility] 2020-07-10 2020-07-10 Outpatient R IMANI [facility] [id number] Univers 14:15:00 14:15:00 ATTENDING [facility] 2020-07-02 2020-07-02 [facility] 1.2.687.525 [id number] 10:06:21 10:21:21 Visit [facility] 350.1.13.10 Surgical 4.2.7.2.686 Specialti [phone] es [address] [place] [address] 2020-07-02 2020-07-02 [facility] 1.2.240.810 [id number] Univers 10:06:21 10:21:21 Visit [facility] 350.1.13.10 it y of Surgical 4.2.7.2.686 Kamari as Specialti [phone] Me dical es [address] [place] [address] 2020-07-02 2020-07-02 Outpatient R STACY [facility] [id number] Univers 10:15:00 10:15:00 [facility] 2020-06-29 2020-06-29 Outpatient STLMLC STLMLC [id number] Common 00:00:00 00:00:00 [facility] 2020-06-17 2020-06-17 Outpatient STLMLC STLMLC [id number] Common 00:00:00 00:00:00 [facility] 2020-06-14 2020-06-14 Outpatient STLMLC STLMLC [id number] Common 00:00:00 00:00:00 [facility] 2020-06-11 2020-06-12 Outpatient nullFlavo MNA [id number] Memoria 14:15:00 05:59:59 r Neurology 00 l Felicitas Walshann 2020-06-11 2020-06-12 Outpatient nullFlavo MNA [id number] Memoria 14:15:00 05:59:59 r Neurology 00 l Felicitas Peña 2020-06-11 2020-06-11 [id number] 08:15:00 23:59:59 [place] 00 Kevyn 2020-06-11 2020-06-11 Outpatient MHIE MHIE [id number] 665 Debi 08:15:00 08:15:00 00 sarahy Peña 2020-06-11 2020-06-11 Orders Doctor JUAN MIGUEL 1.2.840.114 [id number] Univers 00:00:00 00:00:00 Only Unassigned, RAY 350.1.13.10 ity of [place] [facility] 4.2.7.2.686 Kmaari as [phone] [place] [address] [place] 2020-06-03 2020-06-03 Outpatient STLMLC STLMLC [id number] Common 00:00:00 00:00:00 [facility] 2020-05-12 2020-05-12 Outpatient STLMLC STLMLC [id number] Common 00:00:00 00:00:00 [facility] 2020-05-12 2020-05-12 Outpatient STLMLC STLMLC [id number] Common 00:00:00 00:00:00 [facility] 2020-05-05 2020-05-05 Outpatient STLMLC STLMLC [id number] Common 00:00:00 00:00:00 [facility] 2020-04-30 2020-04-30 Outpatient STLMLC STLMLC [id number] Common 00:00:00 00:00:00 [facility] 2020-01-30 2020-01-30 [facility] [id number] Common 13:04:00 13:04:00 t [facility] [address] Spir [address] Road [facility] 2020-01-30 2020-01-30 [facility] [id number] Common 08:30:00 08:30:[address] [facility] 2020-01-02 2020-01-02 Out[facility] [id number] Common 08:00:00 08:00:[address] [facility] 2019-12-30 2019-12-30 [facility] [id number] Common 17:15:00 17:15:[address] [facility] 2019-12-15 2019-12-15 [facility] [id number] Common 15:44:00 15:44:00 t [facility] [address] Spir [address] Road [facility] 2019-10-24 2019-10-24 Out[facility] [id number] Common 09:30:00 09:30:[address] [facility] 2019-10-14 2019-10-14 [facility] [id number] Common 08:00:00 08:00:[address] [facility] 2019-08-03 2019-08-04 Urgent Farias Karli [facility] 1.2.840. 114 [id number] Univers 19:40:04 21:50:00 Care Unknown, Attending Health 350.1.13.10 ity of Surgical 4.2.7.2.686 Kamari as Specialti [phone] Il dical es [address] [facility] 2019-08-04 2019-08-04 [facility] 1.2.840.114 [id number] Univers 00:00:00 00:00:00 [facility] 350.1.13.10 i ty of Surgical 4.2.7.2.686 Kamari as Specialti [phone] Il dical es [address] [facility] 2019-08-03 2019-08-03 Orders Doctor BULLARD 1.2.840.114 [id number] Univers 00:00:00 00:00:00 Only Unassigned, RAY 350.1.13.10 ity of [place] [facility] 4.2.7.2.686 Kamari as [phone] [address] 2019-07-21 2019-07-21 [facility] [id number] Common 08:21:00 08:21:[address] [facility] 2019-07-18 2019-07-18 [facility] [id number] Common 15:29:00 15:29:[address] [facility] 2019-07-18 2019-07-18 [facility] [id number] Common 10:15:00 10:15:[address] [facility] 2019-07-14 2019-07-14 [facility] [id number] Common 08:43:00 08:43:[address] [facility] 2019-06-13 2019-06-13 [facility] [id number] Common 11:05:00 11:05:[address] [facility] 2019-06-10 2019-06-10 [facility] [id number] Common 14:15:00 14:15:[address] [facility] 2019-05-29 2019-05-29 [facility] [id number] Common 15:08:00 15:08:[address] [facility] 2019-05-16 2019-05-16 [facility] [id number] Common 09:45:00 09:45:[address] [facility] 2019-04-25 2019-04-25 [facility] [id number] Common 11:51:00 11:51:[address] [facility] 2019-04-18 2019-04-18 [facility] [id number] Common 09:15:00 09:15:[address] [facility] 2019-01-29 2019-01-29 Out[facility] [id number] Common 12:53:00 12:53:[address] [facility] 2019-01-13 2019-01-13 Out[facility] [id number] Common 10:33:00 10:33:[address] [facility] 2019-01-10 2019-01-10 Out[facility] [id number] Common 08:45:00 08:45:[address] [facility] 2018-10-21 2018-10-21 Out[facility] [id number] Common 15:00:00 15:00:[address] [facility] 2018-10-10 2018-10-10 [facility] [id number] Common 16:34:00 16:34:[address] [facility] 2018-10-02 2018-10-02 Out[facility] [id number] Common 14:15:00 14:15:[address] [facility] 2018-08-30 2018-08-30 [facility] [id number] Common 09:45:00 09:45:00 [facility] 2018-07-05 2018-07-05 [facility] [id number] Common 11:00:00 11:00:[address] [facility] 2018-04-11 2018-04-11 Out[facility] [id number] Common 11:18:00 11:18:[address] [facility] 2018-04-05 2018-04-05 [facility] [id number] Common 08:00:00 08:00:[address] [facility] 2018-04-03 2018-04-03 Out[facility] [id number] Common 10:40:00 10:40:[address] [facility] 2018-03-08 2018-03-08 Out[facility] [id number] Common 10:00:00 10:00:[address] [facility] 2018-02-07 2018-02-07 Out[facility] [id number] Common 13:59:00 13:59:00 [facility] 2018-01-25 2018-01-25 [facility] [id number] Common 11:00:00 11:00:[address] [facility] 2018-01-14 2018-01-14 [facility] [id number] Common 15:55:00 15:55:[address] [facility] 2018-01-11 2018-01-11 [facility] [id number] Common 11:00:00 11:00:00 [facility] 2018-01-07 2018-01-07 [facility] [id number] Common 15:33:00 15:33:00 [facility] 2018-01-04 2018-01-04 [facility] [id number] Common 16:08:00 16:08:[address] [facility] 2018-01-03 2018-01-03 [facility] [id number] Common 08:15:00 08:15:[address] [facility] 2017-09-19 2017-09-19 [facility] [id number] Common 08:30:00 08:30:[address] [facility] 2017-09-14 2017-09-14 [facility] [id number] Common 11:44:00 11:44:[address] [facility] 2017-09-11 2017-09-11 [facility] [id number] Common 14:15:00 14:15:[address] [facility] Results Test Description Test Time Test Comments Results Result Comments Source POCT URINALYSIS W SPECIFIC GRAVITY 2019-08-04 01:57:00 Test Item Value Reference Range Interpretation Comme nts POCT U SP GRAV (test code = 3255) 1.020 mg/dl 1.005-1.025 POCT PH U (test code = 3254) 5 mg/dl 5-8 POCT U LEUK EST (test code = 3263) ++ Negative - Negative POCT U NIT (test code = 3262) neg Negative - Negative POCT U PROT (test code = 3259) trace Negative - Negative POCT U GLU (test code = 3256) nrg Negative - Negative POCT U KETONE (test code = 3258) neg Negative - Negative POCT U UROBILI (test code = 3260) norm 0.2-1 POCT U BILI (test code = 3261) neg Negative - Negative POCT U BLD (test code = 3257) trace Negative - Negative POCT U COLOR (test code = 3266) yellow POCT U APPEAR (test code = 3267) cloudy Lab Interpretation (test code = 99746-9) Abnormal [facility] URINALYSIS W SPECIFIC [id number] 01:57:00 Test Item Value Reference Range Interpretation Comments POCT U SP GRAV (test na 1.005-1.025 code = 3255) POCT PH U (test code na 5-8 = 3254) POCT U LEUK EST na Negative - Negative (test code = 3263) POCT U NIT (test na Negative - Negative code = 3262) POCT U PROT (test na Negative - Negative code = 3259) POCT U GLU (test na Negative - Negative code = 3256) POCT U KETONE (test na Negative - Negative code = 3258) POCT U UROBILI (test na 0.2-1 code = 3260) POCT U BILI (test na Negative - Negative code = 3261) POCT U BLD (test na Negative - Negative code = 3257) POCT U COLOR (test na code = 3266) POCT U APPEAR (test na code = 3267) KATERINA (test code = Ordered on wrong KATERINA) patient, no test was performed [facility] URINALYSIS W SPECIFIC [id number] 01:57:00 Test Item Value Reference Range Interpretation Comments POCT U SP GRAV (test na 1.005-1.025 code = 3255) POCT PH U (test code na 5-8 = 3254) POCT U LEUK EST na Negative - Negative (test code = 3263) POCT U NIT (test na Negative - Negative code = 3262) POCT U PROT (test na Negative - Negative code = 3259) POCT U GLU (test na Negative - Negative code = 3256) POCT U KETONE (test na Negative - Negative code = 3258) POCT U UROBILI (test na 0.2-1 code = 3260) POCT U BILI (test na Negative - Negative code = 3261) POCT U BLD (test na Negative - Negative code = 3257) POCT U COLOR (test na code = 3266) POCT U APPEAR (test na code = 3267) KATERINA (test code = Ordered on wrong KATERINA) patient, no test was performed [facility] [id number] 01:56:00 Test Item Value Reference Range Interpretation Comments POCT PREG (test code = 1605) On board controls Yes acceptable with C Line (test code = 3574) POCT PREG LOT # (test code = 3575) POCT PREG TEST DATE (test code = 3576) KATERINA (test code = KATERINA) No test performed on this patient Lab Interpretation (test Normal code = 75674-2) [facility] [id number] 01:56:00 Test Item Value Reference Range Interpretation Comments POCT PREG (test code = 1605) On board controls Yes acceptable with C Line (test code = 3574) POCT PREG LOT # (test code = 3575) POCT PREG TEST DATE (test code = 3576) KATERINA (test code = KATERINA) No test performed on this patient Lab Interpretation (test Normal code = 31910-0) [facility] [id number] 01:56:00 Test Item Value Reference Range Interpretation Comments POCT PREG (test code = 1605) Negative On board controls acceptable with C Yes Line (test code = 3574) POCT PREG LOT # (test code = 3575) POCT PREG TEST DATE (test code = 3576) Lab Interpretation (test code = Normal 35466-0) [facility]
[2022-05-01 15:22] LABS: Hematocrit 49.2 % (36.0-45.0); Lymphocytes % 14.4 % (15.3-44.8); MPV 7.1 fL (7.6-11.3); RBC Red Blood Cell Count 5.85 M/uL (3.86-4.86)
[2022-05-01 15:33] LABS: Protime INR 1.12
[2022-05-01 15:46] LABS: Albumin 3.8 g/dL (3.4-5.0); Bilirubin Direct 0.2 mg/dL (0-0.2); Bilirubin Total 1.2 mg/dL (0.2-1.0); Magnesium 2.3 mg/dL (1.8-2.4); Potassium 3.2 mmol/L (3.5-5.1); Protein, Total 7.4 g/dL (6.4-8.2); Troponin High Sensitivity 7.6 pg/mL (<58.9)
--- NOTE | 2022-05-01 16:06 | RAD REPORT ---
EXAM DESCRIPTION: RAD - Chest Single View - 05/01/2022 3:44 pm CLINICAL HISTORY: CHEST PAIN COMPARISON: Two view chest 11/07/2021 TECHNIQUE: AP portable chest image was obtained 05/01/2022 3:44 pm . FINDINGS: Lungs are clear. Body habitus affects and under penetrated technique cause increased opaci fication over the lower lung muñiz. Heart and vasculature are normal. No measurable pleural effusion and no pneumothorax. No acute bony abnormality seen. No acute aortic findings suspected. IMPRESSION: No acute cardiopulmonary process.
--- NOTE | 2022-05-01 18:08 | RAD REPORT ---
EXAM DESCRIPTION: CT - Chest For Pe Angio - 05/01/2022 6:01 pm CLINICAL HISTORY: chest pain, shortness of breath, hypertension COMPARISON: Chest For Pe Angio dated 07/21/2020; Chest Single View dated 05/01/2022 TECHNIQUE: Dynamically enhanced 3 mm thick images of the chest were obtained during administration o f approximately 150mL Isovue 370 IV contrast. Coronal and oblique MIP reconstruction images were gene rated and reviewed. Exam utilizes a protocol to evaluate the pulmonary arterial tree. All CT scans are performed using dose optimization technique as appropriate and may include automated exposure control or mA/KV adjustment according to patient size. FINDINGS: No pulmonary emboli are identified. The aorta as imaged shows no acute or suspicious finding. No pericardial thickening or effusion. No infiltrate or mass in the lung parenchyma. No pleural effusion or pleural thickening. No mediastinal or hilar suspicious masses. No chest wall masses or abnormal axillary lymphadenopathy. IMPRESSION: No pulmonary emboli identified. No other significant or suspicious findings.
--- NOTE | 2022-05-01 18:30 | RAD REPORT ---
EXAM DESCRIPTION: US - Abdomen Exam Limited - 05/01/2022 6:20 pm CLINICAL HISTORY: right flank pain, nausea COMPARISON: Chest For Pe Angio dated 05/01/2022 FINDINGS: No gallstones, sludge or other abnormalities within the gallbladder lumen. There is no wal l thickening or pericholecystic fluid. No common duct stone or biliary tree dilatation identified. Fatty infiltration of a partially visualized liver. IMPRESSION: Normal gallbladder and biliary tree ultrasound. Fatty liver.
--- NOTE | 2022-05-01 18:31 | EDPHYS ---
Physician Documentation [facility] Name: Nguyen Heath Age: 36 yrs Sex: Female : 1985 Arrival Date: 05/01/2022 Time: 14:13 Bed 24 Private MD: ED Physician Shaq Sauceda HPI: 05/01 16:10 This 36 yrs old Female presents to ER via Ambulatory with complaints of Breathing rn Difficulty, Back Pain. 16:10 The patient has shortness of breath at rest, with light activity. Onset: The rn symptoms/episode began/occurred 3 week(s) ago. Duration: The symptoms are intermittent. The patient's shortness of breath is aggravated by light activity, is alleviated by rest. Associated signs and symptoms: Pertinent positives: chest pain, non-productive cough, dizziness, Pertinent negatives: diaphoresis, fever, hemoptysis, loss of consciousness. Severity of symptoms: At their worst the symptoms were mild in the emergency department the symptoms are unchanged. The patient has experienced similar episodes in the past. The patient has not recently seen a physician. Pt reports intermittent sob for 3 weeks, + cough, non-productive, no hemoptysis, no fever. States never had lung problems until got COVID. Now has seen pcp and Dr. Beckwith without clear diagnosis but feels sob for long time. Today got lightheaded/dizzy and almost passed out at work so came in for eval. No hx of dvt/PE. 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 - Social history:: Smoking status: Patient reports the use of cigarette tobacco products, Patient/guardian denies using alcohol. - Family history:: not pertinent. - Hospitalizations: : No recent hospitalization is reported. ROS: 16:10 Constitutional: Negative for fever, chills, and weight loss, Eyes: Negative for injury, rn pain, redness, and discharge, ENT: Negative for injury, pain, and discharge, Neck: Negative for injury, pain, and swelling, Cardiovascular: Negative for chest pain, palpitations, and edema, Respiratory: + for cough and sob Abdomen/GI: Negative for abdominal pain, nausea, vomiting, diarrhea, and constipation, Back: Negative for injury : Negative for injury, bleeding, discharge, and swelling, MS/Extremity: Negative for injury and deformity, Skin: Negative for injury, rash, and discoloration, Neuro: Negative for headache, weakness, numbness, tingling, and seizure. Exam: 16:09 ECG was reviewed by the Attending Physician. rn 16:10 Constitutional: This is a well developed, well nourished patient who is awake, alert, rn appears anxious. Head/Face: Normocephalic, atraumatic. Eyes: Periorbital areas with no swelling, redness, or edema. Cardiovascular: Tachycardic, regular. No pulse deficits. Respiratory: No increased work of breathing, no retractions or nasal flaring. Abdomen/GI: Soft, non-tender Skin: Warm, dry MS/ Extremity: Pulses equal, no cyanosis. Neurovascular intact. Full, normal range of motion. Equal circumference. Neuro: Awake and alert, GCS 15 Vital Signs: 14:30 BP 159 / 86; Pulse 110; Resp 18; Temp 98.7(O); Pulse Ox 96% on R/A; Weight 99.79 kg; ld1 Height 5 ft. 2 in. (157.48 cm); Pain 2/10; 15:30 BP 129 / 92; Pulse 103; Resp 18; Pulse Ox 98% on R/A; kr3 16:30 BP 122 / 97; Pulse 110; Resp 18; Pulse Ox 99% on R/A; kr3 17:30 BP 142 / 92; Pulse 101; Resp 18; Pulse Ox 98% on R/A; kr3 18:31 BP 134 / 53; Pulse 98; Resp 18; Pulse Ox 99% on R/A; kr3 14:30 Body Mass Index 40.24 (99.79 kg, 157.48 cm) ld1 MDM: 14:36 Patient medically screened. rn 18:28 Differential diagnosis: Anxiety Reaction Bronchitis pneumonia, Pneumothorax pulmonary rn edema, Pulmonary Embolism reactive airway disease. Data reviewed: vital signs, nurses notes, lab test result(s), EKG, radiologic studies, CT scan, plain films, ultrasound, and as a result, I will discharge patient. Counseling: I had a detailed discussion with the patient and/or guardian regarding: the historical points, exam findings, and any diagnostic results supporting the discharge/admit diagnosis, lab results, radiology results, the need for outpatient follow up, to return to the emergency department if symptoms worsen or persist or if there are any questions or concerns that arise at home. Special discussion: I discussed with the patient/guardian in detail that at this point there is no indication for admission to the hospital. It is understood, however, that if the symptoms persist or worsen the patient needs to return immediately for re-evaluation. Based on the history and exam findings, there is no indication for further emergent testing or inpatient evaluation. I discussed with the patient/guardian the need to see the drama director for further evaluation of the symptoms. ED course: Elevated WBC, clear CT PE protocol, neg flu. Will dc home with Dr. Beckwith f/chelsea . 05/01 14:51 Order name: BMP; Complete Time: 17: 05/01 14:51 Order name: Blood Culture Adult (2) 05/01 14:51 Order name: CBC with Diff; Complete Time: : 05/01 14:51 Order name: Hepatic Function; Complete Time: : 05/01 14:51 Order name: Magnesium; Complete Time: : 05/01 14:51 Order name: NT PRO-BNP; Complete Time: : 05/01 14:51 Order name: PT-INR; Complete Time: : 05/01 14:51 Order name: Ptt, Activated; Complete Time: 17: 05/01 14:51 Order name: Troponin HS; Complete Time: 17: 05/01 14:51 Order name: XRAY CXR (1 view); Complete Time: 17: 05/01 14:51 Order name: Flu; Complete Time: : 05/01 14:51 Order name: CT Chest For PE Angio; Complete Time: 18:22 05/01 17:27 Order name: US Abdomen Limited; Complete Time: 18:34 05/01 14:51 Order name: EKG; Complete Time: 14:52 rn 05/01 14:51 Order name: Cardiac monitoring; Complete Time: 15:50 rn 05/01 14:51 Order name: EKG - Nurse/Tech; Complete Time: 15:50 rn 05/01 14:51 Order name: IV Saline Lock; Complete Time: 15:15 rn 05/01 14:51 Order name: Labs collected and sent; Complete Time: 15:15 rn 05/01 14:51 Order name: O2 Per Protocol; Complete Time: 15:15 rn 05/01 14:51 Order name: O2 Sat Monitoring; Complete Time: 15:15 rn EC:09 Rate is 99 beats/min. Rhythm is regular. Right axis deviation noted. QRS is positive in rn lead aVF and negative in lead I. [place] interval is normal. QRS interval is normal. QT interval is normal. No Q waves. T waves are Normal. No ST changes noted. Clinical impression: NSR w/ Non-specific ST/T Changes. Interpreted by me. Reviewed by me. Administered Medications: No medications were administered Disposition Summary: 05/01/22 18:30 Discharge Ordered Location: Home rn Problem: an ongoing problem rn Symptoms: have improved rn Condition: Stable rn Diagnosis - Dyspnea, unspecified rn - Cough rn Followup: rn - With: Rafael Beckwith MD - When: As needed - Reason: Recheck today's complaints, Re-evaluation by your physician Discharge Instructions: - Discharge Summary Sheet rn - Shortness of Breath, Adult rn - Cough, Adult rn Forms: - Medication Reconciliation Form rn - Thank You Letter rn - Antibiotic physician internist - Prescription Opioid Use rn Prescriptions: - levofloxacin 500 mg Oral Tablet - take 1 tablet by ORAL route once daily for 7 days; 7 tablet; Refills: 0, rn Product Selection Permitted Signatures: Dispatcher [employer] Shaq Marie MD MD rn Dibbern, Lauren RN RN ld1 Corrections: (The following items were deleted from the chart) 17:45 17:43 Urine Dipstick-Ancillary ordered. rn rn 17:45 17:43 Urine Test ordered. rn rn
--- NOTE | 2022-05-01 18:31 | ER ---
Nurse's Notes [facility] Name: Nguyen Heath Age: 36 yrs Sex: Female : 1985 Arrival Date: 05/01/2022 Time: 14:13 Bed 24 Private MD: Diagnosis: Dyspnea, unspecified;Cough Presentation: 05/01 14:30 Chief complaint: Patient states: Dizziness at work today, nausea, pain in right flank. ld1 Coronavirus screen: At this time, the client does not indicate any symptoms associated with coronavirus-19. Ebola Screen: No symptoms or risks identified at this time. Initial Sepsis Screen: Does the patient meet any 2 criteria? No. Patient's initial sepsis screen is negative. Does the patient have a suspected source of infection? No. Patient's initial sepsis screen is negative. Risk Assessment: Do you want to hurt yourself or someone else? Patient reports no desire to harm self or others. Onset of symptoms was May 01, 2022 at 14:31. 14:30 Method Of Arrival: Ambulatory ld1 14:30 Acuity: TITO 3 ld1 Triage Assessment: 14:31 General: Appears in no apparent distress. comfortable, Behavior is calm, cooperative, ld1 appropriate for age. Pain: Complains of pain in right low back Pain does not radiate. Pain currently is 2 out of 10 on a pain scale. Quality of pain is described as throbbing. EENT: No signs and/or symptoms were reported regarding the EENT system. Neuro: Level of Consciousness is awake, alert, obeys commands, Oriented to person, place, time, situation, Appropriate for age. Cardiovascular: Capillary refill < 3 seconds Patient's skin is warm and dry. Respiratory: Reports shortness of breath at rest on exertion Airway is patent Respiratory effort is even, unlabored, Onset: The symptoms/episode began/occurred gradually, the patient reports symptoms have resolved. GI: Abdomen is round non-distended. : No signs and/or symptoms were reported regarding the genitourinary system. Derm: No signs and/or symptoms reported regarding the dermatologic system. Musculoskeletal: No signs and/or symptoms reported regarding the musculoskeletal system. 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 - Social history:: Smoking status: Patient reports the use of cigarette tobacco products, Patient/guardian denies using alcohol. - Family history:: not pertinent. - Hospitalizations: : No recent hospitalization is reported. Screenin:57 Abuse screen: Denies threats or abuse. Nutritional screening: No deficits noted. kr3 Tuberculosis screening: No symptoms or risk factors identified. Fall Risk IV access (20 points). Total Grimm Fall Scale indicates No Risk (0-24 pts). Assessment: 14:39 General: Appears in no apparent distress. comfortable, Behavior is calm, cooperative, kr3 appropriate for age. Cardiovascular: Patient's skin is warm and dry. 14:39 Respiratory: Airway is patent Respiratory effort is even, unlabored, Respiratory kr3 pattern is regular, symmetrical. 15:40 Reassessment: No changes from previously documented assessment. Patient and/or family kr3 updated on plan of care and expected duration. Pain level reassessed. Patient is alert, oriented x 3, equal unlabored respirations, skin warm/dry/pink. 16:45 Reassessment: No changes from previously documented assessment. Patient and/or family kr3 updated on plan of care and expected duration. Pain level reassessed. Patient is alert, oriented x 3, equal unlabored respirations, skin warm/dry/pink. 17:52 Reassessment: No changes from previously documented assessment. Patient and/or family kr3 updated on plan of care and expected duration. Pain level reassessed. Patient is alert, oriented x 3, equal unlabored respirations, skin warm/dry/pink. 18:29 Reassessment: No changes from previously documented assessment. Patient and/or family kr3 updated on plan of care and expected duration. Pain level reassessed. Patient is alert, oriented x 3, equal unlabored respirations, skin warm/dry/pink. Cardiovascular: Patient's skin is warm and dry. Respiratory: Breath sounds are clear bilaterally. 18:30 Cardiovascular: Rhythm is sinus rhythm. kr3 Vital Signs: 14:30 BP 159 / 86; Pulse 110; Resp 18; Temp 98.7(O); Pulse Ox 96% on R/A; Weight 99.79 kg; ld1 Height 5 ft. 2 in. (157.48 cm); Pain 2/10; 15:30 BP 129 / 92; Pulse 103; Resp 18; Pulse Ox 98% on R/A; kr3 16:30 BP 122 / 97; Pulse 110; Resp 18; Pulse Ox 99% on R/A; kr3 17:30 BP 142 / 92; Pulse 101; Resp 18; Pulse Ox 98% on R/A; kr3 18:31 BP 134 / 53; Pulse 98; Resp 18; Pulse Ox 99% on R/A; kr3 14:30 Body Mass Index 40.24 (99.79 kg, 157.48 cm) ld1 ED Course: 13:05 Inserted saline lock: 20 gauge in left antecubital area, using aseptic technique. Blood mb8 collected. 14:13 Patient arrived in ED. mr 14:31 Triage completed. ld1 14:31 Arm band placed on right wrist. ld1 14:35 Bed in low position. Call light in reach. Side rails up X 1. kr3 14:36 Shaq Sauceda MD is Attending Physician. rn 14:39 Anne Rendon RN is Primary Nurse. kr3 15:15 No provider procedures requiring assistance completed. mb8 15:46 XRAY CXR (1 view) In Process Unspecified. EDMS 18:03 CT Chest For PE Angio In Process Unspecified. EDMS 18:22 US Abdomen Limited In Process Unspecified. EDMS 18:30 Rafael Beckwith MD is Referral Physician. rn 18:37 IV discontinued, intact, bleeding controlled, No redness/swelling at site. Pressure kr3 dressing applied. Administered Medications: No medications were administered Medication: 15:15 VIS not applicable for this client. mb8 Outcome: 18:30 Discharge ordered by . rn 18:37 Discharged to home ambulatory. kr3 18:37 Condition: stable 18:37 Discharge instructions given to patient, Instructed on discharge instructions, follow up and referral plans. medication usage, Demonstrated understanding of instructions, follow-up care, medications, Prescriptions given X 1. 18:37 Patient left the ED. kr3 Signatures: Dispatcher [employer] [facility] TySusan Shaq Hardwick MD MD rn Dibbern, Lauren RN RN ld1 Anne Rendon RN RN kr3 Aleksandar Lam RN RN mb8 Corrections: (The following items were deleted from the chart) 18:30 17:57 Cardiovascular: Rhythm is kr3 kr3
[2022-05-01 19:57] VITALS: TEMP 98.7
[2022-05-01 20:02] VITALS: BP 134/53; O2SAT 99
--- NOTE | 2022-05-02 13:57 | EKG ---
Test Date: 2022-05-01 Test Time: 15:21:43 Transfer Machine Operator: MEASUREMENT RESULTS: Intervals: Rate: 99 MI: 166 QRSD: 80 QT: 342 QTc: 438 Stuart: P: 54 MI: 166 QRS: 105 T: 18 INTERPRETIVE STATEMENTS: Normal sinus rhythm Rightward axis Borderline ECG Compared to ECG 01/20/2021 15:21:04 No significant changes Electronically Signed On 05-02-22 13:55:40 ARMAMENT MECHANIC by Valerio Coulter
== END 2022-05-01 18:37 | disposition home or self-care (01) ==
LOC: ER 14:10
DX: R06.00 Dyspnea, unspecified (principal); R05.9 Cough, unspecified
CPT/HCPCS: 93005; 87040 ×2; 85025; 80048; 36415; 83735; 85610; 80076; 85730; 84484; 83880; 87804 ×2; 71275; 71045; 76705; 99284; Q9967